=== PATIENT | male | born 1960 | race Caucasian/White ===

== ENCOUNTER 2016-12-06 12:25 | Inpatient (IN) | payer MEDICARE ==
[2016-12-06] MEDS ORDERED: ASPIRIN 81 MG CHEW PO STA (12:53)
[2016-12-06] MEDS ORDERED: SODIUM CHLORIDE 0.9% 500 ML IV STA (12:53)
--- NOTE | 2016-12-06 13:05 | ED ---
General Adult HPI - General Chief complaint: Extremity Injury, Lower Stated complaint: Knee problems Time Seen by Provider: 12/06/16 12:32 Source: patient, family, RN notes reviewed Mode of arrival: wheelchair Limitations: no limitations - History of Present Illness Initial comments: 56-year-old male presenting for transient lower extremity weakness. Patient states that he has had recurrent episodes of his "knees giving out." Patient states that this is been going on for the past few years and episodes occur every month or so. However over the past few months and seems like these episodes are happening every 2 weeks and more frequently over the past few weeks. He states he has a sensation like his "knees are going to give out" and then he feels generalized fatigue and weakness. States afterwards he has had some "cloudiness" in his thinking. He also states she's had some intermittent chest pains and shortness of breath over the past few weeks, most recently yesterday. He denies any active chest pain or shortness of breath. He denies any knee pain. Doesn't have history of hypertension, diabetes, hypercholesterolemia. He states he had a stress test a few years ago which was unremarkable. He states he was worked up at [facility] by a year ago for stroke which was unremarkable as well. He does admit to tobacco abuse. - Related Data Home Medications Medication Instructions Recorded Confirmed Aspirin 81 mg PO HS 07/11/14 12/06/16 Gabapentin [Neurontin] 300 mg PO TID 07/11/14 12/06/16 Losartan Potassium [Cozaar] 50 mg PO DAILY 07/11/14 12/06/16 Metoclopramide [Reglan] 10 mg PO BID 07/11/14 12/06/16 Metoprolol Succinate [Toprol XL] 25 mg PO HS 07/11/14 12/06/16 metFORMIN HCL [Glucophage] 850 mg PO TID 07/11/14 12/06/16 Atorvastatin [Lipitor] 40 mg PO HS 07/05/15 12/06/16 Glimepiride [Amaryl] 2 mg PO HS 01/28/16 12/06/16 LORazepam [Ativan] 1 mg PO HS 01/28/16 12/06/16 Mirtazapine 30 mg PO DAILY 01/28/16 12/06/16 buPROPion XL [Wellbutrin Xl] 300 mg PO DAILY 12/06/16 12/06/16 Allergies Allergy/AdvReac Type Severity Reaction Status Date / Time No Known Allergies Allergy Verified 12/06/16 13:02 Review of Systems ROS Statement: Those systems with pertinent positive or pertinent negative responses have been documented in the HPI. Constitutional: No fevers. No chills. No change in appetite. No unexpected weight loss. Eyes: No visual changes. No eye pain. No sensitivity to light. HENT: No sinus pressure. No ear pain. No hearing changes. No epistaxis. No sore throat. Respiratory: No cough. Positive SOB but not currently. No wheezing. Cardiovascular: Positive chest pain but not currently. No palpitations. No lower extremity edema. Abdomen: No abdominal pain. No nausea. No vomiting. No diarrhea. Genitourinary: No dysuria. No hematuria. No difficulty urinating. No flank pain. Musculoskeletal: No injury. No back pain. No myalgias. Skin: No rash. No lesions. No lacerations. Neuro: Positive generalized weakness. No gross strength deficits. No LOC. No seizures. No headache. Positive dizziness. Psych: No confusion. No memory changes. No anxiety/depression. ROS Other: All systems not noted in ROS Statement are negative. Past Medical History Past Medical History: Diabetes Mellitus, Hyperlipidemia, Hypertension Additional Past Medical History / Comment(s): back pain, neuropathy, brain aneursym History of Any Multi-Drug Resistant Organisms: None Reported Past Surgical History: Orthopedic Surgery Additional Past Surgical History / Comment(s): finger Past Psychological History: Anxiety, Depression Smoking Status: Current every day smoker Past Alcohol Use History: Daily Past Drug Use History: None Reported General Exam - General Exam Comments Initial Comments: General: Awake and Alert. No acute distress. Does not appear acutely ill. Obese. Eyes: MERLE, EOM intact. No nystagmus. No scleral icterus. HENT: Atraumatic, normocephalic. Mucous membranes moist. Trachea midline. Neck: The neck is supple, there is no tenderness or JVD. Cardiovascular: Regular rate and rhythm. No murmur, rub, or gallop is appreciated. Distal pulses intact, 2+ radial and DP bilaterally. Respiratory: Lungs are clear to auscultation bilaterally. No wheezes, rales, rhonchi. No respiratory distress. Gastrointestinal: Soft, Nontender. No rebound or guarding. Non-distended. No masses or organomegaly noted. No CVA tenderness. Musculoskeletal: No knee tenderness bilaterally with normal range of motion. No tenderness. Normal ROM. No gross deformity. No strength deficits. Neurological: A&Ox3. CN II-XII grossly intact, There are no obvious motor or sensory deficits. Coordination appears grossly intact. Speech is normal. Skin: Skin is warm and dry and no rashes or lesions are noted. Psychiatric: Cooperative, appropriate mood & affect, normal judgment. Limitations: no limitations Course Vital Signs 12/06/16 12/06/16 12/06/16 12:27 14:30 16:00 Temperature 98.0 F 98.3 F Pulse Rate 105 H 88 Respiratory 16 18 20 Rate Blood Pressure 144/66 138/72 O2 Sat by Pulse 95 94 L Oximetry EKG Findings - EKG Comments: EKG Findings:: EKG 13:01. Sinus rhythm. Rate 95. WV 138. QRS 84. QT/QTc 338 /424. Normal axis. No STEMI. Nonspecific EKG. Similar to prior EKG 2014. Medical Decision Making - Medical Decision Making 56-year-old male presenting for episodes of transient generalized weakness and possible near syncopal episodes. Patient does state that he has "cloudiness" after these events. Concern for possible atypical or partial seizures. He denies any headache or visual changes. He states today he had an event where he did lose tone and fell against the wall. He denies any significant fall or injury during the spell. He did not lose consciousness at that time. He does state that he has had some recent chest pains and shortness of breath as well. Per review he did have a stress test in July 2015 which was normal. The patient states he has had a CVA type workup in the past year which was unremarkable including MRI. Although I do not have access to these records as this was at [facility]. 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 Lab workup grossly unremarkable. Initial troponin was negative and setting of cardiac workup. Patient reevaluated, remained stable during his course in ED. Discussed concern for possible changes related to his known longoria aneurysm given his new neurological problems related to his gait and transient weakness. Discussed concern for possible seizure activity as well given his history of possible postictal state after these episodes occur. Recommend that he stay for admission for repeat MRA as well as neurological consultation. Patient and are agreeable with this plan. I called and discussed with Dr. Shay, covering for Dr. Eldridge. She is agreeable with plan of admission. Requests consultation to Dr. Mejia who has seen patient in the past. She agrees with plan for MRA. - Lab Data Result diagrams: 12/06/16 13:20 12/06/16 13:20 Lab Results 12/06/16 12/06/16 12/06/16 Range/Units 13:20 13:20 13:20 WBC 8.9 (3.8-10.6) k/uL RBC 5.38 (4.30-5.90) m/uL Hgb 16.4 (13.0-17.5) gm/dL Hct 49.5 (39.0-53.0) % MCV 92.1 (80.0-100.0) fL MCH 30.5 (25.0-35.0) pg MCHC 33.1 (31.0-37.0) g/dL RDW 13.2 (11.5-15.5) % Plt Count 236 (150-450) k/uL Neutrophils % (Manual) 53.0 % Lymphocytes % (Manual) 36.0 % Monocytes % (Manual) 7.0 % Eosinophils % (Manual) 4.0 % Neutrophils # (Manual) 4.7 (1.3-7.7) k/uL Lymphocytes # (Manual) 3.2 (1.0-4.8) k/uL Monocytes # (Manual) 0.6 (0-1.0) k/uL Eosinophils # (Manual) 0.4 (0-0.7) k/uL Nucleated RBCs 0 (0-0) /100 WBC Polychromasia Present Sodium 138 (137-145) mmol/L Potassium 4.7 (3.5-5.1) mmol/L Chloride 103 (98-107) mmol/L Carbon Dioxide 20 L (22-30) mmol/L Anion Gap 15 mmol/L BUN 13 (9-20) mg/dL Creatinine 0.70 (0.66-1.25) mg/dL Est GFR (MDRD) Af Amer >60 (>60 ml/min/1.73 sqM) Est GFR (MDRD) Non-Af >60 (>60 ml/min/1.73 sqM) Glucose 127 H (74-99) mg/dL Calcium 9.3 (8.4-10.2) mg/dL Magnesium 1.7 (1.6-2.3) mg/dL CK-MB (CK-2) 2.1 (0.0-2.4) ng/mL Troponin I <0.012 (0.000-0.034) ng/mL NT-Pro-B Natriuret Pep pg/mL Urine Color Urine Appearance (Clear) Urine pH (5.0-8.0) Ur Specific [place] (1.001-1.035) Urine Protein (Negative) Urine Glucose (UA) (Negative) Urine Ketones (Negative) Urine Blood (Negative) Urine Nitrate (Negative) Urine Bilirubin (Negative) Urine Urobilinogen (<2.0) mg/dL Ur Leukocyte Esterase (Negative) 12/06/16 12/06/16 Range/Units 13:20 14:45 WBC (3.8-10.6) k/uL RBC (4.30-5.90) m/uL Hgb (13.0-17.5) gm/dL Hct (39.0-53.0) % MCV (80.0-100.0) fL MCH (25.0-35.0) pg MCHC (31.0-37.0) g/dL RDW (11.5-15.5) % Plt Count (150-450) k/uL Neutrophils % (Manual) % Lymphocytes % (Manual) % Monocytes % (Manual) % Eosinophils % (Manual) % Neutrophils # (Manual) (1.3-7.7) k/uL Lymphocytes # (Manual) (1.0-4.8) k/uL Monocytes # (Manual) (0-1.0) k/uL Eosinophils # (Manual) (0-0.7) k/uL Nucleated RBCs (0-0) /100 WBC Polychromasia Sodium (137-145) mmol/L Potassium (3.5-5.1) mmol/L Chloride (98-107) mmol/L Carbon Dioxide (22-30) mmol/L Anion Gap mmol/L BUN (9-20) mg/dL Creatinine (0.66-1.25) mg/dL Est GFR (MDRD) Af Amer (>60 ml/min/1.73 sqM) Est GFR (MDRD) Non-Af (>60 ml/min/1.73 sqM) Glucose (74-99) mg/dL Calcium (8.4-10.2) mg/dL Magnesium (1.6-2.3) mg/dL CK-MB (CK-2) (0.0-2.4) ng/mL Troponin I (0.000-0.034) ng/mL NT-Pro-B Natriuret Pep 38 pg/mL Urine Color Light Yellow Urine Appearance Clear (Clear) Urine pH 5.5 (5.0-8.0) Ur Specific [place] 1.006 (1.001-1.035) Urine Protein Negative (Negative) Urine Glucose (UA) Negative (Negative) Urine Ketones Negative (Negative) Urine Blood Negative (Negative) Urine Nitrate Negative (Negative) Urine Bilirubin Negative (Negative) Urine Urobilinogen <2.0 (<2.0) mg/dL Ur Leukocyte Esterase Negative (Negative) - EKG Data EKG shows normal: sinus rhythm Rate: normal When compared to previous EKG there are: no significant change Interpretation: no acute changes - Radiology Data Radiology results: report reviewed, image reviewed Disposition Clinical Impression: Generalized weakness, Near syncope, Chest pain, Longoria aneurysm Disposition: ADMITTED IP TO THIS [facility] Condition: Stable Decision to Admit Reason: Admit from EC
[2016-12-06 13:45] LABS: Anion Gap 15 mmol/L; Blood Urea Nitrogen 13 mg/dL (9-20); Calcium 9.3 mg/dL (8.4-10.2); Carbon Dioxide 20 mmol/L (22-30); Chloride 103 mmol/L (98-107); Glucose 127 mg/dL (74-99); Magnesium 1.7 mg/dL (1.6-2.3); Non-African American GFR(MDRD) >60 (>60 ml/min/1.73 sqM); Potassium 4.7 mmol/L (3.5-5.1); Sodium 138 mmol/L (137-145)
--- NOTE | 2016-12-06 13:45 | XR ---
EXAMINATION TYPE: XR chest 2V DATE OF EXAM: 12/06/2016 1:37 PM COMPARISON: 07/05/2015 HISTORY: Shortness of breath TECHNIQUE: Frontal and lateral views of the chest are obtained. FINDINGS: Scattered senescent parenchymal changes noted. Hyperinflation compatible with COPD. No evidence for infiltrate. No evidence for atelectasis. Heart size is stable. Mediastinal structures are stable and grossly unremarkable. No evidence for hilar prominence. Degenerative changes dorsal spine. IMPRESSION: 1. No evidence for acute pulmonary disease.
[2016-12-06 13:47] LABS: Aty Lym Flag Slight; CHCM 33.9; HCT 49.5 % (39.0-53.0); HDW 2.67; HGB 16.4 gm/dL (13.0-17.5); MCH 30.5 pg (25.0-35.0); MCHC 33.1 g/dL (31.0-37.0); MCV 92.1 fL (80.0-100.0); Mean Platelet Volume 6.2; RBC 5.38 m/uL (4.30-5.90); RDW 13.2 % (11.5-15.5); WBC 8.9 k/uL (3.8-10.6); WBC (Perox) 9.07
[2016-12-06 13:59] LABS: Add Differential Manual Differential
[2016-12-06 14:00] LABS: Nucleated Red Blood Cells 0 /100 WBC (0-0); Total Cells Counted 100
[2016-12-06 14:01] LABS: Polychromasia Present
[2016-12-06 14:10] LABS: Creatine Kinase MB 2.1 ng/mL (0.0-2.4); Troponin I <0.012 ng/mL (0.000-0.034)
[2016-12-06 15:01] LABS: Appearance,Urine Clear (Clear); Bilirubin,Urine Negative (Negative); Glucose,Urine (UA) Negative (Negative); Ketones,Urine Negative (Negative); Leukocyte Esterase,Urine Negative (Negative); Nitrite,Urine Negative (Negative); PH, Urine 5.5 (5.0-8.0); Protein,Urine Negative (Negative); Specific Gravity,Urine 1.006 (1.001-1.035); UA Billing (MACRO vs. MICRO) CHEM; Urobilinogen,Urine <2.0 mg/dL (<2.0)
[2016-12-06] MEDS ORDERED: NALOXONE 0.4 MG/ML 1 ML VIAL IV PRN (15:26)
[2016-12-06] MEDS ORDERED: ACETAMINOPHEN TAB 325 MG TAB PO PRN (15:26)
[2016-12-06] MEDS ORDERED: ONDANSETRON 4 MG/2 ML VIAL IVP PRN (15:26)
[2016-12-06] MEDS: HEPARIN SODIUM,PORCINE 5,000 UNIT/ML 1 ML VIAL SQ SCH ×2 (16:03→23:49)
[2016-12-06] MEDS: LACTATED RINGERS 1,000 ML IV SCH (16:07)
[2016-12-06 17:34] VITALS: BMI 42.4
[2016-12-06 17:51] LABS: Glucose,Whole Blood 183 mg/dL (75-99)
--- NOTE | 2016-12-06 19:36 | CT ---
EXAMINATION TYPE: CT brain wo con DATE OF EXAM: 12/06/2016 7:31 PM COMPARISON: NONE HISTORY: Pt states of aneurysm. CT DLP: 997.6 mGycm Automated exposure control for dose reduction was used. FINDINGS: Ventricles and sulci appear normal. There is no mass effect or midline shift. There is no sign of int racranial hemorrhage. The calvarium is intact. There is mild mucosal thickening in the ethmoid sinus. IMPRESSION: Minimal ethmoid sinusitis. Otherwise negative exam.
[2016-12-06 20:55] LABS: Glucose,Whole Blood 190 mg/dL (75-99)
[2016-12-06] MEDS: ATORVASTATIN 40 MG TAB PO SCH (21:19)
[2016-12-06] MEDS: INSULIN LISPRO (humaLOG) 300 UNIT/3 ML VIAL SQ SCH (21:19)
[2016-12-06] MEDS: METOCLOPRAMIDE 10 MG TAB PO SCH (21:19)
[2016-12-06] MEDS: GABAPENTIN 300 MG CAP PO SCH (21:19)
[2016-12-06] MEDS: ASPIRIN 81 MG CHEW PO SCH (21:19)
[2016-12-06] MEDS: METOPROLOL SUCCINATE (ER) 25 MG TAB.ER.24H PO SCH (21:19)
[2016-12-07 06:00] LABS: Basophils # (A) 0.1 k/uL (0-0.2); Basophils % (A) 1 %; CHCM 33.4; Eosinophils # (A) 0.1 k/uL (0-0.7); Eosinophils % (A) 2 %; HCT 53.2 % (39.0-53.0); HDW 2.64; HGB 17.2 gm/dL (13.0-17.5); Luc # (Auto) 0.27; Luc % (Auto) 4; Lymphocytes # (A) 1.9 k/uL (1.0-4.8); Lymphocytes % (A) 30 %; MCH 30.2 pg (25.0-35.0); MCHC 32.4 g/dL (31.0-37.0); MCV 93.1 fL (80.0-100.0); Monocytes # (A) 0.5 k/uL (0-1.0); Monocytes % (A) 8 %; Neutrophils # (A) 3.4 k/uL (1.3-7.7); Neutrophils % (A) 55 %; RBC 5.71 m/uL (4.30-5.90); RDW 13.2 % (11.5-15.5); WBC 6.2 k/uL (3.8-10.6); WBC (Perox) 6.23
[2016-12-07 06:13] LABS: Anion Gap 12 mmol/L; Blood Urea Nitrogen 11 mg/dL (9-20); Calcium 9.4 mg/dL (8.4-10.2); Carbon Dioxide 26 mmol/L (22-30); Chloride 102 mmol/L (98-107); Glucose 230 mg/dL (74-99); Magnesium 1.9 mg/dL (1.6-2.3); Non-African American GFR(MDRD) >60 (>60 ml/min/1.73 sqM); Potassium 5.2 mmol/L (3.5-5.1); Sodium 140 mmol/L (137-145)
[2016-12-07 06:23] LABS: Glucose,Whole Blood 224 mg/dL (75-99)
[2016-12-07] MEDS: INSULIN LISPRO (humaLOG) 300 UNIT/3 ML VIAL SQ SCH ×4 (06:26→20:51)
[2016-12-07] MEDS: HEPARIN SODIUM,PORCINE 5,000 UNIT/ML 1 ML VIAL SQ SCH ×3 (08:34→23:13)
[2016-12-07] MEDS: GABAPENTIN 300 MG CAP PO SCH ×3 (08:34→20:03)
[2016-12-07] MEDS: METOCLOPRAMIDE 10 MG TAB PO SCH ×2 (08:34→20:03)
[2016-12-07] MEDS: LOSARTAN 50 MG TAB PO SCH (08:34)
[2016-12-07] MEDS: MIRTAZAPINE 15 MG TAB PO SCH (08:34)
[2016-12-07] MEDS: buPROPion XL 300 MG TAB.ER.24H PO SCH (08:34)
--- NOTE | 2016-12-07 11:45 | P.CNNES ---
History of Present Illness Consult date: 12/07/16 Reason for Consult: Patient with recurrent bilateral leg weakness and history of turner aneurysm History of Present Illness: This patient is a 56-year-old right-handed white male who was brought into the emergency room yesterday with symptoms of bilateral leg weakness. The patient apparently over the last 2 years has been having episodic weakness in his legs. Apparently yesterday he was at home helping his construct a fireplace when his legs gave out. He was standing at the living room and apparently both legs and knees buckled and he went down. He did not have any loss of consciousness. This has been occurring every 2-3 weeks according to the was at bedside. He does not complain of any pain in the back when these episodes are occurring. He does have history of degenerative arthritis of the lumbar spine. He denies any shooting pain into either legs when these episodes occur. He denies any loss of consciousness. He does describe some episodes of mild confusion but no loss of consciousness or seizure activity associated with these episodes. 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 He follows with the neuro specialist Dr. Mari who did a MRA last year and showed that the turner aneurysm has remained stable. He is to have repeat MRA done in 2 years. Patient denies any headaches associated with these recent episodes. He does have a history of diabetes mellitus. His most recent hemoglobin A1c was 8.4. He does have evidence of neuropathy in both lower extremities secondary to his diabetes. It is possible his weakness in the legs is secondary to diffuse diabetic neuropathy. We would recommend a physical therapy consultation for further assessment. Patient denies any history of seizures in the past. He does get lightheaded at times. He has not had his carotid Dopplers checked recently and we would recommend this to be done as well. Neurology is now been consulted for further evaluation and recommendations. Review of Systems Constitutional: Denies chills, Denies fever Eyes: denies blurred vision, denies pain Ears, nose, mouth and throat: Denies headache, Denies sore throat Cardiovascular: Denies chest pain, Denies shortness of breath Respiratory: Denies cough Gastrointestinal: Denies abdominal pain, Denies diarrhea, Denies nausea, Denies vomiting Musculoskeletal: Denies myalgias Integumentary: Denies pruritus, Denies rash Neurological: Reports balance difficulties, Reports confusion, Reports syncope, Denies numbness, Denies weakness Psychiatric: Denies anxiety, Denies depression Endocrine: Denies fatigue, Denies weight change Past Medical History Past Medical History: Diabetes Mellitus, Hyperlipidemia, Hypertension Additional Past Medical History / Comment(s): back pain, neuropathy, brain aneursym History of Any Multi-Drug Resistant Organisms: None Reported Past Surgical History: Orthopedic Surgery Additional Past Surgical History / Comment(s): finger Past Psychological History: Anxiety, Depression Smoking Status: Current every day smoker Past Alcohol Use History: Daily Past Drug Use History: None Reported Medications and Allergies Home Medications Medication Instructions Recorded Confirmed Type Aspirin 81 mg PO HS 07/11/14 12/06/16 History Gabapentin [Neurontin] 300 mg PO TID 07/11/14 12/06/16 History Losartan Potassium [Cozaar] 50 mg PO DAILY 07/11/14 12/06/16 History Metoclopramide [Reglan] 10 mg PO BID 07/11/14 12/06/16 History Metoprolol Succinate [Toprol XL] 25 mg PO HS 07/11/14 12/06/16 History metFORMIN HCL [Glucophage] 850 mg PO TID 07/11/14 12/06/16 History Atorvastatin [Lipitor] 40 mg PO HS 07/05/15 12/06/16 History Glimepiride [Amaryl] 2 mg PO HS 01/28/16 12/06/16 History LORazepam [Ativan] 1 mg PO HS 01/28/16 12/06/16 History Mirtazapine 30 mg PO DAILY 01/28/16 12/06/16 History buPROPion XL [Wellbutrin Xl] 300 mg PO DAILY 12/06/16 12/06/16 History Allergies Allergy/AdvReac Type Severity Reaction Status Date / Time No Known Allergies Allergy Verified 12/06/16 13:02 Physical Examination - Vital Signs Vital Signs: Vital Signs Temp Pulse Pulse Pulse Resp BP BP 12/07/16 08:00 97.5 F L 86 18 123/65 12/07/16 03:04 97.8 F 76 18 108/64 12/06/16 23:57 80 16 134/76 12/06/16 19:47 97.6 F 87 16 138/76 12/06/16 16:00 98.3 F 88 20 138/72 12/06/16 15:44 97.5 F L 98 18 158/80 Pulse Ox 12/07/16 08:00 93 L 12/07/16 03:04 93 L 12/06/16 23:57 95 12/06/16 19:47 96 12/06/16 16:00 94 L 12/06/16 15:44 94 L Intake and Output 12/06/16 12/07/16 12/07/16 22:59 06:59 14:59 Intake Total 540 300 240 Balance 540 300 240 Intake: Oral 540 300 240 Other: # Voids 1 1 1 # Bowel Movements 0 0 Weight 115.6 kg 112.4 kg - Constitutional General appearance: cooperative - EENT EENT: PERRL, mucous membranes moist - Respiratory Respiratory: lungs clear, normal breath sounds - Cardiovascular Cardiovascular: regular rate, normal S1, normal S2 Extremities: no peripheral edema bilaterally - Gastrointestinal Gastrointestinal: normoactive bowel sounds - Integumentary Integumentary: normal - Neurologic Cranial nerve examination: PERRL, EOMI, VFF, V1/V2/V3 grossly intact, tongue midline, intact gag reflex, intact corneal reflex, normal palatal elevation Speech examination: intact Sensorimotor examination: intact Detailed motor examination: grossly full strength in all extremities Detailed sensory examination: intact Reflex and gait examination: intact Reflexes: 1+: ankle, bicep, knee, tricep - Musculoskeletal Musculoskeletal: no pain - Psychiatric Psychiatric: mood/affect appropriate, cooperative Results - Laboratory Findings CBC and BMP: 12/07/16 05:29 12/07/16 05:29 Abnormal Lab Findings: Abnormal Labs 12/06/16 12/06/16 12/07/16 17:47 20:53 05:29 Hct 53.2 H Potassium Glucose POC Glucose (mg/dL) 183 H 190 H 12/07/16 12/07/16 05:29 06:21 Hct Potassium 5.2 H Glucose 230 H POC Glucose (mg/dL) 224 H Assessment and Plan (1) Near syncope Status: Acute Code(s): R55 - SYNCOPE AND COLLAPSE (2) Diabetic peripheral neuropathy Status: Acute Code(s): E11.42 - TYPE 2 DIABETES MELLITUS WITH DIABETIC POLYNEUROPATHY (3) Turner aneurysm Status: Acute Code(s): I67.1 - CEREBRAL ANEURYSM, NONRUPTURED (4) Generalized weakness Status: Acute Code(s): R53.1 - WEAKNESS Plan: This patient is a 56-year-old male who is been having recurrent episodes of bilateral leg weakness and near syncope type events at home. They've been occurring for the past 1 year every 2-3 weeks. He has no warning when these symptoms happen. He does not actually pass out. He states that his knees buckle and the legs give way and he collapses. We've recommended further evaluation for near syncope. He does have history of diabetic peripheral neuropathy which may also be contributing to bilateral leg weakness. Would recommend physical therapy consultation as well. Doubt that he is having seizures but we will further evaluate with a routine EEG. His overall prognosis at this time remains guarded. We will continue close neurological follow-up with the patient during this admission. He has a history of turner aneurysm which is being followed by his neuro-specialist every year. He underwent MRA last year and was requested to have a repeat MRA done only in 2 years time. His turner aneurysm in size has remained stable with no associated findings today on examination. He should follow-up with Dr. Mari who is monitoring the turner aneurysm for him. We will continue to recommend full neurological evaluation of near syncope for this patient during this admission. His overall prognosis at this time remains guarded. Time with Patient: Greater than 30
[2016-12-07 12:00] LABS: Glucose,Whole Blood 206 mg/dL (75-99)
--- NOTE | 2016-12-07 13:26 | US ---
EXAMINATION TYPE: US carotid duplex BILAT DATE OF EXAM: 12/07/2016 12:41 PM COMPARISON: NONE CLINICAL HISTORY: 56-year-old male with near syncope. Syncope with collapse TECHNIQUE: Carotid duplex ultrasound. Indirect Doppler criteria utilized. FINDINGS: TECHNOLOGIST NOTES: Difficult exam, large pt body habitus and pt coughing during exam [place] scale images show mild atelectatic change at both bifurcations. EXAM MEASUREMENTS: RIGHT: Peak Systolic Velocity (PSV) cm/sec ----- Right CCA: 54.0 ----- Right ICA: 112.5 ----- Right ECA: 65.8 ICA/CCA ratio: 2.1 RIGHT: End Diastole cm/sec ----- Right CCA: 13.9 ----- Right ICA: 42.6 ----- Right ECA: 7.6 LEFT: Peak Systolic Velocity (PSV) cm/sec ----- Left CCA: 58.4 ----- Left ICA: 93.1 ----- Left ECA: 76.8 ICA/CCA ratio: 1.6 LEFT: End Diastole cm/sec ----- Left CCA: 19.1 ----- Left ICA: 43.9 ----- Left ECA: 10.9 VERTEBRALS (direction of flow): Right Vertebral: Antegrade Left Vertebral: Antegrade IMPRESSION: No significant atherosclerotic narrowing identified. Some of the measurements on the right are slig htly elevated including the ICA/CCA ratio and ICA end-diastolic velocity. Peak systolic velocity is i n the normal range. There is no convincing hemodynamically significant ICA stenosis on either side. Criteria for Assigning % of Stenosis / Diameter reduction (Estimation based on the indirect measurements of the internal carotid artery velocities (ICA PSV). 1. Normal (no stenosis)=ICA PSV < 125 cm/s: ratio < 2.0: ICA EDV<40 cm/s. 2. Less than 50% stenosis=ICA PSV < 125 cm/s: ratio < 2.0: ICA EDV<40 cm/s. 3. 50 to 69% stenosis=ICA PSV of 125 to 230 cm/s: ration 2.0 ? 4.0: ICA EDV 40-100 cm/s. 4. Greater than 70% stenosis to near occlusion= ICA PSV > 230 cm/s: ratio > 4.0: ICA EDV > 100 cm/s. 5. Near occlusion= ICA PSV velocities may be low or undetectable: variable ratio and ICA EDV. 6. Total occlusion=unable to detect flow.
--- NOTE | 2016-12-07 15:02 | HP ---
DATE OF ADMISSION: Chief complaint is bilateral leg weakness and giving way. HISTORY OF PRESENT ILLNESS: Mr. Funk is a 56-year-old male with known history of diabetes type 2, [id number] with recent A1c of 8.3 and brain aneurysm on follow with Dr. Mari at [facility]. Came to the hospital with complaints of bilateral lower extremity weakness. Apparently, patient has been having this lower extremity weakness on and off for the past 2 years and recently the frequency has increased. He is getting this weaknesses about 2 to 3 weeks. Apparently patient was helping his constructing a fireplace and suddenly his legs gave way and patient leaned onto the floor. The patient otherwise denied any loss of consciousness. Patient does have degenerative joint disease, as well as diabetic peripheral neuropathy. Denied any pain in the legs and loss of consciousness. No recent illnesses. No sick contacts at home. Patient apparently had MRI done last year which was normal as per his neurologist and patient does have a history of brain aneurysm since 2012 and will follow with Dr. Mari on a regular basis. Currently, patient denied any complaints of leg weakness. Neurology has seen the patient and CT of the head did not find any acute process. Patient undergoing EEG and a carotid duplex for complete neurological work-up at this time. Otherwise, will also get a vitamin B12 level. REVIEW OF SYSTEMS: CONSTITUTIONAL: No fever. No chills. RESPIRATORY: No cough or sputum production. CARDIOVASCULAR: No chest pain. No short of breath. ABDOMEN: No nausea, vomiting, or abdominal pain. GENITOURINARY: Negative. ENDOCRINE: Negative. PSYCHIATRIC: Negative. SKIN: Negative. All other 14-point review of systems negative except as above. Past medical history includes history of ( ) diagnosed in 2013, diabetes mellitus, peripheral neuropathy diabetic and degenerative joint disease of multiple joints and hyperlipidemia, chronic back pain. PAST SURGICAL HISTORY; Orthopedic surgery, finger surgery. PSYCHOSOCIAL HISTORY: Anxiety and depression. SOCIAL HISTORY: Currently an everyday smoker; smokes on a daily basis. Occasional alcohol use, denied any drugs or IVDU. FAMILY HISTORY: Denied any history of hypertension, history of diabetes in the family, denied any premature heart disease in the family. Home medication include: 1. Aspirin. 2. Gabapentin. 3. Losartan. 4. Metoclopramide. 5. Metoprolol. 6. Metformin. 7. Atorvastatin. 8. Glimepiride. 9. Lorazepam. 10. Mirtazapine. 11. Wellbutrin XL. ALLERGIES: No known drug allergies. PHYSICAL EXAMINATION: A 56-year-old man lying in the bed. Awake, alert, oriented x3. Appears in no apparent distress, VITALS: Blood pressure is 158/80, pulse is 98, respiration 18. Temperature afebrile, pulse ox 94% on room air. HEENT: Atraumatic, normocephalic. Neck is supple. No JVD. CVS EXAM: S1, S2 heard. No murmurs, no gallop. LUNGS: Bilateral air entry is present. No wheezing, no crackles. Nonlabored breathing. Abdomen is soft, nontender. Bowel sounds present. DATA GOVERNANCE CONSULTANT: Awake, alert, oriented x3. No focal deficit. Cranial nerves are grossly intact. Sensory system is intact. EXTREMITIES: No edema. Pulses palpable bilaterally. No clubbing or cyanosis. PSYCHIATRIC: Cooperative. LABORATORY DATA: WBC is 6.2, hemoglobin is 17.2, platelets 248. Sodium 140, potassium 5.2, chloride 102, bicarb is 26. BUN 11, creatinine 0.73, magnesium 1.9, troponin negative. Calcium 9.4. Chest x-ray, no active cardiopulmonary process. EKG normal sinus rhythm. CT brain, minimal ethmoid sinusitis. Otherwise, negative exam. Carotid duplex, no significant atherosclerotic narrowing identified. There is no convincing hemodynamically significant ICA stenosis on either side. IMPRESSION: 1. Near syncope. Patient says that his legs give way, possible peripheral neuropathy, diabetic as well as ( ) is being considered and also rule out acute cerebrovascular accident at this time. 2. Bilateral lower extremity weakness, resolved now. 3. History of brain aneurysm, on regular followup with neurologist as an outpatient. 4. Diabetes mellitus, uncontrolled type 2, hemoglobin A1c is 8.3. 5. Degenerative joint disease of multiple joints. 6. Chronic back pain. 7. Diabetic peripheral neuropathy. 8. Hypertension. 9. Hyperlipidemia. 10. Anxiety and depression. DISCUSSION AND PLAN: Patient will be continued on aspirin, will ( ) and EEG was ordered as well. Will continue the home medications and continue to follow closely. Neurology on board. Further recommendations based on the clinical course.
[2016-12-07 16:49] LABS: Glucose,Whole Blood 176 mg/dL (75-99)
[2016-12-07] MEDS: LACTATED RINGERS 1,000 ML IV SCH (16:56)
[2016-12-07] MEDS: ATORVASTATIN 40 MG TAB PO SCH (20:03)
[2016-12-07] MEDS: ASPIRIN 81 MG CHEW PO SCH (20:03)
[2016-12-07 20:42] LABS: Glucose,Whole Blood 241 mg/dL (75-99)
[2016-12-07] MEDS: METOPROLOL SUCCINATE (ER) 25 MG TAB.ER.24H PO SCH (20:51)
[2016-12-08 05:59] LABS: Glucose,Whole Blood 208 mg/dL (75-99)
[2016-12-08 06:16] LABS: Anion Gap 11 mmol/L; Blood Urea Nitrogen 13 mg/dL (9-20); Calcium 9.6 mg/dL (8.4-10.2); Carbon Dioxide 28 mmol/L (22-30); Chloride 100 mmol/L (98-107); Glucose 210 mg/dL (74-99); Non-African American GFR(MDRD) >60 (>60 ml/min/1.73 sqM); Sodium 139 mmol/L (137-145)
[2016-12-08] MEDS: INSULIN LISPRO (humaLOG) 300 UNIT/3 ML VIAL SQ SCH ×4 (06:24→22:10)
[2016-12-08 06:26] LABS: Basophils # (A) 0.1 k/uL (0-0.2); Basophils % (A) 1 %; CH 31.3; CHCM 33.7; Eosinophils # (A) 0.1 k/uL (0-0.7); Eosinophils % (A) 2 %; HCT 50.5 % (39.0-53.0); HDW 2.63; HGB 16.7 gm/dL (13.0-17.5); Luc # (Auto) 0.23; Luc % (Auto) 3; Lymphocytes # (A) 2.1 k/uL (1.0-4.8); Lymphocytes % (A) 29 %; MCH 30.9 pg (25.0-35.0); MCV 93.5 fL (80.0-100.0); Mean Platelet Volume 6.8; Monocytes # (A) 0.7 k/uL (0-1.0); Monocytes % (A) 10 %; Neutrophils # (A) 4.2 k/uL (1.3-7.7); Neutrophils % (A) 56 %; RDW 13.3 % (11.5-15.5); WBC 7.5 k/uL (3.8-10.6); WBC (Perox) 7.32
[2016-12-08 07:04] LABS: Vitamin B12 341 pg/mL (239-931)
[2016-12-08] MEDS: MIRTAZAPINE 15 MG TAB PO SCH (08:22)
[2016-12-08] MEDS: METOCLOPRAMIDE 10 MG TAB PO SCH ×2 (08:23→20:09)
[2016-12-08] MEDS: HEPARIN SODIUM,PORCINE 5,000 UNIT/ML 1 ML VIAL SQ SCH ×3 (08:23→23:42)
[2016-12-08] MEDS: buPROPion XL 300 MG TAB.ER.24H PO SCH (08:23)
[2016-12-08] MEDS: LOSARTAN 50 MG TAB PO SCH (08:23)
[2016-12-08] MEDS: GABAPENTIN 300 MG CAP PO SCH ×3 (08:23→22:11)
[2016-12-08 11:41] LABS: Glucose,Whole Blood 185 mg/dL (75-99)
--- NOTE | 2016-12-08 11:46 | MR ---
EXAMINATION TYPE: MR angio head wo con DATE OF EXAM: 12/08/2016 10:36 AM COMPARISON: 06/10/2016 HISTORY: Longoria aneurysm [place] TECHNIQUE: Utilizing 3-D [id number] intracranial MRA of the [place] was performed. FINDINGS: There is arterial flow demonstrated in the anterior middle and posterior cerebral arteries. There is no definite patency of the right posterior communicating artery. There is a small left posterior comm unicating artery. There is a 3.5 mm saccular type aneurysm of the medial aspect of the anterior supraclinoid left inter nal card artery. This is stable from multiple previous exams. There is no evidence of neovascularity. The vertebral arteries are symmetric. There is no mass effect . IMPRESSION: 1. 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
[2016-12-08 13:25] LABS: Hemoglobin A1C 8.4 % (4.2-6.1)
--- NOTE | 2016-12-08 13:43 | P.PN ---
Subjective Principal diagnosis: Bilateral leg weakness Patient is a 56-year-old male with medical history significant for diabetes mellitus type 2, hypertension, hyperlipidemia, nicotine dependence, COPD, EtOH abuse, longoria brain aneurysm diagnosed in [address] Mari at [facility], degenerative arthritis of lumbar spine, and diabetic peripheral neuropathy. Patient presented to the emergency department with complaints of transient lower extremity weakness with recurrent episodes of his knees giving out going on for the past few years but more frequently over the last couple weeks associated with generalized weakness and mild confusion without loss of consciousness. Patient was admitted to the medical floor with neurology consult. MRI of the brain with evidence of a 3.5 mm bearing aneurysm of the left internal carotid artery unchanged in size compared to previous exam of 2013. Ultrasound of carotid duplex bilaterally without significant ICA stenosis on either side. Upon evaluation, patient denies complaints of leg weakness. Patient has been up ambulating without difficulty. Afebrile hemodynamically stable. No significant abnormalities noted on CBC or BMP. Vitamin B12 within normal limits. Objective - Vital Signs Vital signs: Vital Signs Temp 96 F L 12/08/16 08:00 Pulse 79 12/08/16 08:00 Resp 16 12/08/16 08:00 BP 125/63 12/08/16 08:00 Pulse Ox 91 L 12/08/16 08:00 Intake & Output 12/07/16 12/08/16 12/08/16 18:59 06:59 18:59 Intake Total 480 300 480 Output Total 425 Balance 480 -125 480 Weight 110.6 kg Intake: Oral 480 300 480 Output: Urine 425 Other: Voiding Method Toilet # Voids 1 1 # Bowel Movements 0 - Exam GENERAL: Pt awake and alert, well-appearing, well-nourished, and in no acute distress. HEAD: Atraumatic, normocephalic. EYES: Pupils equal and round. ENT: Moist mucous membranes. NECK:Supple without lymphadenopathy or JVD. LUNGS: Breath sounds clear to auscultation bilaterally. No wheezes, rales, or rhonchi. HEART: Heart S1, S2, no S3 or S4. No murmurs, rubs or gallops. ABDOMEN: Soft, morbidly obese, nontender, nondistended, normoactive bowel sounds. EXTREMITIES: Palpable pulses bilaterally. No edema. No calf tenderness. NEUROLOGICAL: Pt oriented x 3. No focal deficits. Strength and sensation grossly intact. PSYCH: Normal mood, normal affect. SKIN: Warm, dry, intact. - Labs CBC & Chem 7: 12/08/16 05:23 12/08/16 05:23 Labs: Abnormal Lab Results - Last 24 Hours (Table) 12/07/16 12/07/16 12/08/16 Range/Units 16:47 20:41 05:23 Glucose 210 H (74-99) mg/dL POC Glucose (mg/dL) 176 H 241 H (75-99) mg/dL 12/08/16 12/08/16 Range/Units 05:57 11:19 Glucose (74-99) mg/dL POC Glucose (mg/dL) 208 H 185 H (75-99) mg/dL Assessment and Plan Plan: Impression: 1. Near syncope. 2. Bilateral lower extremity weakness, resolved. 3. History longoria brain aneurysm diagnosed in 2012, stable in size per MRI of brain performed 12/08/2016. 4. Diabetes mellitus, type II, uncontrolled. Hemoglobin A1c 8.3. 5. Degenerative joint disease in multiple joints. 6. Chronic back pain. 7. Diabetic peripheral neuropathy. 8. Hypertension. 9. Hyperlipidemia. 10. Depression, stable. 11. History of EtOH abuse. 12. Nicotine dependence. 13. COPD. Plan: 1. Continue to monitor patient. Continue cardiac monitoring. Continue current medications. Await physical therapy evaluation. EEG results pending. Awaiting neurology recommendations. Anticipate discharge in possible next 24 hours. The above impression and plan have been discussed and directed by Dr. Eldridge. Toyin CISSE acting as scribe for Dr. Eldridge.
[2016-12-08] MEDS: LACTATED RINGERS 1,000 ML IV SCH (16:31)
[2016-12-08 16:38] LABS: Glucose,Whole Blood 162 mg/dL (75-99)
--- NOTE | 2016-12-08 19:26 | P.PN ---
Subjective This patient is a 56-year-old male admitted for bilateral leg weakness. Patient has underlying history of peripheral neuropathy secondary to diabetes. He underwent MRI of the brain today for further evaluation of known history of turner aneurysm. MRI reveals a stable finding of a 3.5 mm turner aneurysm. There is no significant change from previous study done in 2013. The Turner aneurysm is located at the left internal carotid artery location. He is following closely with the neurosurgeon Dr. Mari who is monitoring his condition closely for the aneurysm. Patient has been up and ambulating today in the room as well as in the hallway. He is had no further recurrence of leg weakness. We reviewed the results of the MRI of the brain today with the patient in detail. He underwent routine EEG which will also be reviewed. Patient should be able to be discharged home tomorrow and can follow-up in the outpatient neurology clinic in 2-3 weeks. We will review the EEG today prior to his discharge tomorrow. Overall he seems to be making good progress and more likely has a diffuse neuropathy contributing to his leg weakness. Case was discussed at length with the patient and his at bedside today. All their questions were answered. Objective - Vital Signs Vital signs: Vital Signs Temp 96 F L 12/08/16 08:00 Pulse 76 12/08/16 16:00 Resp 16 12/08/16 16:00 BP 111/75 12/08/16 16:00 Pulse Ox 91 L 12/08/16 16:00 Intake & Output 12/07/16 12/08/16 12/08/16 18:59 06:59 18:59 Intake Total 480 300 880 Output Total 425 Balance 480 -125 880 Weight 110.6 kg Intake: Intake, IV Titration 160 Amount Lactated Ringers 1,000 ml 160 @ 20 mls/hr IV .Q24H ELPIDIO Rx#:[id number] Oral 480 300 720 Output: Urine 425 Other: Voiding Method Toilet # Voids 1 1 3 # Bowel Movements 0 - Exam Physical examination: PHYSICAL EXAMINATION: Patient is resting comfortably in bed. VITAL SIGNS: Blood pressure is [111/75]. Heart rate is [76]. Respiration is [16] . Temperature is [96.0]. HEENT: Head is atraumatic, neck is supple, there were no carotid bruits. CHEST: Lungs are clear to auscultation and percussion. CARDIAC: S1, S2 normal rate and rhythm. There is no murmur. ABDOMEN: Soft and nontender. Bowel sounds are present. EXTREMITIES: There is no pedal edema. Peripheral pulses are present. Neurological examination: Patient has a nonfocal neurological examination. - Labs CBC & Chem 7: 12/08/16 05:23 12/08/16 05:23 Labs: Abnormal Lab Results - Last 24 Hours (Table) 12/07/16 12/08/16 12/08/16 Range/Units 20:41 05:23 05:23 Glucose 210 H (74-99) mg/dL POC Glucose (mg/dL) 241 H (75-99) mg/dL Hemoglobin A1c 8.4 H (4.2-6.1) % 12/08/16 12/08/16 12/08/16 Range/Units 05:57 11:19 16:32 Glucose (74-99) mg/dL POC Glucose (mg/dL) 208 H 185 H 162 H (75-99) mg/dL Hemoglobin A1c (4.2-6.1) % Assessment and Plan (1) Near syncope Status: Acute Code(s): R55 - SYNCOPE AND COLLAPSE (2) Diabetic peripheral neuropathy Status: Acute Code(s): E11.42 - TYPE 2 DIABETES MELLITUS WITH DIABETIC POLYNEUROPATHY (3) Turner aneurysm Status: Acute Code(s): I67.1 - CEREBRAL ANEURYSM, NONRUPTURED (4) Generalized weakness Status: Acute Code(s): R53.1 - WEAKNESS Plan: This patient is a 56-year-old male who is been having recurrent episodes of bilateral leg weakness and near syncope type events at home. They've been occurring for the past 1 year every 2-3 weeks. He has no warning when these symptoms happen. He does not actually pass out. He states that his knees buckle and the legs give way and he collapses. We've recommended further evaluation for near syncope. He does have history of diabetic peripheral neuropathy which may also be contributing to bilateral leg weakness. Would recommend physical therapy consultation as well. Doubt that he is having seizures but we will further evaluate with a routine EEG. His overall prognosis at this time remains guarded. We will continue close neurological follow-up with the patient during this admission. He has a history of turner aneurysm which is being followed by his neuro-specialist every year. He underwent MRA last year and was requested to have a repeat MRA done only in 2 years time. His turner aneurysm in size has remained stable with no associated findings today on examination. Patient underwent MRI today which reveals a stable 3.5 mm turner aneurysm involving the left internal carotid artery. He will follow-up with his specialist for further management. There is been no change in the size of this aneurysm. Patient has been up and ambulating today in the room with no further episodes of leg weakness. This more likely is related to his peripheral neuropathy producing his unsteadiness and weakness in the legs. He should follow-up with Dr. Mari who is monitoring the turner aneurysm for him. We will continue to recommend full neurological evaluation of near syncope for this patient during this admission. Patient underwent routine EEG today which will be reviewed. His overall prognosis at this time remains guarded.
[2016-12-08] MEDS: ASPIRIN 81 MG CHEW PO SCH (20:08)
[2016-12-08] MEDS: ATORVASTATIN 40 MG TAB PO SCH (20:08)
[2016-12-08] MEDS: METOPROLOL SUCCINATE (ER) 25 MG TAB.ER.24H PO SCH (20:09)
[2016-12-08 20:50] LABS: Glucose,Whole Blood 229 mg/dL (75-99)
[2016-12-09 02:24] LABS: Glucose,Whole Blood 195 mg/dL (75-99)
[2016-12-09 05:59] LABS: Glucose,Whole Blood 199 mg/dL (75-99)
[2016-12-09] MEDS: INSULIN LISPRO (humaLOG) 300 UNIT/3 ML VIAL SQ SCH (06:30)
[2016-12-09] MEDS: HEPARIN SODIUM,PORCINE 5,000 UNIT/ML 1 ML VIAL SQ SCH (08:58)
[2016-12-09] MEDS: buPROPion XL 300 MG TAB.ER.24H PO SCH (08:58)
[2016-12-09] MEDS: GABAPENTIN 300 MG CAP PO SCH (08:58)
[2016-12-09] MEDS: MIRTAZAPINE 15 MG TAB PO SCH (08:59)
[2016-12-09] MEDS: LOSARTAN 50 MG TAB PO SCH (08:59)
[2016-12-09] MEDS: METOCLOPRAMIDE 10 MG TAB PO SCH (08:59)
--- NOTE | 2016-12-09 10:22 | EEG ---
DATE OF SERVICE: 12/08/2016 INDICATIONS FOR EXAMINATION: This patient is a 56-year-old male being evaluated for bilateral leg weakness and multiple falls. EEG to rule out seizure disorder. AGE: 56Y EEG FINDINGS: A routine 21-channel, awake digital EEG recording was accomplished utilizing the 10 -20 international system with bipolar and referential montages. The background activity in the most alert resting state consists of a low to medium amplitude, fairly well-developed and well-sustained 6 - 7 Hz activity over the posterior head regions. This posterior rhythm attenuates to eye opening. There is a small amount of low amplitude 18 - 20 Hz beta activity seen maximally over the anterior head regions. Muscle and movement artifact was observed on a few occasions during the tracing. Hyperventilation was not performed. Photic stimulation at flash frequencies of 2 - 30 Hz produced a minimal occipital driving response. No epileptiform discharges were seen. IMPRESSION: This EEG is mildly abnormal in diffuse fashion due to slight slowing of the EEG background. The EEG failed to reveal any focal, lateralized or epileptiform abnormalities. Clinical correlation is recommended.
--- NOTE | 2016-12-09 11:03 | P.DS ---
Providers Date of admission: 12/06/16 15:26 Expected date of discharge: 12/09/16 Attending physician: Robert Eldridge Consults: Neurology service, Dr. Hope Primary care physician: Robert Eldridge [facility] Course: Patient is a 56-year-old male with medical history significant for diabetes mellitus type 2, hypertension, hyperlipidemia, nicotine dependence, COPD, EtOH abuse, longoria brain aneurysm diagnosed in [address] Mrai at [facility], degenerative arthritis of lumbar spine, and diabetic peripheral neuropathy. Patient presented to the emergency department with complaints of transient lower extremity weakness with recurrent episodes of his knees giving out going on for the past few years but more frequently over the last couple weeks associated with generalized weakness and mild confusion without loss of consciousness. Patient was admitted to the medical floor with neurology consult. 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 Ultrasound of carotid duplex bilaterally without significant ICA stenosis on either side. EEG without evidence of any focal, lateralized or epileptiform abnormalities. Patient was evaluated by physical therapy with no evidence of lower extremity weakness. From a neurological standpoint, patient was felt stable for discharge to home with follow-up in 2-3 weeks. Patient will continue to follow-up with Dr. Mari for his longoria aneurysm in the outpatient setting. Patient will follow-up with Dr. Eldridge in in 2-3 days. Discharge diagnoses: Impression: 1. Near syncope. 2. Transient bilateral lower extremity weakness suspect secondary to peripheral neuropathy. 3. History of longoria brain aneurysm diagnosed in 2012, stable in size per MRA of brain performed 12/08/2016. 4. Diabetes mellitus, type II, uncontrolled. Hemoglobin A1c 8.3. 5. Degenerative joint disease in multiple joints. 6. Chronic back pain. 7. Diabetic peripheral neuropathy. 8. Hypertension. 9. Hyperlipidemia. 10. Depression, stable. 11. History of EtOH abuse. 12. Nicotine dependence. 13. COPD. The above impression and plan have been discussed and directed by Dr. Eldridge. Toyin CISSE acting as scribe for Dr. Eldridge. Pertinent Studies: EKG; chest x-ray; brain CT; carotid Doppler study; EEG; head MRA Patient Condition at Discharge: Good Plan - Discharge Summary Discharge Medication List Aspirin 81 mg PO HS 07/11/14 [History] Gabapentin [Neurontin] 300 mg PO TID 07/11/14 [History] Losartan Potassium [Cozaar] 50 mg PO DAILY 07/11/14 [History] Metoclopramide [Reglan] 10 mg PO BID 07/11/14 [History] Metoprolol Succinate [Toprol XL] 25 mg PO HS 07/11/14 [History] metFORMIN HCL [Glucophage] 850 mg PO TID 07/11/14 [History] Atorvastatin [Lipitor] 40 mg PO HS 07/05/15 [History] Glimepiride [Amaryl] 2 mg PO HS 01/28/16 [History] LORazepam [Ativan] 1 mg PO HS 01/28/16 [History] Mirtazapine 30 mg PO DAILY 01/28/16 [History] buPROPion XL [Wellbutrin XL] 300 mg PO DAILY 12/06/16 [History] Follow up Appointment(s)/Referral(s): Sebastien Hope MD [STAFF PHYSICIAN] - 2 Weeks Robert Eldridge DO [Primary Care Provider] - 12/11/16 9:40 am Patient Instructions/Handouts: Syncope (DC) Discharge Disposition: HOME SELF-CARE
[2016-12-09 11:24] VITALS: BP 126/79; PULSE 76; RESP 15; TEMP 97.1
--- NOTE | 2016-12-09 20:10 | P.PN ---
Subjective This patient is a 56-year-old male admitted for bilateral leg weakness. Patient has underlying history of peripheral neuropathy secondary to diabetes. He underwent MRI of the brain today for further evaluation of known history of turner aneurysm. MRI reveals a stable finding of a 3.5 mm turner aneurysm. There is no significant change from previous study done in 2013. The Turner aneurysm is located at the left internal carotid artery location. He is following closely with the neurosurgeon Dr. Mari who is monitoring his condition closely for the aneurysm. Patient has been up and ambulating today in the room as well as in the hallway. He is had no further recurrence of leg weakness. We reviewed the results of the MRI of the brain today with the patient in detail. He underwent routine EEG which will also be reviewed. Patient should be able to be discharged home tomorrow and can follow-up in the outpatient neurology clinic in 2-3 weeks. We will review the EEG today prior to his discharge tomorrow. Overall he seems to be making good progress and more likely has a diffuse neuropathy contributing to his leg weakness. Case was discussed at length with the patient and his at bedside today. Patient will be discharged home later today. He should follow-up in the outpatient neurology clinic as recommended. He should follow-up with Dr. Mari as scheduled. All their questions were answered and they are comfortable on discharge planning. As noted patient should schedule follow-up in the outpatient neurology clinic in 2-3 weeks. Objective - Vital Signs Vital signs: Vital Signs Temp 97.1 F L 12/09/16 11:22 Pulse 76 12/09/16 11:22 Resp 15 12/09/16 11:22 BP 126/79 12/09/16 11:22 Pulse Ox 94 L 12/09/16 11:22 Intake & Output 12/09/16 12/09/16 12/10/16 06:59 18:59 06:59 Intake Total 240 Output Total 425 Balance -425 240 Weight 109.6 kg Intake: Oral 240 Output: Urine 425 Other: Voiding Method Toilet Toilet # Voids 1 - Exam Physical examination: PHYSICAL EXAMINATION: Patient is resting comfortably in bed. VITAL SIGNS: Blood pressure is [126/79]. Heart rate is [76]. Respiration is [15] . Temperature is [97.1]. HEENT: Head is atraumatic, neck is supple, there were no carotid bruits. CHEST: Lungs are clear to auscultation and percussion. CARDIAC: S1, S2 normal rate and rhythm. There is no murmur. ABDOMEN: Soft and nontender. Bowel sounds are present. EXTREMITIES: There is no pedal edema. Peripheral pulses are present. Neurological examination: Patient has a nonfocal neurological examination. - Labs CBC & Chem 7: 12/08/16 05:23 12/08/16 05:23 Labs: Abnormal Lab Results - Last 24 Hours (Table) 12/08/16 12/09/16 12/09/16 Range/Units 20:46 02:12 05:57 POC Glucose (mg/dL) 229 H 195 H 199 H (75-99) mg/dL Assessment and Plan (1) Near syncope Status: Acute Code(s): R55 - SYNCOPE AND COLLAPSE (2) Diabetic peripheral neuropathy Status: Acute Code(s): E11.42 - TYPE 2 DIABETES MELLITUS WITH DIABETIC POLYNEUROPATHY (3) Turner aneurysm Status: Acute Code(s): I67.1 - CEREBRAL ANEURYSM, NONRUPTURED (4) Generalized weakness Status: Acute Code(s): R53.1 - WEAKNESS Plan: This patient is a 56-year-old male who is been having recurrent episodes of bilateral leg weakness and near syncope type events at home. They've been occurring for the past 1 year every 2-3 weeks. He has no warning when these symptoms happen. He does not actually pass out. He states that his knees buckle and the legs give way and he collapses. We've recommended further evaluation for near syncope. He does have history of diabetic peripheral neuropathy which may also be contributing to bilateral leg weakness. Would recommend physical therapy consultation as well. Doubt that he is having seizures but we will further evaluate with a routine EEG. His overall prognosis at this time remains guarded. We will continue close neurological follow-up with the patient during this admission. He has a history of turner aneurysm which is being followed by his neuro-specialist every year. He underwent MRA last year and was requested to have a repeat MRA done only in 2 years time. His turner aneurysm in size has remained stable with no associated findings today on examination. Patient underwent MRI today which reveals a stable 3.5 mm turner aneurysm involving the left internal carotid artery. He will follow-up with his specialist for further management. There is been no change in the size of this aneurysm. Patient has been up and ambulating today in the room with no further episodes of leg weakness. This more likely is related to his peripheral neuropathy producing his unsteadiness and weakness in the legs. He should follow-up with Dr. Mari who is monitoring the turner aneurysm for him. We will continue to recommend full neurological evaluation of near syncope for this patient during this admission. Patient underwent routine EEG today which was reviewed and is normal for his age. There is no evidence of any epileptiform discharges. Patient may schedule follow-up in the outpatient neurology clinic in 2-3 weeks. His overall prognosis at this time remains guarded. Patient is to be discharged home later today.
== END 2016-12-09 11:45 | disposition home or self-care (01) | DRG 312 ==
LOC: EC 12:25 → 6SEL 15:26
PROVIDERS: ADMIT Family Medicine; ATTEND Family Medicine
DX: R55 Syncope and collapse (principal); I67.1 Cerebral aneurysm, nonruptured; E11.42 Type 2 diabetes mellitus with diabetic polyneuropathy; E11.65 Type 2 diabetes mellitus with hyperglycemia; I10 Essential (primary) hypertension; E78.5 Hyperlipidemia, unspecified; F17.200 Nicotine dependence, unspecified, uncomplicated; F32.9 Major depressive disorder, single episode, unspecified; F41.9 Anxiety disorder, unspecified; G89.29 Other chronic pain; J44.9 Chronic obstructive pulmonary disease, unspecified; M15.9 Polyosteoarthritis, unspecified; M46.96 Unspecified inflammatory spondylopathy, lumbar region; M54.9 Dorsalgia, unspecified; R07.9 Chest pain, unspecified; E66.01 Morbid (severe) obesity due to excess calories; Z79.899 Other long term (current) drug therapy; Z68.41 Body mass index [BMI] 40.0-44.9, adult; Z79.84 Long term (current) use of oral hypoglycemic drugs; Z79.4 Long term (current) use of insulin
CPT/HCPCS: 36415; 70450; 70544; 71020; 80048; 81003; 82553; 82607; 83036; 83735; 83880; 84484; 85025; 93005; 93880; 95819; 96372; 99284

== ENCOUNTER → 2017-10-22 | Outpatient (CLI) | payer MEDICARE ==
[2017-10-22 07:12] LABS: ALT 60 U/L (21-72); AST 26 U/L (17-59); Cholesterol 139 mg/dL (<200); HDL Cholesterol 28 mg/dL (40-60)
== END | disposition home or self-care (01) ==
LOC: LABWHC1 06:35
PROVIDERS: ATTEND Internal Medicine Interventional Cardiology
DX: E78.2 Mixed hyperlipidemia (principal)
CPT/HCPCS: 36415; 80061; 84450; 84460

== ENCOUNTER 2017-11-03 10:39 | Emergency (ER) | payer MEDICARE ==
[2017-11-03] MEDS ORDERED: SODIUM CHLORIDE 0.9% 1,000 ML IV STA (10:45)
--- NOTE | 2017-11-03 10:50 | ED ---
URI HPI - General Chief Complaint: Upper Respiratory Infection Stated Complaint: low saturation Time Seen by Provider: 11/03/17 10:39 Source: patient, RN/MD (I did review the records were faxed from [employer]. My exam the patient did report fever of 90 and 100 but no chills he also denied any nausea.), EMS, RN notes reviewed Mode of arrival: EMS - History of Present Illness Initial Comments: This is a 57-year-old male who has a history of COPD and still continues to smoke who had the onset 3 days ago of what he thought was a head cold and some congestion sore throat started developing cough and shortness of breath. He was seen [facility] and found to have low pulse ox and difficulty breathing. He has been trying to treat himself at home with his home medication. The patient has had low-grade fever no overt chills or sweats. No overt chest pain no nausea vomiting diarrhea or other symptoms. MD Complaint: cough, sore throat, other - Related Data Home Medications Medication Instructions Recorded Confirmed Aspirin 81 mg PO HS 07/11/14 11/03/17 Gabapentin [Neurontin] 300 mg PO TID 07/11/14 11/03/17 Losartan Potassium [Cozaar] 50 mg PO DAILY 07/11/14 11/03/17 Metoclopramide [Reglan] 10 mg PO BID 07/11/14 11/03/17 Metoprolol Succinate [Toprol XL] 25 mg PO HS 07/11/14 11/03/17 metFORMIN HCL [Glucophage] 850 mg PO TID 07/11/14 11/03/17 Atorvastatin [Lipitor] 40 mg PO HS 07/05/15 11/03/17 Glimepiride [Amaryl] 2 mg PO HS 01/28/16 11/03/17 LORazepam [Ativan] 1 mg PO HS 01/28/16 11/03/17 Mirtazapine 30 mg PO HS 01/28/16 11/03/17 buPROPion XL [Wellbutrin XL] 300 mg PO DAILY 12/06/16 11/03/17 traZODone HCL 50 mg PO HS 11/03/17 11/03/17 Previous Rx's Medication Instructions Recorded Oseltamivir [Tamiflu] 75 mg PO Q12HR #10 cap 11/03/17 predniSONE 20 mg PO BID #10 tab 11/03/17 Allergies Allergy/AdvReac Type Severity Reaction Status Date / Time No Known Allergies Allergy Verified 11/03/17 12:18 Review of Systems ROS Statement: Those systems with pertinent positive or pertinent negative responses have been documented in the HPI. ROS Other: All systems not noted in ROS Statement are negative. Past Medical History Past Medical History: COPD, Diabetes Mellitus, Hyperlipidemia, Hypertension Additional Past Medical History / Comment(s): back pain, neuropathy, brain aneursym History of Any Multi-Drug Resistant Organisms: None Reported Past Surgical History: Orthopedic Surgery Additional Past Surgical History / Comment(s): finger Past Psychological History: Anxiety, Depression Smoking Status: Current every day smoker Past Alcohol Use History: Occasional Past Drug Use History: None Reported General Exam - General Exam Comments Initial Comments: This a well-developed well-nourished awake alert oriented times 3 male General appearance: alert, anxious Head exam: Present: atraumatic, normocephalic, normal inspection Eye exam: Present: normal appearance, PERRL, EOMI. Absent: scleral icterus, conjunctival injection, periorbital swelling ENT exam: Present: mucous membranes dry, other (Marked hyperemia to the posterior pharynx and soft palate area. No definite exudate seen) Neck exam: Present: normal inspection, full ROM. Absent: tenderness, meningismus, lymphadenopathy Respiratory exam: Present: wheezes (Occasional wheeze), decreased breath sounds Cardiovascular Exam: Present: regular rate, normal rhythm, normal heart sounds. Absent: systolic murmur, diastolic murmur, rubs, gallop, clicks GI/Abdominal exam: Present: soft, normal bowel sounds. Absent: distended, tenderness, guarding, rebound, rigid Extremities exam: Present: normal inspection, full ROM, normal capillary refill. Absent: tenderness, pedal edema, joint swelling, calf tenderness Back exam: Present: normal inspection Neurological exam: Present: alert, oriented X3, CN II-XII intact Psychiatric exam: Present: normal affect, normal mood Skin exam: Present: warm, dry, intact, normal color. Absent: rash Course Vital Signs 11/03/17 11/03/17 11/03/17 10:41 11:04 11:14 Temperature 98.4 F Pulse Rate 103 H 100 102 H Respiratory 20 Rate Blood Pressure 135/78 O2 Sat by Pulse 94 L Oximetry - Reevaluation(s) Reevaluation #1: 11/03/17 12:57 Reevaluation patient reveals he feels much improved with improved air sounds no wheezing. Medical Decision Making - Medical Decision Making Reevaluation patient reveals that he is much improved this time he feels back to normal patient does have influenza type A he will be discharged with appropriate medication he does have inhalers updrafts at home. - Lab Data Result diagrams: 11/03/17 11:00 11/03/17 11:00 Lab Results 11/03/17 11/03/17 11/03/17 Range/Units 11:00 11:00 11:00 WBC (3.8-10.6) k/uL RBC (4.30-5.90) m/uL Hgb (13.0-17.5) gm/dL Hct (39.0-53.0) % MCV (80.0-100.0) fL MCH (25.0-35.0) pg MCHC (31.0-37.0) g/dL RDW (11.5-15.5) % Plt Count (150-450) k/uL Neutrophils % (Manual) % Lymphocytes % (Manual) % Monocytes % (Manual) % Eosinophils % (Manual) % Neutrophils # (Manual) (1.3-7.7) k/uL Lymphocytes # (Manual) (1.0-4.8) k/uL Monocytes # (Manual) (0-1.0) k/uL Eosinophils # (Manual) (0-0.7) k/uL Nucleated RBCs (0-0) /100 WBC Manual Slide Review Poikilocytosis (manual PT (9.0-12.0) sec INR (<1.2) APTT (22.0-30.0) sec D-Dimer (<0.60) mg/L FEU Sodium (137-145) mmol/L Potassium (3.5-5.1) mmol/L Chloride (98-107) mmol/L Carbon Dioxide (22-30) mmol/L Anion Gap mmol/L BUN (9-20) mg/dL Creatinine (0.66-1.25) mg/dL Est GFR (MDRD) Af Amer (>60 ml/min/1.73 sqM) Est GFR (MDRD) Non-Af (>60 ml/min/1.73 sqM) Glucose (74-99) mg/dL Calcium (8.4-10.2) mg/dL Magnesium (1.6-2.3) mg/dL Total Bilirubin (0.2-1.3) mg/dL AST (17-59) U/L ALT (21-72) U/L Alkaline Phosphatase (38-126) U/L Total Creatine Kinase 281 H (55-170) U/L CK-MB (CK-2) 3.1 H* (0.0-2.4) ng/mL CK-MB (CK-2) Rel Index 1.1 Troponin I <0.012 (0.000-0.034) ng/mL NT-Pro-B Natriuret Pep pg/mL Total Protein (6.3-8.2) g/dL Albumin (3.5-5.0) g/dL Influenza Type A RNA Detected H (Not Detectd) Influenza Type B (PCR) Not Detected (Not Detectd) Group A Strep Rapid Negative (Negative) 11/03/17 11/03/17 11/03/17 Range/Units 11:00 11:00 11:00 WBC 5.2 (3.8-10.6) k/uL RBC 5.62 (4.30-5.90) m/uL Hgb 17.2 (13.0-17.5) gm/dL Hct 53.4 H (39.0-53.0) % MCV 95.1 (80.0-100.0) fL MCH 30.6 (25.0-35.0) pg MCHC 32.2 (31.0-37.0) g/dL RDW 14.1 (11.5-15.5) % Plt Count 144 L (150-450) k/uL Neutrophils % (Manual) 50 % Lymphocytes % (Manual) 30 % Monocytes % (Manual) 18 % Eosinophils % (Manual) 2 % Neutrophils # (Manual) 2.60 (1.3-7.7) k/uL Lymphocytes # (Manual) 1.56 (1.0-4.8) k/uL Monocytes # (Manual) 0.94 (0-1.0) k/uL Eosinophils # (Manual) 0.10 (0-0.7) k/uL Nucleated RBCs 0 (0-0) /100 WBC Manual Slide Review Performed Poikilocytosis (manual Present PT 10.6 (9.0-12.0) sec INR 1.1 (<1.2) APTT 24.8 (22.0-30.0) sec D-Dimer 0.48 (<0.60) mg/L FEU Sodium 138 (137-145) mmol/L Potassium 5.1 (3.5-5.1) mmol/L Chloride 99 (98-107) mmol/L Carbon Dioxide 27 (22-30) mmol/L Anion Gap 12 mmol/L BUN 12 (9-20) mg/dL Creatinine 0.80 (0.66-1.25) mg/dL Est GFR (MDRD) Af Amer >60 (>60 ml/min/1.73 sqM) Est GFR (MDRD) Non-Af >60 (>60 ml/min/1.73 sqM) Glucose 118 H (74-99) mg/dL Calcium 9.8 (8.4-10.2) mg/dL Magnesium 1.7 (1.6-2.3) mg/dL Total Bilirubin 0.4 (0.2-1.3) mg/dL AST 50 (17-59) U/L ALT 87 H (21-72) U/L Alkaline Phosphatase 107 (38-126) U/L Total Creatine Kinase (55-170) U/L CK-MB (CK-2) (0.0-2.4) ng/mL CK-MB (CK-2) Rel Index Troponin I (0.000-0.034) ng/mL NT-Pro-B Natriuret Pep pg/mL Total Protein 7.4 (6.3-8.2) g/dL Albumin 4.4 (3.5-5.0) g/dL Influenza Type A RNA (Not Detectd) Influenza Type B (PCR) (Not Detectd) Group A Strep Rapid (Negative) 11/03/17 Range/Units 11:00 WBC (3.8-10.6) k/uL RBC (4.30-5.90) m/uL Hgb (13.0-17.5) gm/dL Hct (39.0-53.0) % MCV (80.0-100.0) fL MCH (25.0-35.0) pg MCHC (31.0-37.0) g/dL RDW (11.5-15.5) % Plt Count (150-450) k/uL Neutrophils % (Manual) % Lymphocytes % (Manual) % Monocytes % (Manual) % Eosinophils % (Manual) % Neutrophils # (Manual) (1.3-7.7) k/uL Lymphocytes # (Manual) (1.0-4.8) k/uL Monocytes # (Manual) (0-1.0) k/uL Eosinophils # (Manual) (0-0.7) k/uL Nucleated RBCs (0-0) /100 WBC Manual Slide Review Poikilocytosis (manual PT (9.0-12.0) sec INR (<1.2) APTT (22.0-30.0) sec D-Dimer (<0.60) mg/L FEU Sodium (137-145) mmol/L Potassium (3.5-5.1) mmol/L Chloride (98-107) mmol/L Carbon Dioxide (22-30) mmol/L Anion Gap mmol/L BUN (9-20) mg/dL Creatinine (0.66-1.25) mg/dL Est GFR (MDRD) Af Amer (>60 ml/min/1.73 sqM) Est GFR (MDRD) Non-Af (>60 ml/min/1.73 sqM) Glucose (74-99) mg/dL Calcium (8.4-10.2) mg/dL Magnesium (1.6-2.3) mg/dL Total Bilirubin (0.2-1.3) mg/dL AST (17-59) U/L ALT (21-72) U/L Alkaline Phosphatase (38-126) U/L Total Creatine Kinase (55-170) U/L CK-MB (CK-2) (0.0-2.4) ng/mL CK-MB (CK-2) Rel Index Troponin I (0.000-0.034) ng/mL NT-Pro-B Natriuret Pep 45 pg/mL Total Protein (6.3-8.2) g/dL Albumin (3.5-5.0) g/dL Influenza Type A RNA (Not Detectd) Influenza Type B (PCR) (Not Detectd) Group A Strep Rapid (Negative) - EKG Data -: EKG Interpreted by Me EKG shows normal: sinus rhythm (Normal sinus rhythm with a rate of 97 VA interval 1:30 QRS duration 90 QT since QTC of 3:30/429 st-t wave changes.) - Radiology Data Radiology results: report reviewed (I did review the imaging and reports no acute findings.), image reviewed Disposition Clinical Impression: Influenza, Chronic obstructive pulmonary disease with (acute) exacerbation Disposition: HOME SELF-CARE Condition: Good Instructions: Influenza (ED), COPD (Chronic Obstructive Pulmonary Disease) (ED) Prescriptions: Oseltamivir [Tamiflu] 75 mg PO Q12HR #10 cap predniSONE 20 mg PO BID #10 tab Referrals: Robert Eldridge DO [Primary Care Provider] - 1-2 days
[2017-11-03] MEDS ORDERED: IPRATROPIUM-ALBUTEROL 3 ML NEB INHALATION STA (10:57)
[2017-11-03 11:36] LABS: INR 1.1 (<1.2); Partial Thromboplastin Time 24.8 sec (22.0-30.0); Prothrombin Time 10.6 sec (9.0-12.0)
[2017-11-03 11:37] LABS: ALT 87 U/L (21-72); AST 50 U/L (17-59); Albumin 4.4 g/dL (3.5-5.0); Alkaline Phosphatase 107 U/L (38-126); Anion Gap 12 mmol/L; Blood Urea Nitrogen 12 mg/dL (9-20); Calcium 9.8 mg/dL (8.4-10.2); Carbon Dioxide 27 mmol/L (22-30); Chloride 99 mmol/L (98-107); Glucose 118 mg/dL (74-99); Magnesium 1.7 mg/dL (1.6-2.3); Potassium 5.1 mmol/L (3.5-5.1); Sodium 138 mmol/L (137-145); Total Bilirubin 0.4 mg/dL (0.2-1.3); Total Protein 7.4 g/dL (6.3-8.2)
[2017-11-03 11:38] LABS: HCT 53.4 % (39.0-53.0); HGB 17.2 gm/dL (13.0-17.5); MCH 30.6 pg (25.0-35.0); MCHC 32.2 g/dL (31.0-37.0); MCV 95.1 fL (80.0-100.0); Mean Platelet Volume 6.6; Platelet Count 144 k/uL (150-450); RBC 5.62 m/uL (4.30-5.90); RDW 14.1 % (11.5-15.5); WBC 5.2 k/uL (3.8-10.6)
[2017-11-03 11:41] LABS: D-Dimer 0.48 mg/L FEU (<0.60)
[2017-11-03 11:52] LABS: Creatine Kinase 281 U/L (55-170)
[2017-11-03 12:05] LABS: Lymphocytes # (M) 1.56 k/uL (1.0-4.8); Monocytes # (M) 0.94 k/uL (0-1.0); Neutrophils % (M) 50 %; Nucleated Red Blood Cells 0 /100 WBC (0-0); Total Cells Counted 100; Troponin I <0.012 ng/mL (0.000-0.034)
[2017-11-03 12:06] LABS: Poikilocytosis (M) Present
[2017-11-03 12:10] LABS: Creatine Kinase MB 3.1 ng/mL (0.0-2.4)
--- NOTE | 2017-11-03 12:10 | XR ---
EXAMINATION TYPE: XR chest 2V DATE OF EXAM: 11/03/2017 COMPARISON: 12/06/2016 HISTORY: Influenza for 5 days TECHNIQUE: Frontal and lateral views of the chest are obtained. FINDINGS: There is no focal air space opacity, pleural effusion, or pneumothorax seen. The cardiac silhouette size is within normal limits. The osseous structures are intact. Multilevel mild to mode rate degenerative changes of the thoracic spine are noted. Mild degenerative changes of the acromiocl avicular joints are also seen. IMPRESSION: No acute cardiopulmonary process.
[2017-11-03] MEDS ORDERED: OSELTAMIVIR 75 MG CAP PO STA (12:25)
[2017-11-04 23:01] VITALS: BP 141/68; PULSE 98; RESP 18; TEMP 98.5
== END 2017-11-03 13:12 | disposition home or self-care (01) ==
LOC: EC 10:39
DX: J11.1 Influenza due to unidentified influenza virus with other respiratory manifestations (principal); J44.1 Chronic obstructive pulmonary disease with (acute) exacerbation; E11.40 Type 2 diabetes mellitus with diabetic neuropathy, unspecified; I10 Essential (primary) hypertension; E78.5 Hyperlipidemia, unspecified; F32.9 Major depressive disorder, single episode, unspecified; F41.9 Anxiety disorder, unspecified; F17.200 Nicotine dependence, unspecified, uncomplicated; Z79.82 Long term (current) use of aspirin; Z79.84 Long term (current) use of oral hypoglycemic drugs; Z79.899 Other long term (current) drug therapy
CPT/HCPCS: 36415; 71046; 80053; 82550; 82553; 83735; 83880; 84484; 85025; 85379; 85610; 85730; 87040; 87081; 87430; 87502; 93005; 94640; 96360; 96361; 99284

== ENCOUNTER → 2018-04-29 | Outpatient (CLI) | payer MEDICARE ==
--- NOTE | 2018-04-29 23:50 | MR ---
EXAMINATION TYPE: MR shoulder LT wo con DATE OF EXAM: 04/29/2018 COMPARISON: Outside left shoulder x-ray April 15, 2018 HISTORY: Left shoulder pain per order. Pain in shoulder with difficulty raising overhead for 8 years per patient. TECHNIQUE: Multiplanar, multisequence imaging of the left shoulder is performed without contrast. FINDINGS: Rotator Cuff: There is some increased signal seen in the distal infraspinatus tendon. . No suspicious tear is evident. Supraspinatus tendon is intact. Subscapularis tendon is intact. Rotator cuff muscle bulk is preserved. Acromioclavicular Joint: There is moderate to severe spurring at acromioclavicular joint with loss of inferior fat plane as there is joint space loss and capsular hypertrophy also present. Distal acromi on morphology is unremarkable. Glenohumeral Joint: There is small to moderate glenohumeral joint effusion. No significant spurring i s noted. Labrum: Heterogeneous increased signal is felt to reflect product of degenerative tear superior labru m. Biceps Tendon: The long head of biceps is in normal location within bicipital groove. Bone marrow signal: Subchondral cystic change acromioclavicular joint is present. There is overall he terogeneity consistent with red marrow reconversion. Other: No additional significant abnormality is appreciated. IMPRESSION: 1. Moderate to advanced AC joint arthropathy with probable underlying impingement. 2. Tendinosis distal infraspinatus tendon, no rotator cuff tear is evident.
== END | disposition home or self-care (01) ==
LOC: RADMRIMAIN 06:02
PROVIDERS: ATTEND Orthopaedic Surgery
DX: M12.812 Other specific arthropathies, not elsewhere classified, left shoulder (principal); M67.814 Other specified disorders of tendon, left shoulder

== ENCOUNTER 2018-06-30 07:24 | Day surgery (SDC) | payer MEDICARE ==
[2018-06-25 14:29] VITALS: BMI 36.4
--- NOTE | 2018-06-29 14:17 | HP ---
HISTORY AND PHYSICAL SURGERY: 06/30/2018 Anthony Funk is a 57-year-old patient seen with progressive left shoulder pain. Treatment options were discussed. He elected to proceed with arthroscopy. Consent was obtained. Medical clearance provided by Dr. Robert Eldridge. PAST MEDICAL HISTORY: Hypertension, hyperlipidemia, [id number] diabetes. PAST SURGICAL HISTORY: Noncontributory. MEDICATIONS: Ativan, glimepiride, Lipitor, losartan, metformin, metoprolol, Neurontin, trazodone. ALLERGIES: None. SOCIAL HISTORY: Patient smokes 1 pack cigarettes daily. PHYSICAL EXAMINATION: Evaluation of the left shoulder: Flexion 160 degrees, abduction 50 degrees external rotation is 10 degrees with weakness. Tenderness along the anterolateral acromion rotator cuff insertion site. Impingement sign is positive at 100 degrees. Distal neurovascular exam is intact. RADIOGRAPHS: Left shoulder: Type 2 anterior acromion, acromioclavicular joint osteoarthritis, cystic changes of the tuberosity. Left shoulder MRI: Superior labral tear, rotator cuff tendinosis, acromioclavicular joint osteoarthritis. IMPRESSION: 1. Left shoulder impingement with labral tear. 2. Left shoulder acromioclavicular joint osteoarthritis. PLAN: Left shoulder arthroscopy with subacromial decompression, possible arthroscopic rotator cuff repair, probable Jose procedure and debridement. MMODL / IJN: [id number] /
[~2018-06-30 07:24] MED LIST: DEXAMETHASONE SOD PHOSPHATE 10 MG/ML 1 ML VIAL IV ONE; LACTATED RINGERS 1,000 ML IV SCH; LIDOCAINE 1% 20 ML VIAL (10MG/ML) FOR IV START INTRADERMA PRN; MIDAZOLAM 2 MG/2 ML VIAL IV PRN; ONDANSETRON 4 MG/2 ML VIAL IVP ONE; ceFAZolin IN SWFI 2 GM/20 ML SYRINGE IVP ONE; fentaNYL (PF) 50 MCG/ML 2 ML AMP IV PRN
[2018-06-30 08:24] LABS: Glucose,Whole Blood 152 mg/dL (75-99)
[2018-06-30] MEDS ORDERED: SUCCINYLCHOLINE CHLORIDE 100 MG/5 ML SYR IV ONE (09:39)
[2018-06-30] MEDS ORDERED: fentaNYL (PF) 50 MCG/ML 2 ML AMP ONE (09:39)
[2018-06-30] MEDS ORDERED: MIDAZOLAM 2 MG/2 ML VIAL ONE (09:39)
[2018-06-30] MEDS ORDERED: LIDOCAINE 1% INJ 10MG/ML (20 ML MDV) ONE (09:39)
[2018-06-30] MEDS ORDERED: GLYCOPYRROLATE 0.2 MG/ML 2 ML VIAL ONE (09:39)
[2018-06-30] MEDS ORDERED: NEOSTIGMINE 1 MG/ML 10 ML VIAL ONE (09:39)
[2018-06-30] MEDS ORDERED: PROPOFOL 10 MG/ML 20 ML VIAL IV ONE (09:39)
[2018-06-30] MEDS ORDERED: ROCURONIUM BROMIDE 10 MG/ML 10 ML VIAL IV ONE (09:39)
[2018-06-30] MEDS ORDERED: LABETALOL 5 MG/ML VIAL MDV ONE (09:39)
[2018-06-30] MEDS ORDERED: PHENYLEPHRINE-0.9% NACL SYG 1 MG/10 ML SYRINGE ONE (09:39)
[2018-06-30] MEDS ORDERED: ROPIVACAINE 5 MG/ML 30 ML VIAL MISCELLANE ONE ×2 (10:25→10:52)
--- NOTE | 2018-06-30 11:19 | P.OP ---
Date of Procedure: 06/30/18 Preoperative Diagnosis: Left shoulder impingement Postoperative Diagnosis: 1. Left shoulder rotator cuff tear 2. Left shoulder impingement 3. Left shoulder acromioclavicular joint osteoarthritis 4. Left shoulder partial long head biceps tendon tear 5. Left shoulder superior labral tear Procedure(s) Performed: 1. Left shoulder arthroscopic rotator cuff repair 2. Left shoulder arthroscopic subacromial decompression 3. Left shoulder arthroscopic Jose procedure 4. Left shoulder arthroscopic biceps tenotomy 5. Left shoulder arthroscopic debridement labral tear Implants: 14.75 Arthrex swivel lock anchor Anesthesia: CHERRIE, local Surgeon: Feliciano Kulkarni Purchasing Analyst #1: Mynor Peacock Estimated Blood Loss (ml): 10 Pathology: none sent Condition: stable Disposition: PACU Indications for Procedure: 57-year-old patient seen with progressive left shoulder pain. After having treatment options discussed, he elected to proceed with arthroscopy. Operative Findings: see description of procedure Description of Procedure: Patient underwent an interscalene block by department of anesthesia. The patient was then taken to the operative suite. The patient underwent a general anesthetic by the department of anesthesia. The patient was placed into a lateral position and secured. There was appropriate padding of the bony prominence. Left shoulder was then prepped and draped in normal sterile orthopedic fashion. We placed the extremity in 10 pounds of longitudinal traction. A posterior incision was now made for a posterior working portal site. The trocar and cannula were inserted into the glenohumeral joint. Arthroscopy was initiated. Spinal needle was now inserted anteriorly, to ascertain the anterior working portal site. An incision was now made in that area, a trocar was inserted followed by a probe. There was grade 2 chondromalacia present in the central glenoid fossa. No osteochondral tears were evident. There were grade 1 chondromalacia changes of the humeral head. No osteochondral tears were present. There was a superior superficial labral tear. There was some partial tearing and hyperemia long head biceps tendon. The posterior and inferior labrum were intact. There was some mild fraying of the anterior labrum. I performed an arthroscopic biceps tenotomy. I debrided that superficial labral tear down to stable tissue. The residual labrum was stable. Instruments were now removed from the glenohumeral joint. Utilizing the posterior working portal site, the trocar and cannula were inserted into the subacromial space. Arthroscopy initiated. I made an incision 2 fingerbreadths lateral to the acromion. I introduced my trocar followed by my ArthroCare ablator. I now began ablating thick subacromial bursal tissue, which exposed the undersurface of the anterior acromion. There was diminished subacromial space. There was a very prominent anterior acromion. A motorized bur was introduced and a subacromial decompression was performed. I also excised some osteophytes off the inferior aspect of the distal clavicle. The AC joint was visualized and noted to be fairly arthritic. The motorized bur was introduced in the anterior portal site and a Jose procedure was performed without difficulty, decompressing the AC joint nicely. I turned my attention to the rotator cuff. There was an area of superficial tearing along the anterior aspect distal supraspinous. I now debrided that down to stable tissue. I now probed the area and found a full-thickness perforation. I now debrided that down to stable tissue. I debrided the margins getting down to stable tendon tissue. I noted approximately 11.5 cm defect/tear. I introduced my motorized bur and abraded the footprint area, getting some petechial bleeding. I now passed 2 everted mattress sutures utilizing FiberWire. A hole was punched along the footprint as I held punch and Casey GUPTA tapped it into position. We chose a 4.75 Arthrex anchor. Suture limbs were now passed through the eyelet. I now introduced the eyelet into our pre-punch hole. I now held in position while Casey GUPTA tensioned the sutures and introduced the anchor into our pre-punch hole. There appeared to be good fixation of the anchor and good compression of the tendon along the footprint. All residual suture limbs were now clipped. We had good compression of the tendon along the entire footprint. I now injected 1 mL Renue intra-articular. Instruments were now removed from the portal sites. All portal sites were approximated with nylon suture. Sterile dressings were applied followed by a shoulder immobilizer. Mynor GUPTA assisted in this complex case. The patient was awakened, transferred to a bed, and taken to recovery in stable condition.
[2018-06-30 11:21] LABS: Glucose,Whole Blood 188 mg/dL (75-99)
[2018-06-30 11:25] VITALS: TEMP 97.7
[2018-06-30] MEDS: HYDROmorphone 1 MG/ML 1 ML SYRINGE IVP ONE ×2 (11:45→11:51)
[2018-06-30 12:23] VITALS: PULSE 90; RESP 18
[2018-06-30 12:45] VITALS: BP 142/80
== END 2018-06-30 13:02 | disposition home or self-care (01) ==
LOC: OR 07:24
PROVIDERS: ATTEND Orthopaedic Surgery
DX: M75.102 Unspecified rotator cuff tear or rupture of left shoulder, not specified as traumatic (principal); M75.42 Impingement syndrome of left shoulder; M19.012 Primary osteoarthritis, left shoulder; S46.112A Strain of muscle, fascia and tendon of long head of biceps, left arm, initial encounter; S43.432A Superior glenoid labrum lesion of left shoulder, initial encounter; X58.XXXA Exposure to other specified factors, initial encounter; M94.212 Chondromalacia, left shoulder; E11.9 Type 2 diabetes mellitus without complications; E78.5 Hyperlipidemia, unspecified; I10 Essential (primary) hypertension; F32.9 Major depressive disorder, single episode, unspecified; J44.9 Chronic obstructive pulmonary disease, unspecified; Z79.84 Long term (current) use of oral hypoglycemic drugs; Z79.82 Long term (current) use of aspirin; Z79.899 Other long term (current) drug therapy; F17.210 Nicotine dependence, cigarettes, uncomplicated
CPT/HCPCS: 29826; 29827; 29824; C1713; J2250; J1100; J2710; J2405; J2001; J3010; J1170; J2795; J2370; J0330; J2704; J0690

== ENCOUNTER → 2021-02-12 | Outpatient (CLI) | payer MEDICARE ==
--- NOTE | 2021-02-12 13:07 | XR ---
EXAMINATION TYPE: XR chest 2V DATE OF EXAM: 02/12/2021 COMPARISON: 11/03/2017 HISTORY: 60-year-old male COPD and cough TECHNIQUE: Frontal and lateral views FINDINGS: Heart normal size. Aorta and pulmonary vasculature within normal limits. Mild interstitial prominence and mild central peribronchial cuffing without consolidation or pleural effusion. Either summation a rtifact or a 2.8 cm nodule posterior mid lung on the lateral view. Further CT evaluation recommended. IMPRESSION: 1. Findings which may reflect bronchitis or chronic asthma. 2. Either summation artifact or a 2.8 cm posterior mid lung nodule on the lateral view. Contrast-enha nced CT of the chest can further evaluate.
== END | disposition home or self-care (01) ==
LOC: RADXRMAIN 09:57
PROVIDERS: ATTEND Family Medicine
DX: J44.9 Chronic obstructive pulmonary disease, unspecified (principal); R91.1 Solitary pulmonary nodule
CPT/HCPCS: 71046

== ENCOUNTER → 2021-02-15 | Outpatient (CLI) | payer MEDICARE | END | disposition home or self-care (01) | LOC: LABWHC1 16:30 | PROVIDERS: ATTEND Family Medicine | DX: Z20.822 Contact with and (suspected) exposure to COVID-19 (principal) | CPT/HCPCS: U0003; C9803; U0005 ==

== ENCOUNTER → 2021-03-05 | Outpatient (CLI) | payer MEDICARE ==
[2021-03-05 19:13] LABS: African American GFR (CKD) >90 (>60 ml/min/1.73 sqM); Blood Urea Nitrogen 11 mg/dL (9-20); Non-African American GFR(CKD) >90 (>60 ml/min/1.73 sqM)
--- NOTE | 2021-03-06 06:24 | CT ---
EXAMINATION TYPE: CT chest w con DATE OF EXAM: 03/05/2021 COMPARISON: Chest x-ray February 12, 2021 HISTORY: Lung nodule. Pt is smoker. C/o cough. CT DLP: 499 mGycm. Automated Exposure Control for Dose Reduction was Utilized. TECHNIQUE: CT scan of the thorax is performed following with IV Contrast, patient injected with 100 mL of Isovue 300. FINDINGS: LUNGS: The lungs are grossly clear, there is no concerning parenchymal mass or nodule identified. T here is no pleural effusion or pneumothorax seen. The tracheobronchial tree is patent. MEDIASTINUM: There are no greater than 1 cm hilar or mediastinal lymph nodes. No cardiomegaly or pe ricardial effusion is seen. Moderate to severe three-vessel coronary artery calcification is present . Mild/moderate calcified plaque of the aorta extends into branch vessels. OTHER: Small degree of flame-shaped bilateral gynecomastia. Visualized liver is heterogeneously hypod ense suggesting fatty infiltration. Gallbladder is contracted in appearance. Small splenule anterior inferior splenic hilum. Moderate multilevel spurring in the spine including prominent lateral spurs thought to be mimicking pulmonary nodule on recent x-ray. IMPRESSION: No suspicious nodules or masses. No concerning thoracic adenopathy. No acute pulmonary pr ocess.
== END | disposition home or self-care (01) ==
LOC: RADCTMAIN 18:38
PROVIDERS: ATTEND Family Medicine
DX: R91.1 Solitary pulmonary nodule (principal); F17.200 Nicotine dependence, unspecified, uncomplicated
CPT/HCPCS: 82565; 84520; 71260; 36415; Q9967

== ENCOUNTER → 2021-03-28 | Outpatient (CLI) | payer MEDICARE ==
--- NOTE | 2021-03-28 14:56 | XR ---
EXAMINATION TYPE: XR wrist complete RT DATE OF EXAM: 03/28/2021 CLINICAL HISTORY: Pain with twisting and lifting motions. No injury. TECHNIQUE: Frontal, lateral and oblique images of the right wrist are obtained. COMPARISON: None FINDINGS: There is no acute fracture/dislocation evident in the right wrist. The joint spaces in th e right wrist appear within normal limits. The overlying soft tissue appears unremarkable. IMPRESSION: There is no acute fracture or dislocation in the right wrist.
== END | disposition home or self-care (01) ==
LOC: RADXRMAIN 11:58
PROVIDERS: ATTEND Family Medicine
DX: M25.531 Pain in right wrist (principal)

== ENCOUNTER → 2021-08-21 | Outpatient (CLI) | payer MEDICARE ==
[2021-08-21 19:15] LABS: Chol/HDL Ratio 3.59 Ratio; HDL Cholesterol 35.7 mg/dL (40.00-60.00); LDL Cholesterol,Calculated 67.3 mg/dL (0.0-131.0)
[2021-08-21 19:55] LABS: African American GFR (CKD) 113.3 (60.0-200.0); Albumin 4.6 g/dL (3.8-4.9); Albumin/Globulin Ratio 1.92 (1.60-3.17); Anion Gap 16.4 mmol/L (4.00-12.00); BUN/Creat Ratio 12.5 Ratio (12.00-20.00); Calcium 9.5 mg/dL (8.7-10.3); Carbon Dioxide 22.6 mmol/L (21.6-31.8); Globulin 2.4 g/dL (1.6-3.3); Non-African American GFR(CKD) 97.8 (60.0-200.0); Potassium 4.7 mmol/L (3.5-5.5); Total Bilirubin 0.3 mg/dL (0.30-1.20)
== END | disposition home or self-care (01) ==
LOC: LABWHC1 09:32
PROVIDERS: ATTEND Nurse Practitioner Adult Health
DX: I10 Essential (primary) hypertension (principal); E78.2 Mixed hyperlipidemia
CPT/HCPCS: 36415; 80053; 80061

== ENCOUNTER → 2022-05-24 | Outpatient (CLI) | payer MEDICARE ==
[2022-05-24 17:10] LABS: ALT 40 U/L (10-49); AST 25 U/L (14-35)
[2022-05-24 17:11] LABS: Chol/HDL Ratio 4.01 Ratio; LDL Cholesterol,Calculated 80.5 mg/dL (0.0-131.0); VLDL Calculation 18.58 mg/dL (5.00-40.00)
== END | disposition home or self-care (01) ==
LOC: LABWHC1 08:27
PROVIDERS: ATTEND Internal Medicine Interventional Cardiology
DX: E78.2 Mixed hyperlipidemia (principal)
CPT/HCPCS: 36415; 80061; 84450; 84460

== ENCOUNTER → 2022-09-23 | Outpatient (CLI) | payer MEDICARE ==
[2022-09-23 14:52] LABS: Carbon Dioxide 28.3 mmol/L (20.0-27.5); Potassium 5.6 mmol/L (3.5-5.5)
== END | disposition home or self-care (01) ==
LOC: LABWHC1 07:06
PROVIDERS: ATTEND Otolaryngology
DX: I10 Essential (primary) hypertension (principal); E11.9 Type 2 diabetes mellitus without complications
CPT/HCPCS: 36415; 80051; 82947

== ENCOUNTER → 2023-01-17 | Outpatient (CLI) | payer MEDICARE ==
--- NOTE | 2023-01-17 13:52 | MR ---
EXAMINATION TYPE: MR angio head wo con DATE OF EXAM: 01/17/2023 COMPARISON: 12/08/2016 HISTORY: 62-year-old male CVA, history of cerebral aneurysm. Light headed, loss of balance. TECHNIQUE: High-resolution 3-D [id number] imaging of the [place] without IV contrast. Ro tational 3-D reconstructions generated on a dedicated independent workstation. FINDINGS: The vertebral and basilar arteries as well as the remainder of the procedure circulation appear tashi l and patent. There is a small left-sided posterior communicating artery. Both internal carotid arteries show preserved flow related enhancement as is the remainder of the ant erior circulation. There is redemonstration of a 3.5 mm saccular aneurysm projecting medially from the level of the opht halmic segment left internal carotid artery. No additional aneurysmal changes identified. IMPRESSION: Stable 3.5 mm saccular aneurysm projecting medially from the ophthalmic segment left ICA. No new aneu rysms or significant stenosis seen.
--- NOTE | 2023-01-19 21:59 | MR ---
EXAMINATION TYPE: MR brain wo/w mra neck wo/w con DATE OF EXAM: 01/19/2023 6:14 PM CLINICAL INDICATION:Male, 62 years old with history of I69.90, I67.1; CVA, history of cerebral aneur ysm. Light headed, loss of balance. COMPARISON: MRI angiogram head 01/17/2023 CT 12/06/2016 TECHNIQUE: Multi planar, multi sequence imaging was performed through the brain including: T1, T2, In version recovery, susceptibility weighted imaging and gradient echo imaging and Diffusion weighted im aging. The patient was then given intravenous contrast and multi planar, T1 fat-saturation images wer e obtained. IV Contrast: 11 cc Gadavist MRA neck: Multiplanar, multi-sequence imaging as well as [id number] and phase was performed extra cranial vasculature of the neck. 3-D reformatted images and maximum intensity projection reformatted images were submitted for evaluation, these are performed on a separate workstation. IV Contrast: None 11 cc Gadavist FINDINGS: The avila-white junctions, ventricular system, basal cisterns appear unremarkable. Diffusion-weighted imaging shows no evidence of restricted diffusion to suggest acute/subacute infarct. Intracranial art erial flow voids are maintained. Midline structures show no abnormality. Scattered foci of high T2 si gnal intensity are seen within the periventricular white matter. The susceptibility weighted images d o not reveal any evidence for micro-hemorrhage. After administration of gadolinium, no abnormal enhan cement is seen. Stable 3.5 mm saccular aneurysm projecting medially from the ophthalmic segment left ICA. The bone marrow signal is within normal limits. Paranasal sinuses and mastoid air cells: Mild scattered paranasal sinus disease. Visualized orbits: Orbital contents are intact. RIGHT CAROTID SYSTEM: The common carotid artery is patent. The carotid bifurcations that she no evide nce for hemodynamically significant stenosis. The internal carotid arteries patent. LEFT CAROTID SYSTEM: The common carotid artery is patent. The carotid bifurcations that she no evide nce for hemodynamically significant stenosis. The internal carotid arteries patent. The origins of the great vessels and vertebral arteries appear unremarkable. The vertebral arteries a re codominant IMPRESSION: MRA NECK: Stable 3.5 mm saccular aneurysm projecting medially from the ophthalmic segment left ICA. No evidence of significant stenosis at the carotid bifurcations. The carotid and vertebral arteries a re patent. MRI Brain: 1. No evidence of intracranial mass, acute/subacute infarct, or abnormal enhancement. 2. Nonspecific white matter changes, likely related to small vessel ischemic disease
== END | disposition home or self-care (01) ==
LOC: RADMRIMAIN 11:21
PROVIDERS: ATTEND Psychiatry & Neurology Neurology
DX: I67.1 Cerebral aneurysm, nonruptured (principal); I72.5 Aneurysm of other precerebral arteries; R90.82 White matter disease, unspecified
CPT/HCPCS: 70544

== ENCOUNTER 2023-12-23 11:28 | Emergency (ER) | payer MEDICARE ==
[2023-12-23 11:36] VITALS: BP 153/76; RESP 16; TEMP 97.8
[2023-12-23 12:06] VITALS: PULSE 53
--- NOTE | 2023-12-23 12:44 | ED ---
General Adult HPI - General Source: patient, RN notes reviewed Mode of arrival: ambulatory Limitations: no limitations <Mario Lezama - Last Filed: 12/23/23 12:42> <Alli Owen - Last Filed: 12/23/23 16:53> - General Chief complaint: Weakness Stated complaint: back pain,weakness Time Seen by Provider: 12/23/23 11:35 - History of Present Illness Initial comments: 63-year-old male presents emergency department with chief complaint of generalized weakness. He states that he has bouts where his legs just give out on him he states he has his overall feeling of weakness. He states that he just feels like he has his overall generalized weakness and he occasionally states his legs give out on him. Denies any complaints of headache or dizziness currently complains of some low back pain he also complains of urinary frequency without dysuria. (Mario Lezama) 63-year-old male with progressive weakness and fatigue. Patient has been diagnosed with obstructive sleep apnea and does not wear his CPAP. He states that the symptoms have been progressive over time. He also complains of weakness in his legs. Denies chest pain or abdominal pain. Denies fever. His primary care is aware of many of the symptoms. (Alli Owen) - Related Data Home Medications Medication Instructions Recorded Confirmed Aspirin 81 mg PO DAILY 07/11/14 12/23/23 Gabapentin [Neurontin] 300 mg PO BID 07/11/14 12/23/23 Losartan Potassium [Cozaar] 50 mg PO DAILY 07/11/14 12/23/23 Metoprolol Succinate [Toprol XL] 25 mg PO BID 07/11/14 12/23/23 metFORMIN HCL [Glucophage] 850 mg PO TID 07/11/14 12/23/23 Atorvastatin [Lipitor] 40 mg PO HS 07/05/15 12/23/23 buPROPion XL [Wellbutrin XL] 300 mg PO DAILY 12/06/16 12/23/23 ARIPiprazole [Abilify] 5 mg PO DAILY 12/23/23 12/23/23 Cholecalciferol [Vitamin D3 (25 25 mcg PO DAILY 12/23/23 12/23/23 Mcg = 1000 Iu)] Dulaglutide [Trulicity] 0.75 mg SQ TU 12/23/23 12/23/23 Glimepiride [Amaryl] 4 mg PO BID 12/23/23 12/23/23 Insulin Glargine,Hum.rec.anlog 70 units SQ DAILY 12/23/23 12/23/23 [Lantus Solostar Pen] Melatonin 10 mg PO HS 12/23/23 12/23/23 Mirtazapine [Remeron] 15 mg PO HS 12/23/23 12/23/23 Mv-Min/Folic/K1/Lycopen/Lutein 1 tab PO DAILY 12/23/23 12/23/23 [Centrum Silver Men Tablet] Omeprazole [PriLOSEC] 20 mg PO HS 12/23/23 12/23/23 sitaGLIPtin [Januvia] 100 mg PO DAILY 12/23/23 12/23/23 Allergies Allergy/AdvReac Type Severity Reaction Status Date / Time No Known Allergies Allergy Verified 12/23/23 15:59 Review of Systems ROS Other: All systems not noted in ROS Statement are negative. <Mario Lezama - Last Filed: 12/23/23 12:42> ROS Other: All systems not noted in ROS Statement are negative. <Alli Owen - Last Filed: 12/23/23 16:53> ROS Statement: Those systems with pertinent positive or pertinent negative responses have been documented in the HPI. Past Medical History Past Medical History: Diabetes Mellitus Additional Past Medical History / Comment(s): back pain, neuropathy, brain aneursym History of Any Multi-Drug Resistant Organisms: None Reported Past Surgical History: Orthopedic Surgery Additional Past Surgical History / Comment(s): finger Past Psychological History: Anxiety, Depression Past Alcohol Use History: Occasional Past Drug Use History: None Reported <Mario Lezama - Last Filed: 12/23/23 12:42> General Exam Limitations: no limitations <Mario Lezama - Last Filed: 12/23/23 12:42> General appearance: alert, in no apparent distress Head exam: Present: atraumatic, normocephalic Eye exam: Present: normal appearance, PERRL ENT exam: Present: normal exam Neck exam: Present: normal inspection. Absent: tenderness, meningismus Respiratory exam: Present: normal lung sounds bilaterally. Absent: respiratory distress, wheezes Cardiovascular Exam: Present: regular rate, normal rhythm GI/Abdominal exam: Present: soft. Absent: distended, tenderness Extremities exam: Present: normal inspection, normal capillary refill. Absent: pedal edema Neurological exam: Present: alert, oriented X3, CN II-XII intact. Absent: motor sensory deficit Psychiatric exam: Present: normal affect, normal mood Skin exam: Present: warm, dry <Alli Owen - Last Filed: 12/23/23 16:53> - General Exam Comments Initial Comments: Visual Physical Exam Vital signs reviewed General: Well-appearing, nontoxic, no acute distress. Head: Normocephalic, atraumatic Eyes: PERRLA, EOMI ENT: Airway patent Chest: Nonlabored breathing Skin: No visual rash, normal skin tone Neuro: Alert and oriented 3 Musculoskeletal: No gross abnormalities (Mario Lezama) Course Vital Signs 12/23/23 11:32 Temperature 97.8 F Pulse Rate 53 L Respiratory 16 Rate Blood Pressure 153/76 O2 Sat by Pulse 95 Oximetry Medical Decision Making <Mario Lezama - Last Filed: 12/23/23 12:42> - Lab Data Result diagrams: 12/23/23 12:50 12/23/23 12:50 <ValenteAlli lopez - Last Filed: 12/23/23 16:53> - Medical Decision Making I completed the quick note portion of this chart signed Mario Lezama PA-C (Mario Lezama) Was pt. sent in by a medical professional or institution ([facility]van, CAR SALES REPRESENTATIVE, urgent care, hospital, or half-way...) When possible be specific @ -No Did you speak to anyone other than the patient for history (EMS, parent, family, police, friend...)? What history was obtained from this source @ -No Did you review nursing and triage notes (agree or disagree)? Why? @ -I reviewed and agree with nursing and triage notes Were old charts reviewed (outside hosp., previous admission, EMS record, old EKG, old radiological studies, urgent care reports/EKG's, half-way records)? Report findings @ -No old charts were reviewed Differential Diagnosis (chest pain, altered mental status, abdominal pain women, abdominal pain men, vaginal bleeding, weakness, fever, dyspnea, syncope, headache, dizziness, GI bleed, back pain, seizure, CVA, palpatations, mental health, musculoskeletal)? @ -[Differential Weakness: Hypoglycemia, shock, sepsis, hyponatremia, anemia, infection, MN, ETOH, adverse medicine reaction, overdose, stroke, this is not meant to be an all-inclusive list. EKG interpreted by me (3pts min.). @ -Sinus rhythm rate of 87, AK interval 148, QRS duration 89, QTc [address] segment elevation. X-rays interpreted by me (1pt min.). @ -Chest x-ray negative for acute cardiopulmonary findings CT interpreted by me (1pt min.). @ -[CT brain negative for intracranial hemorrhage or mass effect U/S interpreted by me (1pt. min.). @ -[None done What testing was considered but not performed or refused? (CT, X-rays, U/S, labs)? Why? @ -None What meds were considered but not given or refused? Why? @ -None Did you discuss the management of the patient with other professionals (professionals i.e. , PA, CAR SALES REPRESENTATIVE, lab, RT, psych nurse, social media specialist, filter tender, teacher, police officer booking, senior procurement manager)? Give summary @ -No Was smoking cessation discussed for >3mins.? @ -No Was critical care preformed (if so, how long)? @ -No Were there social determinants of health that impacted care today? How? (Homelessness, low income, unemployed, alcoholism, drug addiction, transportation, low edu. Level, literacy, decrease access to med. care, custodial, rehab)? @ -No Was there de-escalation of care discussed even if they declined (Discuss DNR or withdrawal of care, Hospice)? DNR status @ -No What co-morbidities impacted this encounter? (DM, HTN, Smoking, COPD, CAD, Cancer, CVA, ARF, Chemo, Hep., AIDS, mental health diagnosis, sleep apnea, morbid obesity)? @Hypertension, obstructive sleep apnea. Was patient admitted / discharged? Hospital course, mention meds given and route, prescriptions, significant lab abnormalities, going to OR and other per tinent info. @ -[63-year-old male with weakness and fatigue progressive over months. Patient has stable vitals. Workup is unremarkable including CBC, CMP, urinalysis. He does have mildly elevated blood glucose at 200. Patient has normal CT, negative chest x-ray. He does have sleep apnea and does not wear his CPAP. He he is instructed on healthy diet, increase fluids, and to wear his CPAP machine. He will follow-up with his primary care regarding these ongoing symptoms. Undiagnosed new problem with uncertain prognosis? @ -No Drug Therapy requiring intensive monitoring for toxicity (Heparin, Nitro, Insulin, Cardizem)? @ -No Were any procedures done? @ -No Diagnosis/symptom? @ -Fatigue, hyperglycemia Acute, or Chronic, or Acute on Chronic? @ -[Chronic Uncomplicated (without systemic symptoms) or Complicated (systemic symptoms)? @ -Default Side effects of treatment? @ -No Exacerbation, Progression, or Severe Exacerbation? @ -No Poses a threat to life or bodily function? How? (Chest pain, USA, MN, pneumonia, PE, COPD, DKA, ARF, appy, cholecystitis, CVA, Diverticulitis, Homicidal, Suicidal, threat to staff... and all critical care pts) @ -Low risk at this time (Alli Owen) - Lab Data Lab Results 12/23/23 12/23/23 12/23/23 Range/Units 12:46 12:50 12:50 WBC 7.6 (3.8-10.6) k/uL RBC 5.04 (4.30-5.90) m/uL Hgb 15.4 (13.0-17.5) gm/dL Hct 46.5 (39.0-53.0) % MCV 92.1 (80.0-100.0) fL MCH 30.5 (25.0-35.0) pg MCHC 33.2 (31.0-37.0) g/dL RDW 12.9 (11.5-15.5) % Plt Count 207 (150-450) k/uL MPV 7.0 Neutrophils % 59 % Lymphocytes % 29 % Monocytes % 7 % Eosinophils % 2 % Basophils % 0 % Neutrophils # 4.4 (1.3-7.7) k/uL Lymphocytes # 2.2 (1.0-4.8) k/uL Monocytes # 0.5 (0-1.0) k/uL Eosinophils # 0.2 (0-0.7) k/uL Basophils # 0.0 (0-0.2) k/uL Sodium 135 L (137-145) mmol/L Potassium 4.9 (3.5-5.1) mmol/L Chloride 102 (98-107) mmol/L Carbon Dioxide 26 (22-30) mmol/L Anion Gap 7 mmol/L BUN 16 (9-20) mg/dL Creatinine 0.70 (0.66-1.25) mg/dL Est GFR (CKD-EPI)AfAm >90 (>60 ml/min/1.73 sqM) Est GFR (CKD-EPI)NonAf >90 (>60 ml/min/1.73 sqM) Glucose 221 H (74-99) mg/dL Calcium 9.5 (8.4-10.2) mg/dL Total Bilirubin 0.4 (0.2-1.3) mg/dL AST 77 H (17-59) U/L ALT 85 H (4-49) U/L Alkaline Phosphatase 81 (38-126) U/L Ammonia (<30) umol/L Troponin I (0.000-0.034) ng/mL Total Protein 6.9 (6.3-8.2) g/dL Albumin 4.4 (3.5-5.0) g/dL Urine Color Colorless Urine Appearance Clear (Clear) Urine pH 5.5 (5.0-8.0) Ur Specific [place] 1.006 (1.001-1.035) Urine Protein Negative (Negative) Urine Glucose (UA) 1+ H (Negative) Urine Ketones Negative (Negative) Urine Blood Negative (Negative) Urine Nitrite Negative (Negative) Urine Bilirubin Negative (Negative) Urine Urobilinogen <2.0 (<2.0) mg/dL Ur Leukocyte Esterase Negative (Negative) Urine Opiates Screen Not Detected (NotDetected) Ur Oxycodone Screen Not Detected (NotDetected) Urine Methadone Screen Not Detected (NotDetected) Ur Barbiturates Screen Not Detected (NotDetected) U Tricyclic Antidepress Not Detected (NotDetected) Ur Phencyclidine Scrn Not Detected (NotDetected) Ur Amphetamines Screen Not Detected (NotDetected) U Methamphetamines Scrn Not Detected (NotDetected) U Benzodiazepines Scrn Not Detected (NotDetected) Urine Cocaine Screen Not Detected (NotDetected) U Marijuana (THC) Screen Not Detected (NotDetected) 12/23/23 12/23/23 Range/Units 12:50 12:50 WBC (3.8-10.6) k/uL RBC (4.30-5.90) m/uL Hgb (13.0-17.5) gm/dL Hct (39.0-53.0) % MCV (80.0-100.0) fL MCH (25.0-35.0) pg MCHC (31.0-37.0) g/dL RDW (11.5-15.5) % Plt Count (150-450) k/uL MPV Neutrophils % % Lymphocytes % % Monocytes % % Eosinophils % % Basophils % % Neutrophils # (1.3-7.7) k/uL Lymphocytes # (1.0-4.8) k/uL Monocytes # (0-1.0) k/uL Eosinophils # (0-0.7) k/uL Basophils # (0-0.2) k/uL Sodium (137-145) mmol/L Potassium (3.5-5.1) mmol/L Chloride (98-107) mmol/L Carbon Dioxide (22-30) mmol/L Anion Gap mmol/L BUN (9-20) mg/dL Creatinine (0.66-1.25) mg/dL Est GFR (CKD-EPI)AfAm (>60 ml/min/1.73 sqM) Est GFR (CKD-EPI)NonAf (>60 ml/min/1.73 sqM) Glucose (74-99) mg/dL Calcium (8.4-10.2) mg/dL Total Bilirubin (0.2-1.3) mg/dL AST (17-59) U/L ALT (4-49) U/L Alkaline Phosphatase (38-126) U/L Ammonia 13 (<30) umol/L Troponin I <0.012 (0.000-0.034) ng/mL Total Protein (6.3-8.2) g/dL Albumin (3.5-5.0) g/dL Urine Color Urine Appearance (Clear) Urine pH (5.0-8.0) Ur Specific [place] (1.001-1.035) Urine Protein (Negative) Urine Glucose (UA) (Negative) Urine Ketones (Negative) Urine Blood (Negative) Urine Nitrite (Negative) Urine Bilirubin (Negative) Urine Urobilinogen (<2.0) mg/dL Ur Leukocyte Esterase (Negative) Urine Opiates Screen (NotDetected) Ur Oxycodone Screen (NotDetected) Urine Methadone Screen (NotDetected) Ur Barbiturates Screen (NotDetected) U Tricyclic Antidepress (NotDetected) Ur Phencyclidine Scrn (NotDetected) Ur Amphetamines Screen (NotDetected) U Methamphetamines Scrn (NotDetected) U Benzodiazepines Scrn (NotDetected) Urine Cocaine Screen (NotDetected) U Marijuana (THC) Screen (NotDetected) Disposition <Mario Lezama - Last Filed: 12/23/23 12:42> Is patient prescribed a controlled substance at d/c from ED?: No Time of Disposition: 15:53 <Alli Owen - Last Filed: 12/23/23 16:53> Clinical Impression: Generalized weakness, Hyperglycemia Disposition: HOME SELF-CARE Condition: Fair Instructions (If sedation given, give patient instructions): Weakness (ED), Diabetic Hyperglycemia (ED) Referrals: Robert Eldridge DO [Primary Care Provider] - 1-2 days
[2023-12-23 12:57] LABS: Basophils % (A) 0 %; Eosinophils # (A) 0.2 k/uL (0-0.7); Eosinophils % (A) 2 %; HCT 46.5 % (39.0-53.0); HGB 15.4 gm/dL (13.0-17.5); Lymphocytes # (A) 2.2 k/uL (1.0-4.8); Lymphocytes % (A) 29 %; MCH 30.5 pg (25.0-35.0); MCHC 33.2 g/dL (31.0-37.0); MCV 92.1 fL (80.0-100.0); Monocytes # (A) 0.5 k/uL (0-1.0); Monocytes % (A) 7 %; Neutrophils # (A) 4.4 k/uL (1.3-7.7); Neutrophils % (A) 59 %; Platelet Count 207 k/uL (150-450); RBC 5.04 m/uL (4.30-5.90); RDW 12.9 % (11.5-15.5); WBC 7.6 k/uL (3.8-10.6)
[2023-12-23 13:08] LABS: ALT 85 U/L (4-49); AST 77 U/L (17-59); African American GFR (CKD) >90 (>60 ml/min/1.73 sqM); Albumin 4.4 g/dL (3.5-5.0); Alkaline Phosphatase 81 U/L (38-126); Anion Gap 7 mmol/L; Blood Urea Nitrogen 16 mg/dL (9-20); Calcium 9.5 mg/dL (8.4-10.2); Carbon Dioxide 26 mmol/L (22-30); Chloride 102 mmol/L (98-107); Glucose 221 mg/dL (74-99); Non-African American GFR(CKD) >90 (>60 ml/min/1.73 sqM); Potassium 4.9 mmol/L (3.5-5.1); Sodium 135 mmol/L (137-145); Total Bilirubin 0.4 mg/dL (0.2-1.3); Total Protein 6.9 g/dL (6.3-8.2)
[2023-12-23 13:26] LABS: Appearance,Urine Clear (Clear); Bilirubin,Urine Negative (Negative); Blood,Urine Negative (Negative); Color,Urine Colorless; Glucose,Urine (UA) 1+ (Negative); Ketones,Urine Negative (Negative); Leukocyte Esterase,Urine Negative (Negative); Nitrite,Urine Negative (Negative); PH, Urine 5.5 (5.0-8.0); Protein,Urine Negative (Negative); Specific Gravity,Urine 1.006 (1.001-1.035); Urobilinogen,Urine <2.0 mg/dL (<2.0)
[2023-12-23 13:35] LABS: Amphetamine Screen,Urine Not Detected (NotDetected); Barbiturate Screen,Urine Not Detected (NotDetected); Benzodiazepines Screen,Urine Not Detected (NotDetected); Cocaine Screen,Urine Not Detected (NotDetected); Methadone Screen, Urine Not Detected (NotDetected); Opiate Screen,Urine Not Detected (NotDetected); Oxycodone Screen, Urine Not Detected (NotDetected); Phencyclidine Screen,Urine Not Detected (NotDetected); Tricyclic Antidepressant,Urine Not Detected (NotDetected); Urn Cannabinoid Scrn Not Detected (NotDetected)
--- NOTE | 2023-12-23 15:08 | CT ---
EXAMINATION TYPE: CT brain wo con DATE OF EXAM: 12/23/2023 COMPARISON: None available. HISTORY: Weakness. CT DLP: 1156.4 mGycm Automated exposure control for dose reduction was used. FINDINGS: There is no acute intracranial hemorrhage, mass, mass effect, midline shift, extra-axial fluid collec tion or hydrocephalus. [place]-white distinction is intact without evidence of an acute major vessel infarct. The visualized paranasal sinuses and mastoid air cells are clear. IMPRESSION: NO ACUTE INTRACRANIAL PROCESS.
--- NOTE | 2023-12-23 15:29 | XR ---
EXAMINATION TYPE: XR chest 2V DATE OF EXAM: 12/23/2023 COMPARISON: 02/12/2021 HISTORY: 63-year-old male with weakness TECHNIQUE: AP and lateral views FINDINGS: Heart normal size. Aorta and pulmonary vasculature within normal limits. Hazy bilateral lung densitie s likely related to portable technique and body habitus. Left base underpenetrated and not well asses sed. No pleural effusion. IMPRESSION: No definite acute process.
== END 2023-12-23 17:40 | disposition home or self-care (01) ==
LOC: EC 11:28
DX: E11.65 Type 2 diabetes mellitus with hyperglycemia (principal); R53.1 Weakness; F41.9 Anxiety disorder, unspecified; F32.A Depression, unspecified; Z79.4 Long term (current) use of insulin; Z79.84 Long term (current) use of oral hypoglycemic drugs; Z79.899 Other long term (current) drug therapy; Z79.82 Long term (current) use of aspirin
CPT/HCPCS: 36415; 70450; 71046; 80053; 80306; 81003; 82140; 84484; 85025; 93005; 99285

== ENCOUNTER 2024-03-12 06:10 | Inpatient (IN) | payer MEDICARE ==
[2024-03-12 07:20] LABS: ALT 72 U/L (4-49); AST 46 U/L (17-59); African American GFR (CKD) >90 (>60 ml/min/1.73 sqM); Albumin 3.9 g/dL (3.5-5.0); Alkaline Phosphatase 82 U/L (38-126); Anion Gap 8 mmol/L; Blood Urea Nitrogen 15 mg/dL (9-20); Calcium 9.1 mg/dL (8.4-10.2); Carbon Dioxide 28 mmol/L (22-30); Chloride 97 mmol/L (98-107); Glucose 244 mg/dL (74-99); Non-African American GFR(CKD) >90 (>60 ml/min/1.73 sqM); Potassium 5.1 mmol/L (3.5-5.1); Sodium 133 mmol/L (137-145); Total Bilirubin 0.6 mg/dL (0.2-1.3); Total Protein 6.8 g/dL (6.3-8.2)
--- NOTE | 2024-03-12 07:23 | ED ---
General Adult HPI - General Chief complaint: Shortness of Breath Stated complaint: SOB Time Seen by Provider: 03/12/24 06:42 Source: patient, RN notes reviewed, old records reviewed Mode of arrival: ambulatory Limitations: no limitations - History of Present Illness Initial comments: This is a 63-year-old male who presents to the emergency department complaining of shortness of breath that started last night. Patient states he used to be a smoker quit about a year ago. Patient denies any chest pain or palpitations. Patient states he feels hot but has not had a fever. Patient states he has had a cough since last night as well. Patient denies any abdominal pain patient has nausea vomiting diarrhea. Patient has any back pain. Patient denies similar history but he does feel as though he is wheezing today - Related Data Home Medications Medication Instructions Recorded Confirmed Aspirin 81 mg PO DAILY 07/11/14 12/23/23 Gabapentin [Neurontin] 300 mg PO BID 07/11/14 12/23/23 Losartan Potassium [Cozaar] 50 mg PO DAILY 07/11/14 12/23/23 Metoprolol Succinate [Toprol XL] 25 mg PO BID 07/11/14 12/23/23 metFORMIN HCL [Glucophage] 850 mg PO TID 07/11/14 12/23/23 Atorvastatin [Lipitor] 40 mg PO HS 07/05/15 12/23/23 buPROPion XL [Wellbutrin XL] 300 mg PO DAILY 12/06/16 12/23/23 ARIPiprazole [Abilify] 5 mg PO DAILY 12/23/23 12/23/23 Cholecalciferol [Vitamin D3 (25 25 mcg PO DAILY 12/23/23 12/23/23 Mcg = 1000 Iu)] Dulaglutide [Trulicity] 0.75 mg SQ TU 12/23/23 12/23/23 Glimepiride [Amaryl] 4 mg PO BID 12/23/23 12/23/23 Insulin Glargine,Hum.rec.anlog 70 units SQ DAILY 12/23/23 12/23/23 [Lantus Solostar Pen] Melatonin 10 mg PO HS 12/23/23 12/23/23 Mirtazapine [Remeron] 15 mg PO HS 12/23/23 12/23/23 Mv-Min/Folic/K1/Lycopen/Lutein 1 tab PO DAILY 12/23/23 12/23/23 [Centrum Silver Men Tablet] Omeprazole [PriLOSEC] 20 mg PO HS 12/23/23 12/23/23 sitaGLIPtin [Januvia] 100 mg PO DAILY 12/23/23 12/23/23 Allergies Allergy/AdvReac Type Severity Reaction Status Date / Time No Known Allergies Allergy Verified 03/12/24 06:25 Review of Systems ROS Statement: Those systems with pertinent positive or pertinent negative responses have been documented in the HPI. ROS Other: All systems not noted in ROS Statement are negative. Past Medical History Past Medical History: Diabetes Mellitus Additional Past Medical History / Comment(s): back pain, neuropathy, brain aneursym History of Any Multi-Drug Resistant Organisms: None Reported Past Surgical History: Orthopedic Surgery Additional Past Surgical History / Comment(s): finger Past Psychological History: Anxiety, Depression Smoking Status: Former smoker Past Alcohol Use History: Occasional Past Drug Use History: None Reported General Exam - General Exam Comments Initial Comments: GENERAL: Patient is well-developed and well-nourished. Patient is nontoxic and well- hydrated and is in mild distress. ENT: Neck is soft and supple. No significant lymphadenopathy is noted. Oropharynx is clear. Moist mucous membranes. Neck has full range of motion without eliciting any pain. EYES: The sclera were anicteric and conjunctiva were pink and moist. Extraocular movements were intact and pupils were equal round and reactive to light. Eyelids were unremarkable. PULMONARY: Unlabored respirations. Good breath sounds bilaterally. There is wheezing throughout the patient's lung morgan CARDIOVASCULAR: There is a regular rate and rhythm without any murmurs gallops or rubs. ABDOMEN: Soft and nontender with normal bowel sounds. No palpable organomegaly was noted. There is no palpable pulsatile mass. SKIN: Skin is clear with no lesions or rashes and otherwise unremarkable. NEUROLOGIC: Patient is alert and oriented x3. Cranial nerves II through XII are grossly intact. Motor and sensory are also intact. Normal speech, volume and content. Symmetrical smile. MUSCULOSKELETAL: Normal extremities with adequate strength and full range of motion. No lower extremity swelling or edema. No calf tenderness. LYMPHATICS: No significant lymphadenopathy is noted PSYCHIATRIC: Normal psychiatric evaluation. Limitations: no limitations Course Vital Signs 03/12/24 03/12/24 03/12/24 06:25 06:34 07:42 Temperature 98.1 F Pulse Rate 97 74 93 Respiratory 17 23 32 H Rate Blood Pressure 155/78 142/74 145/74 O2 Sat by Pulse 88 L 94 L 95 Oximetry 03/12/24 03/12/24 03/12/24 08:36 09:44 09:56 Temperature Pulse Rate 97 96 100 Respiratory 18 Rate Blood Pressure 163/75 O2 Sat by Pulse 95 Oximetry 03/12/24 10:00 Temperature Pulse Rate 106 H Respiratory 22 Rate Blood Pressure 158/87 O2 Sat by Pulse 91 L Oximetry Medical Decision Making - Medical Decision Making EKG is interpreted by myself. EKG shows sinus rhythm at 95 bpm parables 150 QRS is 90 QT interval 322 QTc is 375. Patient's EKG shows no ST segment ovation or depression. Was pt. sent in by a medical professional or institution (, PA, [employer], urgent care, hospital, or prison...) When possible be specific @ -No Did you speak to anyone other than the patient for history (EMS, parent, family, police, friend...)? What history was obtained from this source @ -No Did you review nursing and triage notes (agree or disagree)? Why? @ -I reviewed the nursing and triage notes Were old charts reviewed (outside hosp., previous admission, EMS record, old EKG, old radiological studies, urgent care reports/EKG's, prison records)? Report findings @ -I compared patient's chest x-ray today to a previous chest x-ray there does seem to be some patchy infiltrates in comparison. I also compared patient's CBC and comprehensive panel to today's and there is no acute changes noted. Differential diagnosis (chest pain, altered mental status, abdominal pain women, abdominal pain men, vaginal bleeding, weakness, fever, dyspnea, syncope, headache, dizziness, GI bleed, back pain, seizure, CVA, palpatations, mental health, musculoskeletal)? @ -Differential Dyspnea: Coronary syndrome, arrhythmia, tamponade, asthma, COPD, pulmonary embolism, pneumonia, pneumothorax, pulmonary effusion, anaphylaxis, diabetic ketoacidosis, flailed chest, pulmonary contusion, diaphragmatic rupture, anemia, neuromuscular, this is not meant to be an all-inclusive list. EKG interpreted by me (3pts min.). @ -As above X-rays interpreted by me (1pt min.). @ -Chest x-ray shows some possible patchy infiltrate bilaterally CT interpreted by me (1pt min.). @ -None done U/S interpreted by me (1pt. min.). @ -None done What testing was considered but not performed or refused? (CT, X-rays, U/S, labs)? Why? @ -None What meds were considered but not given or refused? Why? @ -None Did you discuss the management of the patient with other professionals (professionals i.e. , PA, [employer], lab, RT, psych nurse, high school social studies teacher, audit clerks supervisor, teacher, sheriffs officer, manager supply chain planning)? Give summary @ -I spoke with [facility]ist they agreed admit the patient Was smoking cessation discussed for >3mins.? @ -No Was critical care preformed (if so, how long)? @ -35 minutes Were there social determinants of health that impacted care today? How? (Homelessness, low income, unemployed, alcoholism, drug addiction, transportation, low edu. Level, literacy, decrease access to med. care, skilled nursing, rehab)? @ -No Was there de-escalation of care discussed even if they declined (Discuss DNR or withdrawal of care, Hospice)? DNR status @ -No What co-morbidities impacted this encounter? (DM, HTN, Smoking, COPD, CAD, Cancer, CVA, ARF, Chemo, Hep., AIDS, mental health diagnosis, sleep apnea, morbid obesity)? @ -None Was patient admitted / discharged? Hospital course, mention meds given and route, prescriptions, significant lab abnormalities, going to OR and other pertinent info. @ -Patient received 2 breathing treatments and steroids as well as antibiotics. After that I went in and reevaluated the patient he continued to oxygenate at 89 to 90% and was at this time he continued to wheeze so I decided to admit the patient I spoke with [facility]ist admitted the patient I wrote admitting orders I continued antibiotics steroids and albuterol treatments Undiagnosed new problem with uncertain prognosis? @ -No Drug Therapy requiring intensive monitoring for toxicity (Heparin, Nitro, Insulin, Cardizem)? @ -No Were any procedures done? @ -No Diagnosis/symptom? @ -COPD exacerbation Acute, or Chronic, or Acute on Chronic? @ -Acute Uncomplicated (without systemic symptoms) or Complicated (systemic symptoms)? @ -Complicated Side effects of treatment? @ -No Exacerbation, Progression, or Severe Exacerbation? @ -No Poses a threat to life or bodily function? How? (Chest pain, [place], [place], pneumonia, PE, COPD, DKA, ARF, appy, cholecystitis, CVA, Diverticulitis, Homicidal, Suicidal, threat to staff... and all critical care pts) @ -Yes this could lead to hypoxia and endorgan dysfunction Diagnosis/symptom? @ -Pneumonia Acute, or Chronic, or Acute on Chronic? @ -Acute Uncomplicated (without systemic symptoms) or Complicated (systemic symptoms)? @ -Complicated Side effects of treatment? @ -None Exacerbation, Progression, or Severe Exacerbation] @ -No Poses a threat to life or bodily function? @ -Yes this could lead to sepsis and endorgan dysfunction - Lab Data Result diagrams: 03/12/24 06:39 03/12/24 06:39 Lab Results 03/12/24 03/12/24 03/12/24 Range/Units 06:39 06:39 06:39 WBC 7.5 (3.8-10.6) k/uL RBC 4.87 (4.30-5.90) m/uL Hgb 14.6 (13.0-17.5) gm/dL Hct 45.1 (39.0-53.0) % MCV 92.6 (80.0-100.0) fL MCH 30.0 (25.0-35.0) pg MCHC 32.4 (31.0-37.0) g/dL RDW 13.0 (11.5-15.5) % Plt Count 162 (150-450) k/uL MPV 6.7 Neutrophils % (Manual) 64 % Band Neuts % (Manual) 1 % Lymphocytes % (Manual) 17 % Monocytes % (Manual) 15 % Eosinophils % (Manual) 3 % Neutrophils # (Manual) 4.80 (1.3-7.7) k/uL Lymphocytes # (Manual) 1.28 (1.0-4.8) k/uL Monocytes # (Manual) 1.13 H (0-1.0) k/uL Eosinophils # (Manual) 0.23 (0-0.7) k/uL Nucleated RBCs 0 (0-0) /100 WBC Manual Slide Review Performed RBC Morphology Normal PT 10.2 (10.0-12.5) sec INR 0.9 (<1.2) APTT 24.8 (22.0-30.0) sec Sodium 133 L (137-145) mmol/L Potassium 5.1 (3.5-5.1) mmol/L Chloride 97 L (98-107) mmol/L Carbon Dioxide 28 (22-30) mmol/L Anion Gap 8 mmol/L BUN 15 (9-20) mg/dL Creatinine 0.71 (0.66-1.25) mg/dL Est GFR (CKD-EPI)AfAm >90 (>60 ml/min/1.73 sqM) Est GFR (CKD-EPI)NonAf >90 (>60 ml/min/1.73 sqM) Glucose 244 H (74-99) mg/dL Plasma Lactic Acid Chip (0.7-2.0) mmol/L Calcium 9.1 (8.4-10.2) mg/dL Total Bilirubin 0.6 (0.2-1.3) mg/dL AST 46 (17-59) U/L ALT 72 H (4-49) U/L Alkaline Phosphatase 82 (38-126) U/L Troponin I (0.000-0.034) ng/mL NT-Pro-B Natriuret Pep 120 pg/mL Total Protein 6.8 (6.3-8.2) g/dL Albumin 3.9 (3.5-5.0) g/dL Influenza Type A (PCR) (Not Detectd) Influenza Type B (PCR) (Not Detectd) RSV (PCR) (Not Detectd) SARS-CoV-2 (PCR) (Not Detectd) 03/12/24 03/12/24 03/12/24 Range/Units 06:39 06:39 06:41 WBC (3.8-10.6) k/uL RBC (4.30-5.90) m/uL Hgb (13.0-17.5) gm/dL Hct (39.0-53.0) % MCV (80.0-100.0) fL MCH (25.0-35.0) pg MCHC (31.0-37.0) g/dL RDW (11.5-15.5) % Plt Count (150-450) k/uL MPV Neutrophils % (Manual) % Band Neuts % (Manual) % Lymphocytes % (Manual) % Monocytes % (Manual) % Eosinophils % (Manual) % Neutrophils # (Manual) (1.3-7.7) k/uL Lymphocytes # (Manual) (1.0-4.8) k/uL Monocytes # (Manual) (0-1.0) k/uL Eosinophils # (Manual) (0-0.7) k/uL Nucleated RBCs (0-0) /100 WBC Manual Slide Review RBC Morphology PT (10.0-12.5) sec INR (<1.2) APTT (22.0-30.0) sec Sodium (137-145) mmol/L Potassium (3.5-5.1) mmol/L Chloride (98-107) mmol/L Carbon Dioxide (22-30) mmol/L Anion Gap mmol/L BUN (9-20) mg/dL Creatinine (0.66-1.25) mg/dL Est GFR (CKD-EPI)AfAm (>60 ml/min/1.73 sqM) Est GFR (CKD-EPI)NonAf (>60 ml/min/1.73 sqM) Glucose (74-99) mg/dL Plasma Lactic Acid Chip 1.8 (0.7-2.0) mmol/L Calcium (8.4-10.2) mg/dL Total Bilirubin (0.2-1.3) mg/dL AST (17-59) U/L ALT (4-49) U/L Alkaline Phosphatase (38-126) U/L Troponin I <0.012 (0.000-0.034) ng/mL NT-Pro-B Natriuret Pep pg/mL Total Protein (6.3-8.2) g/dL Albumin (3.5-5.0) g/dL Influenza Type A (PCR) Not Detected (Not Detectd) Influenza Type B (PCR) Not Detected (Not Detectd) RSV (PCR) Not Detected (Not Detectd) SARS-CoV-2 (PCR) Not Detected (Not Detectd) Critical Care Time Critical Care Time: Yes Total Critical Care Time: 35 Disposition Clinical Impression: Pneumonia, COPD exacerbation Disposition: ADMITTED IP TO THIS [facility] Referrals: Robert Eldridge DO [Primary Care Provider] - 1-2 days Time of Disposition: 10:25
[2024-03-12 07:24] LABS: INR 0.9 (<1.2); Partial Thromboplastin Time 24.8 sec (22.0-30.0); Prothrombin Time 10.2 sec (10.0-12.5)
[2024-03-12 07:29] LABS: NT-Pro-B-Type Natriuretic Pept 120 pg/mL
[2024-03-12] MEDS: methylPREDNISolone SOD SUCCI 125 MG/2 ML VIAL IV STA (07:35)
--- NOTE | 2024-03-12 07:37 | XR ---
EXAMINATION TYPE: XR chest 2V DATE OF EXAM: 03/12/2024 COMPARISON: 12/23/2023 and 11/03/2017. HISTORY: 63-year-old male shortness of breath, difficulty breathing TECHNIQUE: PA and lateral views FINDINGS: Heart normal size. Mild hyperinflation. Patchy interstitial densities mid and lower lungs. Unchanged rounded density posterior mid chest on the lateral view, similar back to 2018 suggesting prominent en dplate spondylosis. IMPRESSION: COPD with patchy interstitial changes in the mid and lower lungs. Consider bronchitis or atypical pne umonias.
[2024-03-12 08:13] LABS: HCT 45.1 % (39.0-53.0); HGB 14.6 gm/dL (13.0-17.5); MCHC 32.4 g/dL (31.0-37.0); MCV 92.6 fL (80.0-100.0); Mean Platelet Volume 6.7; Platelet Count 162 k/uL (150-450); RBC 4.87 m/uL (4.30-5.90); WBC 7.5 k/uL (3.8-10.6)
[2024-03-12 08:18] LABS: Band Neutrophils % 1 %; Eosinophils # (M) 0.23 k/uL (0-0.7); Lymphocytes # (M) 1.28 k/uL (1.0-4.8); Monocytes # (M) 1.13 k/uL (0-1.0); Neutrophils % (M) 64 %; Nucleated Red Blood Cells 0 /100 WBC (0-0); Total Cells Counted 100
[2024-03-12 08:19] LABS: RBC Morphology Normal
[2024-03-12] MEDS: IPRATROPIUM-ALBUTEROL 3 ML NEB INHALATION STA (09:44)
[2024-03-12] MEDS ORDERED: NALOXONE 0.4 MG/ML 1 ML VIAL IVP PRN (10:25)
[2024-03-12] MEDS: methylPREDNISolone SOD SUCCI 125 MG/2 ML VIAL IV SCH (11:21)
[2024-03-12] MEDS: IPRATROPIUM-ALBUTEROL 3 ML NEB INHALATION SCH (11:37)
[2024-03-12 12:32] LABS: Glucose,Whole Blood 373 mg/dL (70-110)
[2024-03-12] MEDS: AZITHROMYCIN 500 MG TAB PO SCH (14:53)
[2024-03-12] MEDS: ARIPiprazole 5 MG TAB PO SCH (15:56)
[2024-03-12] MEDS: buPROPion XL 300 MG TAB.ER.24H PO SCH (15:56)
[2024-03-12] MEDS: LOSARTAN 50 MG TAB PO SCH (15:57)
[2024-03-12] MEDS: INSULIN ASPART (NovoLOG) 100 UNIT/ML VIAL SQ ONE (16:05)
[2024-03-12 16:06] LABS: Glucose,Whole Blood 471 mg/dL (70-110)
[2024-03-12] MEDS: INSULIN DETEMIR (LEVEMIR) 100 UNIT/ML SYR SQ SCH (16:06)
[2024-03-12] MEDS: FORMOTEROL FUMARATE 20 MCG/2 ML NEBU INHALATION SCH (16:27)
[2024-03-12] MEDS: BUDESONIDE 1 MG/2 ML NEBU INHALATION SCH (16:27)
[2024-03-12 17:25] LABS: Glucose,Whole Blood 443 mg/dL (70-110)
[2024-03-12] MEDS: NON FORMULARY DRUG (Sitagliptin 100 MG Tab) PO SCH (17:56)
[2024-03-12] MEDS: INSULIN ASPART (NovoLOG) 100 UNIT/ML VIAL SQ SCH (18:00)
[2024-03-12] MEDS: GABAPENTIN 300 MG CAP PO SCH (20:31)
[2024-03-12] MEDS: GLIMEPIRIDE 4 MG TAB PO SCH (20:31)
[2024-03-12] MEDS: MELOXICAM 7.5 MG TAB PO SCH (20:31)
[2024-03-12] MEDS: ATORVASTATIN 40 MG TAB PO SCH (20:31)
[2024-03-12] MEDS: MELATONIN 5 MG TABLET PO SCH (20:31)
[2024-03-12] MEDS: METOPROLOL SUCCINATE (ER) 25 MG TAB.ER.24H PO SCH (20:32)
[2024-03-12] MEDS: MIRTAZAPINE 15 MG TAB PO SCH (20:32)
[2024-03-12] MEDS: NON FORMULARY DRUG (Omeprazole 20 MG Capsule.Dr) PO SCH (20:33)
[2024-03-12 21:12] LABS: Glucose,Whole Blood 486 mg/dL (70-110)
--- NOTE | 2024-03-13 01:17 | HP ---
HISTORY AND PHYSICAL CHIEF COMPLAINT: Shortness of breath and cough. HISTORY OF PRESENT ILLNESS: This is a 63-year-old gentleman with a past medical history of multiple medical problems including COPD, was complaining of cough for the last 4 days and then subsequently currently the patient is also complaining of shortness of breath. The patient came to [facility] with a chest x-ray, did not show any acute pneumonia, but the patient also had history of, otherwise the pulse ox is dipping up to 80s and blood sugar is also elevated. There is no history of any fever, rigors, or chills at this time. PAST MEDICAL HISTORY: Reviewed include COPD, diabetes mellitus. Rest of the history and chart is also reviewed. The patient stopped smoking about 1 year ago. HOME MEDICATIONS: Reviewed include Neurontin, rest of medications reviewed. ALLERGIES: None. FAMILY HISTORY: No history of heart disease or strokes in the family. SOCIAL HISTORY: Previous history of smoking, alcohol apparently daily recently. REVIEW OF SYSTEMS: A 14-point review is negative except as mentioned earlier. PHYSICAL EXAMINATION: VITAL SIGNS: Pulse 106, blood pressure 140/60, , respirations 18. HEENT: Conjunctivae normal. NECK: No jugular venous distention. CARDIOVASCULAR: S1, S2. RESPIRATIONS: Bilateral scattered rhonchi and crackles. Chest is symmetric. ABDOMEN: Soft, obese. LEGS: No edema, no swelling. NERVOUS SYSTEM: No focal deficit. SKIN: No ulcer, rash, bleeding. JOINTS: No active deforming arthropathy. LABORATORY DATA: Reviewed. ASSESSMENT: 1. Chronic obstructive pulmonary disease acute exacerbation with acute purulent tracheobronchitis with acute hypoxic respiratory failure. 2. Hyponatremia. 3. Diabetes mellitus type 2. 4. Hypertension. 5. History of back pain. 6. History of brain aneurysm. 7. Anxiety, depression. RECOMMENDATIONS AND DISCUSSION: This 63-year-old gentleman presented with multiple complex medical issues, we will monitor the patient closely. Recommended to continue the current medications, continue symptomatic treatment. Otherwise, I would institute intensive bronchodilator treatment with DuoNeb, Pulmicort as well as IV Solu-Medrol. Monitor blood sugars closely. Blood sugar has been elevated. I would recommend to initiate Lantus insulin. Accu- Cheks a.c. and h.s. DVT prophylaxis and I would also recommend D-dimer if it is positive. I would also recommend CT angio of the chest. COVID and influenza RSV testing was negative. Also consulted Dr. Spann. The patient was seen previously. Home medications will be reviewed and continued. Overall prognosis is extremely guarded because of multiple complex medical issues as mentioned earlier. The patient will need a full inpatient admission for more than 2 nights because of above-mentioned multiple complex medical issues which cannot be treated within 23 hours. NICK / ALAN: [id number] / PARAS
[2024-03-13 06:21] LABS: Glucose,Whole Blood 366 mg/dL (70-110)
[2024-03-13] MEDS: ASPIRIN 81 MG PO SCH (08:32)
[2024-03-13] MEDS: CHOLECALCIFEROL 25 MCG (1000 IU) TABLET PO SCH (08:33)
[2024-03-13] MEDS ORDERED: NON FORMULARY DRUG (Mv-Min/Folic/K1/Lycopen/Lutein [Centrum Silver Men Tablet] 1 EACH Tabl PO SCH (09:00)
[2024-03-13 11:00] LABS: Basophils # (A) 0.02 X 10*3/uL (0.00-0.10); Basophils % (A) 0.2 %; Eosinophils # (A) 0 X 10*3/uL (0.04-0.35); Eosinophils % (A) 0 %; HCT 44.7 % (39.6-50.0); HGB 14.4 g/dL (13.0-17.0); Lymphocytes # (A) 0.68 X 10*3/uL (0.90-5.00); Lymphocytes % (A) 6.6 %; MCH 29.7 pg (27.0-32.0); MCHC 32.2 g/dL (32.0-37.0); MCV 92.2 FL (80.0-97.0); Mean Platelet Volume 9.6 FL (9.5-12.2); Monocytes % (A) 7.8 %; NRBC Per 100 WBC 0 X 10*3/uL (0.00-0.01); Neutrophils # (A) 8.68 X 10*3/uL (1.80-7.70); Neutrophils % (A) 84.9 %; Platelet Count 192 X 10*3/uL (140-440); RBC 4.85 X 10*6/uL (4.40-5.60); RDW 12.6 % (11.5-14.5); WBC 10.23 X 10*3/uL (4.50-10.00)
[2024-03-13 11:26] LABS: BUN/Creat Ratio 20.45 Ratio (12.00-20.00); Blood Urea Nitrogen 22.5 mg/dL (9.0-27.0); Chloride 94 mmol/L (96-109); Glucose 382 mg/dL (70-110); Potassium 5.3 mmol/L (3.5-5.5); Sodium 134 mmol/L (135-145)
[2024-03-13 11:27] LABS: Calcium 9.1 mg/dL (8.7-10.3); Carbon Dioxide 27.9 mmol/L (21.6-31.8)
[2024-03-13 12:40] LABS: Glucose,Whole Blood 509 mg/dL (70-110)
[2024-03-13] MEDS ORDERED: DEXTROSE 50% SYRINGE 50 ML IVP PRN ×2 (14:10)
--- NOTE | 2024-03-13 15:17 | P.CNPUL ---
History of Present Illness Consult date: 03/13/24 Requesting physician: Gale Benoit Reason for consult: pneumonia Chief complaint: Cough, shortness of breath. History of present illness: This is a 64-year-old white male, known history of COPD, patient smoked a pipe for over 30 years. Quit smoking about 1.5 years ago. Patient presented to the ER with few days history of shortness of breath and cough. Describes the cough as productive, slightly colored phlegm, but no hemoptysis, no fever, no chills. His chest x-ray is highly suggestive of left lower lobe infiltrate, patient was admitted and this consult was initiated. WBC count is 10.3 hemoglobin 14.4. His basic metabolic profile is normal except for slightly elevated potassium of 5.3 renal profile is normal blood sugar is elevated at 382. Procalcitonin level is pending. Patient had negative screening for influenza A, influenza B, RSV, and SARS/COVID-19. Review of Systems REVIEW OF SYSTEMS: CONSTITUTIONAL: Generalized weakness EYES: Negative. ENT: Negative. CARDIAC: Negative. PULMONARY: As noted in HPI GI: Negative. GENITOURINARY: Negative. MUSCULOSKELETAL: Negative. SKIN: Negative. NEUROPSYCH: Negative. ENDOCRINE: Negative. HEMATOLOGIC: Negative. Past Medical History Past Medical History: COPD, Diabetes Mellitus, Hypertension Additional Past Medical History / Comment(s): back pain, neuropathy, brain aneursym History of Any Multi-Drug Resistant Organisms: None Reported Past Surgical History: Orthopedic Surgery Additional Past Surgical History / Comment(s): finger Past Psychological History: Anxiety, Depression Smoking Status: Former smoker Past Alcohol Use History: Occasional Past Drug Use History: None Reported Medications and Allergies Home Medications Medication Instructions Recorded Confirmed Type Aspirin 81 mg PO DAILY 07/11/14 03/12/24 History Gabapentin [Neurontin] 300 mg PO BID 07/11/14 03/12/24 History Losartan Potassium [Cozaar] 50 mg PO DAILY 07/11/14 03/12/24 History Metoprolol Succinate [Toprol XL] 25 mg PO BID 07/11/14 03/12/24 History metFORMIN HCL [Glucophage] 850 mg PO TID 07/11/14 03/12/24 History Atorvastatin [Lipitor] 40 mg PO HS 07/05/15 03/12/24 History buPROPion XL [Wellbutrin XL] 300 mg PO DAILY 12/06/16 03/12/24 History ARIPiprazole [Abilify] 5 mg PO DAILY 12/23/23 03/12/24 History Cholecalciferol [Vitamin D3 (25 25 mcg PO DAILY 12/23/23 03/12/24 History Mcg = 1000 Iu)] Dulaglutide [Trulicity] 0.75 mg SQ MO 12/23/23 03/12/24 History Glimepiride [Amaryl] 4 mg PO BID 12/23/23 03/12/24 History Insulin Glargine,Hum.rec.anlog 75 units SQ DAILY 12/23/23 03/12/24 History [Lantus Solostar Pen] Melatonin 10 mg PO HS 12/23/23 03/12/24 History Mirtazapine [Remeron] 15 mg PO HS 12/23/23 03/12/24 History Mv-Min/Folic/K1/Lycopen/Lutein 1 tab PO DAILY 12/23/23 03/12/24 History [Centrum Silver Men Tablet] Omeprazole [PriLOSEC] 20 mg PO HS 12/23/23 03/12/24 History sitaGLIPtin [Januvia] 100 mg PO DAILY 12/23/23 03/12/24 History Celecoxib [CeleBREX] 200 mg PO BID 03/12/24 03/12/24 History Allergies Allergy/AdvReac Type Severity Reaction Status Date / Time No Known Allergies Allergy Verified 03/12/24 10:32 Physical Exam Vitals: Vital Signs Temp Pulse Pulse Resp BP Pulse Ox 03/13/24 11:53 94 03/13/24 11:44 98 03/13/24 07:45 92 03/13/24 07:34 94 03/13/24 07:33 94 03/13/24 07:26 90 L 03/13/24 07:23 90 03/13/24 07:00 97.7 F 98 17 131/75 97 03/13/24 03:38 98.3 F 94 19 137/69 94 L 03/13/24 02:06 111 H 16 03/12/24 20:55 97.4 F L 111 H 16 147/70 91 L 03/12/24 20:31 111 H 16 03/12/24 19:50 101 H 03/12/24 19:44 100 03/12/24 19:43 100 03/12/24 19:32 99 03/12/24 15:16 98 Intake and Output 03/13/24 03/13/24 03/13/24 06:59 14:59 22:59 Intake Total 480 Balance 480 Intake: Oral 480 Other: # Voids 2 General: The patient is awake and alert, in no distress, and does not appear acutely ill. On 3 L nasal cannula Skin: Skin is warm and dry and no rashes or lesions are noted. Eye: Pupils are equal, round and reactive to light, extra-ocular movements are intact; there is normal conjunctiva bilaterally. Ears, nose, mouth and throat: There are moist mucous membranes and no oral lesions. Neck: The neck is supple, there is no tenderness or JVD. Cardiovascular: There is a regular rate and rhythm. No murmur, rub or gallop is appreciated. Respiratory: Crackles noted at the left base with minimal wheezing on forced expiratory maneuver. Gastrointestinal: Soft, non-distended, non-tender abdomen without masses or organomegaly noted. There is no rebound or guarding present. Bowel sounds are unremarkable. Back: There is no tenderness to palpation in the midline. There is no obvious deformity. Musculoskeletal: Normal ROM, no tenderness, There is no pedal edema. There is no calf tenderness or swelling. No cords were appreciated. Neurological: CN II-XII intact, Cranial nerves III through XII are intact. There are no obvious motor or sensory deficits. Coordination appears grossly intact. Speech is normal. Psychiatric: Cooperative, appropriate mood & affect, normal judgment. Results - Laboratory Findings CBC and BMP: 03/13/24 05:17 03/13/24 05:17 PT/INR, D-dimer PT 10.2 sec (10.0-12.5) 03/12/24 06:39 INR 0.9 (<1.2) 03/12/24 06:39 D-Dimer 0.35 mg/L FEU (<0.60) 03/12/24 15:34 Abnormal lab findings: Abnormal Labs 03/12/24 03/12/24 03/12/24 06:39 06:39 12:30 WBC Immature Gran # Neutrophils # Lymphocytes # Monocytes # (Manual) 1.13 H Eosinophils # Sodium 133 L Chloride 97 L Anion Gap BUN/Creatinine Ratio Glucose 244 H POC Glucose (mg/dL) 373 H ALT 72 H 03/12/24 03/12/24 03/12/24 16:04 17:22 21:10 WBC Immature Gran # Neutrophils # Lymphocytes # Monocytes # (Manual) Eosinophils # Sodium Chloride Anion Gap BUN/Creatinine Ratio Glucose POC Glucose (mg/dL) 471 H 443 H 486 H ALT 03/13/24 03/13/24 03/13/24 05:17 05:17 06:20 WBC 10.23 H Immature Gran # 0.05 H Neutrophils # 8.68 H Lymphocytes # 0.68 L Monocytes # (Manual) Eosinophils # 0 L Sodium 134 L Chloride 94 L Anion Gap 12.10 H BUN/Creatinine Ratio 20.45 H Glucose 382 H POC Glucose (mg/dL) 366 H ALT 03/13/24 12:39 WBC Immature Gran # Neutrophils # Lymphocytes # Monocytes # (Manual) Eosinophils # Sodium Chloride Anion Gap BUN/Creatinine Ratio Glucose POC Glucose (mg/dL) 509 H ALT - Diagnostic Findings Chest x-ray: image reviewed (Chest x-ray is suggestive of pneumonia/left lower lobe/lingula) Assessment and Plan Assessment: Impression: Acute hypoxic respiratory failure Acute community-acquired pneumonia Acute exacerbation of COPD Type 2 diabetes, poorly controlled Benign essential hypertension Ex-smoker, patient smoked the pipe History of brain aneurysm Generalized anxiety disorder Recommendation: Reviewed and discussed the findings of the chest x-ray with the patient and agree with the present treatment plan Continue antibiotics/Rocephin and Zithromax Continue updrafts No need for CT angiogram of the chest Continue bronchodilators GI and DVT prophylaxis Discontinue methylprednisolone and placed on prednisone 40 mg daily Close monitoring of blood sugars as they seem to be poorly controlled Will continue to follow Time with Patient: Greater than 30
[2024-03-13] MEDS: NON FORMULARY DRUG (Sitagliptin 100 MG Tab) PO SCH (15:30)
[2024-03-13 16:54] LABS: Glucose,Whole Blood >600 mg/dL (70-110)
[2024-03-13] MEDS: INSULIN REGULAR 100 UNIT in SODIUM CHLORIDE 0.9% 100 ML IV SCH (17:40)
[2024-03-13 18:02] LABS: Glucose,Whole Blood 456 mg/dL (70-110)
[2024-03-13 19:01] LABS: Glucose,Whole Blood 457 mg/dL (70-110)
[2024-03-13 20:07] LABS: Glucose,Whole Blood 499 mg/dL (70-110)
[2024-03-13] MEDS: NON FORMULARY DRUG (Omeprazole 20 MG Capsule.Dr) PO SCH (20:40)
[2024-03-13 21:18] LABS: Glucose,Whole Blood 373 mg/dL (70-110)
[2024-03-13 22:06] LABS: Glucose,Whole Blood 353 mg/dL (70-110)
[2024-03-13 23:03] LABS: Glucose,Whole Blood 238 mg/dL (70-110)
[2024-03-14] LABS: Glucose,Whole Blood 163 mg/dL (70-110)
[2024-03-14 00:59] LABS: Glucose,Whole Blood 150 mg/dL (70-110)
[2024-03-14 01:58] LABS: Glucose,Whole Blood 109 mg/dL (70-110)
[2024-03-14 02:59] LABS: Glucose,Whole Blood 123 mg/dL (70-110)
[2024-03-14 05:00] LABS: Glucose,Whole Blood 160 mg/dL (70-110)
[2024-03-14 06:42] LABS: Glucose,Whole Blood 171 mg/dL (70-110)
--- NOTE | 2024-03-14 08:18 | PN ---
PROGRESS NOTE DATE OF SERVICE: 03/13/2024 I am covering for Dr. Eldridge. SUBJECTIVE: This is a 63-year-old gentleman admitted with COPD acute exacerbation with acute purulent tracheobronchitis, had blood sugars more than 500. The patient is on IV steroids. The patient will be started on insulin drip and transferred to telemetry for further monitoring and Dr. Spann's evaluation is in progress. Blood sugar has been consistently high. PAST MEDICAL HISTORY: Reviewed. REVIEW OF SYSTEMS: 14-point review is negative except as mentioned earlier. CURRENT MEDICATIONS: Reviewed include Solu-Medrol, bronchodilators. Rest of medications and doses are noted. PHYSICAL EXAMINATION: VITAL SIGNS: Pulse is 94, blood pressure 131/74, respirations 17. HEENT: Conjunctivae normal. CARDIOVASCULAR: S1, S2. RESPIRATIONS: Bilateral scattered rhonchi and crackles. Expiratory wheezing. ABDOMEN: Soft. NERVOUS SYSTEM: Nonfocal. LABORATORY DATA: Reviewed. Rest of the labs are noted. ASSESSMENT: 1. Chronic obstructive pulmonary disease acute exacerbation with acute purulent tracheobronchitis with acute hypoxic respiratory failure. 2. Diabetes mellitus, type 2, uncontrolled with severe hyperglycemia. 3. Hyponatremia. 4. Hypertension. 5. History of back pain. 6. History of brain aneurysm. 7. Anxiety, depression. RECOMMENDATIONS AND DISCUSSION: Recommend to continue current management and continue symptomatic treatment. The patient still has significant bronchospasm. I would recommend to continue the empiric antibiotics and IV steroids. The patient will require IV insulin drip as mentioned earlier. We will continue to monitor. D-dimer is negative. Closely follow with Dr. Spann. Continue the rest of medications including intensive bronchodilator treatment. Discussed with the family [facility] and Dr. Eldridge will follow. Prognosis guarded. MMODL / IJN: [id number] /
[2024-03-14] MEDS: predniSONE 20 MG TAB PO SCH (09:48)
[2024-03-14 11:58] LABS: Glucose,Whole Blood 261 mg/dL (70-110)
[2024-03-14] MEDS: NON FORMULARY DRUG (Dulaglutide [Trulicity] 0.75 MG/0.5 ML Each) SQ SCH (12:16)
--- NOTE | 2024-03-14 12:48 | P.PN ---
Subjective Progress Note Date: 03/14/24 This is a 63-year-old gentleman with past medical history significant for COPD, prior nicotine dependence, alcohol abuse, diabetes mellitus type 2, diabetic neuropathy, hypertension, hyperlipidemia, longoria aneurysm [place] [facility] [place], morbid obesity and multiple other medical issues admitted with acute hypoxic respiratory failure secondary to acute COPD exacerbation, acute community-acquired pneumonia-left lower lobe infiltrate on chest x-ray. Procalcitonin pending. Blood sugars poorly controlled, hemoglobin A1c 10.8. Denies chest pain, palpitations or increase in shortness of breath. Maintaining O2 sats in the low 90s on 2 L nasal cannula. Afebrile. Objective - Vital Signs Vital signs: Vital Signs Temp 98.5 F 03/14/24 12:00 Pulse 96 03/14/24 12:06 Resp 18 03/14/24 12:00 BP 123/60 03/14/24 12:00 Pulse Ox 92 L 03/14/24 12:00 FiO2 Intake & Output 03/13/24 03/14/24 03/14/24 18:59 06:59 18:59 Intake Total 924 410.741 440 Balance 924 410.741 440 Weight 118.4 kg Intake: Intake, IV Titration 110.741 Amount Insulin Regular 100 unit 110.741 In Sodium Chloride 0.9% 100 ml @ Titrate IV .Q0M [facility] Rx#:[id number] Oral 924 440 Tube Feeding 300 Other: Voiding Method Toilet # Voids 3 3 # Bowel Movements 0 - Exam GENERAL: Pt awake and alert, NAD HEENT: Alert and oriented x 3, atraumatic, normocephalic. Pupils equal and round.Supple, no JVD LUNGS: Equal air entry, left basilar crackles, fine expiratory wheeze. HEART: Heart S1, S2, no S3 or S4. No murmurs, rubs or gallops. ABDOMEN: Soft, morbidly obese, nontender, nondistended, + bowel sounds. EXTREMITIES: Palpable pulses bilaterally. No edema. No calf tenderness. NEUROLOGICAL: Cranial nerves II through XII grossly intact ,no focal deficits. Strength and sensation grossly intact. SKIN: Warm, dry, intact. - Labs CBC & Chem 7: 03/13/24 05:17 03/13/24 17:39 Labs: Abnormal Lab Results - Last 24 Hours (Table) 03/13/24 03/13/24 03/13/24 Range/Units 05:17 12:39 16:42 Glucose (74-99) mg/dL POC Glucose (mg/dL) 509 H >600 H (70-110) mg/dL Hemoglobin A1c 10.8 H (<=6.0) % 03/13/24 03/13/24 03/13/24 Range/Units 17:39 18:00 18:59 Glucose 519 H* (74-99) mg/dL POC Glucose (mg/dL) 456 H 457 H (70-110) mg/dL Hemoglobin A1c (<=6.0) % 03/13/24 03/13/24 03/13/24 Range/Units 20:02 21:09 22:04 Glucose (74-99) mg/dL POC Glucose (mg/dL) 499 H 373 H 353 H (70-110) mg/dL Hemoglobin A1c (<=6.0) % 03/13/24 03/13/24 03/14/24 Range/Units 22:57 23:58 00:56 Glucose (74-99) mg/dL POC Glucose (mg/dL) 238 H 163 H 150 H (70-110) mg/dL Hemoglobin A1c (<=6.0) % 03/14/24 03/14/24 03/14/24 Range/Units 02:58 04:54 06:36 Glucose (74-99) mg/dL POC Glucose (mg/dL) 123 H 160 H 171 H (70-110) mg/dL Hemoglobin A1c (<=6.0) % 03/14/24 Range/Units 11:56 Glucose (74-99) mg/dL POC Glucose (mg/dL) 261 H (70-110) mg/dL Hemoglobin A1c (<=6.0) % Microbiology - Last 24 Hours (Table) 03/12/24 12:59 Blood Culture - Preliminary Blood Assessment and Plan Assessment: Acute community-acquired pneumonia Acute COPD exacerbation Acute hypoxic respiratory failure secondary to all the above Diabetes mellitus, type II, uncontrolled. Hemoglobin A1c 10.8 Diabetic peripheral neuropathy. Hypertension Hyperlipidemia History longoria aneurysm Anxiety, depression Degenerative joint disease Chronic back pain. History of EtOH abuse. Former nicotine dependence. Plan: Continue on current medication regimen ,monitoring and symptomatic treatment. Aggressive pulmonary toileting with nebulized bronchodilators, oral steroids, antibiotics. Diabetes poorly controlled, Levemir insulin added to med regimen yesterday, blood sugars improving. NovoLog Premeal insulin added to current med regimen with continued close monitoring of Accu-Cheks. The impression and plan of care has been dictated as directed. : I performed a history and examination of this patient, discussed the same with the dictator. I agree with the dictator's note ,documented as a scribe. Any additional findings or plans will be noted.
--- NOTE | 2024-03-14 12:50 | P.PN ---
Subjective Progress Note Date: 03/14/24 Principal diagnosis: COPD exacerbation. This is a 64-year-old white male, known history of COPD, patient smoked a pipe for over 30 years. Quit smoking about 1.5 years ago. Patient presented to the ER with few days history of shortness of breath and cough. Describes the cough as productive, slightly colored phlegm, but no hemoptysis, no fever, no chills. His chest x-ray is highly suggestive of left lower lobe infiltrate, patient was admitted and this consult was initiated. WBC count is 10.3 hemoglobin 14.4. His basic metabolic profile is normal except for slightly elevated potassium of 5.3 renal profile is normal blood sugar is elevated at 382. Procalcitonin level is pending. Patient had negative screening for influenza A, influenza B, RSV, and SARS/COVID-19. Progress note dated March 14, 2024. 63-year-old male with a history of COPD, is admitted through the emergency department, with shortness of breath, and cough. The cough is productive of slight yellow phlegm, but denies any fever or chills, or hemoptysis. Chest x- ray was evaluated, thought to show left lower lobe pneumonia. No new labs today. Labs from March 12 and March 13 are reviewed. Cultures are currently pending are negative. Chest x-ray shows some patchy infiltrates, in the lower lobes, more on the left. Procalcitonin level is currently pending. N-terminal proBNP was 120. The patient continues on Rocephin. Objective - Vital Signs Vital signs: Vital Signs Temp 98.5 F 03/14/24 12:00 Pulse 96 03/14/24 12:06 Resp 18 03/14/24 12:00 BP 123/60 03/14/24 12:00 Pulse Ox 92 L 03/14/24 12:00 FiO2 Intake & Output 03/13/24 03/14/24 03/14/24 18:59 06:59 18:59 Intake Total 924 410.741 440 Balance 924 410.741 440 Weight 118.4 kg Intake: Intake, IV Titration 110.741 Amount Insulin Regular 100 unit 110.741 In Sodium Chloride 0.9% 100 ml @ Titrate IV .Q0M [facility] Rx#:[id number] Oral 924 440 Tube Feeding 300 Other: Voiding Method Toilet # Voids 3 3 # Bowel Movements 0 - Exam No acute distress, oriented 3. Patient continues on 2 L of oxygen. No respir atory distress or difficulty. HEENT examination is grossly unremarkable. Mucous membranes are moist. No oral lesions. Neck supple. Full range of motion. No adenopathy thyromegaly or neck vein di stention. Cardiovascular examination reveals regular rhythm rate. S1-S2 normal. No S3 or S4. No discernible murmur noted. Heart rate 96 bpm. Lungs reveal mostly clear breath sounds. Minimal scattered rhonchi. No wheezes. No crackles. Breath sounds otherwise equal. Saturations are in the l ow to mid 90s. Abdomen soft bowel sounds are heard. No masses or tenderness. Extremities are intact. No cyanosis clubbing or edema. Skin is without rash or lesion. Neurologic examination is brief but nonfocal. - Labs CBC & Chem 7: 03/13/24 05:17 03/13/24 17:39 Labs: Abnormal Lab Results - Last 24 Hours (Table) 03/13/24 03/13/24 03/13/24 Range/Units 05:17 16:42 17:39 Glucose 519 H* (74-99) mg/dL POC Glucose (mg/dL) >600 H (70-110) mg/dL Hemoglobin A1c 10.8 H (<=6.0) % 03/13/24 03/13/24 03/13/24 Range/Units 18:00 18:59 20:02 Glucose (74-99) mg/dL POC Glucose (mg/dL) 456 H 457 H 499 H (70-110) mg/dL Hemoglobin A1c (<=6.0) % 03/13/24 03/13/24 03/13/24 Range/Units 21:09 22:04 22:57 Glucose (74-99) mg/dL POC Glucose (mg/dL) 373 H 353 H 238 H (70-110) mg/dL Hemoglobin A1c (<=6.0) % 03/13/24 03/14/24 03/14/24 Range/Units 23:58 00:56 02:58 Glucose (74-99) mg/dL POC Glucose (mg/dL) 163 H 150 H 123 H (70-110) mg/dL Hemoglobin A1c (<=6.0) % 03/14/24 03/14/24 03/14/24 Range/Units 04:54 06:36 11:56 Glucose (74-99) mg/dL POC Glucose (mg/dL) 160 H 171 H 261 H (70-110) mg/dL Hemoglobin A1c (<=6.0) % Microbiology - Last 24 Hours (Table) 03/12/24 12:59 Blood Culture - Preliminary Blood Assessment and Plan Assessment: Acute exacerbation of COPD, possibly complicated by community-acquired pneumonia. History of COPD. History of type 2 diabetes mellitus. Benign essential hypertension. Previous history of tobacco use. History of brain aneurysm. History of generalized anxiety disorder. Plan: Plan dated March 14, 2024. The patient appears to be resting comfortably. We await a procalcitonin level. The patient is on appropriate medications. He continues on antibiotics. He also continues on GI and DVT prophylaxis. The patient was placed on prednisone 40 mg a day. We will continue to follow make recommendations along the way. Labs, x-rays, and all medications are reviewed. Prognosis is guarded. Time with Patient: Less than 30
[2024-03-14 16:37] LABS: Glucose,Whole Blood 469 mg/dL (70-110)
[2024-03-14] MEDS: INSULIN ASPART (NovoLOG) 100 UNIT/ML VIAL SQ SCH (17:31)
[2024-03-14 20:21] LABS: Glucose,Whole Blood 375 mg/dL (70-110)
[2024-03-14] MEDS: PANTOPRAZOLE 40 MG TABLET PO SCH (20:30)
[2024-03-15 06:20] LABS: Glucose,Whole Blood 175 mg/dL (70-110)
[2024-03-15 12:07] LABS: Glucose,Whole Blood 294 mg/dL (70-110)
--- NOTE | 2024-03-15 13:10 | P.PN ---
Subjective Progress Note Date: 03/15/24 Principal diagnosis: COPD exacerbation. This is a 64-year-old white male, known history of COPD, patient smoked a pipe for over 30 years. Quit smoking about 1.5 years ago. Patient presented to the ER with few days history of shortness of breath and cough. Describes the cough as productive, slightly colored phlegm, but no hemoptysis, no fever, no chills. His chest x-ray is highly suggestive of left lower lobe infiltrate, patient was admitted and this consult was initiated. WBC count is 10.3 hemoglobin 14.4. His basic metabolic profile is normal except for slightly elevated potassium of 5.3 renal profile is normal blood sugar is elevated at 382. Procalcitonin level is pending. Patient had negative screening for influenza A, influenza B, RSV, and SARS/COVID-19. Progress note dated March 14, 2024. 63-year-old male with a history of COPD, is admitted through the emergency department, with shortness of breath, and cough. The cough is productive of slight yellow phlegm, but denies any fever or chills, or hemoptysis. Chest x- ray was evaluated, thought to show left lower lobe pneumonia. No new labs today. Labs from March 12 and March 13 are reviewed. Cultures are currently pending are negative. Chest x-ray shows some patchy infiltrates, in the lower lobes, more on the left. Procalcitonin level is currently pending. N-terminal proBNP was 120. The patient continues on Rocephin. Progress note dated March 15, 2024. 63-year-old male with history of COPD, was admitted through the emergency department, with complaints of shortness of breath, chest congestion, and cough. He was coughing up a slight amount of yellow phlegm. There was no fever or chills. He is currently seen today in room 368. He is getting saline at 20 cc an hour. He is also getting oxygen supplementally by nasal cannula at 3 L. He is laying flat in bed, without any difficulty in his breathing. No new labs today other than a glucose of 294. His procalcitonin level was normal at 0.07. Objective - Vital Signs Vital signs: Vital Signs Temp 98.2 F 03/15/24 11:45 Pulse 92 03/15/24 12:08 Resp 18 03/15/24 11:45 BP 120/71 03/15/24 11:45 Pulse Ox 88 L 03/15/24 12:04 FiO2 Intake & Output 03/14/24 03/15/24 03/15/24 18:59 06:59 18:59 Intake Total 916 118 Output Total 500 Balance 916 -500 118 Intake: Oral 916 118 Output: Urine 500 Other: Voiding Method Toilet Toilet Toilet # Voids 1 - Exam No acute distress, oriented 3. Patient continues on 3 L of oxygen. No respiratory distress or difficulty. HEENT examination is grossly unremarkable. Mucous membranes are moist. No oral lesions. Neck supple. Full range of motion. No adenopathy thyromegaly or neck vein distention. Cardiovascular examination reveals regular rhythm rate. S1-S2 normal. No S3 or S4. No discernible murmur noted. Heart rate 92 bpm. Lungs reveal mostly clear breath sounds. Minimal scattered rhonchi. No wheezes. No crackles. Breath sounds otherwise equal. Saturations are 91% Abdomen soft bowel sounds are heard. No masses or tenderness. Extremities are intact. No cyanosis clubbing or edema. Skin is without rash or lesion. Neurologic examination is brief but nonfocal. - Labs CBC & Chem 7: 03/13/24 05:17 03/13/24 17:39 Labs: Abnormal Lab Results - Last 24 Hours (Table) 03/14/24 03/14/24 03/15/24 Range/Units 16:35 20:20 05:56 POC Glucose (mg/dL) 469 H 375 H 175 H (70-110) mg/dL 03/15/24 Range/Units 12:04 POC Glucose (mg/dL) 294 H (70-110) mg/dL Microbiology - Last 24 Hours (Table) 03/12/24 12:59 Blood Culture - Preliminary Blood Assessment and Plan Assessment: Acute exacerbation of COPD, possibly complicated by community-acquired pneumonia. History of COPD. History of type 2 diabetes mellitus. Benign essential hypertension. Previous history of tobacco use. History of brain aneurysm. History of generalized anxiety disorder. Plan: Plan dated March 14, 2024. The patient appears to be resting comfortably. We await a procalcitonin level. The patient is on appropriate medications. He continues on antibiotics. He also continues on GI and DVT prophylaxis. The patient was placed on prednisone 40 mg a day. We will continue to follow make recommendations along the way. Labs, x-rays, and all medications are reviewed. Prognosis is guarded. Plan dated March 15, 2024. The patient continues on supplemental oxygen at 3 L. The patient's procalcito roz level was normal. The patient is getting saline at 20 cc an hour. In addition, the patient is on Pulmicort 1 mg, mixed with formoterol, 20 mcg. That is nebulized twice a day. In addition, the patient is getting albuterol sulfate, and ipratropium bromide, 4 times daily and as needed. Because his procalcitonin level is normal, his Rocephin will be discontinued. He continues on prednisone at 40 mg a day. Additional recommendations and suggestions are forthcoming. Prognosis is guarded. Labs, x-rays, and medications are reviewed. Time with Patient: Less than 30
--- NOTE | 2024-03-15 13:37 | P.PN ---
Subjective Progress Note Date: 03/15/24 This is a 63-year-old gentleman with past medical history significant for COPD, prior nicotine dependence, alcohol abuse, diabetes mellitus type 2, diabetic neuropathy, hypertension, hyperlipidemia, longoria aneurysm follows with Dr. Mari at [facility] [place], morbid obesity and multiple other medical issues admitted with acute hypoxic respiratory failure secondary to acute COPD exacerbation, acute community-acquired pneumonia-left lower lobe infiltrate on chest x-ray. Procalcitonin pending. Blood sugars poorly controlled, hemoglobin A1c 10.8. Denies chest pain, palpitations or increase in shortness of breath. Maintaining O2 sats in the low 90s on 2 L nasal cannula. Afebrile. 03/15/2024 sitting up in chair, nonproductive cough, maintaining O2 sats of mid 90s on the 2 L nasal cannula. Procalcitonin normal , 0.07 .yesterday steroids transition to oral, expiratory wheezing auscultated. Denies chest pain, palpitations or shortness of breath. Denies fever or chills. Objective - Vital Signs Vital signs: Vital Signs Temp 98.2 F 03/15/24 11:45 Pulse 92 03/15/24 12:08 Resp 18 03/15/24 11:45 BP 120/71 03/15/24 11:45 Pulse Ox 88 L 03/15/24 12:04 FiO2 Intake & Output 03/14/24 03/15/24 03/15/24 18:59 06:59 18:59 Intake Total 916 118 Output Total 500 Balance 916 -500 118 Intake: Oral 916 118 Output: Urine 500 Other: Voiding Method Toilet Toilet Toilet # Voids 1 - Exam GENERAL: Pt awake and alert, NAD HEENT: Alert and oriented x 3, atraumatic, normocephalic. Pupils equal and round.Supple, no JVD LUNGS: Equal air entry, bilateral expiratory wheezing. HEART: Heart S1, S2, no S3 or S4. No murmurs, rubs or gallops. ABDOMEN: Soft, morbidly obese, nontender, nondistended, + bowel sounds. EXTREMITIES: Palpable pulses bilaterally. No edema. No calf tenderness. NEUROLOGICAL: Cranial nerves II through XII grossly intact ,no focal deficits. Strength and sensation grossly intact. SKIN: Warm, dry, intact. - Labs CBC & Chem 7: 03/13/24 05:17 03/13/24 17:39 Labs: Abnormal Lab Results - Last 24 Hours (Table) 03/14/24 03/14/24 03/15/24 Range/Units 16:35 20:20 05:56 POC Glucose (mg/dL) 469 H 375 H 175 H (70-110) mg/dL 03/15/24 Range/Units 12:04 POC Glucose (mg/dL) 294 H (70-110) mg/dL Microbiology - Last 24 Hours (Table) 03/12/24 12:59 Blood Culture - Preliminary Blood Assessment and Plan Assessment: Acute community-acquired pneumonia, possible, pulmonary following Acute COPD exacerbation Acute hypoxic respiratory failure secondary to all the above Diabetes mellitus, type II, uncontrolled. Hemoglobin A1c 10.8 Diabetic peripheral neuropathy. Hypertension Hyperlipidemia History longoria aneurysm Anxiety, depression Degenerative joint disease Chronic back pain. History of EtOH abuse. Former nicotine dependence. Plan: Continue on current medication regimen ,monitoring and symptomatic treatment. Maintain aggressive pulmonary toileting with nebulized bronchodilators, Pulmicort, formoterol, oral steroids, antibiotics. Follow closely with pulmonary. The impression and plan of care has been dictated as directed. : I performed a history and examination of this patient, discussed the same with the dictator. I agree with the dictator's note ,documented as a scribe. Any additional findings or plans will be noted.
[2024-03-15] MEDS: guaiFENesin 600 MG TABLET.ER PO SCH (14:00)
[2024-03-15 14:54] VITALS: BMI 43.4
[2024-03-15 16:59] LABS: Glucose,Whole Blood 419 mg/dL (70-110)
[2024-03-15] MEDS: INSULIN ASPART (NovoLOG) 100 UNIT/ML VIAL SQ SCH (17:20)
[2024-03-15 20:45] LABS: Glucose,Whole Blood 456 mg/dL (70-110)
[2024-03-16 06:07] LABS: Glucose,Whole Blood 170 mg/dL (70-110)
--- NOTE | 2024-03-16 10:06 | P.DS ---
Providers Date of admission: 03/12/24 15:27 Expected date of discharge: 03/16/24 Attending physician: Robert Eldridge Consults: 03/12/24 14:44 Consult Physician Routine Consulting Provider: Mairn Mondragon Consult Reason/Comments: shortness of breath decreased spo2 Do you want consulting provider notified?: Yes Primary care physician: Robert Eldridge [place] [facility] Course: Final Diagnoses: Acute community-acquired pneumonia, ruled out, procalcitonin normal, 0.07, ceftriaxone discontinued. Acute COPD exacerbation Acute hypoxic respiratory failure secondary to all the above, maintaining O2 sats of 87% on room air after ambulation, requiring 3 L nasal cannula O2 at discharge to maintain O2 sats in the low 90s. Diabetes mellitus, type II, uncontrolled. Hemoglobin A1c 10.8, further diabetic recommendations and education outpatient in clinic with PCP.(Being discharged on a prednisone taper). Diabetic peripheral neuropathy. Hypertension Hyperlipidemia History longoria aneurysm Anxiety, depression Degenerative joint disease Chronic back pain. History of EtOH abuse. Former nicotine dependence. Hospital course:This is a 63-year-old gentleman with past medical history significant for COPD, prior nicotine dependence, alcohol abuse, diabetes mellitus type 2, diabetic neuropathy, hypertension, hyperlipidemia, longoria aneurysm [place]. [place] [facility] [place], morbid obesity and multiple other medical issues admitted with acute hypoxic respiratory failure secondary to acute COPD exacerbation, acute community-acquired pneumonia-left lower lobe infiltrate on chest x-ray. Procalcitonin pending. Blood sugars poorly controlled, hemoglobin A1c 10.8. Denies chest pain, palpitations or increase in shortness of breath. Maintaining O2 sats in the low 90s on 2 L nasal cannula. Afebrile. 03/15/2024 sitting up in chair, nonproductive cough, maintaining O2 sats of mid 90s on the 2 L nasal cannula. Procalcitonin normal , 0.07 .yesterday steroids transition to oral, expiratory wheezing auscultated. Denies chest pain, palpitations or shortness of breath. Denies fever or chills. 03/16/2024 procalcitonin normal, ceftriaxone discontinued as per pulmonary. Mucinex added to med regimen yesterday. Feels much better today, cough improved, sitting up in chair, significant other at bedside. Afebrile. Patient will require 3 L nasal cannula O2 at discharge to maintain O2 sats in the low 90s, O2 sat on room air after ambulation 87%. Patient will be discharged home today in stable condition with guarded prognosis pending final DC recommendations and clearance as per pulmonary. The impression and plan of care has been dictated as directed. : I performed a history and examination of this patient, discussed the same with the dictator. I agree with the dictator's note ,documented as a scribe. Any additional findings or plans will be noted. Patient Condition at Discharge: Stable Plan - Discharge Summary Discharge Rx Participant: No New Discharge Prescriptions: New guaiFENesin [Mucinex] 1,200 mg PO Q12HR #0 tab predniSONE 10 mg PO DIRECTED #30 tab Continue Metoprolol Succinate [Toprol XL] 25 mg PO BID Gabapentin [Neurontin] 300 mg PO BID metFORMIN HCL [Glucophage] 850 mg PO TID Aspirin 81 mg PO DAILY Losartan Potassium [Cozaar] 50 mg PO DAILY Atorvastatin [Lipitor] 40 mg PO HS buPROPion XL [Wellbutrin XL] 300 mg PO DAILY Mv-Min/Folic/K1/Lycopen/Lutein [Centrum Silver Men Tablet] 1 tab PO DAILY Omeprazole [PriLOSEC] 20 mg PO HS Mirtazapine [Remeron] 15 mg PO HS Glimepiride [Amaryl] 4 mg PO BID Insulin Glargine,Hum.rec.anlog [Lantus Solostar Pen] 75 units SQ DAILY Cholecalciferol [Vitamin D3 (25 Mcg = 1000 Iu)] 25 mcg PO DAILY sitaGLIPtin [Januvia] 100 mg PO DAILY Melatonin 10 mg PO HS ARIPiprazole [Abilify] 5 mg PO DAILY Dulaglutide [Trulicity] 0.75 mg SQ MO Celecoxib [CeleBREX] 200 mg PO BID Discharge Medication List Aspirin 81 mg PO DAILY 07/11/14 [History] Gabapentin [Neurontin] 300 mg PO BID 07/11/14 [History] Losartan Potassium [Cozaar] 50 mg PO DAILY 07/11/14 [History] Metoprolol Succinate [Toprol XL] 25 mg PO BID 07/11/14 [History] metFORMIN HCL [Glucophage] 850 mg PO TID 07/11/14 [History] Atorvastatin [Lipitor] 40 mg PO HS 07/05/15 [History] buPROPion XL [Wellbutrin XL] 300 mg PO DAILY 12/06/16 [History] ARIPiprazole [Abilify] 5 mg PO DAILY 12/23/23 [History] Cholecalciferol [Vitamin D3 (25 Mcg = 1000 Iu)] 25 mcg PO DAILY 12/23/23 [History] Dulaglutide [Trulicity] 0.75 mg SQ MO 12/23/23 [History] Glimepiride [Amaryl] 4 mg PO BID 12/23/23 [History] Insulin Glargine,Hum.rec.anlog [Lantus Solostar Pen] 75 units SQ DAILY 12/23/23 [History] Melatonin 10 mg PO HS 12/23/23 [History] Mirtazapine [Remeron] 15 mg PO HS 12/23/23 [History] Mv-Min/Folic/K1/Lycopen/Lutein [Centrum Silver Men Tablet] 1 tab PO DAILY 12/23/23 [History] Omeprazole [PriLOSEC] 20 mg PO HS 12/23/23 [History] sitaGLIPtin [Januvia] 100 mg PO DAILY 12/23/23 [History] Celecoxib [CeleBREX] 200 mg PO BID 03/12/24 [History] guaiFENesin [Mucinex] 1,200 mg PO Q12HR #0 tab 03/16/24 [Rx] predniSONE 10 mg PO DIRECTED #30 tab 03/16/24 [Rx] Follow up Appointment(s)/Referral(s): Robert Eldridge DO [Primary Care Provider] - 3 Days Activity/Diet/Wound Care/Special Instructions: O2 sat on room air after ambulation pending. Consistent carb diet Further diabetic teaching outpatient in clinic at follow-up with PCP
[2024-03-16 10:53] VITALS: BP 130/73; TEMP 97.8
[2024-03-16 11:35] LABS: Glucose,Whole Blood 231 mg/dL (70-110)
--- NOTE | 2024-03-16 11:56 | P.PN ---
Subjective Progress Note Date: 03/16/24 Principal diagnosis: COPD exacerbation. This is a 64-year-old white male, known history of COPD, patient smoked a pipe for over 30 years. Quit smoking about 1.5 years ago. Patient presented to the ER with few days history of shortness of breath and cough. Describes the cough as productive, slightly colored phlegm, but no hemoptysis, no fever, no chills. His chest x-ray is highly suggestive of left lower lobe infiltrate, patient was admitted and this consult was initiated. WBC count is 10.3 hemoglobin 14.4. His basic metabolic profile is normal except for slightly elevated potassium of 5.3 renal profile is normal blood sugar is elevated at 382. Procalcitonin level is pending. Patient had negative screening for influenza A, influenza B, RSV, and SARS/COVID-19. Progress note dated March 14, 2024. 63-year-old male with a history of COPD, is admitted through the emergency department, with shortness of breath, and cough. The cough is productive of slight yellow phlegm, but denies any fever or chills, or hemoptysis. Chest x- ray was evaluated, thought to show left lower lobe pneumonia. No new labs today. Labs from March 12 and March 13 are reviewed. Cultures are currently pending are negative. Chest x-ray shows some patchy infiltrates, in the lower lobes, more on the left. Procalcitonin level is currently pending. N-terminal proBNP was 120. The patient continues on Rocephin. Progress note dated March 15, 2024. 63-year-old male with history of COPD, was admitted through the emergency department, with complaints of shortness of breath, chest congestion, and cough. He was coughing up a slight amount of yellow phlegm. There was no fever or chills. He is currently seen today in room 368. He is getting saline at 20 cc an hour. He is also getting oxygen supplementally by nasal cannula at 3 L. He is laying flat in bed, without any difficulty in his breathing. No new labs today other than a glucose of 294. His procalcitonin level was normal at 0.07. Progress note dated March 16, 2024. The patient is seen today in room 368. The patient is on oxygen at 2 L by nasal cannula. No IV fluids. The patient's most recent blood work includes a glucose of 231. Clinically, the patient feels much improved. He would like to be discharged home if possible. I told him it was up to the primary hospital doctor. From the pulmonary standpoint, he is doing much better. He states that his breathing is much improved. Objective - Vital Signs Vital signs: Vital Signs Temp 97.8 F 03/16/24 09:55 Pulse 83 03/16/24 09:55 Resp 16 03/16/24 09:55 BP 130/73 03/16/24 09:55 Pulse Ox 92 L 03/16/24 09:55 FiO2 Intake & Output 03/15/24 03/16/24 03/16/24 18:59 06:59 18:59 Intake Total 956 480 118 Balance 956 480 118 Weight 118.4 kg 119.1 kg Intake: Oral 956 480 118 Other: Voiding Method Toilet Toilet Toilet # Voids 3 1 - Exam No acute distress, oriented 3. Patient continues on 2 L of oxygen. No respiratory distress or difficulty. HEENT examination is grossly unremarkable. Mucous membranes are moist. No oral lesions. Neck supple. Full range of motion. No adenopathy thyromegaly or neck vein distention. Cardiovascular examination reveals regular rhythm rate. S1-S2 normal. No S3 or S4. No discernible murmur noted. Heart rate 83 bpm. Lungs reveal mostly clear breath sounds. Minimal scattered rhonchi. No wheezes. No crackles. Breath sounds otherwise equal. Saturations are 92 % Abdomen soft bowel sounds are heard. No masses or tenderness. Extremities are intact. No cyanosis clubbing or edema. Skin is without rash or lesion. Neurologic examination is brief but nonfocal. - Labs CBC & Chem 7: 03/13/24 05:17 03/13/24 17:39 Labs: Abnormal Lab Results - Last 24 Hours (Table) 03/15/24 03/15/24 03/15/24 Range/Units 12:04 16:56 20:20 POC Glucose (mg/dL) 294 H 419 H 456 H (70-110) mg/dL 03/16/24 03/16/24 Range/Units 06:05 11:34 POC Glucose (mg/dL) 170 H 231 H (70-110) mg/dL Microbiology - Last 24 Hours (Table) 03/12/24 12:59 Blood Culture - Preliminary Blood Assessment and Plan Assessment: Acute exacerbation of COPD, without pneumonia. History of COPD. History of type 2 diabetes mellitus. Benign essential hypertension. Previous history of tobacco use. History of brain aneurysm. History of generalized anxiety disorder. Plan: Plan dated March 14, 2024. The patient appears to be resting comfortably. We await a procalcitonin level. The patient is on appropriate medications. He continues on antibiotics. He a lso continues on GI and DVT prophylaxis. The patient was placed on prednisone 40 mg a day. We will continue to follow make recommendations along the way. Labs, x-rays, and all medications are reviewed. Prognosis is guarded. Plan dated March 15, 2024. The patient continues on supplemental oxygen at 3 L. The patient's procalcitonin level was normal. The patient is getting saline at 20 cc an hour. In addition, the patient is on Pulmicort 1 mg, mixed with formoterol, 20 mcg. That is nebulized twice a day. In addition, the patient is getting albuterol sulfate, and ipratropium bromide, 4 times daily and as needed. Because his procalcitonin level is normal, his Rocephin will be discontinued. He continues on prednisone at 40 mg a day. Additional recommendations and suggestions are forthcoming. Prognosis is guarded. Labs, x-rays, and medications are reviewed. Plan dated March 16, 2024. The patient is seen today in room 368. The patient appears to be doing much better. He is down to 2 L. He feels like his breathing is much improved. The patient wishes to be discharged. I told him it was up to his primary doctor. The patient could be sent home on prednisone, 40 mg a day, reducing the dose by 10 mg every fifth day. Additional recommendations and suggestions are forthcomnigel vidal. His antibiotics were discontinued because his procalcitonin level was normal. We will continue to follow, should the patient not be discharged. Prognosis is guarded. Time with Patient: Less than 30
[2024-03-16 12:44] VITALS: PULSE 90; RESP 18
--- NOTE | 2024-03-23 06:14 | CDI ---
Documentation Clarification Form Date: 03/23/24 From: Phyllis Xiao Admit Date: 03/12/2024 03:27:00 PM Patient Name: Anthony Funk Visit Number: [id number] Discharge Date: 03/16/2024 01:47:00 PM ATTENTION: The Clinical Documentation Specialists (CDI) and [facility] Coding Staff appreciate your assistance in clarifying documentation. Please respond to the clarification below the line at the bottom and electronically sign. The CDI & [facility] Coding staff will review the response and follow-up if needed. Please note: Queries are made part of the Legal Health Record. If you have any questions, please contact the author of this message via ITS. Dr. Robert Eldridge, Conflicting documentation has been found in the medical record. As attending physician, please provide clarification. DS states Acutecommunity-acquired pneumonia,ruled out, procalcitonin normal, 0.07, ceftriaxone discontinued. PN 03/13 Chronic obstructive pulmonary diseaseacute exacerbation with acute purulent tracheobronchitiswithacute hypoxic respiratory failure. History/Risk Factors: COPD, T2DM w hyperglycemia & polyneuropathy, HTN, hx of smoking Clinical Indicators: SOB with a cough wheezing. CXR: COPDwith patchy interstitial changes in the mid and lower lungs. Consider bronchitisor atypical pneumonias. WBC (03/13): 10.23 Neurophils (03/13): 8.68 Procalcitonin (03/14): 0.07 Treatment: IV Solu-Medrol, Azithromycin po, IV Rocephin Please clarify which diagnosis is most appropriate for the reason for admission: [ ] Atypical pneumonia [ ] Acute exacerbation of COPD with acute tracheobronchitis [ ] Acute exacerbation of COPD [ ] Acute hypoxic respiratory failure [ ] Other (please specify) [ ] Unable to determine MTDD
== END 2024-03-16 13:47 | disposition home or self-care (01) | DRG 190 ==
LOC: EC 06:10 → 6NMEDSUR 10:27 → OBSVTOIN 15:27 → 3SCARD 03-13 16:58
PROVIDERS: ADMIT Family Medicine; ATTEND Family Medicine
DX: J44.1 Chronic obstructive pulmonary disease with (acute) exacerbation (principal); J96.01 Acute respiratory failure with hypoxia; E87.1 Hypo-osmolality and hyponatremia; Z68.41 Body mass index [BMI] 40.0-44.9, adult; E11.42 Type 2 diabetes mellitus with diabetic polyneuropathy; E11.65 Type 2 diabetes mellitus with hyperglycemia; I10 Essential (primary) hypertension; F10.10 Alcohol abuse, uncomplicated; F32.A Depression, unspecified; Z79.4 Long term (current) use of insulin; Z28.310 Unvaccinated for COVID-19; E78.5 Hyperlipidemia, unspecified; F41.1 Generalized anxiety disorder; G89.29 Other chronic pain; M54.9 Dorsalgia, unspecified; M19.90 Unspecified osteoarthritis, unspecified site; Z79.82 Long term (current) use of aspirin; Z79.1 Long term (current) use of non-steroidal anti-inflammatories (NSAID); Z79.84 Long term (current) use of oral hypoglycemic drugs; Z79.85 Long-term (current) use of injectable non-insulin antidiabetic drugs; Z79.899 Other long term (current) drug therapy; Z87.891 Personal history of nicotine dependence; E66.01 Morbid (severe) obesity due to excess calories; Z71.3 Dietary counseling and surveillance
CPT/HCPCS: 36415; 71046; 80048; 80053; 82947; 83036; 83605; 83880; 84145; 84484; 85025; 85379; 85610; 85730; 87040; 87636; 93005; 94640; 94760; 96374; 96376; 99291

== ENCOUNTER 2024-08-23 04:06 | Inpatient (IN) | payer MEDICARE ==
[2024-08-23 05:11] LABS: Basophils % (A) 0 %; Eosinophils # (A) 0.1 k/uL (0-0.7); Eosinophils % (A) 1 %; HCT 46.1 % (39.0-53.0); HGB 15.3 gm/dL (13.0-17.5); Lymphocytes # (A) 1.1 k/uL (1.0-4.8); Lymphocytes % (A) 11 %; MCH 30.1 pg (25.0-35.0); MCHC 33.2 g/dL (31.0-37.0); MCV 90.9 fL (80.0-100.0); Monocytes # (A) 0.6 k/uL (0-1.0); Monocytes % (A) 6 %; Neutrophils # (A) 8.1 k/uL (1.3-7.7); Neutrophils % (A) 80 %; Platelet Count 209 k/uL (150-450); RBC 5.07 m/uL (4.30-5.90); RDW 13.2 % (11.5-15.5); WBC 10.1 k/uL (3.8-10.6)
--- NOTE | 2024-08-23 05:19 | XR ---
EXAMINATION TYPE: XR chest 2V DATE OF EXAM: 08/23/2024 COMPARISON: Chest x-ray March 12, 2024 HISTORY: Difficulty in breathing TECHNIQUE: Frontal and lateral views of the chest are obtained. FINDINGS: There is no focal air space opacity, pleural effusion, or pneumothorax seen. The cardiac silhouette size is stable and within normal limits. The osseous structures are intact. IMPRESSION: No acute cardiopulmonary process. [facility], , 08/23/2024 5:17 AM
--- NOTE | 2024-08-23 05:25 | ED ---
SOB HPI - General Chief Complaint: Shortness of Breath Stated Complaint: SOB Time Seen by Provider: 08/23/24 04:28 Source: patient Mode of arrival: wheelchair Limitations: no limitations - History of Present Illness Initial Comments: This patient is a 63-year-old man who presents to evaluation for shortness of breath. He does have history of COPD and states that this does feel like it is starting to flareup. Patient states he noticed that he was becoming more short of breath about 2 hours ago while he was lying on the couch. The patient's noticed this and felt he should be seen in emergency. Patient had not noted fever or chills. No change in his cough. No chest pain. No leg pain or swelling. No change in urination or bowel movements MD Complaint: shortness of breath Onset/Timin -: hour(s) Severity scale (1-10): 0 Consistency: constant Improves With: nothing Worsens With: nothing Known History Of: COPD Treatments Prior to Arrival: none - Related Data Home Oxygen Therapy: No Home Medications Medication Instructions Recorded Confirmed Aspirin 81 mg PO DAILY 07/11/14 03/12/24 Gabapentin [Neurontin] 300 mg PO BID 07/11/14 03/12/24 Losartan Potassium [Cozaar] 50 mg PO DAILY 07/11/14 03/12/24 Metoprolol Succinate [Toprol XL] 25 mg PO BID 07/11/14 03/12/24 metFORMIN HCL [Glucophage] 850 mg PO TID 07/11/14 03/12/24 Atorvastatin [Lipitor] 40 mg PO HS 07/05/15 03/12/24 buPROPion XL [Wellbutrin XL] 300 mg PO DAILY 12/06/16 03/12/24 ARIPiprazole [Abilify] 5 mg PO DAILY 12/23/23 03/12/24 Cholecalciferol [Vitamin D3 (25 25 mcg PO DAILY 12/23/23 03/12/24 Mcg = 1000 Iu)] Dulaglutide [Trulicity] 0.75 mg SQ MO 12/23/23 03/12/24 Glimepiride [Amaryl] 4 mg PO BID 12/23/23 03/12/24 Insulin Glargine,Hum.rec.anlog 75 units SQ DAILY 12/23/23 03/12/24 [Lantus Solostar Pen] Melatonin 10 mg PO HS 12/23/23 03/12/24 Mirtazapine [Remeron] 15 mg PO HS 12/23/23 03/12/24 Mv-Min/Folic/K1/Lycopen/Lutein 1 tab PO DAILY 12/23/23 03/12/24 [Centrum Silver Men Tablet] Omeprazole [PriLOSEC] 20 mg PO HS 12/23/23 03/12/24 sitaGLIPtin [Januvia] 100 mg PO DAILY 12/23/23 03/12/24 Celecoxib [CeleBREX] 200 mg PO BID 03/12/24 03/12/24 Previous Rx's Medication Instructions Recorded guaiFENesin [Mucinex] 1,200 mg PO Q12HR #0 tab 03/16/24 predniSONE 10 mg PO DIRECTED #30 tab 03/16/24 Allergies Allergy/AdvReac Type Severity Reaction Status Date / Time No Known Allergies Allergy Verified 03/12/24 10:32 Review of Systems ROS Statement: Those systems with pertinent positive or pertinent negative responses have been documented in the HPI. ROS Other: All systems not noted in ROS Statement are negative. Constitutional: Denies: fever, chills, weakness Respiratory: Reports: cough (Chronic cough, unchanged), dyspnea, wheezes. Denies: hemoptysis Cardiovascular: Denies: chest pain, palpitations, orthopnea, edema, syncope Gastrointestinal: Denies: abdominal pain, nausea, vomiting, diarrhea, constipation Genitourinary: Denies: dysuria, hematuria Musculoskeletal: Denies: back pain Skin: Denies: rash Neurological: Denies: headache, weakness Past Medical History Past Medical History: COPD, Diabetes Mellitus, Hypertension Additional Past Medical History / Comment(s): back pain, neuropathy, brain aneursym History of Any Multi-Drug Resistant Organisms: None Reported Past Surgical History: Orthopedic Surgery Additional Past Surgical History / Comment(s): finger Past Psychological History: Anxiety, Depression Smoking Status: Former smoker Past Alcohol Use History: Occasional Past Drug Use History: None Reported General Exam Limitations: no limitations General appearance: alert, in no apparent distress Head exam: Present: atraumatic, normocephalic Eye exam: Present: normal appearance. Absent: scleral icterus, conjunctival injection ENT exam: Present: normal oropharynx Neck exam: Present: normal inspection Respiratory exam: Present: respiratory distress (Tachypnea), wheezes, decreased breath sounds. Absent: rales, rhonchi, stridor, accessory muscle use, prolonged expiratory Cardiovascular Exam: Present: tachycardia (Approximately 120 bpm), systolic murmur. Absent: diastolic murmur, rubs, gallop GI/Abdominal exam: Present: soft. Absent: distended, tenderness, guarding, rebound, rigid, mass, pulsatile mass, hernia Extremities exam: Present: normal inspection, normal capillary refill. Absent: pedal edema, calf tenderness Back exam: Present: normal inspection. Absent: CVA tenderness (R), CVA tenderness (L) Neurological exam: Present: alert Skin exam: Present: warm, dry, intact, normal color. Absent: rash Course Vital Signs 08/23/24 08/23/24 08/23/24 04:08 04:14 04:26 Temperature 100.8 F H Pulse Rate 132 H 124 H Respiratory 30 H 30 H Rate Blood Pressure 152/91 161/75 O2 Sat by Pulse 86 L 93 L 93 L Oximetry 08/23/24 05:27 Temperature 101.3 F H Pulse Rate Respiratory Rate Blood Pressure O2 Sat by Pulse Oximetry Medical Decision Making - Lab Data Result diagrams: 08/23/24 04:52 08/23/24 04:52 Lab Results 08/23/24 08/23/24 08/23/24 Range/Units 04:52 04:52 04:52 WBC 10.1 (3.8-10.6) k/uL RBC 5.07 (4.30-5.90) m/uL Hgb 15.3 (13.0-17.5) gm/dL Hct 46.1 (39.0-53.0) % MCV 90.9 (80.0-100.0) fL MCH 30.1 (25.0-35.0) pg MCHC 33.2 (31.0-37.0) g/dL RDW 13.2 (11.5-15.5) % Plt Count 209 (150-450) k/uL MPV 7.0 Neutrophils % 80 % Lymphocytes % 11 % Monocytes % 6 % Eosinophils % 1 % Basophils % 0 % Neutrophils # 8.1 H (1.3-7.7) k/uL Lymphocytes # 1.1 (1.0-4.8) k/uL Monocytes # 0.6 (0-1.0) k/uL Eosinophils # 0.1 (0-0.7) k/uL Basophils # 0.0 (0-0.2) k/uL PT 10.3 (10.0-12.5) sec INR 0.9 (<1.2) APTT 21.6 L (22.0-30.0) sec Sodium 137 (137-145) mmol/L Potassium 5.7 H (3.5-5.1) mmol/L Chloride 95 L (98-107) mmol/L Carbon Dioxide 27 (22-30) mmol/L Anion Gap 15 mmol/L BUN 17 (9-20) mg/dL Creatinine 0.80 (0.66-1.25) mg/dL Est GFR (CKD-EPI)AfAm >90 (>60 ml/min/1.73 sqM) Est GFR (CKD-EPI)NonAf >90 (>60 ml/min/1.73 sqM) Glucose 360 H (74-99) mg/dL Plasma Lactic Acid Chip (0.7-2.0) mmol/L Calcium 9.4 (8.4-10.2) mg/dL Total Bilirubin 0.6 (0.2-1.3) mg/dL AST 43 (17-59) U/L ALT 49 (4-49) U/L Alkaline Phosphatase 85 (38-126) U/L Troponin I (0.000-0.034) ng/mL NT-Pro-B Natriuret Pep 114 pg/mL Total Protein 7.3 (6.3-8.2) g/dL Albumin 4.7 (3.5-5.0) g/dL Influenza Type A (PCR) (Not Detectd) Influenza Type B (PCR) (Not Detectd) RSV (PCR) (Not Detectd) SARS-CoV-2 (PCR) (Not Detectd) 08/23/24 08/23/24 08/23/24 Range/Units 04:52 04:52 04:52 WBC (3.8-10.6) k/uL RBC (4.30-5.90) m/uL Hgb (13.0-17.5) gm/dL Hct (39.0-53.0) % MCV (80.0-100.0) fL MCH (25.0-35.0) pg MCHC (31.0-37.0) g/dL RDW (11.5-15.5) % Plt Count (150-450) k/uL MPV Neutrophils % % Lymphocytes % % Monocytes % % Eosinophils % % Basophils % % Neutrophils # (1.3-7.7) k/uL Lymphocytes # (1.0-4.8) k/uL Monocytes # (0-1.0) k/uL Eosinophils # (0-0.7) k/uL Basophils # (0-0.2) k/uL PT (10.0-12.5) sec INR (<1.2) APTT (22.0-30.0) sec Sodium (137-145) mmol/L Potassium (3.5-5.1) mmol/L Chloride (98-107) mmol/L Carbon Dioxide (22-30) mmol/L Anion Gap mmol/L BUN (9-20) mg/dL Creatinine (0.66-1.25) mg/dL Est GFR (CKD-EPI)AfAm (>60 ml/min/1.73 sqM) Est GFR (CKD-EPI)NonAf (>60 ml/min/1.73 sqM) Glucose (74-99) mg/dL Plasma Lactic Acid Chip 4.2 H* (0.7-2.0) mmol/L Calcium (8.4-10.2) mg/dL Total Bilirubin (0.2-1.3) mg/dL AST (17-59) U/L ALT (4-49) U/L Alkaline Phosphatase (38-126) U/L Troponin I <0.012 (0.000-0.034) ng/mL NT-Pro-B Natriuret Pep pg/mL Total Protein (6.3-8.2) g/dL Albumin (3.5-5.0) g/dL Influenza Type A (PCR) Not Detected (Not Detectd) Influenza Type B (PCR) Not Detected (Not Detectd) RSV (PCR) Not Detected (Not Detectd) SARS-CoV-2 (PCR) Not Detected (Not Detectd) - EKG Data -: EKG Interpreted by Pr EKG shows normal: sinus rhythm, axis (Normal), intervals (Normal), QRS complexes (Normal) Rate: tachycardia (Rate 122 bpm) Interpretation: nonspecific ST-T wave changes Disposition Clinical Impression: Hyperglycemia due to type 2 diabetes mellitus, COPD exacerbation Disposition: HOME SELF-CARE Condition: Good Is patient prescribed a controlled substance at d/c from ED?: No Referrals: Robert Eldridge DO [Primary Care Provider] - 1-2 days
[2024-08-23 05:26] LABS: ALT 49 U/L (4-49); AST 43 U/L (17-59); African American GFR (CKD) >90 (>60 ml/min/1.73 sqM); Albumin 4.7 g/dL (3.5-5.0); Alkaline Phosphatase 85 U/L (38-126); Anion Gap 15 mmol/L; Blood Urea Nitrogen 17 mg/dL (9-20); Calcium 9.4 mg/dL (8.4-10.2); Carbon Dioxide 27 mmol/L (22-30); Chloride 95 mmol/L (98-107); Glucose 360 mg/dL (74-99); Non-African American GFR(CKD) >90 (>60 ml/min/1.73 sqM); Potassium 5.7 mmol/L (3.5-5.1); Sodium 137 mmol/L (137-145); Total Bilirubin 0.6 mg/dL (0.2-1.3); Total Protein 7.3 g/dL (6.3-8.2)
[2024-08-23 05:29] LABS: INR 0.9 (<1.2); Prothrombin Time 10.3 sec (10.0-12.5)
[2024-08-23 05:35] LABS: NT-Pro-B-Type Natriuretic Pept 114 pg/mL
[2024-08-23 06:07] LABS: Partial Thromboplastin Time 21.6 sec (22.0-30.0)
[2024-08-23] MEDS: AZITHROMYCIN 500 MG in SODIUM CHLORIDE 0.9% 250 ML IVPB STA (06:18)
[2024-08-23] MEDS: SODIUM CHLORIDE 0.9% 1,400 ML IV ONE (06:18)
[2024-08-23] MEDS: SODIUM CHLORIDE 0.9% 1,000 ML IV STA (06:18)
[2024-08-23] MEDS: predniSONE 20 MG TAB PO STA (06:39)
[2024-08-23] MEDS: ALBUTEROL NEBULIZED 2.5 MG/3 ML INHALATION STA (06:40)
[2024-08-23] MEDS: IPRATROPIUM-ALBUTEROL 3 ML NEB INHALATION STA (06:40)
[2024-08-23] MEDS ORDERED: ACETAMINOPHEN TAB 325 MG TAB PO PRN (07:09)
[2024-08-23] MEDS ORDERED: NALOXONE 0.4 MG/ML 1 ML VIAL IVP PRN (07:09)
[2024-08-23] MEDS ORDERED: IPRATROPIUM-ALBUTEROL 3 ML NEB INHALATION PRN (07:09)
[2024-08-23] MEDS: INSULIN REGULAR 100 UNIT/ML VIAL (IV) SQ STA (08:04)
[2024-08-23] MEDS: SODIUM CHLORIDE 0.9% 1,000 ML IV ONE (08:05)
[2024-08-23 08:14] LABS: Glucose,Whole Blood 294 mg/dL (70-110)
[2024-08-23] MEDS: ALBUTEROL HFA INHALER INHALATION STA (08:26)
[2024-08-23] MEDS: IPRATROPIUM-ALBUTEROL 3 ML NEB INHALATION SCH (08:27)
[2024-08-23] MEDS: methylPREDNISolone SOD SUCCI 125 MG/2 ML VIAL IV SCH (11:29)
[2024-08-23] MEDS: ASPIRIN 81 MG PO SCH (16:53)
[2024-08-23] MEDS: buPROPion XL 300 MG TAB.ER.24H PO SCH (16:53)
[2024-08-23] MEDS: ARIPiprazole 5 MG TAB PO SCH (16:53)
[2024-08-23] MEDS: GABAPENTIN 300 MG CAP PO SCH (16:53)
[2024-08-23 20:12] LABS: Glucose,Whole Blood 459 mg/dL (70-110)
--- NOTE | 2024-08-23 20:28 | P.HPIM ---
History of Present Illness H&P Date: 08/23/24 Chief Complaint: Shortness of breath Patient is a pleasant 63-year-old white male who presented to the hospital with 2 hours of shortness of breath difficulty getting his breath and wheezing. He has suffered a longtime history of COPD. He has quit smoking cigarettes approximately 18 months ago. He has got a 40-year pack history. He admits to productive cough. He denies any fever nausea vomiting diarrhea constipation. Review of Systems GENERAL: Patient denies fever. Denies chills. EYES: Denies blurred vision. Denies vision changes. Denies eye pain. EARS, NOSE, MOUTH, & THROAT: Denies headache. Denies sore throat. Denies ear pain. RESPIRATORY: Patient admits to shortness of breath wheezing and productive cough has history of COPD longtime history of tobacco misuse. CARDIOVASCULAR: Denies chest pain admits to heart disease and hypertension.. GASTROINTESTINAL: Denies abdominal pain. Denies diarrhea. Denies constipation. Denies nausea. Denies vomiting. Denies heartburn. Denies blood in the stool. GENITOURINARY: Denies urinary frequency. Denies burning. Denies dysuria. Denies cloudy urine. Denies blood in the urine. MUSCULOSKELETAL: Denies myalgias. Denies joint swelling. Denies decreased range of motion beyond patients baseline. INTEGUMENTARY: Denies pruitis. Denies rash. PSYCHIATRIC: Denies suicidal or homicial ideations. ENDOCRINE: Denies weight change. Denies polydipsia. Denies polyuria. HEMATOLOGIC: Denies bleeding disorders. Past Medical History Past Medical History: COPD, Diabetes Mellitus, Hypertension Additional Past Medical History / Comment(s): back pain, neuropathy, brain aneursym History of Any Multi-Drug Resistant Organisms: None Reported Past Surgical History: Orthopedic Surgery Additional Past Surgical History / Comment(s): finger Past Anesthesia/Blood Transfusion Reactions: No Reported Reaction Past Psychological History: Anxiety, Depression Smoking Status: Former smoker Past Alcohol Use History: Occasional Past Drug Use History: None Reported Medications and Allergies Home Medications Medication Instructions Recorded Confirmed Type Aspirin 81 mg PO DAILY 07/11/14 08/23/24 History Gabapentin [Neurontin] 300 mg PO TID 07/11/14 08/23/24 History Losartan Potassium [Cozaar] 50 mg PO DAILY 07/11/14 08/23/24 History Metoprolol Succinate [Toprol XL] 25 mg PO BID 07/11/14 08/23/24 History metFORMIN HCL [Glucophage] 850 mg PO TID 07/11/14 08/23/24 History Atorvastatin [Lipitor] 40 mg PO HS 07/05/15 08/23/24 History buPROPion XL [Wellbutrin XL] 300 mg PO DAILY 12/06/16 08/23/24 History ARIPiprazole [Abilify] 5 mg PO DAILY 12/23/23 08/23/24 History Insulin Glargine,Hum.rec.anlog 55 units SQ DAILY 12/23/23 08/23/24 History [Lantus Solostar Pen] Melatonin 10 mg PO HS 12/23/23 08/23/24 History Omeprazole [PriLOSEC] 20 mg PO HS 12/23/23 08/23/24 History Celecoxib [CeleBREX] 200 mg PO BID 03/12/24 08/23/24 History Cholecalciferol [Vitamin D3 (125 250 mcg PO DAILY 08/23/24 08/23/24 History Mcg = 5000 Iu)] Glimepiride [Amaryl] 4 mg PO AC-BRKFST 08/23/24 08/23/24 History Insulin Lispro [humaLOG Kwikpen] 10 unit SQ AC-TID 08/23/24 08/23/24 History Mirtazapine [Remeron] 30 mg PO HS 08/23/24 08/23/24 History Pioglitazone [Actos] 15 mg PO DAILY 08/23/24 08/23/24 History Semaglutide [Ozempic] 1 mg SQ WE 08/23/24 08/23/24 History Allergies Allergy/AdvReac Type Severity Reaction Status Date / Time No Known Allergies Allergy Verified 08/23/24 09:12 Physical Exam Vitals: Vital Signs Temp Pulse Pulse Resp BP BP Pulse Ox 08/23/24 18:33 97.8 F 94 18 161/76 95 08/23/24 17:00 152/98 08/23/24 16:55 98.0 F 100 20 95 08/23/24 15:53 88 08/23/24 15:43 84 08/23/24 15:40 90 18 150/76 96 08/23/24 11:54 95 08/23/24 11:42 92 08/23/24 11:31 97.9 F 88 16 142/57 96 08/23/24 08:36 98 08/23/24 08:27 95 08/23/24 07:54 98.8 F 98 24 119/62 95 08/23/24 05:27 101.3 F H 08/23/24 04:26 124 H 30 H 161/75 93 L 08/23/24 04:14 93 L 08/23/24 04:08 100.8 F H 132 H 30 H 152/91 86 L Intake and Output 08/23/24 08/23/24 08/23/24 06:59 14:59 22:59 Other: Weight 120.202 kg 120.202 kg GENERAL: This is a 63-year-old in no apparent distress at the time of examination. Pleasant and cooperative. HEENT: Head is atraumatic, normocephalic. Pupils are equal, round, and reactive to light. Sclerae anicteric.. RESPIRATORY: Decreased breath sounds and wheezing expiratory bilateral. CARDIOVASCULAR: Regular rate and rhythm. GASTROINTESTINAL: No distention noted. Abdomen soft and round. Normal active bowel sounds auscultated x 4 quadrants. No pain or tenderness noted upon palpation. INTEGUMENTARY: No cyanosis. No jaundice. No rashes noted. No cellulitis noted. EXTREMITIES: 2+ peripheral pulses. No evidence of peripheral edema. No calf tenderness noted. NEUROLOGIC: Cranial nerves II-XII intact. PSYCHIATRIC: Awake, alert, and oriented X 3. Appropriate affect. Intact judgement and insight. Results CBC & Chem 7: 08/23/24 04:52 08/23/24 04:52 Labs: Abnormal Lab Results - Last 24 Hours (Table) 08/23/24 08/23/24 08/23/24 Range/Units 04:52 04:52 04:52 Neutrophils # 8.1 H (1.3-7.7) k/uL APTT 21.6 L (22.0-30.0) sec Potassium 5.7 H (3.5-5.1) mmol/L Chloride 95 L (98-107) mmol/L Glucose 360 H (74-99) mg/dL POC Glucose (mg/dL) (70-110) mg/dL Plasma Lactic Acid Chip (0.7-2.0) mmol/L 1008/23/24 08/23/24 Range/Units 04:52 08:03 20:10 Neutrophils # (1.3-7.7) k/uL APTT (22.0-30.0) sec Potassium (3.5-5.1) mmol/L Chloride (98-107) mmol/L Glucose (74-99) mg/dL POC Glucose (mg/dL) 294 H 459 H (70-110) mg/dL Plasma Lactic Acid Chip 4.2 H* (0.7-2.0) mmol/L Thrombosis Risk Factor Assmnt - Choose All That Apply Each Factor Represents 1 point: Obesity (BMI >25) Each Risk Factor Represents 2 Points: Age 61-74 years Thrombosis Risk Factor Assessment Total Risk Factor Score: 3 Thrombosis Risk Factor Assessment Level: Moderate Risk Assessment and Plan (1) COPD exacerbation Current Visit: Yes Status: Acute Code(s): J44.1 - CHRONIC OBSTRUCTIVE PULMON YADIRA DISEASE W (ACUTE) EXACERBATION SNOMED Code(s): 863191933 (2) Hyperglycemia due to type 2 diabetes mellitus Current Visit: Yes Status: Acute Code(s): E11.65 - TYPE 2 DIABETES MELLITUS WITH HYPERGLYCEMIA SNOMED Code(s): 899011783164478 (3) Diabetic peripheral neuropathy Current Visit: No Status: Acute Code(s): E11.42 - TYPE 2 DIABETES MELLITUS WITH DIABETIC POLYNEUROPATHY SNOMED Code(s): 961638862 Plan: Plan admit patient with hydration IV steroids and x-ray, oxygen treatment. Pulmonary consultation in progress.
[2024-08-23] MEDS ORDERED: DEXTROSE 50% SYRINGE 50 ML IVP PRN ×2 (21:32)
[2024-08-23] MEDS: MELATONIN 5 MG TABLET PO SCH (21:43)
[2024-08-23] MEDS: INSULIN ASPART (NovoLOG) 100 UNIT/ML VIAL SQ SCH (21:43)
[2024-08-23] MEDS: PANTOPRAZOLE 40 MG TABLET PO SCH (21:43)
[2024-08-23] MEDS: ATORVASTATIN 40 MG TAB PO SCH (21:43)
[2024-08-23] MEDS: MIRTAZAPINE 15 MG TAB PO SCH (22:25)
[2024-08-23] MEDS: metFORMIN 850 MG TAB PO SCH (22:25)
[2024-08-23] MEDS: INSULIN DETEMIR (LEVEMIR) 100 UNIT/ML SYR SQ SCH (22:25)
[2024-08-24] MEDS: AZITHROMYCIN 500 MG TAB PO SCH (06:05)
[2024-08-24 06:44] LABS: Glucose,Whole Blood 311 mg/dL (70-110)
[2024-08-24] MEDS: INSULIN ASPART (NovoLOG) 100 UNIT/ML VIAL SQ SCH (07:22)
[2024-08-24] MEDS ORDERED: INSULIN ASPART (NovoLOG) 100 UNIT/ML VIAL SQ SCH (07:30)
[2024-08-24] MEDS: METOPROLOL SUCCINATE (ER) 25 MG TAB.ER.24H PO SCH (09:35)
[2024-08-24] MEDS: LOSARTAN 50 MG TAB PO SCH (09:35)
--- NOTE | 2024-08-24 10:08 | CDI ---
Documentation Clarification Form Date: 08/24/2024 From: Briseida Virk RN CCDS Phone: [phone] Admit Date: 08/23/2024 07:09:00 AM Patient Name: Anthony Funk Visit Number: [id number] Discharge Date: ATTENTION: The Clinical Documentation Specialists (CDI) and [facility] Coding Staff appreciate your assistance in clarifying documentation. Please respond to the clarification below the line at the bottom and electronically sign. The CDI & [facility] Coding staff will review the response and follow-up if needed. Please note: Queries are made part of the Legal Health Record. If you have any questions, please contact the author of this message via ITS. Doctor/Provider: Robert Eldridge DO: Patient has a documented BMI of 44.1 on 08/23. Additional clarification is requested. History/Risk Factors: 63-year-old male with a history of COPD, HTN and DM2 who presents with SOB, COPD exacerbation and hyperglycemia Clinical Indicators: 08/23 Weight: 120.202kg Height 5ft 5in Calculated BMI is 44.1 08/23 Fall Risk Assessment: "Mobility: Requires assist/supervise for mobility, transfer, or ambulate, Total Fall Risk score: 8, Moderate fall risk" Treatments: Consistent Carbohydrate Diet Please clarify if patients BMI indicates an additional diagnosis: [ ] Morbid (Extreme) (severe) obesity [ ] No additional diagnosis/not clinically significant [ ] Other, please specify ____ [ ] Unable to determine Reference: NIH Classification for BMI Overweight BMI 2529.9 Obesity (Class 1) BMI 3034.9 Obesity (Class 2) BMI 3539.9 Morbid obesity (Class 3/Extreme/severe) BMI =40 Answered in IM PN 08/24 morbid obesity MTDD
[2024-08-24 11:40] LABS: Glucose,Whole Blood 461 mg/dL (70-110)
--- NOTE | 2024-08-24 14:06 | XR ---
EXAMINATION TYPE: XR chest 1V DATE OF EXAM: 08/24/2024 HISTORY: Shortness of breath. COMPARISON: 08/23/2024 TECHNIQUE: Single view of the chest is submitted. FINDINGS: Demonstrated are scattered senescent parenchymal change. Increased basilar opacity could reflect atelectasis however aspiration pneumonia particularly at the right medial lung base. The heart is stable. Hilar and mediastinal structures are within normal limits. Degenerative changes are seen of the dorsal spine. IMPRESSION: 1. Increased basilar opacity could reflect atelectasis however aspiration pneumonia particularly at the right medial lung base. [facility], , 08/24/2024 2:04 PM
--- NOTE | 2024-08-24 14:52 | P.PN ---
Subjective Progress Note Date: 08/24/24 Principal diagnosis: H&P Date: 08/23/24 Chief Complaint: Shortness of breath Patient is a pleasant 63-year-old white male who presented to the hospital with 2 hours of shortness of breath difficulty getting his breath and wheezing. He has suffered a longtime history of COPD. He has quit smoking cigarettes approximately 18 months ago. He has got a 40-year pack history. He admits to productive cough. He denies any fever nausea vomiting diarrhea constipation. 08/24/2024 H&P Date: 08/23/24 Chief Complaint: Shortness of breath Patient is a pleasant 63-year-old white male who presented to the hospital with 2 hours of shortness of breath difficulty getting his breath and wheezing. He has suffered a longtime history of COPD. He has quit smoking cigarettes approx imately 18 months ago. He has got a 40-year pack history. He admits to productive cough. He denies any fever nausea vomiting diarrhea constipation. 08/24/2024 reports breathing much better, maintained on nebulized bronchodilators, IV antibiotics, IV steroids. Blood sugars uncontrolled, elevated. Hemoglobin A1c 11.3. Maintaining O2 sats of 95% on 2 L nasal cannula. Denies chest pain, palpitations or shortness of breath. Objective - Vital Signs Vital signs: Vital Signs Temp 98.1 F 08/24/24 14:12 Pulse 99 08/24/24 14:12 Resp 22 08/24/24 14:12 BP 119/66 08/24/24 14:12 Pulse Ox 95 08/24/24 14:12 FiO2 Intake & Output 08/23/24 08/24/24 08/24/24 18:59 06:59 18:59 Weight 120.202 kg Other: Voiding Method Toilet Toilet # Voids 2 - Exam GENERAL: Vital signs reviewed. Alert and oriented x 3, no acute distress, sitting up in bed. HEENT: Head is atraumatic, normocephalic. Pupils are equal, round, and reactive to light. Sclerae anicteric.MMM. RESPIRATORY: Unlabored, equal air entry, minimal expiratory wheezing bilateral, baseline CARDIOVASCULAR: Regular rate and rhythm. GASTROINTESTINAL: No distention noted. Abdomen soft and round.+BS, No pain or tenderness noted upon palpation. INTEGUMENTARY: No cyanosis. No jaundice. No rashes noted. No cellulitis noted. EXTREMITIES: 2+ peripheral pulses. No evidence of peripheral edema. No calf tenderness noted. NEUROLOGIC: Cranial nerves II-XII intact. - Labs CBC & Chem 7: 08/23/24 04:52 08/23/24 04:52 Labs: Abnormal Lab Results - Last 24 Hours (Table) 08/23/24 08/23/24 08/24/24 Range/Units 04:52 20:10 06:42 POC Glucose (mg/dL) 459 H 311 H (70-110) mg/dL Hemoglobin A1c 11.3 H (<=6.0) % 08/24/24 Range/Units 11:39 POC Glucose (mg/dL) 461 H (70-110) mg/dL Hemoglobin A1c (<=6.0) % Microbiology - Last 24 Hours (Table) 08/23/24 04:52 Blood Culture - Preliminary Blood Assessment and Plan Assessment: Assessment and Plan (1) COPD exacerbation Current Visit: Yes Status: Acute Code(s): J44.1 - CHRONIC OBSTRUCTIVE PULMONARY DISEASE W (ACUTE) EXACERBATION SNOMED Code(s): 190348295 (2) Hyperglycemia due to type 2 diabetes mellitus, hemoglobin A1c 11.3, further diabetic education outpatient in clinic with PCP Current Visit: Yes Status: Acute Code(s): E11.65 - TYPE 2 DIABETES MELLITUS WITH HYPERGLYCEMIA SNOMED Code(s): 559053786466845 (3) Diabetic peripheral neuropathy Current Visit: No Status: Acute Code(s): E11.42 - TYPE 2 DIABETES MELLITUS WITH DIABETIC POLYNEUROPATHY SNOMED Code(s): 825617178 (4) Morbid Obesity, BMI 44 Plan: Continue current medication regimen ,monitoring and symptomatic treatment. Levemir insulin increased, Premeal insulin added, close monitoring of Accu- Cheks. Discharge planning in progress for tomorrow. The impression and plan of care has been dictated as directed. : I performed a history and examination of this patient, discussed the same with the dictator. I agree with the dictator's note ,documented as a scribe. Any additional findings or plans will be noted.
[2024-08-24] MEDS: INSULIN DETEMIR (LEVEMIR) 100 UNIT/ML SYR SQ SCH (16:24)
[2024-08-24] MEDS: methylPREDNISolone SOD SUCCI 40 MG/ML 1 ML VIAL IV SCH (16:24)
[2024-08-24 16:39] LABS: Glucose,Whole Blood 431 mg/dL (70-110)
[2024-08-24 21:14] LABS: Glucose,Whole Blood 407 mg/dL (70-110)
[2024-08-25 06:46] LABS: Glucose,Whole Blood 293 mg/dL (70-110)
[2024-08-25 08:40] VITALS: BP 149/80; RESP 16; TEMP 97.6
[2024-08-25 08:57] LABS: BUN/Creat Ratio 21.22 Ratio (12.00-20.00); Blood Urea Nitrogen 19.1 mg/dL (9.0-27.0); Calcium 9.5 mg/dL (8.7-10.3); Carbon Dioxide 24.7 mmol/L (21.6-31.8); Chloride 96 mmol/L (96-109); Glucose 305 mg/dL (70-110); Potassium 5.4 mmol/L (3.5-5.5); Sodium 134 mmol/L (135-145)
[2024-08-25] MEDS: predniSONE 20 MG TAB PO SCH (09:24)
[2024-08-25 11:45] LABS: Glucose,Whole Blood 286 mg/dL (70-110)
[2024-08-25 12:00] VITALS: BMI 44.1
[2024-08-25 12:24] VITALS: PULSE 92
--- NOTE | 2024-08-26 13:54 | P.DS ---
Providers Date of admission: 08/23/24 07:09 Expected date of discharge: 08/25/24 Attending physician: Robert Eldridge Primary care physician: Robert Eldridge [facility] Course: Final Diagnosis: (1) COPD exacerbation Current Visit: Yes Status: Acute Code(s): J44.1 - CHRONIC OBSTRUCTIVE PULMONARY DISEASE W (ACUTE) EXACERBATION SNOMED Code(s): 848911683 (2) acute hypoxic respiratory failure secondary to the above (3) Hyperglycemia due to type 2 diabetes mellitus, hemoglobin A1c 11.3, further diabetic education outpatient in clinic with PCP Current Visit: Yes Status: Acute Code(s): E11.65 - TYPE 2 DIABETES MELLITUS WITH HYPERGLYCEMIA SNOMED Code(s): 167101315548381 (4) Diabetic peripheral neuropathy Current Visit: No Status: Acute Code(s): E11.42 - TYPE 2 DIABETES MELLITUS WITH DIABETIC POLYNEUROPATHY SNOMED Code(s): 700917271 (5) Morbid Obesity, BMI 44 Hospital course: Patient is a pleasant 63-year-old white male who presented to the hospital with 2 hours of shortness of breath difficulty getting his breath and wheezing. He has suffered a longtime history of COPD. He has quit smoking cigarettes approximately 18 months ago. He has got a 40-year pack history. He admits to productive cough. He denies any fever nausea vomiting diarrhea constipation. 08/24/2024 H&P Date: 08/23/24 Chief Complaint: Shortness of breath Patient is a pleasant 63-year-old white male who presented to the hospital with 2 hours of shortness of breath difficulty getting his breath and wheezing. He has suffered a longtime history of COPD. He has quit smoking cigarettes approximately 18 months ago. He has got a 40-year pack history. He admits to productive cough. He denies any fever nausea vomiting diarrhea constipation. 08/24/2024 reports breathing much better, maintained on nebulized bronchodilators, IV antibiotics, IV steroids. Blood sugars uncontrolled, elevated. Hemoglobin A1c 11.3. Maintaining O2 sats of 95% on 2 L nasal cannula. Denies chest pain, palpitations or shortness of breath. Unable to wean off oxygen completely. O2 sat on room air after ambulation 86%. Maintaining O2 sat in the mid 90s on 2 L nasal cannula. Case management arranging O2 for discharge. Significant clinical improvement. Patient will be discharged home today in stable condition with guarded prognosis. The impression and plan of care has been dictated as directed. : I performed a history and examination of this patient, discussed the same with the dictator. I agree with the dictator's note ,documented as a scribe. Any additional findings or plans will be noted. Patient Condition at Discharge: Stable Plan - Discharge Summary New Discharge Prescriptions: New predniSONE 10 mg PO DIRECTED #30 tab Continue Metoprolol Succinate [Toprol XL] 25 mg PO BID Gabapentin [Neurontin] 300 mg PO TID metFORMIN HCL [Glucophage] 850 mg PO TID Aspirin 81 mg PO DAILY Losartan Potassium [Cozaar] 50 mg PO DAILY Atorvastatin [Lipitor] 40 mg PO HS buPROPion XL [Wellbutrin XL] 300 mg PO DAILY Omeprazole [PriLOSEC] 20 mg PO HS Glimepiride [Amaryl] 4 mg PO AC-BRKFST Pioglitazone [Actos] 15 mg PO DAILY Insulin Lispro [humaLOG Kwikpen] 10 unit SQ AC-TID Semaglutide [Ozempic] 1 mg SQ WE Insulin Glargine,Hum.rec.anlog [Lantus Solostar Pen] 55 units SQ DAILY Melatonin 10 mg PO HS ARIPiprazole [Abilify] 5 mg PO DAILY Celecoxib [CeleBREX] 200 mg PO BID Cholecalciferol [Vitamin D3 (125 Mcg = 5000 Iu)] 250 mcg PO DAILY Mirtazapine [Remeron] 30 mg PO HS Discharge Medication List Aspirin 81 mg PO DAILY 07/11/14 [History] Gabapentin [Neurontin] 300 mg PO TID 07/11/14 [History] Losartan Potassium [Cozaar] 50 mg PO DAILY 07/11/14 [History] Metoprolol Succinate [Toprol XL] 25 mg PO BID 07/11/14 [History] metFORMIN HCL [Glucophage] 850 mg PO TID 07/11/14 [History] Atorvastatin [Lipitor] 40 mg PO HS 07/05/15 [History] buPROPion XL [Wellbutrin XL] 300 mg PO DAILY 12/06/16 [History] ARIPiprazole [Abilify] 5 mg PO DAILY 12/23/23 [History] Insulin Glargine,Hum.rec.anlog [Lantus Solostar Pen] 55 units SQ DAILY 12/23/23 [History] Melatonin 10 mg PO HS 12/23/23 [History] Omeprazole [PriLOSEC] 20 mg PO HS 12/23/23 [History] Celecoxib [CeleBREX] 200 mg PO BID 03/12/24 [History] Cholecalciferol [Vitamin D3 (125 Mcg = 5000 Iu)] 250 mcg PO DAILY 08/23/24 [History] Glimepiride [Amaryl] 4 mg PO AC-BRKFST 08/23/24 [History] Insulin Lispro [humaLOG Kwikpen] 10 unit SQ AC-TID 08/23/24 [History] Mirtazapine [Remeron] 30 mg PO HS 08/23/24 [History] Pioglitazone [Actos] 15 mg PO DAILY 08/23/24 [History] Semaglutide [Ozempic] 1 mg SQ WE 08/23/24 [History] predniSONE 10 mg PO DIRECTED #30 tab 08/25/24 [Rx] Follow up Appointment(s)/Referral(s): Robert Eldridge DO [Primary Care Provider] - 09/02/24 1:20 pm [facility] [NON-STAFF] - As Needed (oxygen) Discharge Disposition: HOME SELF-CARE
== END 2024-08-25 14:24 | disposition home or self-care (01) | DRG 190 ==
LOC: EC 04:06 → 4SSUR 07:09
PROVIDERS: ADMIT Family Medicine; ATTEND Family Medicine
DX: J44.1 Chronic obstructive pulmonary disease with (acute) exacerbation (principal); J96.01 Acute respiratory failure with hypoxia; Z68.41 Body mass index [BMI] 40.0-44.9, adult; E11.42 Type 2 diabetes mellitus with diabetic polyneuropathy; E11.65 Type 2 diabetes mellitus with hyperglycemia; F32.A Depression, unspecified; F41.9 Anxiety disorder, unspecified; I10 Essential (primary) hypertension; E66.01 Morbid (severe) obesity due to excess calories; Z79.52 Long term (current) use of systemic steroids; Z87.891 Personal history of nicotine dependence; Z79.899 Other long term (current) drug therapy; Z79.84 Long term (current) use of oral hypoglycemic drugs; Z79.82 Long term (current) use of aspirin; Z79.4 Long term (current) use of insulin; Z79.1 Long term (current) use of non-steroidal anti-inflammatories (NSAID)
CPT/HCPCS: 36415; 71045; 71046; 80048; 80053; 83036; 83605; 83880; 84484; 85025; 85610; 85730; 87040; 87636; 93005; 94640; 96361; 96365; 96366; 96375; 96376; 99285

== ENCOUNTER 2024-09-12 05:50 | Observation (INO) | payer MEDICARE ==
--- NOTE | 2024-09-12 06:22 | ED ---
SOB HPI <Tata Sanchez - Last Filed: 09/21/24 00:00> - General Source: patient Mode of arrival: wheelchair Limitations: no limitations - History of Present Illness MD Complaint: shortness of breath Onset/Timin -: hour(s) Severity scale (1-10): 0 Consistency: constant Improves With: oxygen Worsens With: exertion Known History Of: COPD Associated Symptoms: denies other symptoms Treatments Prior to Arrival: oxygen - Related Data Home Oxygen Therapy: Yes Home Oxygen Amount: 2 Liters <Lincoln Myers - Last Filed: 10/02/24 05:37> - General Chief Complaint: Shortness of Breath Stated Complaint: SOB Time Seen by Provider: 09/12/24 06:13 - History of Present Illness Initial Comments: This patient is a 64-year-old man with history of COPD. He had been in the hospital last week for an exacerbation and had been released. The patient states he had been doing okay and then this morning around 3 he woke feeling short of breath. The patient states that he had gotten up to use the bathroom. He was short of breath and he did fall. Patient does have frequent falls as he states he has shaky legs. The patient checked his oxygenation numbers and they were low for him in the mid 80s. He tried his home medicines and then EMS was called. The patient has not noted fever. He denies chest pain. He denies leg pain or swelling. No change in urination or bowel movements. (Lincoln Myers) - Related Data Home Medications Medication Instructions Recorded Confirmed Aspirin 81 mg PO DAILY 07/11/14 09/12/24 Gabapentin [Neurontin] 300 mg PO TID 07/11/14 09/12/24 Losartan Potassium [Cozaar] 50 mg PO DAILY 07/11/14 09/12/24 Metoprolol Succinate [Toprol XL] 25 mg PO BID 07/11/14 09/12/24 metFORMIN HCL [Glucophage] 850 mg PO TID 07/11/14 09/12/24 Atorvastatin [Lipitor] 40 mg PO HS 07/05/15 09/12/24 buPROPion XL [Wellbutrin XL] 300 mg PO DAILY 12/06/16 09/12/24 ARIPiprazole [Abilify] 5 mg PO DAILY 12/23/23 09/12/24 Insulin Glargine,Hum.rec.anlog 55 units SQ DAILY 12/23/23 09/12/24 [Lantus Solostar Pen] Melatonin 10 mg PO HS 12/23/23 09/12/24 Omeprazole [PriLOSEC] 20 mg PO HS 12/23/23 09/12/24 Celecoxib [CeleBREX] 200 mg PO BID 03/12/24 09/12/24 Cholecalciferol [Vitamin D3 (125 250 mcg PO DAILY 08/23/24 09/12/24 Mcg = 5000 Iu)] Glimepiride [Amaryl] 4 mg PO AC-BRKFST 08/23/24 09/12/24 Insulin Lispro [humaLOG Kwikpen] 10 unit SQ AC-TID 08/23/24 09/12/24 Mirtazapine [Remeron] 30 mg PO HS 08/23/24 09/12/24 Pioglitazone [Actos] 15 mg PO DAILY 08/23/24 09/12/24 Semaglutide [Ozempic] 1 mg SQ MO 08/23/24 09/12/24 Previous Rx's Medication Instructions Recorded Fluticasone Propion/Salmeterol 1 inhalation PO Q12H #1 each 09/13/24 [Wixela 250-50 Inhub] predniSONE 10 mg PO DIRECTED #18 tab 09/13/24 Allergies Allergy/AdvReac Type Severity Reaction Status Date / Time No Known Allergies Allergy Verified 09/12/24 09:35 Review of Systems ROS Other: All systems not noted in ROS Statement are negative. <Tata Sanchez - Last Filed: 09/21/24 00:00> ROS Other: All systems not noted in ROS Statement are negative. Constitutional: Denies: fever, chills, weakness Respiratory: Reports: cough, dyspnea, wheezes. Denies: hemoptysis Cardiovascular: Reports: dyspnea on exertion. Denies: chest pain, palpitations, orthopnea, edema, syncope Gastrointestinal: Denies: abdominal pain, nausea, vomiting, diarrhea Genitourinary: Denies: dysuria, hematuria Musculoskeletal: Denies: back pain Skin: Denies: rash Neurological: Denies: headache, weakness, numbness <Lincoln Myers - Last Filed: 10/02/24 05:37> ROS Statement: Those systems with pertinent positive or pertinent negative responses have been documented in the HPI. Past Medical History Past Medical History: COPD, Diabetes Mellitus, Hypertension Additional Past Medical History / Comment(s): back pain, neuropathy, brain aneursym History of Any Multi-Drug Resistant Organisms: None Reported Past Surgical History: Orthopedic Surgery Additional Past Surgical History / Comment(s): finger Past Anesthesia/Blood Transfusion Reactions: No Reported Reaction Past Psychological History: Anxiety, Depression Smoking Status: Former smoker Past Alcohol Use History: Occasional Past Drug Use History: None Reported <KathyLincoln shook - Last Filed: 10/02/24 05:37> General Exam Limitations: no limitations General appearance: alert, in distress Head exam: Present: atraumatic, normocephalic Eye exam: Present: normal appearance. Absent: scleral icterus, conjunctival injection ENT exam: Present: mucous membranes dry Neck exam: Present: normal inspection Respiratory exam: Present: respiratory distress, wheezes, decreased breath sounds. Absent: rales, rhonchi, chest wall tenderness, accessory muscle use, prolonged expiratory Cardiovascular Exam: Present: normal rhythm, tachycardia. Absent: systolic murmur, diastolic murmur, rubs, gallop GI/Abdominal exam: Present: soft. Absent: distended, tenderness, guarding, rebound, rigid, mass Extremities exam: Present: normal inspection, normal capillary refill. Absent: pedal edema, calf tenderness Back exam: Present: normal inspection. Absent: CVA tenderness (R), CVA tenderness (L) Neurological exam: Present: alert Skin exam: Present: warm, dry, intact, normal color. Absent: rash <KathyLincoln shook - Last Filed: 10/02/24 05:37> Course Vital Signs 09/12/24 09/12/24 09/12/24 05:56 06:10 06:14 Temperature 100.4 F H Pulse Rate 128 H 118 H Respiratory 28 H 20 20 Rate Blood Pressure 142/81 144/70 O2 Sat by Pulse 91 L 94 L Oximetry 09/12/24 09/12/24 09/12/24 06:40 06:57 07:02 Temperature Pulse Rate 111 H 112 H 112 H Respiratory 20 Rate Blood Pressure 143/74 O2 Sat by Pulse 96 Oximetry 09/12/24 09/12/24 09/12/24 08:02 11:15 15:16 Temperature 99.0 F 98.0 F Pulse Rate 113 H 97 94 Respiratory 18 20 20 Rate Blood Pressure 107/52 133/72 139/67 O2 Sat by Pulse 94 L 92 L 93 L Oximetry 09/12/24 09/12/24 09/12/24 15:29 15:31 15:37 Temperature Pulse Rate 91 90 Respiratory Rate Blood Pressure O2 Sat by Pulse 91 L Oximetry 09/12/24 09/12/24 09/12/24 18:08 19:08 19:52 Temperature 97.6 F Pulse Rate 95 89 89 Respiratory 16 18 Rate Blood Pressure 110/62 141/66 O2 Sat by Pulse 94 L 95 Oximetry 09/12/24 09/12/24 09/13/24 20:04 20:36 04:42 Temperature Pulse Rate 85 91 84 Respiratory 16 20 Rate Blood Pressure 131/75 139/77 O2 Sat by Pulse 96 97 Oximetry 09/13/24 09/13/24 09/13/24 07:18 07:38 07:49 Temperature Pulse Rate 88 86 Respiratory 18 Rate Blood Pressure O2 Sat by Pulse Oximetry 09/13/24 09/13/24 09/13/24 09:18 09:49 11:16 Temperature 97.5 F L Pulse Rate 92 79 Respiratory 15 Rate Blood Pressure O2 Sat by Pulse 97 Oximetry 09/13/24 09/13/24 11:21 12:42 Temperature 97.8 F Pulse Rate 81 94 Respiratory 16 Rate Blood Pressure O2 Sat by Pulse 98 Oximetry Medical Decision Making - Lab Data Result diagrams: 09/13/24 05:04 09/13/24 05:04 <Tata Sanchez - Last Filed: 09/21/24 00:00> - Lab Data Result diagrams: 09/13/24 05:04 09/13/24 05:04 <Lincoln Myers - Last Filed: 10/02/24 05:37> - Medical Decision Making Was patient admitted / discharged? Hospital course, mention meds given and route, prescriptions, significant lab abnormalities, going to OR and other pertinent info. @ -Patient signed out to me pending laboratory studies and imaging. Patient does have elevated lactate. Results of the workup are discussed with the patient. Recommended admission due to his increased work of breathing for which the patient was agreeable. Spoke with Dr. Eldridge for the admission. He is given empiric antibiotics for his fever Undiagnosed new problem with uncertain prognosis? @ -No Drug Therapy requiring intensive monitoring for toxicity (Heparin, Nitro, Insulin, Cardizem)? @ -No Were any procedures done? @ -No Diagnosis/symptom? @ -Acute respiratory insufficiency, acute COPD exacerbation, pyrexia, tracheobronchitis Acute, or Chronic, or Acute on Chronic? @ -Acute Uncomplicated (without systemic symptoms) or Complicated (systemic symptoms)? @ -Complicated Side effects of treatment? @ -No Exacerbation, Progression, or Severe Exacerbation? @Yes Poses a threat to life or bodily function? How? (Chest pain, [place], [place], pneumonia, PE, COPD, DKA, ARF, appy, cholecystitis, CVA, Diverticulitis, Homicidal, Suicidal, threat to staff... and all critical care pts) @ -Yes as patient has significant work of breathing (Tata Sanchez) The patient had chest x-ray that I interpreted as negative for acute infiltrate, pneumothorax, congestive heart failure Was pt. sent in by a medical professional or institution (, PA, HOSPICE COMMUNITY LIAISON, urgent care, hospital, or fdc...) When possible be specific @ -[No] Did you speak to anyone other than the patient for history (EMS, parent, family, police, friend...)? What history was obtained from this source @ -[No] Did you review nursing and triage notes (agree or disagree)? Why? @ -[I reviewed and agree with nursing and triage notes] Were old charts reviewed (outside hosp., previous admission, EMS record, old EKG, old radiological studies, urgent care reports/EKG's, fdc records)? Report findings @ -[No old charts were reviewed] Differential Diagnosis (chest pain, altered mental status, abdominal pain women, abdominal pain men, vaginal bleeding, weakness, fever, dyspnea, syncope, hea dache, dizziness, GI bleed, back pain, seizure, CVA, palpatations, mental health, musculoskeletal)? @ -[Differential Dyspnea: Coronary syndrome, arrhythmia, tamponade, asthma, COPD, pulmonary embolism, pneumonia, pneumothorax, pulmonary effusion, anaphylaxis, diabetic ketoacidosis, flailed chest, pulmonary contusion, diaphragmatic rupture, anemia, neuromuscular, this is not meant to be an all-inclusive list. EKG interpreted by me (3pts min.). @ -[As above] X-rays interpreted by me (1pt min.). @ -[Interpreted as above CT interpreted by me (1pt min.). @ -[None done] U/S interpreted by me (1pt. min.). @ -[None done] What testing was considered but not performed or refused? (CT, X-rays, U/S, labs)? Why? @ -[None] What meds were considered but not given or refused? Why? @ -[None] Did you discuss the management of the patient with other professionals (professionals i.e. , PA, HOSPICE COMMUNITY LIAISON, lab, RT, psych nurse, psychosocial rehabilitation counselor, security shift manager, teacher, correctional officer captain, special education case manager)? Give summary @ -[No] Was smoking cessation discussed for >3mins.? @ -[No] Was critical care preformed (if so, how long)? @ -[No] Were there social determinants of health that impacted care today? How? (Homelessness, low income, unemployed, alcoholism, drug addiction, transportation, low edu. Level, literacy, decrease access to med. care, prison, rehab)? @ -[No] Was there de-escalation of care discussed even if they declined (Discuss DNR or withdrawal of care, Hospice)? DNR status @ -[No] What co-morbidities impacted this encounter? (DM, HTN, Smoking, COPD, CAD, Cancer, CVA, ARF, Chemo, Hep., AIDS, mental health diagnosis, sleep apnea, morbid obesity)? @ -[COPD Was patient admitted / discharged? Hospital course, mention meds given and route, prescriptions, significant lab abnormalities, going to OR and other pertinent info. @ -[The patient is a 64-year-old man who is here with dyspnea. The patient had initial workup started and was pending medical treatment at the time of shift change. (Lincoln Myers) - Lab Data Lab Results 09/12/24 09/12/24 09/12/24 Range/Units 06:17 06:17 06:17 WBC 13.0 H (3.8-10.6) k/uL RBC 4.67 (4.30-5.90) m/uL Hgb 13.9 (13.0-17.5) gm/dL Hct 42.5 (39.0-53.0) % MCV 91.2 (80.0-100.0) fL MCH 29.7 (25.0-35.0) pg MCHC 32.6 (31.0-37.0) g/dL RDW 12.9 (11.5-15.5) % Plt Count 165 (150-450) k/uL MPV 6.8 Neutrophils % 83 % Lymphocytes % 7 % Monocytes % 7 % Eosinophils % 1 % Basophils % 0 % Neutrophils # 10.8 H (1.3-7.7) k/uL Lymphocytes # 0.9 L (1.0-4.8) k/uL Monocytes # 0.9 (0-1.0) k/uL Eosinophils # 0.1 (0-0.7) k/uL Basophils # 0.0 (0-0.2) k/uL PT 10.5 (10.0-12.5) sec INR 0.9 (<1.2) APTT 22.9 (22.0-30.0) sec Sodium 130 L (137-145) mmol/L Potassium 5.5 H (3.5-5.1) mmol/L Chloride 95 L (98-107) mmol/L Carbon Dioxide 26 (22-30) mmol/L Anion Gap 9 mmol/L BUN 14 (9-20) mg/dL Creatinine 0.82 (0.66-1.25) mg/dL Est GFR (CKD-EPI)AfAm >90 (>60 ml/min/1.73 sqM) Est GFR (CKD-EPI)NonAf >90 (>60 ml/min/1.73 sqM) Glucose 381 H (74-99) mg/dL Lactic Ac Sepsis Rflx Plasma Lactic Acid Chip (0.7-2.0) mmol/L Calcium 8.8 (8.4-10.2) mg/dL Total Bilirubin 0.5 (0.2-1.3) mg/dL AST 40 (17-59) U/L ALT 61 H (4-49) U/L Alkaline Phosphatase 59 (38-126) U/L Troponin I (0.000-0.034) ng/mL NT-Pro-B Natriuret Pep 40 pg/mL Total Protein 6.5 (6.3-8.2) g/dL Albumin 4.2 (3.5-5.0) g/dL Procalcitonin (0.02-0.50) ng/mL Urine Color Urine Appearance (Clear) Urine pH (5.0-8.0) Ur Specific Cl[place]ier (1.001-1.035) Urine Protein (Negative) Urine Glucose (UA) (Negative) Urine Ketones (Negative) Urine Blood (Negative) Urine Nitrite (Negative) Urine Bilirubin (Negative) Urine Urobilinogen (<2.0) mg/dL Ur Leukocyte Esterase (Negative) Influenza Type A (PCR) (Not Detectd) Influenza Type B (PCR) (Not Detectd) RSV (PCR) (Not Detectd) SARS-CoV-2 (PCR) (Not Detectd) 09/12/24 09/12/24 09/12/24 Range/Units 06:17 06:17 06:17 WBC (3.8-10.6) k/uL RBC (4.30-5.90) m/uL Hgb (13.0-17.5) gm/dL Hct (39.0-53.0) % MCV (80.0-100.0) fL MCH (25.0-35.0) pg MCHC (31.0-37.0) g/dL RDW (11.5-15.5) % Plt Count (150-450) k/uL MPV Neutrophils % % Lymphocytes % % Monocytes % % Eosinophils % % Basophils % % Neutrophils # (1.3-7.7) k/uL Lymphocytes # (1.0-4.8) k/uL Monocytes # (0-1.0) k/uL Eosinophils # (0-0.7) k/uL Basophils # (0-0.2) k/uL PT (10.0-12.5) sec INR (<1.2) APTT (22.0-30.0) sec Sodium (137-145) mmol/L Potassium (3.5-5.1) mmol/L Chloride (98-107) mmol/L Carbon Dioxide (22-30) mmol/L Anion Gap mmol/L BUN (9-20) mg/dL Creatinine (0.66-1.25) mg/dL Est GFR (CKD-EPI)AfAm (>60 ml/min/1.73 sqM) Est GFR (CKD-EPI)NonAf (>60 ml/min/1.73 sqM) Glucose (74-99) mg/dL Lactic Ac Sepsis Rflx Plasma Lactic Acid Chip 4.0 H* (0.7-2.0) mmol/L Calcium (8.4-10.2) mg/dL Total Bilirubin (0.2-1.3) mg/dL AST (17-59) U/L ALT (4-49) U/L Alkaline Phosphatase (38-126) U/L Troponin I <0.012 (0.000-0.034) ng/mL NT-Pro-B Natriuret Pep pg/mL Total Protein (6.3-8.2) g/dL Albumin (3.5-5.0) g/dL Procalcitonin 0.28 (0.02-0.50) ng/mL Urine Color Urine Appearance (Clear) Urine pH (5.0-8.0) Ur Specific [place] (1.001-1.035) Urine Protein (Negative) Urine Glucose (UA) (Negative) Urine Ketones (Negative) Urine Blood (Negative) Urine Nitrite (Negative) Urine Bilirubin (Negative) Urine Urobilinogen (<2.0) mg/dL Ur Leukocyte Esterase (Negative) Influenza Type A (PCR) (Not Detectd) Influenza Type B (PCR) (Not Detectd) RSV (PCR) (Not Detectd) SARS-CoV-2 (PCR) (Not Detectd) 09/12/24 09/12/24 09/12/24 Range/Units 06:35 08:02 08:51 WBC (3.8-10.6) k/uL RBC (4.30-5.90) m/uL Hgb (13.0-17.5) gm/dL Hct (39.0-53.0) % MCV (80.0-100.0) fL MCH (25.0-35.0) pg MCHC (31.0-37.0) g/dL RDW (11.5-15.5) % Plt Count (150-450) k/uL MPV Neutrophils % % Lymphocytes % % Monocytes % % Eosinophils % % Basophils % % Neutrophils # (1.3-7.7) k/uL Lymphocytes # (1.0-4.8) k/uL Monocytes # (0-1.0) k/uL Eosinophils # (0-0.7) k/uL Basophils # (0-0.2) k/uL PT (10.0-12.5) sec INR (<1.2) APTT (22.0-30.0) sec Sodium (137-145) mmol/L Potassium (3.5-5.1) mmol/L Chloride (98-107) mmol/L Carbon Dioxide (22-30) mmol/L Anion Gap mmol/L BUN (9-20) mg/dL Creatinine (0.66-1.25) mg/dL Est GFR (CKD-EPI)AfAm (>60 ml/min/1.73 sqM) Est GFR (CKD-EPI)NonAf (>60 ml/min/1.73 sqM) Glucose (74-99) mg/dL Lactic Ac Sepsis Rflx Y Plasma Lactic Acid Chip 2.4 H* (0.7-2.0) mmol/L Calcium (8.4-10.2) mg/dL Total Bilirubin (0.2-1.3) mg/dL AST (17-59) U/L ALT (4-49) U/L Alkaline Phosphatase (38-126) U/L Troponin I (0.000-0.034) ng/mL NT-Pro-B Natriuret Pep pg/mL Total Protein (6.3-8.2) g/dL Albumin (3.5-5.0) g/dL Procalcitonin (0.02-0.50) ng/mL Urine Color Urine Appearance (Clear) Urine pH (5.0-8.0) Ur Specific [place] (1.001-1.035) Urine Protein (Negative) Urine Glucose (UA) (Negative) Urine Ketones (Negative) Urine Blood (Negative) Urine Nitrite (Negative) Urine Bilirubin (Negative) Urine Urobilinogen (<2.0) mg/dL Ur Leukocyte Esterase (Negative) Influenza Type A (PCR) Not Detected (Not Detectd) Influenza Type B (PCR) Not Detected (Not Detectd) RSV (PCR) Not Detected (Not Detectd) SARS-CoV-2 (PCR) Not Detected (Not Detectd) 09/12/24 09/12/24 09/12/24 Range/Units 09:11 10:10 10:22 WBC (3.8-10.6) k/uL RBC (4.30-5.90) m/uL Hgb (13.0-17.5) gm/dL Hct (39.0-53.0) % MCV (80.0-100.0) fL MCH (25.0-35.0) pg MCHC (31.0-37.0) g/dL RDW (11.5-15.5) % Plt Count (150-450) k/uL MPV Neutrophils % % Lymphocytes % % Monocytes % % Eosinophils % % Basophils % % Neutrophils # (1.3-7.7) k/uL Lymphocytes # (1.0-4.8) k/uL Monocytes # (0-1.0) k/uL Eosinophils # (0-0.7) k/uL Basophils # (0-0.2) k/uL PT (10.0-12.5) sec INR (<1.2) APTT (22.0-30.0) sec Sodium (137-145) mmol/L Potassium (3.5-5.1) mmol/L Chloride (98-107) mmol/L Carbon Dioxide (22-30) mmol/L Anion Gap mmol/L BUN (9-20) mg/dL Creatinine (0.66-1.25) mg/dL Est GFR (CKD-EPI)AfAm (>60 ml/min/1.73 sqM) Est GFR (CKD-EPI)NonAf (>60 ml/min/1.73 sqM) Glucose (74-99) mg/dL Lactic Ac Sepsis Rflx Y Plasma Lactic Acid Chip (0.7-2.0) mmol/L Calcium (8.4-10.2) mg/dL Total Bilirubin (0.2-1.3) mg/dL AST (17-59) U/L ALT (4-49) U/L Alkaline Phosphatase (38-126) U/L Troponin I <0.012 (0.000-0.034) ng/mL NT-Pro-B Natriuret Pep pg/mL Total Protein (6.3-8.2) g/dL Albumin (3.5-5.0) g/dL Procalcitonin (0.02-0.50) ng/mL Urine Color Colorless Urine Appearance Clear (Clear) Urine pH 5.0 (5.0-8.0) Ur Specific [place] 1.015 (1.001-1.035) Urine Protein Negative (Negative) Urine Glucose (UA) 4+ H (Negative) Urine Ketones Negative (Negative) Urine Blood Negative (Negative) Urine Nitrite Negative (Negative) Urine Bilirubin Negative (Negative) Urine Urobilinogen <2.0 (<2.0) mg/dL Ur Leukocyte Esterase Negative (Negative) Influenza Type A (PCR) (Not Detectd) Influenza Type B (PCR) (Not Detectd) RSV (PCR) (Not Detectd) SARS-CoV-2 (PCR) (Not Detectd) Disposition Is patient prescribed a controlled substance at d/c from ED?: No Time of Disposition: 10:20 Decision to Admit Reason: Admit from EC Decision Date: 09/12/24 Decision Time: 10:29 <Tata Sanchez - Last Filed: 09/21/24 00:00> <Lincoln Myers - Last Filed: 10/02/24 05:37> Clinical Impression: COPD exacerbation, Acute hypoxic respiratory failure, Lactic acidosis, Fever Disposition: ADMITTED IP TO THIS HOSP Condition: Stable
[2024-09-12 06:23] LABS: Basophils % (A) 0 %; Eosinophils # (A) 0.1 k/uL (0-0.7); Eosinophils % (A) 1 %; HCT 42.5 % (39.0-53.0); HGB 13.9 gm/dL (13.0-17.5); Lymphocytes # (A) 0.9 k/uL (1.0-4.8); Lymphocytes % (A) 7 %; MCH 29.7 pg (25.0-35.0); MCHC 32.6 g/dL (31.0-37.0); MCV 91.2 fL (80.0-100.0); Mean Platelet Volume 6.8; Monocytes # (A) 0.9 k/uL (0-1.0); Monocytes % (A) 7 %; Neutrophils # (A) 10.8 k/uL (1.3-7.7); Neutrophils % (A) 83 %; Platelet Count 165 k/uL (150-450); RBC 4.67 m/uL (4.30-5.90); RDW 12.9 % (11.5-15.5)
[2024-09-12 06:33] LABS: ALT 61 U/L (4-49); AST 40 U/L (17-59); African American GFR (CKD) >90 (>60 ml/min/1.73 sqM); Albumin 4.2 g/dL (3.5-5.0); Alkaline Phosphatase 59 U/L (38-126); Anion Gap 9 mmol/L; Blood Urea Nitrogen 14 mg/dL (9-20); Calcium 8.8 mg/dL (8.4-10.2); Carbon Dioxide 26 mmol/L (22-30); Chloride 95 mmol/L (98-107); Glucose 381 mg/dL (74-99); Non-African American GFR(CKD) >90 (>60 ml/min/1.73 sqM); Potassium 5.5 mmol/L (3.5-5.1); Sodium 130 mmol/L (137-145); Total Bilirubin 0.5 mg/dL (0.2-1.3); Total Protein 6.5 g/dL (6.3-8.2)
[2024-09-12] MEDS: SODIUM CHLORIDE 0.9% 500 ML 500 ML IV SCH (06:37)
[2024-09-12] MEDS: SODIUM CHLORIDE 0.9% 1,000 ML IV SCH (06:37)
[2024-09-12 06:40] LABS: NT-Pro-B-Type Natriuretic Pept 40 pg/mL
[2024-09-12] MEDS: ACETAMINOPHEN TAB 325 MG TAB PO STA (06:40)
[2024-09-12 06:41] LABS: INR 0.9 (<1.2); Partial Thromboplastin Time 22.9 sec (22.0-30.0); Prothrombin Time 10.5 sec (10.0-12.5)
[2024-09-12] MEDS: IPRATROPIUM-ALBUTEROL 3 ML NEB INHALATION STA (06:42)
[2024-09-12] MEDS: ALBUTEROL NEBULIZED 2.5 MG/3 ML INHALATION STA (06:42)
[2024-09-12] MEDS: predniSONE 20 MG TAB PO STA (06:43)
[2024-09-12] MEDS: AZITHROMYCIN 500 MG TAB PO STA (06:44)
--- NOTE | 2024-09-12 07:41 | XR ---
EXAMINATION TYPE: XR chest 1V portable DATE OF EXAM: 09/12/2024 6:22 AM COMPARISON: 08/24/2024 CLINICAL INDICATION: Male, 64 years old with history of Fever, TECHNIQUE: XR chest 1V portable view(s) obtained. FINDINGS: The heart size is normal. The pulmonary vasculature is normal. The lungs are clear. Previous left lower lobe infiltrate at has resolved IMPRESSION: 1. No acute pulmonary process. [facility], , 09/12/2024 7:39 AM
[2024-09-12] MEDS ORDERED: NALOXONE 0.4 MG/ML 1 ML VIAL IV PRN (10:32)
[2024-09-12] MEDS ORDERED: ACETAMINOPHEN TAB 325 MG TAB PO PRN (10:32)
[2024-09-12 10:52] LABS: Appearance,Urine Clear (Clear); Bilirubin,Urine Negative (Negative); Blood,Urine Negative (Negative); Color,Urine Colorless; Glucose,Urine (UA) 4+ (Negative); Ketones,Urine Negative (Negative); Leukocyte Esterase,Urine Negative (Negative); Nitrite,Urine Negative (Negative); Protein,Urine Negative (Negative); Specific Gravity,Urine 1.015 (1.001-1.035); Urobilinogen,Urine <2.0 mg/dL (<2.0)
[2024-09-12] MEDS: IPRATROPIUM-ALBUTEROL 3 ML NEB INHALATION SCH ×2 (15:27→15:55)
--- NOTE | 2024-09-12 15:48 | P.CNPUL ---
History of Present Illness Consult date: 09/12/24 Requesting physician: Robert Eldridge Reason for consult: COPD, hypoxemia Chief complaint: Chills, hypoxemia History of present illness: This is a 64-year-old male patient with a history of obesity, diabetes mellitus type 2, hypertension, brain aneurysm, anxiety, oxygen dependent chronic obstructive pulmonary disease and former pipe smoker quit approximately 2 years ago. Here to the emergency room this morning with a 1 day history of shaking and chills and noted to have oxygen saturation at 87% at home and placed his oxygen on and it came up to 90s. Chest x-ray shows no acute pulmonary process. He did have a Tmax of 100.4. White count 13.0. Hemoglobin 13.9. Platelets 165. Sodium 130. Potassium 5.5. Bicarb 26. BUN 14. Creatinine 0.82. Glucose 381. Troponin negative. proBNP 40. Urinalysis clean. Viral screen negative. He is seen today in consultation in the emergency department. He is currently resting comfortably on a stretcher. Awake and alert in no acute distress. Maintaining good O2 saturations in the 90s on 2 L/min per nasal cannula. Hemodynamically stable. Review of Systems REVIEW OF SYSTEMS: CONSTITUTIONAL: Positive for fever and chills. Denies any recent significant weight loss or weight gain. EYES: Denies change in vision. EARS, NOSE, MOUTH, THROAT: Denies headaches, denies sore throat. CARDIOVASCULAR: Denies chest pain, palpitations or syncopal episodes. RESPIRATORY: Denies shortness of breath, cough, congestion or hemoptysis. GASTROINTESTINAL: Denies change in appetite, denies abdominal pain GENITOURINARY: Denies hematuria, denies infections. MUSKULOSKELETAL: Denies pain, denies swelling. INTEGUMENTARY: Denies rash, denies eczema. NEUROLOGICAL: Denies recent memory loss, no recent seizure activity. PSYCHIATRIC: Denies anxiety, denies depression. HEMATOLOGIC/LYMPHATIC: Denies anemia, denies enlarged lymph nodes. Past Medical History Past Medical History: COPD, Diabetes Mellitus, Hypertension Additional Past Medical History / Comment(s): back pain, neuropathy, brain aneursym History of Any Multi-Drug Resistant Organisms: None Reported Past Surgical History: Orthopedic Surgery Additional Past Surgical History / Comment(s): finger Past Anesthesia/Blood Transfusion Reactions: No Reported Reaction Past Psychological History: Anxiety, Depression Smoking Status: Former smoker Past Alcohol Use History: Occasional Past Drug Use History: None Reported Medications and Allergies Home Medications Medication Instructions Recorded Confirmed Type Aspirin 81 mg PO DAILY 07/11/14 09/12/24 History Gabapentin [Neurontin] 300 mg PO TID 07/11/14 09/12/24 History Losartan Potassium [Cozaar] 50 mg PO DAILY 07/11/14 09/12/24 History Metoprolol Succinate [Toprol XL] 25 mg PO BID 07/11/14 09/12/24 History metFORMIN HCL [Glucophage] 850 mg PO TID 07/11/14 09/12/24 History Atorvastatin [Lipitor] 40 mg PO HS 07/05/15 09/12/24 History buPROPion XL [Wellbutrin XL] 300 mg PO DAILY 12/06/16 09/12/24 History ARIPiprazole [Abilify] 5 mg PO DAILY 12/23/23 09/12/24 History Insulin Glargine,Hum.rec.anlog 55 units SQ DAILY 12/23/23 09/12/24 History [Lantus Solostar Pen] Melatonin 10 mg PO HS 12/23/23 09/12/24 History Omeprazole [PriLOSEC] 20 mg PO HS 12/23/23 09/12/24 History Celecoxib [CeleBREX] 200 mg PO BID 03/12/24 09/12/24 History Cholecalciferol [Vitamin D3 (125 250 mcg PO DAILY 08/23/24 09/12/24 History Mcg = 5000 Iu)] Glimepiride [Amaryl] 4 mg PO AC-BRKFST 08/23/24 09/12/24 History Insulin Lispro [humaLOG Kwikpen] 10 unit SQ AC-TID 08/23/24 09/12/24 History Mirtazapine [Remeron] 30 mg PO HS 08/23/24 09/12/24 History Pioglitazone [Actos] 15 mg PO DAILY 08/23/24 09/12/24 History Semaglutide [Ozempic] 1 mg SQ MO 08/23/24 09/12/24 History Allergies Allergy/AdvReac Type Severity Reaction Status Date / Time No Known Allergies Allergy Verified 09/12/24 09:35 Physical Exam Vitals: Vital Signs Temp Pulse Resp BP Pulse Ox 09/12/24 15:31 91 L 09/12/24 15:29 91 09/12/24 15:16 98.0 F 94 20 139/67 93 L 09/12/24 11:15 97 20 133/72 92 L 09/12/24 08:02 99.0 F 113 H 18 107/52 94 L 09/12/24 07:02 112 H 20 143/74 96 09/12/24 06:57 112 H 09/12/24 06:40 111 H 09/12/24 06:14 20 09/12/24 06:10 118 H 20 144/70 94 L 09/12/24 05:56 100.4 F H 128 H 28 H 142/81 91 L Intake and Output 09/12/24 09/12/24 09/12/24 06:59 14:59 22:59 Other: Weight 120.202 kg GENERAL EXAM: Alert, 64-year-old male, obese, on 2 L nasal cannula, comfortable in no apparent distress. HEAD: Normocephalic. EYES: Normal reaction of pupils, equal size. NOSE: Clear with pink turbinates. THROAT: No erythema or exudates. NECK: No masses, no JVD. CHEST: No chest wall deformity. LUNGS: Equal air entry with no crackles, wheeze, rhonchi or dullness. CVS: S1 and S2 normal with no audible murmur, regular rhythm. ABDOMEN: No hepatosplenomegaly, normal bowel sounds, no guarding or rigidity. SPINE: No scoliosis or deformity SKIN: No rashes CENTRAL NERVOUS SYSTEM: No focal deficits, tone is normal in all 4 extremities. EXTREMITIES: There is no peripheral edema. No clubbing, no cyanosis. Peripheral pulses are intact. Results - Laboratory Findings CBC and BMP: 09/12/24 06:17 09/12/24 06:17 PT/INR, D-dimer PT 10.5 sec (10.0-12.5) 09/12/24 06:17 INR 0.9 (<1.2) 09/12/24 06:17 Abnormal lab findings: Abnormal Labs 09/12/24 09/12/24 09/12/24 06:17 06:17 06:17 WBC 13.0 H Neutrophils # 10.8 H Lymphocytes # 0.9 L Sodium 130 L Potassium 5.5 H Chloride 95 L Glucose 381 H Plasma Lactic Acid Chip 4.0 H* ALT 61 H Urine Glucose (UA) 09/12/24 09/12/24 09/12/24 08:51 10:22 12:19 WBC Neutrophils # Lymphocytes # Sodium Potassium Chloride Glucose Plasma Lactic Acid Chip 2.4 H* 2.5 H* ALT Urine Glucose (UA) 4+ H - Diagnostic Findings Chest x-ray: image reviewed Assessment and Plan Assessment: Febrile illness of unclear etiology. Chest x-ray clear. Viral screen negative. Urinalysis negative Mild leukocytosis Hyponatremia Hyperkalemia Chronic obstructive pulmonary disease, oxygen dependent, FEV1 value 60% of predicted Former smoker Diabetes mellitus type 2, poorly controlled Obesity with a BMI of 45.5 kg/m Hyperlipidemia Hypertension History of anxiety Plan: The patient was seen and evaluated Chest x-ray, labs and medications reviewed Check a Procalcitonin Received antibiotics today Scheduled bronchodilators Discontinue Solu-Medrol Complete a prednisone taper Probable discharge in the a.m. We will continue to follow and make further recommendations based on his clinical status I have personally seen and examined the patient, performed the documentation and the assessment and plan as written. Number of minutes spent on the visit: 20 Dictation was produced using [employer] dictation software. Please excuse any grammatical, word or spelling errors.
[2024-09-13 04:43] VITALS: BP 139/77
[2024-09-13] MEDS ORDERED: methylPREDNISolone SOD SUCCI 40 MG/ML 1 ML VIAL IV SCH (06:00)
[2024-09-13] MEDS: predniSONE 10 MG TAB PO SCH (08:14)
[2024-09-13 08:42] LABS: Glucose,Whole Blood 336 mg/dL (70-110)
[2024-09-13 08:48] LABS: Basophils # (A) 0.02 X 10*3/uL (0.00-0.10); Basophils % (A) 0.2 %; Eosinophils # (A) 0.04 X 10*3/uL (0.04-0.35); Eosinophils % (A) 0.4 %; HCT 39.6 % (39.6-50.0); HGB 13.1 g/dL (13.0-17.0); Lymphocytes # (A) 2.16 X 10*3/uL (0.90-5.00); Lymphocytes % (A) 23.3 %; MCHC 33.1 g/dL (32.0-37.0); MCV 90.8 FL (80.0-97.0); Mean Platelet Volume 9.5 FL (9.5-12.2); Monocytes # (A) 0.86 X 10*3/uL (0.20-1.00); Monocytes % (A) 9.3 %; NRBC Per 100 WBC 0 X 10*3/uL (0.00-0.01); Neutrophils # (A) 6.19 X 10*3/uL (1.80-7.70); Neutrophils % (A) 66.6 %; Platelet Count 165 X 10*3/uL (140-440); RBC 4.36 X 10*6/uL (4.40-5.60); RDW 12.5 % (11.5-14.5); WBC 9.29 X 10*3/uL (4.50-10.00)
[2024-09-13] MEDS ORDERED: DEXTROSE 50% SYRINGE 50 ML IVP PRN ×2 (08:53)
[2024-09-13] MEDS: INSULIN ASPART (NovoLOG) 100 UNIT/ML VIAL SQ SCH ×2 (09:02→12:32)
[2024-09-13 09:30] LABS: BUN/Creat Ratio 14.25 Ratio (12.00-20.00); Blood Urea Nitrogen 11.4 mg/dL (9.0-27.0); Calcium 8.9 mg/dL (8.7-10.3); Carbon Dioxide 24.5 mmol/L (21.6-31.8); Chloride 100 mmol/L (96-109); Glucose 249 mg/dL (70-110); Potassium 4.4 mmol/L (3.5-5.5); Sodium 136 mmol/L (135-145)
--- NOTE | 2024-09-13 11:51 | P.PN ---
Subjective Progress Note Date: 09/13/24 This is a 64-year-old male patient with a history of obesity, diabetes mellitus type 2, hypertension, brain aneurysm, anxiety, oxygen dependent chronic obstructive pulmonary disease and former pipe smoker quit approximately 2 years ago. Here to the emergency room this morning with a 1 day history of shaking and chills and noted to have oxygen saturation at 87% at home and placed his oxygen on and it came up to 90s. Chest x-ray shows no acute pulmonary process. He did have a Tmax of 100.4. White count 13.0. Hemoglobin 13.9. Platelets 165. Sodium 130. Potassium 5.5. Bicarb 26. BUN 14. Creatinine 0.82. Glucose 381. Troponin negative. proBNP 40. Urinalysis clean. Viral screen negative. He is seen today in consultation in the emergency department. He is currently resting comfortably on a stretcher. Awake and alert in no acute distress. Maintaining good O2 saturations in the 90s on 2 L/min per nasal cannula. Hemodynamically stable. The patient is seen today September 13, 2024 in follow-up in the emergency department. He is currently sitting up in a chair. Awake and alert in no acute distress. Maintaining O2 saturation in the 90s on 2 L/min per nasal cannula. He is doing much better. He is anxious to go home. His procalcitonin was negative at 0.28. He is continued on bronchodilators. White count 9.2. Hemoglobin 13.1. Platelets 165. Sodium 136. Potassium 4.4. Bicarb 25. BUN 11. Creatinine 0.8. Glucose 249. Objective - Vital Signs Vital signs: Vital Signs Temp 97.5 F L 09/13/24 09:18 Pulse 81 09/13/24 11:21 Resp 15 09/13/24 09:49 BP 139/77 09/13/24 04:42 Pulse Ox 97 09/13/24 09:49 FiO2 - Exam GENERAL EXAM: Alert, 64-year-old male, obese, sitting up in a chair, on 2 L nasal cannula, comfortable in no apparent distress. HEAD: Normocephalic. EYES: Normal reaction of pupils, equal size. NOSE: Clear with pink turbinates. THROAT: No erythema or exudates. NECK: No masses, no JVD. CHEST: No chest wall deformity. LUNGS: Equal air entry with no crackles, wheeze, rhonchi or dullness. CVS: S1 and S2 normal with no audible murmur, regular rhythm. ABDOMEN: No hepatosplenomegaly, normal bowel sounds, no guarding or rigidity. SPINE: No scoliosis or deformity SKIN: No rashes CENTRAL NERVOUS SYSTEM: No focal deficits, tone is normal in all 4 extremities. EXTREMITIES: There is no peripheral edema. No clubbing, no cyanosis. Peripheral pulses are intact. - Labs CBC & Chem 7: 09/13/24 05:04 09/13/24 05:04 Labs: Abnormal Lab Results - Last 24 Hours (Table) 09/12/24 09/12/24 09/12/24 Range/Units 12:19 16:12 19:21 RBC (4.40-5.60) X 10*6/uL Glucose (70-110) mg/dL POC Glucose (mg/dL) (70-110) mg/dL Plasma Lactic Acid Chip 2.5 H* 3.2 H* 3.1 H* (0.7-2.0) mmol/L 09/13/24 09/13/24 09/13/24 Range/Units 05:04 05:04 08:42 RBC 4.36 L (4.40-5.60) X 10*6/uL Glucose 249 H (70-110) mg/dL POC Glucose (mg/dL) 336 H (70-110) mg/dL Plasma Lactic Acid Chip (0.7-2.0) mmol/L Assessment and Plan Assessment: Febrile illness of unclear etiology. Chest x-ray clear. Viral screen negative. Urinalysis negative. Procalcitonin negative. Mild leukocytosis Hyponatremia Hyperkalemia Chronic obstructive pulmonary disease, oxygen dependent, FEV1 value 60% of predicted Former smoker Diabetes mellitus type 2, poorly controlled Obesity with a BMI of 45.5 kg/m Hyperlipidemia Hypertension History of anxiety Plan: The patient was seen and evaluated Labs and medications reviewed Procalcitonin negative Cleared for discharge Recommend Wixela or something affordable The patient could not afford Trelegy Complete a prednisone taper Follow-up in our office in 1 week I have personally seen and examined the patient, performed the documentation and the assessment and plan as written. Number of minutes spent on the visit: 10 Dictation was produced using [employer] software. Please excuse any grammatical, word or spelling errors.
--- NOTE | 2024-09-13 12:10 | P.HPIM ---
History of Present Illness H&P Date: 09/13/24 Chief Complaint: Dyspnea History and Physical and Discharge Summary: This a pleasant 64-year-old gentleman presented to the ER with complaints of dyspnea, wheezing, productive cough with a known history of COPD, quit smoking pipes nearly 2 years ago, chronic hypoxic respiratory failure. Reports chills, rigors, desatted to 87% at home on room air, returned into the 90s with application of his home oxygen. denies fever chills, nausea, vomiting,diarrhea or constipation. Denies abdominal pain. Lactic acid 4 on admission, resolved with IV fluid hydration currently 1.9. Tmax 100.4, WBC on admission 13 ,currently afebrile with normal WBC, procalcitonin normal, 0.28.UA negative, viral studies negative. Electrolytes have corrected, currently unremarkable. Renal function stable. hyperglycemic, Lantus recently ordered.Chest x-ray repo rting no acute pulmonary process. EKG reported sinus tachycardia, heart rate 120. Maintained on ceftriaxone, Zithromax, nebulized bronchodilators, steroids with significant clinical improvement. Maintaining O2 sats in the 90s on 2 L nasal cannula.. Review of Systems GENERAL: Patient denies fever. Denies chills. EYES: Denies blurred vision. Denies vision changes. Denies eye pain. EARS, NOSE, MOUTH, & THROAT: Denies headache. Denies sore throat. Denies ear pain. RESPIRATORY: Patient admits to shortness of breath wheezing and productive cough has history of COPD longtime history of tobacco misuse. CARDIOVASCULAR: Denies chest pain admits to heart disease and hypertension.. GASTROINTESTINAL: Denies abdominal pain. Denies diarrhea. Denies constipation. Denies nausea. Denies vomiting. Denies heartburn. Denies blood in the stool. GENITOURINARY: Denies urinary frequency. Denies burning. Denies dysuria. Denies cloudy urine. Denies blood in the urine. MUSCULOSKELETAL: Denies myalgias. Denies joint swelling. Denies decreased range of motion beyond patients baseline. INTEGUMENTARY: Denies pruitis. Denies rash. PSYCHIATRIC: Denies suicidal or homicial ideations. ENDOCRINE: Denies weight change. Denies polydipsia. Denies polyuria. HEMATOLOGIC: Denies bleeding disorders. Past Medical History Past Medical History: COPD, Diabetes Mellitus, Hypertension Additional Past Medical History / Comment(s): back pain, neuropathy, brain aneursym History of Any Multi-Drug Resistant Organisms: None Reported Past Surgical History: Orthopedic Surgery Additional Past Surgical History / Comment(s): finger Past Anesthesia/Blood Transfusion Reactions: No Reported Reaction Past Psychological History: Anxiety, Depression Smoking Status: Former smoker Past Alcohol Use History: Occasional Past Drug Use History: None Reported Medications and Allergies Home Medications Medication Instructions Recorded Confirmed Type Aspirin 81 mg PO DAILY 07/11/14 09/12/24 History Gabapentin [Neurontin] 300 mg PO TID 07/11/14 09/12/24 History Losartan Potassium [Cozaar] 50 mg PO DAILY 07/11/14 09/12/24 History Metoprolol Succinate [Toprol XL] 25 mg PO BID 07/11/14 09/12/24 History metFORMIN HCL [Glucophage] 850 mg PO TID 07/11/14 09/12/24 History Atorvastatin [Lipitor] 40 mg PO HS 07/05/15 09/12/24 History buPROPion XL [Wellbutrin XL] 300 mg PO DAILY 12/06/16 09/12/24 History ARIPiprazole [Abilify] 5 mg PO DAILY 12/23/23 09/12/24 History Insulin Glargine,Hum.rec.anlog 55 units SQ DAILY 12/23/23 09/12/24 History [Lantus Solostar Pen] Melatonin 10 mg PO HS 12/23/23 09/12/24 History Omeprazole [PriLOSEC] 20 mg PO HS 12/23/23 09/12/24 History Celecoxib [CeleBREX] 200 mg PO BID 03/12/24 09/12/24 History Cholecalciferol [Vitamin D3 (125 250 mcg PO DAILY 08/23/24 09/12/24 History Mcg = 5000 Iu)] Glimepiride [Amaryl] 4 mg PO AC-BRKFST 08/23/24 09/12/24 History Insulin Lispro [humaLOG Kwikpen] 10 unit SQ AC-TID 08/23/24 09/12/24 History Mirtazapine [Remeron] 30 mg PO HS 08/23/24 09/12/24 History Pioglitazone [Actos] 15 mg PO DAILY 08/23/24 09/12/24 History Semaglutide [Ozempic] 1 mg SQ MO 08/23/24 09/12/24 History Allergies Allergy/AdvReac Type Severity Reaction Status Date / Time No Known Allergies Allergy Verified 09/12/24 09:35 Physical Exam Vitals: Vital Signs Temp Pulse Resp BP Pulse Ox 09/13/24 11:21 81 09/13/24 11:16 79 09/13/24 09:49 92 15 97 09/13/24 09:18 97.5 F L 09/13/24 07:49 86 09/13/24 07:38 88 09/13/24 07:18 18 09/13/24 04:42 84 20 139/77 97 09/12/24 20:36 91 16 131/75 96 09/12/24 20:04 85 09/12/24 19:52 89 09/12/24 19:08 97.6 F 89 18 141/66 95 09/12/24 18:08 95 16 110/62 94 L 09/12/24 15:37 90 09/12/24 15:31 91 L 09/12/24 15:29 91 09/12/24 15:16 98.0 F 94 20 139/67 93 L GENERAL: This is a 64-year-old in no apparent distress at the time of examination. Pleasant and cooperative. HEENT: Head is atraumatic, normocephalic. Pupils are equal, round, and reactive to light. Sclerae anicteric.. RESPIRATORY: Equal air entry, clear to auscultation, bilateral bases diminished. CARDIOVASCULAR: Regular rate and rhythm. GASTROINTESTINAL: No distention noted. Abdomen soft and round. Normal active bowel sounds auscultated x 4 quadrants. No pain or tenderness noted upon palpation. INTEGUMENTARY: No cyanosis. No jaundice. No rashes noted. No cellulitis noted. EXTREMITIES: 2+ peripheral pulses. No evidence of peripheral edema. No calf tenderness noted. NEUROLOGIC: Cranial nerves II-XII intact. PSYCHIATRIC: Awake, alert, and oriented X 3. Appropriate affect. Intact judgement and insight. Results CBC & Chem 7: 09/13/24 05:04 09/13/24 05:04 Labs: Abnormal Lab Results - Last 24 Hours (Table) 09/12/24 09/12/24 09/12/24 Range/Units 12:19 16:12 19:21 RBC (4.40-5.60) X 10*6/uL Glucose (70-110) mg/dL POC Glucose (mg/dL) (70-110) mg/dL Plasma Lactic Acid Chip 2.5 H* 3.2 H* 3.1 H* (0.7-2.0) mmol/L 09/13/24 09/13/24 09/13/24 Range/Units 05:04 05:04 08:42 RBC 4.36 L (4.40-5.60) X 10*6/uL Glucose 249 H (70-110) mg/dL POC Glucose (mg/dL) 336 H (70-110) mg/dL Plasma Lactic Acid Chip (0.7-2.0) mmol/L Assessment and Plan Assessment: Febrile, accompanied by lactic acidosis, leukocytosis on admission, etiology unclear. Chest x-ray reported nonacute. Viral studies, UA and procalcitonin negative Acute hypoxic respiratory failure secondary to the above Chronic obstructive pulmonary disease, O2 dependent, stable Leukocytosis, mild, resolved Lactic acidosis resolved with IV fluid hydration Hyponatremia resolved Hyperkalemia, resolved Diabetes mellitus type 2, hyperglycemia Diabetic peripheral neuropathy Prior nicotine dependence Morbid obesity, BMI 46 Anxiety Plan: Continue on current medication regimen ,monitoring and symptomatic treatment. Maintain nebulized bronchodilators, antibiotics, steroids. Significant clinical improvement. Patient has been cleared by pulmonary for discharge. Patient will be discharged home today in a stable condition with guarded prognosis. The impression and plan of care has been dictated as directed. : I performed a history and examination of this patient, discussed the same with the dictator. I agree with the dictator's note ,documented as a scribe. Any additional findings or plans will be noted.
[2024-09-13 12:26] LABS: Glucose,Whole Blood 306 mg/dL (70-110)
[2024-09-13] MEDS: GABAPENTIN 300 MG CAP PO SCH (12:31)
[2024-09-13] MEDS: ASPIRIN 81 MG PO SCH (12:31)
[2024-09-13] MEDS: METOPROLOL SUCCINATE (ER) 25 MG TAB.ER.24H PO SCH (12:33)
[2024-09-13] MEDS: LOSARTAN 50 MG TAB PO SCH (12:33)
[2024-09-13] MEDS: ARIPiprazole 5 MG TAB PO SCH (12:40)
[2024-09-13] MEDS: buPROPion XL 300 MG TAB.ER.24H PO SCH (12:40)
[2024-09-13] MEDS: INSULIN DETEMIR (LEVEMIR) 100 UNIT/ML SYR SQ SCH (12:40)
[2024-09-13] MEDS: CHOLECALCIFEROL 125 MCG (5000 IU) TABLET PO SCH (12:40)
[2024-09-13] MEDS: MELOXICAM 7.5 MG TAB PO SCH (12:40)
[2024-09-13 12:44] VITALS: PULSE 94; RESP 16; TEMP 97.8
[2024-09-13] MEDS ORDERED: VANCOMYCIN 1,000 MG in SODIUM CHLORIDE 0.9% 250 ML IVPB STA (13:09)
[2024-09-13] MEDS ORDERED: VANCOMYCIN IV PER PHARMACY 1 EACH MISC MISCELLANE PRN (13:09)
[2024-09-13] MEDS ORDERED: VANCOMYCIN 1,750 MG in SODIUM CHLORIDE 0.9% 500 ML 500 ML IVPB SCH (13:30)
[2024-09-13] MEDS ORDERED: MIRTAZAPINE 15 MG TAB PO SCH (21:00)
[2024-09-13] MEDS ORDERED: ATORVASTATIN 40 MG TAB PO SCH (21:00)
[2024-09-13] MEDS ORDERED: PANTOPRAZOLE 40 MG TABLET PO SCH (21:00)
[2024-09-13] MEDS ORDERED: MELATONIN 5 MG TABLET PO SCH (21:00)
== END 2024-09-13 12:45 | disposition home or self-care (01) ==
LOC: EC 05:50 → INTOOBSV 10:41 → 4SSUR 10:41
PROVIDERS: ADMIT Family Medicine; ATTEND Family Medicine
DX: J44.1 Chronic obstructive pulmonary disease with (acute) exacerbation (principal); J96.01 Acute respiratory failure with hypoxia; E87.20 Acidosis, unspecified; R29.6 Repeated falls; E11.42 Type 2 diabetes mellitus with diabetic polyneuropathy; E11.65 Type 2 diabetes mellitus with hyperglycemia; R00.0 Tachycardia, unspecified; E87.1 Hypo-osmolality and hyponatremia; E87.5 Hyperkalemia; E78.5 Hyperlipidemia, unspecified; I10 Essential (primary) hypertension; F32.A Depression, unspecified; F41.9 Anxiety disorder, unspecified; E66.01 Morbid (severe) obesity due to excess calories; Z68.42 Body mass index [BMI] 45.0-49.9, adult; Z79.4 Long term (current) use of insulin; Z79.82 Long term (current) use of aspirin; Z79.84 Long term (current) use of oral hypoglycemic drugs; Z79.1 Long term (current) use of non-steroidal anti-inflammatories (NSAID); Z79.85 Long-term (current) use of injectable non-insulin antidiabetic drugs; Z79.51 Long term (current) use of inhaled steroids; Z79.899 Other long term (current) drug therapy; Z87.891 Personal history of nicotine dependence; Z86.79 Personal history of other diseases of the circulatory system; Z99.81 Dependence on supplemental oxygen
CPT/HCPCS: 96361; 96365; 99285; 36415; 94640 ×2; 94760; 93005; 83880; 80053; 80048; 83605; 84484; 85025 ×2; 85610; 85730; 81003; 87040 ×2; 87077; 87186; 84145; 87636; 71045; G0378 ×2; J0696; J7512 ×2

== ENCOUNTER → 2024-10-11 | Outpatient (CLI) | payer MEDICARE ==
[2024-10-11 10:50] LABS: ALT 58 U/L (10-49); AST 32 U/L (14-35); Chol/HDL Ratio 4.64 Ratio; LDL Cholesterol,Calculated 74.2 mg/dL (0.0-131.0)
== END | disposition home or self-care (01) ==
LOC: LABWHC1 07:32
PROVIDERS: ATTEND Internal Medicine Interventional Cardiology
DX: E78.2 Mixed hyperlipidemia (principal)
CPT/HCPCS: 36415; 80061; 84450; 84460

== ENCOUNTER 2024-10-31 10:32 | Emergency (ER) | payer MEDICARE ==
--- NOTE | 2024-10-31 11:04 | ED ---
Weakness HPI - General Source: patient, RN notes reviewed Mode of arrival: wheelchair Limitations: no limitations <Sera Peck - Last Filed: 10/31/24 11:08> <Tata Sanchez - Last Filed: 10/31/24 13:35> - General Chief complaint: Weakness Stated complaint: Weakness Time Seen by Provider: 10/31/24 11:02 - History of Present Illness Initial comments: Quick [id number] male presenting for weakness in bilateral lower extremities 1 hour ago. States he was out to breakfast when he suddenly began to feel weakness both of his legs to the point where he felt as though he would fall if he tried to stand. States symptoms are starting to resolve. States this has happened multiple times before and has been told it is due to his diabetic neuropathy. Also states sometimes this happens when his COPD flares up. Denies chest pain, shortness of breath, cough, fever, abdominal pain, upper extremity numbness/weakness, vision changes, headache, altered mental status, slurred speech. (Sera Peck) 64-year-old male past medical history of COPD, diabetes who presents emergency department with lower extremity weakness. States he was out eating breakfast when he had sudden onset of lower extremity weakness. He felt like he was going to fall over. He had to have several bystanders assist him to sit down. Reports that the symptoms have happened to him several times in the past. He has seen his primary care doctor and a neurologist, Dr. Mejia. He has had EMGs, MRIs. He reports that he was told that his symptoms are due to neuropathy. His symptoms were short-lived and patient already feels better. He is able to ambulate without difficulty. He has no associated symptoms of chest pain, shortness of breath, abdominal pain. No neck or back pain. No speech changes or visual changes. No other alleviating, precipitating or modifying factors (Tata Sanchez) - Related Data Home Medications Medication Instructions Recorded Confirmed Aspirin 81 mg PO DAILY 07/11/14 09/12/24 Gabapentin [Neurontin] 300 mg PO TID 07/11/14 09/12/24 Losartan Potassium [Cozaar] 50 mg PO DAILY 07/11/14 09/12/24 Metoprolol Succinate [Toprol XL] 25 mg PO BID 07/11/14 09/12/24 metFORMIN HCL [Glucophage] 850 mg PO TID 07/11/14 09/12/24 Atorvastatin [Lipitor] 40 mg PO HS 07/05/15 09/12/24 buPROPion XL [Wellbutrin XL] 300 mg PO DAILY 12/06/16 09/12/24 ARIPiprazole [Abilify] 5 mg PO DAILY 12/23/23 09/12/24 Insulin Glargine,Hum.rec.anlog 55 units SQ DAILY 12/23/23 09/12/24 [Lantus Solostar Pen] Melatonin 10 mg PO HS 12/23/23 09/12/24 Omeprazole [PriLOSEC] 20 mg PO HS 12/23/23 09/12/24 Celecoxib [CeleBREX] 200 mg PO BID 03/12/24 09/12/24 Cholecalciferol [Vitamin D3 (125 250 mcg PO DAILY 08/23/24 09/12/24 Mcg = 5000 Iu)] Glimepiride [Amaryl] 4 mg PO AC-BRKFST 08/23/24 09/12/24 Insulin Lispro [humaLOG Kwikpen] 10 unit SQ AC-TID 08/23/24 09/12/24 Mirtazapine [Remeron] 30 mg PO HS 08/23/24 09/12/24 Pioglitazone [Actos] 15 mg PO DAILY 08/23/24 09/12/24 Semaglutide [Ozempic] 1 mg SQ MO 08/23/24 09/12/24 Previous Rx's Medication Instructions Recorded Fluticasone Propion/Salmeterol 1 inhalation PO Q12H #1 each 09/13/24 [Wixela 250-50 Inhub] predniSONE 10 mg PO DIRECTED #18 tab 09/13/24 Allergies Allergy/AdvReac Type Severity Reaction Status Date / Time No Known Allergies Allergy Verified 10/31/24 10:37 Review of Systems ROS Other: All systems not noted in ROS Statement are negative. <Sera Peck - Last Filed: 10/31/24 11:08> ROS Other: All systems not noted in ROS Statement are negative. <Tata Sanchez - Last Filed: 10/31/24 13:35> ROS Statement: Those systems with pertinent positive or pertinent negative responses have been documented in the HPI. Past Medical History Past Medical History: COPD, Diabetes Mellitus, Hypertension Additional Past Medical History / Comment(s): back pain, neuropathy, brain aneu rsym History of Any Multi-Drug Resistant Organisms: None Reported Past Surgical History: Orthopedic Surgery Additional Past Surgical History / Comment(s): finger Past Anesthesia/Blood Transfusion Reactions: No Reported Reaction Past Psychological History: Anxiety, Depression Smoking Status: Former smoker Past Alcohol Use History: Occasional Past Drug Use History: None Reported <Sera Peck - Last Filed: 10/31/24 11:08> General Exam Limitations: no limitations <Sera Peck - Last Filed: 10/31/24 11:08> General appearance: alert, in no apparent distress Head exam: Present: atraumatic, normocephalic, normal inspection Eye exam: Present: normal appearance, PERRL, EOMI. Absent: scleral icterus, conjunctival injection, periorbital swelling ENT exam: Present: normal exam, mucous membranes moist Neck exam: Present: normal inspection. Absent: tenderness, meningismus, lymphadenopathy Respiratory exam: Present: normal lung sounds bilaterally. Absent: respiratory distress, wheezes, rales, rhonchi, stridor Cardiovascular Exam: Present: regular rate, normal rhythm, normal heart sounds. Absent: systolic murmur, diastolic murmur, rubs, gallop, clicks GI/Abdominal exam: Present: soft, normal bowel sounds. Absent: distended, tenderness, guarding, rebound, rigid Extremities exam: Present: normal inspection, full ROM, normal capillary refill. Absent: tenderness, pedal edema, joint swelling, calf tenderness Back exam: Present: normal inspection Neurological exam: Present: alert, oriented X3, CN II-XII intact Psychiatric exam: Present: normal affect, normal mood Skin exam: Present: warm, dry, intact, normal color. Absent: rash <LauraTata Zafar - Last Filed: 10/31/24 13:35> - General Exam Comments Initial Comments: Visual Physical Exam Vital signs reviewed General: Well-appearing, nontoxic, no acute distress. Head: Normocephalic, atraumatic Eyes: PERRLA, EOMI ENT: Airway patent Chest: Nonlabored breathing Skin: No visual rash, normal skin tone Neuro: Alert and oriented 3 Musculoskeletal: No gross abnormalities (Sera Peck) Course Vital Signs 10/31/24 10:35 Temperature 98.1 F Pulse Rate 89 Respiratory 16 Rate Blood Pressure 180/71 O2 Sat by Pulse 96 Oximetry Medical Decision Making <CiscoMartineSera - Last Filed: 10/31/24 11:08> - Lab Data Result diagrams: 10/31/24 11:48 10/31/24 11:48 <Tata Sanchez - Last Filed: 10/31/24 13:35> - Medical Decision Making I completed the quick note portion of this chart signed Sera Peck PA-C (Sera Peck) Was pt. sent in by a medical professional or institution (, PA, PARTNER MARKETING INTERN, urgent care, hospital, or long-term...) When possible be specific @ -No Did you speak to anyone other than the patient for history (EMS, parent, family, police, friend...)? What history was obtained from this source @ -Spoke with the for history Did you review nursing and triage notes (agree or disagree)? Why? @ -I reviewed and agree with nursing and triage notes Were old charts reviewed (outside hosp., previous admission, EMS record, old EKG, old radiological studies, urgent care reports/EKG's, long-term records)? Report findings @ -I reviewed previous charts including an ED visit in December where patient was seen for similar complaint Differential Diagnosis (chest pain, altered mental status, abdominal pain women, abdominal pain men, vaginal bleeding, weakness, fever, dyspnea, syncope, headache, dizziness, GI bleed, back pain, seizure, CVA, palpatations, mental health, musculoskeletal)? @ -Differential Weakness: Hypoglycemia, shock, sepsis, hyponatremia, anemia, infection, AK, ETOH, adverse medicine reaction, overdose, stroke, this is not meant to be an all-inclusive list. EKG interpreted by me (3pts min.). @ -Demonstrates sinus rhythm with a rate of 88. LA interval 151. QRS 87. QTc of 397. No acute ST segment elevations or depressions X-rays interpreted by me (1pt min.). @ -Yes and demonstrates no acute process CT interpreted by me (1pt min.). @ -None done U/S interpreted by me (1pt. min.). @ -None done What testing was considered but not performed or refused? (CT, X-rays, U/S, labs)? Why? @ -None What meds were considered but not given or refused? Why? @ -IV fluids were ordered however patient states he feels improved and wants to go home Did you discuss the management of the patient with other professionals (professionals i.e. , PA, PARTNER MARKETING INTERN, lab, RT, psych nurse, psychiatric social worker supervisor, storage consultant, teacher, fire prevention officer, clinical case manager)? Give summary @ -No Was smoking cessation discussed for >3mins.? @ -No Was critical care preformed (if so, how long)? @ -No Were there social determinants of health that impacted care today? How? (Homelessness, low income, unemployed, alcoholism, drug addiction, transportation, low edu. Level, literacy, decrease access to med. care, half-way, rehab)? @ -No Was there de-escalation of care discussed even if they declined (Discuss DNR or withdrawal of care, Hospice)? DNR status @ -No What co-morbidities impacted this encounter? (DM, HTN, Smoking, COPD, CAD, Cancer, CVA, ARF, Chemo, Hep., AIDS, mental health diagnosis, sleep apnea, mor bid obesity)? @ -Obesity, diabetes Was patient admitted / discharged? Hospital course, mention meds given and route, prescriptions, significant lab abnormalities, going to OR and other pertinent info. @ -Upon arrival patient seen and evaluated in hallway 20. Thorough history and physical exam was performed. IV access is established. Laboratory studies are conducted. Chest x-ray was performed. When I evaluate the patient he states that his symptoms are resolved at this time. He has had extensive testing for the symptoms in the past. Patient feels comfortable going home at this time. I recommend that he follow-up with his neurologist for further evaluation of his symptoms and return for any new or worsening symptoms Undiagnosed new problem with uncertain prognosis? @ -No Drug Therapy requiring intensive monitoring for toxicity (Heparin, Nitro, Insulin, Cardizem)? @ -No Were any procedures done? @ -No Diagnosis/symptom? @ -Acute on chronic bilateral lower extremity weakness Acute, or Chronic, or Acute on Chronic? @ -Acute on chronic Uncomplicated (without systemic symptoms) or Complicated (systemic symptoms)? @ -Complicated Side effects of treatment? @ -No Exacerbation, Progression, or Severe Exacerbation? @ -No Poses a threat to life or bodily function? How? (Chest pain, USA, AK, pneumonia, PE, COPD, DKA, ARF, appy, cholecystitis, CVA, Diverticulitis, Homicidal, Suicidal, threat to staff... and all critical care pts) @ -No (LauraTata Zafar) - Lab Data Lab Results 10/31/24 10/31/24 10/31/24 Range/Units 11:48 11:48 11:48 WBC 6.7 (3.8-10.6) k/uL RBC 4.56 (4.30-5.90) m/uL Hgb 13.7 (13.0-17.5) gm/dL Hct 41.3 (39.0-53.0) % MCV 90.5 (80.0-100.0) fL MCH 29.9 (25.0-35.0) pg MCHC 33.1 (31.0-37.0) g/dL RDW 13.3 (11.5-15.5) % Plt Count 203 (150-450) k/uL MPV 6.4 Neutrophils % 54 % Lymphocytes % 32 % Monocytes % 8 % Eosinophils % 2 % Basophils % 1 % Neutrophils # 3.7 (1.3-7.7) k/uL Lymphocytes # 2.1 (1.0-4.8) k/uL Monocytes # 0.5 (0-1.0) k/uL Eosinophils # 0.1 (0-0.7) k/uL Basophils # 0.1 (0-0.2) k/uL PT 10.6 (10.0-12.5) sec INR 1.0 (<1.2) APTT 22.9 (22.0-30.0) sec Sodium 135 L (137-145) mmol/L Potassium 5.2 H (3.5-5.1) mmol/L Chloride 96 L (98-107) mmol/L Carbon Dioxide 29 (22-30) mmol/L Anion Gap 10 mmol/L BUN 13 (9-20) mg/dL Creatinine 0.89 (0.66-1.25) mg/dL Est GFR (CKD-EPI)AfAm >90 (>60 ml/min/1.73 sqM) Est GFR (CKD-EPI)NonAf >90 (>60 ml/min/1.73 sqM) Glucose 255 H (74-99) mg/dL Plasma Lactic Acid Chip (0.7-2.0) mmol/L Calcium 9.1 (8.4-10.2) mg/dL Magnesium 1.6 (1.6-2.3) mg/dL Total Bilirubin 0.4 (0.2-1.3) mg/dL AST 50 (17-59) U/L ALT 49 (4-49) U/L Alkaline Phosphatase 66 (38-126) U/L Troponin I (0.000-0.034) ng/mL Total Protein 6.6 (6.3-8.2) g/dL Albumin 4.2 (3.5-5.0) g/dL 10/31/24 10/31/24 Range/Units 11:48 11:48 WBC (3.8-10.6) k/uL RBC (4.30-5.90) m/uL Hgb (13.0-17.5) gm/dL Hct (39.0-53.0) % MCV (80.0-100.0) fL MCH (25.0-35.0) pg MCHC (31.0-37.0) g/dL RDW (11.5-15.5) % Plt Count (150-450) k/uL MPV Neutrophils % % Lymphocytes % % Monocytes % % Eosinophils % % Basophils % % Neutrophils # (1.3-7.7) k/uL Lymphocytes # (1.0-4.8) k/uL Monocytes # (0-1.0) k/uL Eosinophils # (0-0.7) k/uL Basophils # (0-0.2) k/uL PT (10.0-12.5) sec INR (<1.2) APTT (22.0-30.0) sec Sodium (137-145) mmol/L Potassium (3.5-5.1) mmol/L Chloride (98-107) mmol/L Carbon Dioxide (22-30) mmol/L Anion Gap mmol/L BUN (9-20) mg/dL Creatinine (0.66-1.25) mg/dL Est GFR (CKD-EPI)AfAm (>60 ml/min/1.73 sqM) Est GFR (CKD-EPI)NonAf (>60 ml/min/1.73 sqM) Glucose (74-99) mg/dL Plasma Lactic Acid Chip 3.0 H* (0.7-2.0) mmol/L Calcium (8.4-10.2) mg/dL Magnesium (1.6-2.3) mg/dL Total Bilirubin (0.2-1.3) mg/dL AST (17-59) U/L ALT (4-49) U/L Alkaline Phosphatase (38-126) U/L Troponin I <0.012 (0.000-0.034) ng/mL Total Protein (6.3-8.2) g/dL Albumin (3.5-5.0) g/dL Disposition <Sera Peck - Last Filed: 10/31/24 11:08> Is patient prescribed a controlled substance at d/c from ED?: No Time of Disposition: 13:16 <Tata Sanchez - Last Filed: 10/31/24 13:35> Clinical Impression: Lower extremity weakness Disposition: HOME SELF-CARE Condition: Stable Instructions (If sedation given, give patient instructions): Weakness (ED) Additional Instructions: Please follow-up with your primary care doctor for further evaluation of your symptoms. Return for any new or worsening symptoms Referrals: Robert Eldridge DO [Primary Care Provider] - 1-2 days
[2024-10-31 12:03] LABS: Basophils # (A) 0.1 k/uL (0-0.2); Basophils % (A) 1 %; Eosinophils # (A) 0.1 k/uL (0-0.7); Eosinophils % (A) 2 %; HCT 41.3 % (39.0-53.0); HGB 13.7 gm/dL (13.0-17.5); Lymphocytes # (A) 2.1 k/uL (1.0-4.8); Lymphocytes % (A) 32 %; MCH 29.9 pg (25.0-35.0); MCHC 33.1 g/dL (31.0-37.0); MCV 90.5 fL (80.0-100.0); Mean Platelet Volume 6.4; Monocytes # (A) 0.5 k/uL (0-1.0); Monocytes % (A) 8 %; Neutrophils # (A) 3.7 k/uL (1.3-7.7); Neutrophils % (A) 54 %; Platelet Count 203 k/uL (150-450); RBC 4.56 m/uL (4.30-5.90); RDW 13.3 % (11.5-15.5); WBC 6.7 k/uL (3.8-10.6)
[2024-10-31 12:16] LABS: Partial Thromboplastin Time 22.9 sec (22.0-30.0); Prothrombin Time 10.6 sec (10.0-12.5)
[2024-10-31 12:17] LABS: ALT 49 U/L (4-49); AST 50 U/L (17-59); African American GFR (CKD) >90 (>60 ml/min/1.73 sqM); Albumin 4.2 g/dL (3.5-5.0); Alkaline Phosphatase 66 U/L (38-126); Anion Gap 10 mmol/L; Blood Urea Nitrogen 13 mg/dL (9-20); Calcium 9.1 mg/dL (8.4-10.2); Carbon Dioxide 29 mmol/L (22-30); Chloride 96 mmol/L (98-107); Glucose 255 mg/dL (74-99); Magnesium 1.6 mg/dL (1.6-2.3); Non-African American GFR(CKD) >90 (>60 ml/min/1.73 sqM); Potassium 5.2 mmol/L (3.5-5.1); Sodium 135 mmol/L (137-145); Total Bilirubin 0.4 mg/dL (0.2-1.3); Total Protein 6.6 g/dL (6.3-8.2)
--- NOTE | 2024-10-31 12:41 | XR ---
EXAMINATION TYPE: XR chest 2V DATE OF EXAM: 10/31/2024 12:29 PM COMPARISON: 09/12/2024 CLINICAL INDICATION: Male, 64 years old with history of Weakness, TECHNIQUE: XR chest 2V view(s) obtained. FINDINGS: The heart size is normal. The pulmonary vasculature is normal. The lungs are clear. IMPRESSION: 1. No acute pulmonary process. [facility], , 10/31/2024 12:39 PM
[2024-10-31] MEDS: SODIUM CHLORIDE 0.9% 1,000 ML IV ONE (13:19)
[2024-10-31 13:51] VITALS: BP 178/92; PULSE 90; RESP 20; TEMP 97.7
== END 2024-10-31 13:40 | disposition home or self-care (01) ==
LOC: EC 10:32
DX: R53.1 Weakness (principal); E66.9 Obesity, unspecified; Z87.891 Personal history of nicotine dependence; Z68.41 Body mass index [BMI] 40.0-44.9, adult
CPT/HCPCS: 36415; 71046; 80053; 83605; 83735; 84484; 85025; 85610; 85730; 93005; 99285

== ENCOUNTER → 2025-01-05 | Outpatient (CLI) | payer MEDICARE ==
[2025-01-05 15:05] LABS: ALT 62 U/L (10-49); AST 45 U/L (14-35); Albumin 4.2 g/dL (3.8-4.9); Albumin/Globulin Ratio 1.91 Ratio (1.60-3.17); Alkaline Phosphatase 82 U/L (41-126); BUN/Creat Ratio 20.62 Ratio (12.00-20.00); Blood Urea Nitrogen 16.5 mg/dL (9.0-27.0); Calcium 9.5 mg/dL (8.7-10.3); Carbon Dioxide 29.6 mmol/L (21.6-31.8); Chloride 96 mmol/L (96-109); Chol/HDL Ratio 3.73 Ratio; Globulin 2.2 g/dL (1.6-3.3); Glucose 214 mg/dL (70-110); LDL Cholesterol,Calculated 54.2 mg/dL (0.0-131.0); Potassium 5.4 mmol/L (3.5-5.5); Sodium 136 mmol/L (135-145); Total Bilirubin 0.2 mg/dL (0.3-1.2); Total Protein 6.4 g/dL (6.2-8.2)
== END | disposition home or self-care (01) ==
LOC: LABWHC1 07:48
PROVIDERS: ATTEND Internal Medicine
DX: E11.65 Type 2 diabetes mellitus with hyperglycemia (principal)
CPT/HCPCS: 36415; 80053; 80061; 82043; 82570; 83036

== ENCOUNTER 2025-01-27 10:29 | Observation (INO) | payer MEDICARE ==
--- NOTE | 2025-01-27 11:37 | XR ---
EXAMINATION TYPE: XR chest 2V DATE OF EXAM: 01/27/2025 CLINICAL INDICATION: Male, 64 years old with history of difficulty breathing, TECHNIQUE: Frontal and lateral views of the chest are obtained. COMPARISON: Chest x-ray October 31, 2024 and older studies. FINDINGS: There is no focal air space opacity, pleural effusion, or pneumothorax seen. Mild cardiome altagracia is redemonstrated. Prominent spurring and bridging osteophytes in the mid to lower thoracic spin e are redemonstrated. IMPRESSION: Mild cardiomegaly without acute pulmonary process. [facility], , 01/27/2025 11:35 AM
[2025-01-27 12:03] LABS: Partial Thromboplastin Time 22.7 sec (22.0-30.0); Prothrombin Time 10.7 sec (10.0-12.5)
--- NOTE | 2025-01-27 12:05 | ED ---
SOB HPI - General Source: patient, RN notes reviewed Mode of arrival: ambulatory Limitations: no limitations <Bruna Bright - Last Filed: 01/27/25 12:04> - General Source: patient, RN notes reviewed, old records reviewed, Caregiver Mode of arrival: ambulatory Limitations: no limitations - History of Present Illness MD Complaint: shortness of breath, cough, pain with inspiration, "asthma attack" -: days(s) Severity: severe Severity scale (1-10): 10 Consistency: constant Improves With: oxygen Worsens With: exertion Known History Of: COPD, asthma Context: recent URI, anxiety, recent illness Associated Symptoms: cough, sputum production Treatments Prior to Arrival: none <Felton Magana - Last Filed: 01/31/25 13:55> - General Chief Complaint: Shortness of Breath Stated Complaint: difficulty breathing Time Seen by Provider: 01/27/25 12:04 - History of Present Illness Initial Comments: Quick note: 64-year-old male presented to the ER for evaluation of shortness of breath. Patient states since Thursday he has been having progressively worsening shortness of breath. Patient sent here by urgent care for low oxygen levels. He does wear oxygen at night only 2 L. Patient reports he was told at urgent care he has swelling to lower extremities. No history of heart failure. No chest pain or fevers. (Bruna Bright) This is a 64 male to ER for worsening shortness of breath since Thursday low oxygen levels at the urgent care low oxygen levels at home, this is increased since exertional dyspnea which has been severe no chest pain (Felton Magana) - Related Data Home Medications Medication Instructions Recorded Confirmed Aspirin 81 mg PO DAILY 07/11/14 01/27/25 Gabapentin [Neurontin] 300 mg PO TID 07/11/14 01/27/25 Losartan Potassium [Cozaar] 50 mg PO DAILY 07/11/14 01/27/25 Metoprolol Succinate [Toprol XL] 25 mg PO BID 07/11/14 01/27/25 metFORMIN HCL [Glucophage] 850 mg PO TID 07/11/14 01/27/25 Atorvastatin [Lipitor] 40 mg PO HS 07/05/15 01/27/25 buPROPion XL [Wellbutrin XL] 300 mg PO DAILY 12/06/16 01/27/25 ARIPiprazole [Abilify] 5 mg PO DAILY 12/23/23 01/27/25 Melatonin 10 mg PO HS 12/23/23 01/27/25 Omeprazole [PriLOSEC] 20 mg PO HS 12/23/23 01/27/25 Celecoxib [CeleBREX] 200 mg PO BID PRN 03/12/24 01/27/25 Cholecalciferol [Vitamin D3 (125 125 mcg PO DAILY 08/23/24 01/27/25 Mcg = 5000 Iu)] Insulin Lispro [humaLOG Kwikpen] 22 unit SQ TID-W/MEALS 08/23/24 01/27/25 Pioglitazone [Actos] 15 mg PO DAILY 08/23/24 01/27/25 Albuterol Inhaler [Ventolin Hfa 2 puff INHALATION RT-QID PRN 01/27/25 01/27/25 Inhaler] Ezetimibe [Zetia] 10 mg PO DAILY 01/27/25 01/27/25 Fluticasone Propion/Salmeterol 1 puff INHALATION RT-DAILY 01/27/25 01/27/25 [Wixela 250-50 Inhub] Insulin Degludec [Tresiba 70 units SQ DAILY 01/27/25 01/27/25 Flextouch U-200 Pen] Ipratropium-Albuterol Nebulize 3 ml INHALATION RT-BID 01/27/25 01/27/25 [Duoneb 0.5 mg-3 mg/3 ml Soln] Ipratropium-Albuterol Nebulize 3 ml INHALATION RT-BID PRN 01/27/25 01/27/25 [Duoneb 0.5 mg-3 mg/3 ml Soln] Mirtazapine [Remeron] 45 mg PO HS 01/27/25 01/27/25 Semaglutide [Ozempic] 2 mg SQ DIRECTED 01/27/25 01/27/25 Previous Rx's Medication Instructions Recorded predniSONE [Deltasone] 40 mg PO DAILY 5 Days #10 tab 01/28/25 Allergies Allergy/AdvReac Type Severity Reaction Status Date / Time No Known Allergies Allergy Verified 01/27/25 16:02 Review of Systems ROS Other: All systems not noted in ROS Statement are negative. <Bruna Bright - Last Filed: 01/27/25 12:04> ROS Other: All systems not noted in ROS Statement are negative. <Felton Magana - Last Filed: 01/31/25 13:55> ROS Statement: Those systems with pertinent positive or pertinent negative responses have been documented in the HPI. Past Medical History Past Medical History: COPD, Diabetes Mellitus, Hypertension Additional Past Medical History / Comment(s): back pain, neuropathy, brain aneursym History of Any Multi-Drug Resistant Organisms: None Reported Past Surgical History: Orthopedic Surgery Additional Past Surgical History / Comment(s): finger Past Anesthesia/Blood Transfusion Reactions: No Reported Reaction Past Psychological History: Anxiety, Depression Smoking Status: Former smoker Past Alcohol Use History: Occasional Past Drug Use History: None Reported <Bruna Bright - Last Filed: 01/27/25 12:04> General Exam Limitations: no limitations <Bruna Bright - Last Filed: 01/27/25 12:04> General appearance: anxious Head exam: Present: atraumatic, normocephalic, normal inspection Eye exam: Present: normal appearance, PERRL, EOMI. Absent: scleral icterus, conjunctival injection, periorbital swelling ENT exam: Present: normal exam, mucous membranes moist Neck exam: Present: normal inspection. Absent: tenderness, meningismus, lymphadenopathy Respiratory exam: Present: respiratory distress, wheezes, accessory muscle use, decreased breath sounds, prolonged expiratory. Absent: rales, rhonchi, stridor Cardiovascular Exam: Present: normal rhythm, tachycardia, normal heart sounds. Absent: systolic murmur, diastolic murmur, rubs, gallop, clicks GI/Abdominal exam: Present: soft, normal bowel sounds. Absent: distended, tenderness, guarding, rebound, rigid Extremities exam: Present: normal inspection, full ROM, normal capillary refill. Absent: tenderness, pedal edema, joint swelling, calf tenderness Back exam: Present: normal inspection Neurological exam: Present: alert, oriented X3, CN II-XII intact Psychiatric exam: Present: normal affect, normal mood Skin exam: Present: warm, dry, intact, normal color. Absent: rash <Felton Magana - Last Filed: 01/31/25 13:55> - General Exam Comments Initial Comments: Visual Physical Exam Vital signs reviewed General: Well-appearing, nontoxic, no acute distress. Head: Normocephalic, atraumatic Eyes: PERRLA, EOMI ENT: Airway patent Chest: Nonlabored breathing Skin: No visual rash, normal skin tone Neuro: Alert and oriented 3 Musculoskeletal: No gross abnormalities (Bruna Bright) Course <Felton Magana - Last Filed: 01/31/25 13:55> Vital Signs 01/27/25 01/27/25 01/27/25 10:47 10:50 11:50 Temperature 98 F Pulse Rate 109 H 85 85 Respiratory 30 H 20 20 Rate Blood Pressure 153/63 140/78 158/68 O2 Sat by Pulse 91 L 98 98 Oximetry 01/27/25 01/27/25 01/27/25 15:00 15:30 15:55 Temperature Pulse Rate 85 85 Respiratory 24 26 H 22 Rate Blood Pressure 185/68 O2 Sat by Pulse 92 L Oximetry 01/27/25 01/27/25 01/27/25 16:08 16:45 17:06 Temperature Pulse Rate 92 90 75 Respiratory 18 20 20 Rate Blood Pressure 195/88 148/85 O2 Sat by Pulse 92 L 93 L Oximetry - Reevaluation(s) Reevaluation #1: 01/27/25 15:37 Records reviewed (Felton Magana) Reevaluation #2: 01/27/25 15:37 Patient showing no real improvement here in the ER Oxygen did improve with supplemental O2 (Felton Magana) Reevaluation #3: 01/27/25 15:37 Patient informed of results questions answered (Felton Magana) Reevaluation #4: Was pt. sent in by a medical professional or institution (, PA, TECHNOLOGY ADOPTION MANAGER, urgent care, hospital, or [facility]...) When possible be specific @ -no Did you speak to anyone other than the patient for history (EMS, parent, family, police, friend...)? What history was obtained from this source @ -no Did you review nursing and triage notes (agree or disagree)? Why? @ -agree Are old charts reviewed (outside hosp., previous admission, EMS record, old EKG, old radiological studies, urgent care reports/EKG's, [facility] records)? Report findings @ -yes Differential Diagnosis (chest pain, altered mental status, abdominal pain women, abdominal pain men, vaginal bleeding, weakness, fever, dyspnea, syncope, headache, dizziness, GI bleed, back pain, seizure, CVA, palpatations, mental health, musculoskeletal)? @ -prior EKG interpreted by me (3pts min.). @ -yes X-rays interpreted by me (1pt min.). @ -yes negative for acute disease CT interpreted by me (1pt min.). @ -no U/S interpreted by me (1pt. min.). @ -no What testing was considered but not performed or refused? (CT, X-rays, U/S, labs)? Why? @ -none What meds were considered but not given or refused? Why? @ -none Did you discuss the management of the patient with other professionals (professionals i.e. , PA, TECHNOLOGY ADOPTION MANAGER, lab, RT, psych nurse, social media manager, faculty support coordinator, teacher, house officer, window caser)? Give summary @ -no Was smoking cessation discussed for >3mins.? @ -no Was critical care preformed (if so, how long)? @ -yes31 Were there social determinants of health that impacted care today? How? (Homelessness, low income, unemployed, alcoholism, drug addiction, transportation, low edu. Level, literacy, decrease access to med. care, shelter, rehab)? @ -none Was there de-escalation of care discussed even if they declined (Discuss DNR or withdrawal of care, Hospice)? DNR status @ -no What co-morbidities impacted this encounter? (DM, HTN, Smoking, COPD, CAD, Cancer, CVA, ARF, Chemo, Hep., AIDS, mental health diagnosis, sleep apnea, morbid obesity)? @ -none Was patient admitted / discharged? Hospital course, mention meds given and route, prescriptions, significant lab abnormalities, going to OR and other pertinent info. @ - 64 male to the ER for evaluation of severe COPD COPD exacerbation with hypoxia, patient has a home O2 oxygen where improved with supplemental O2 and breathing treatments here in the ER will place in observation for Admitted COPD with hypoxia Undiagnosed new problem with uncertain prognosis? @ -no Drug Therapy requiring intensive monitoring for toxicity (Heparin, Nitro, Insulin, Cardizem)? @ -no Were any procedures done? @ -no Diagnosis/symptom? @ - Acute, or Chronic, or Acute on Chronic? @ -Acute Uncomplicated (without systemic symptoms) or Complicated (systemic symptoms)? @ -Complicated Side effects of treatment? @ -no Exacerbation, Progression, or Severe Exacerbation? @ -exacerbation Poses a threat to life or bodily function? How? (Chest pain, [place], [place], pneumonia, PE, COPD, DKA, ARF, appy, cholecystitis, CVA, Diverticulitis, Homicidal, Suicidal, threat to staff... and all critical care pts) @ -yes respiratory failure (Felton Magana) Reevaluation #5: Differential Dyspnea: Coronary syndrome, arrhythmia, tamponade, asthma, COPD, pulmonary embolism, pneumonia, pneumothorax, pulmonary effusion, anaphylaxis, diabetic ketoacidosis, flailed chest, pulmonary contusion, diaphragmatic rupture, anemia, neuromuscular, this is not meant to be an all-inclusive list. (Felton Magana) - Consultations Consultation #1: Spoke with Dr. Eldridge agrees to observe this patient (Felton Magana) Medical Decision Making <Bruna Bright - Last Filed: 01/27/25 12:04> - Lab Data Result diagrams: 01/28/25 04:53 01/28/25 04:53 - EKG Data -: EKG Interpreted by Me (EKG is sinus 93 IA 129 QRS 89 QTc 401) - Radiology Data Radiology results: report reviewed (Chest x-ray is negative for acute disease), image reviewed <Felton Magana - Last Filed: 01/31/25 13:55> - Medical Decision Making I performed the quick note portion of this chart. Electronically signed by Bruna Bright PA-C (Bruna Bright) 64 male to the ER for evaluation of severe COPD COPD exacerbation with hypoxia, patient has a home O2 oxygen where improved with supplemental O2 and breathing treatments here in the ER will place in observation for (Felton Magana) - Lab Data Lab Results 01/27/25 01/27/25 01/27/25 Range/Units 11:14 11:14 11:14 WBC 4.9 (3.8-10.6) k/uL RBC 4.57 (4.30-5.90) m/uL Hgb 13.4 (13.0-17.5) gm/dL Hct 42.6 (39.0-53.0) % MCV 93.4 (80.0-100.0) fL MCH 29.3 (25.0-35.0) pg MCHC 31.4 (31.0-37.0) g/dL RDW 13.2 (11.5-15.5) % Plt Count 154 (150-450) k/uL MPV 7.2 Neutrophils % 60 % Lymphocytes % 24 % Monocytes % 10 % Eosinophils % 2 % Basophils % 0 % Neutrophils # 2.9 (1.3-7.7) k/uL Lymphocytes # 1.2 (1.0-4.8) k/uL Monocytes # 0.5 (0-1.0) k/uL Eosinophils # 0.1 (0-0.7) k/uL Basophils # 0.0 (0-0.2) k/uL Hypochromasia Slight PT 10.7 (10.0-12.5) sec INR 1.0 (<1.2) APTT 22.7 (22.0-30.0) sec Sodium 132 L (137-145) mmol/L Potassium 4.9 (3.5-5.1) mmol/L Chloride 90 L (98-107) mmol/L Carbon Dioxide 32 H (22-30) mmol/L Anion Gap 10 mmol/L BUN 14 (9-20) mg/dL Creatinine 0.77 (0.66-1.25) mg/dL Est GFR (CKD-EPI)AfAm >90 (>60 ml/min/1.73 sqM) Est GFR (CKD-EPI)NonAf >90 (>60 ml/min/1.73 sqM) Glucose 308 H (74-99) mg/dL Calcium 9.1 (8.4-10.2) mg/dL Total Bilirubin 0.4 (0.2-1.3) mg/dL AST 74 H (17-59) U/L ALT 76 H (4-49) U/L Alkaline Phosphatase 91 (38-126) U/L Troponin I (0.000-0.034) ng/mL NT-Pro-B Natriuret Pep 110 pg/mL Total Protein 6.3 (6.3-8.2) g/dL Albumin 3.8 (3.5-5.0) g/dL Influenza Type A (PCR) (Not Detectd) Influenza Type B (PCR) (Not Detectd) RSV (PCR) (Not Detectd) SARS-CoV-2 (PCR) (Not Detectd) 01/27/25 01/27/25 Range/Units 11:14 14:43 WBC (3.8-10.6) k/uL RBC (4.30-5.90) m/uL Hgb (13.0-17.5) gm/dL Hct (39.0-53.0) % MCV (80.0-100.0) fL MCH (25.0-35.0) pg MCHC (31.0-37.0) g/dL RDW (11.5-15.5) % Plt Count (150-450) k/uL MPV Neutrophils % % Lymphocytes % % Monocytes % % Eosinophils % % Basophils % % Neutrophils # (1.3-7.7) k/uL Lymphocytes # (1.0-4.8) k/uL Monocytes # (0-1.0) k/uL Eosinophils # (0-0.7) k/uL Basophils # (0-0.2) k/uL Hypochromasia PT (10.0-12.5) sec INR (<1.2) APTT (22.0-30.0) sec Sodium (137-145) mmol/L Potassium (3.5-5.1) mmol/L Chloride (98-107) mmol/L Carbon Dioxide (22-30) mmol/L Anion Gap mmol/L BUN (9-20) mg/dL Creatinine (0.66-1.25) mg/dL Est GFR (CKD-EPI)AfAm (>60 ml/min/1.73 sqM) Est GFR (CKD-EPI)NonAf (>60 ml/min/1.73 sqM) Glucose (74-99) mg/dL Calcium (8.4-10.2) mg/dL Total Bilirubin (0.2-1.3) mg/dL AST (17-59) U/L ALT (4-49) U/L Alkaline Phosphatase (38-126) U/L Troponin I <0.012 (0.000-0.034) ng/mL NT-Pro-B Natriuret Pep pg/mL Total Protein (6.3-8.2) g/dL Albumin (3.5-5.0) g/dL Influenza Type A (PCR) Not Detected (Not Detectd) Influenza Type B (PCR) Not Detected (Not Detectd) RSV (PCR) Not Detected (Not Detectd) SARS-CoV-2 (PCR) Not Detected (Not Detectd) Disposition <Bruna Bright - Last Filed: 01/27/25 12:04> Is patient prescribed a controlled substance at d/c from ED?: No Time of Disposition: 15:00 <Felton Magana - Last Filed: 01/31/25 13:55> Clinical Impression: COPD exacerbation, Acute hypoxic respiratory failure, Asthma with acute exac erbation Disposition: ADMITTED IP TO THIS HOSP Condition: Fair
[2025-01-27 12:06] LABS: ALT 76 U/L (4-49); AST 74 U/L (17-59); African American GFR (CKD) >90 (>60 ml/min/1.73 sqM); Albumin 3.8 g/dL (3.5-5.0); Alkaline Phosphatase 91 U/L (38-126); Anion Gap 10 mmol/L; Basophils % (A) 0 %; Blood Urea Nitrogen 14 mg/dL (9-20); Calcium 9.1 mg/dL (8.4-10.2); Carbon Dioxide 32 mmol/L (22-30); Chloride 90 mmol/L (98-107); Eosinophils # (A) 0.1 k/uL (0-0.7); Eosinophils % (A) 2 %; Glucose 308 mg/dL (74-99); HCT 42.6 % (39.0-53.0); HGB 13.4 gm/dL (13.0-17.5); Hypochromasia Slight; Lymphocytes # (A) 1.2 k/uL (1.0-4.8); Lymphocytes % (A) 24 %; MCH 29.3 pg (25.0-35.0); MCHC 31.4 g/dL (31.0-37.0); MCV 93.4 fL (80.0-100.0); Mean Platelet Volume 7.2; Monocytes # (A) 0.5 k/uL (0-1.0); Monocytes % (A) 10 %; Neutrophils # (A) 2.9 k/uL (1.3-7.7); Neutrophils % (A) 60 %; Non-African American GFR(CKD) >90 (>60 ml/min/1.73 sqM); Platelet Count 154 k/uL (150-450); Potassium 4.9 mmol/L (3.5-5.1); RBC 4.57 m/uL (4.30-5.90); RDW 13.2 % (11.5-15.5); Sodium 132 mmol/L (137-145); Total Bilirubin 0.4 mg/dL (0.2-1.3); Total Protein 6.3 g/dL (6.3-8.2); WBC 4.9 k/uL (3.8-10.6)
[2025-01-27 12:14] LABS: NT-Pro-B-Type Natriuretic Pept 110 pg/mL
[2025-01-27] MEDS: SODIUM CHLORIDE 0.9% 1,000 ML IV ONE (14:48)
[2025-01-27] MEDS: methylPREDNISolone SOD SUCCI 125 MG/2 ML VIAL IV STA (14:48)
[2025-01-27] MEDS ORDERED: IBUPROFEN 400 MG TAB PO PRN (15:34)
[2025-01-27] MEDS ORDERED: NALOXONE 0.4 MG/ML 1 ML VIAL IV PRN (15:34)
[2025-01-27] MEDS ORDERED: MORPHINE SULFATE 4 MG/ML SYRINGE IV PRN (15:34)
[2025-01-27] MEDS ORDERED: ACETAMINOPHEN TAB 325 MG TAB PO PRN (15:34)
[2025-01-27] MEDS ORDERED: ONDANSETRON 4 MG/2 ML VIAL IVP PRN (15:34)
[2025-01-27 15:38] LABS: Influenza A Not Detected (Not Detectd); Influenza B Not Detected (Not Detectd); RSV Not Detected (Not Detectd)
[2025-01-27] MEDS: SODIUM CHLORIDE 0.9% 1,000 ML IV SCH (15:47)
[2025-01-27] MEDS: IPRATROPIUM-ALBUTEROL 3 ML NEB INHALATION STA ×2 (15:54→16:20)
[2025-01-27] MEDS ORDERED: DEXTROSE 50% SYRINGE 50 ML IVP PRN ×2 (17:44)
[2025-01-27] MEDS: methylPREDNISolone SOD SUCCI 125 MG/2 ML VIAL IV SCH (18:24)
[2025-01-27 19:00] LABS: Glucose,Whole Blood 377 mg/dL (70-110)
[2025-01-27] MEDS: IPRATROPIUM-ALBUTEROL 3 ML NEB INHALATION SCH (19:28)
[2025-01-27] MEDS: BUDESONIDE 0.25 MG/2 ML NEBU INHALATION SCH (19:28)
[2025-01-27] MEDS ORDERED: IPRATROPIUM-ALBUTEROL 3 ML NEB INHALATION SCH (20:00)
[2025-01-27] MEDS ORDERED: ALBUTEROL NEBULIZED 2.5 MG/3 ML INHALATION SCH (20:00)
[2025-01-27] MEDS: MELATONIN 5 MG TABLET PO SCH (21:00)
[2025-01-27] MEDS: ATORVASTATIN 40 MG TAB PO SCH (21:00)
[2025-01-27] MEDS: METOPROLOL SUCCINATE (ER) 25 MG TAB.ER.24H PO SCH (21:00)
[2025-01-27] MEDS: INSULIN LISPRO (HumaLOG) 100 UNIT/ML 10 mL VL SQ SCH (21:00)
[2025-01-27] MEDS: MIRTAZAPINE 45 MG TABLET PO SCH (21:01)
[2025-01-27] MEDS: GABAPENTIN 300 MG CAP PO SCH (21:01)
[2025-01-27] MEDS: PANTOPRAZOLE 40 MG TABLET PO SCH (21:01)
[2025-01-28 05:57] LABS: Glucose,Whole Blood 290 mg/dL (70-110)
[2025-01-28] MEDS: INSULIN GLARGINE (LANTUS) 100 UNIT/ML SYR SQ SCH (06:18)
[2025-01-28 07:20] VITALS: BP 152/79; RESP 18; TEMP 97.4
[2025-01-28] MEDS ORDERED: NON FORMULARY DRUG (Insulin Lispro [Humalog Kwikpen] 100 UNIT/ML Insuln.Pen) SQ SCH (07:30)
[2025-01-28] MEDS: ARIPiprazole 5 MG TAB PO SCH (08:13)
[2025-01-28] MEDS: INSULIN LISPRO (HumaLOG) 100 UNIT/ML 10 mL VL SQ SCH ×2 (08:13→12:47)
[2025-01-28] MEDS: LOSARTAN 50 MG TAB PO SCH (08:14)
[2025-01-28] MEDS: ASPIRIN 81 MG PO SCH (08:14)
[2025-01-28] MEDS: CHOLECALCIFEROL 125 MCG (5000 IU) TABLET PO SCH (08:14)
[2025-01-28] MEDS: EZETIMIBE 10 MG TAB PO SCH (08:14)
[2025-01-28] MEDS: buPROPion XL 300 MG TAB.ER.24H PO SCH (08:14)
[2025-01-28] MEDS: PIOGLITAZONE 15 MG TAB PO SCH (08:14)
[2025-01-28] MEDS: predniSONE 20 MG TAB PO SCH (08:14)
[2025-01-28 09:21] LABS: Basophils # (A) 0.02 X 10*3/uL (0.00-0.10); Basophils % (A) 0.3 %; Eosinophils # (A) 0 X 10*3/uL (0.04-0.35); Eosinophils % (A) 0 %; HCT 44.5 % (39.6-50.0); Lymphocytes # (A) 0.93 X 10*3/uL (0.90-5.00); MCH 28.7 pg (27.0-32.0); MCHC 31.5 g/dL (32.0-37.0); MCV 91.2 FL (80.0-97.0); Mean Platelet Volume 9.3 FL (9.5-12.2); Monocytes # (A) 0.23 X 10*3/uL (0.20-1.00); Monocytes % (A) 3.2 %; NRBC Per 100 WBC 0 X 10*3/uL (0.00-0.01); Neutrophils # (A) 5.95 X 10*3/uL (1.80-7.70); Neutrophils % (A) 82.9 %; Platelet Count 181 X 10*3/uL (140-440); RBC 4.88 X 10*6/uL (4.40-5.60); RDW 12.5 % (11.5-14.5); WBC 7.17 X 10*3/uL (4.50-10.00)
[2025-01-28 09:31] LABS: ALT 84 U/L (10-49); AST 56 U/L (14-35); Albumin 4.3 g/dL (3.8-4.9); Albumin/Globulin Ratio 1.48 Ratio (1.60-3.17); Alkaline Phosphatase 98 U/L (41-126); BUN/Creat Ratio 21.38 Ratio (12.00-20.00); Blood Urea Nitrogen 17.1 mg/dL (9.0-27.0); Calcium 9.6 mg/dL (8.7-10.3); Carbon Dioxide 28.8 mmol/L (21.6-31.8); Chloride 94 mmol/L (96-109); Globulin 2.9 g/dL (1.6-3.3); Glucose 321 mg/dL (70-110); Magnesium 1.9 mg/dL (1.5-2.4); Phosphorus 3.6 mg/dL (2.4-5.1); Potassium 5.3 mmol/L (3.5-5.5); Sodium 134 mmol/L (135-145); Total Bilirubin 0.3 mg/dL (0.3-1.2); Total Protein 7.2 g/dL (6.2-8.2)
[2025-01-28 11:36] VITALS: PULSE 90
--- NOTE | 2025-01-28 11:39 | P.CNPUL ---
History of Present Illness Consult date: 01/28/25 Requesting physician: Robert Eldridge Reason for consult: dyspnea, cough, COPD Chief complaint: Shortness of breath, cough, congestion History of present illness: This is a very pleasant 64-year-old male patient with a known history of chronic obstructive pulmonary disease and home oxygen at 2 L/min per nasal cannula, FEV1 value 60% of predicted, former smoker. Quit approximately 2 years ago. He also has a history of diabetes mellitus, obesity, hypertension, hyperlipidemia, anxiety. He had presented here to the emergency room yesterday with a 1 day history of acute shortness of breath cough and congestion. Feeling as though he was having an asthma attack. Chest x-ray showed mild cardiomegaly but no acute pulmonary process. White count 7.1. Hemoglobin 14.0. Platelets 181. Sodium 134. Potassium 5.3. Bicarb 29. BUN 17. Creatinine 0.8. Glucose 321. Troponin negative x 2. Hemoglobin A1c 10.9. Seen today in consultation on the regular medical floor. He is currently sitting up at the bedside. Awake and alert in no acute distress. Feeling quite a bit better today compared to yesterday. He denies any worsening shortness of breath, cough or congestion. Maintaining good O2 saturations in the 90s on 2 L/min per nasal cannula. He has been afebrile. Hemodynamically stable. Review of Systems REVIEW OF SYSTEMS: CONSTITUTIONAL: Denies any recent significant weight loss or weight gain. EYES: Denies change in vision. EARS, NOSE, MOUTH, THROAT: Denies headaches, denies sore throat. CARDIOVASCULAR: Denies chest pain, palpitations or syncopal episodes. RESPIRATORY: Positive for shortness of breath, cough, congestion no hemoptysis. GASTROINTESTINAL: Denies change in appetite, denies abdominal pain GENITOURINARY: Denies hematuria, denies infections. MUSKULOSKELETAL: Denies pain, denies swelling. INTEGUMENTARY: Denies rash, denies eczema. NEUROLOGICAL: Denies recent memory loss, no recent seizure activity. PSYCHIATRIC: Denies anxiety, denies depression. HEMATOLOGIC/LYMPHATIC: Denies anemia, denies enlarged lymph nodes. Past Medical History Past Medical History: COPD, Diabetes Mellitus, Hypertension Additional Past Medical History / Comment(s): back pain, neuropathy, brain aneursym History of Any Multi-Drug Resistant Organisms: None Reported Past Surgical History: Orthopedic Surgery Additional Past Surgical History / Comment(s): bilateral thumbs, left shoulder Past Anesthesia/Blood Transfusion Reactions: No Reported Reaction Past Psychological History: Anxiety, Depression Smoking Status: Former smoker Past Alcohol Use History: Occasional Past Drug Use History: None Reported Medications and Allergies Home Medications Medication Instructions Recorded Confirmed Type Aspirin 81 mg PO DAILY 07/11/14 01/27/25 History Gabapentin [Neurontin] 300 mg PO TID 07/11/14 01/27/25 History Losartan Potassium [Cozaar] 50 mg PO DAILY 07/11/14 01/27/25 History Metoprolol Succinate [Toprol XL] 25 mg PO BID 07/11/14 01/27/25 History metFORMIN HCL [Glucophage] 850 mg PO TID 07/11/14 01/27/25 History Atorvastatin [Lipitor] 40 mg PO HS 07/05/15 01/27/25 History buPROPion XL [Wellbutrin XL] 300 mg PO DAILY 12/06/16 01/27/25 History ARIPiprazole [Abilify] 5 mg PO DAILY 12/23/23 01/27/25 History Melatonin 10 mg PO HS 12/23/23 01/27/25 History Omeprazole [PriLOSEC] 20 mg PO HS 12/23/23 01/27/25 History Celecoxib [CeleBREX] 200 mg PO BID PRN 03/12/24 01/27/25 History Cholecalciferol [Vitamin D3 (125 125 mcg PO DAILY 08/23/24 01/27/25 History Mcg = 5000 Iu)] Insulin Lispro [humaLOG Kwikpen] 22 unit SQ TID-W/MEALS 08/23/24 01/27/25 History Pioglitazone [Actos] 15 mg PO DAILY 08/23/24 01/27/25 History Albuterol Inhaler [Ventolin Hfa 2 puff INHALATION RT-QID PRN 01/27/25 01/27/25 History Inhaler] Ezetimibe [Zetia] 10 mg PO DAILY 01/27/25 01/27/25 History Fluticasone Propion/Salmeterol 1 puff INHALATION RT-DAILY 01/27/25 01/27/25 History [Wixela 250-50 Inhub] Insulin Degludec [Tresiba 70 units SQ DAILY 01/27/25 01/27/25 History Flextouch U-200 Pen] Ipratropium-Albuterol Nebulize 3 ml INHALATION RT-BID 01/27/25 01/27/25 History [Duoneb 0.5 mg-3 mg/3 ml Soln] Ipratropium-Albuterol Nebulize 3 ml INHALATION RT-BID PRN 01/27/25 01/27/25 History [Duoneb 0.5 mg-3 mg/3 ml Soln] Mirtazapine [Remeron] 45 mg PO HS 01/27/25 01/27/25 History Semaglutide [Ozempic] 2 mg SQ DIRECTED 01/27/25 01/27/25 History Allergies Allergy/AdvReac Type Severity Reaction Status Date / Time No Known Allergies Allergy Verified 01/27/25 16:02 Physical Exam Vitals: Vital Signs Temp Pulse Pulse Resp BP BP BP 01/28/25 08:09 94 01/28/25 08:00 90 01/28/25 06:50 97.4 F L 80 18 152/79 01/28/25 02:00 95 01/28/25 01:49 97.6 F 95 17 131/69 01/27/25 21:00 101 H 01/27/25 19:46 97.6 F 101 H 18 168/77 01/27/25 19:38 104 H 01/27/25 19:32 100 01/27/25 17:31 98.0 F 100 19 176/81 01/27/25 17:06 75 20 148/85 01/27/25 16:45 90 20 195/88 01/27/25 16:08 92 18 01/27/25 15:55 85 22 01/27/25 15:30 26 H 01/27/25 15:00 85 24 185/68 01/27/25 11:50 85 20 158/68 Pulse Ox 01/28/25 08:09 01/28/25 08:00 92 L 01/28/25 06:50 95 01/28/25 02:00 01/28/25 01:49 93 L 01/27/25 21:00 01/27/25 19:46 95 01/27/25 19:38 01/27/25 19:32 01/27/25 17:31 94 L 01/27/25 17:06 93 L 01/27/25 16:45 92 L 01/27/25 16:08 01/27/25 15:55 01/27/25 15:30 01/27/25 15:00 92 L 01/27/25 11:50 98 Intake and Output 01/27/25 01/28/25 01/28/25 22:59 06:59 14:59 Intake Total 590 Balance 590 Intake: Oral 590 Other: Voiding Method Toilet Toilet # Voids 2 2 Weight 126.099 kg GENERAL EXAM: Alert, pleasant, obese 64-year-old male, on 2 L nasal cannula, comfortable in no apparent distress. HEAD: Normocephalic. EYES: Normal reaction of pupils, equal size. NOSE: Clear with pink turbinates. THROAT: No erythema or exudates. NECK: No masses, no JVD. CHEST: No chest wall deformity. LUNGS: Equal air entry with no crackles, wheeze, rhonchi or dullness. CVS: S1 and S2 normal with no audible murmur, regular rhythm. ABDOMEN: No hepatosplenomegaly, normal bowel sounds, no guarding or rigidity. SPINE: No scoliosis or deformity SKIN: No rashes CENTRAL NERVOUS SYSTEM: No focal deficits, tone is normal in all 4 extremities. EXTREMITIES: There is no peripheral edema. No clubbing, no cyanosis. Peripheral pulses are intact. Results - Laboratory Findings CBC and BMP: 01/28/25 04:53 01/28/25 04:53 PT/INR, D-dimer PT 10.7 sec (10.0-12.5) 01/27/25 11:14 INR 1.0 (<1.2) 01/27/25 11:14 Abnormal lab findings: Abnormal Labs 01/27/25 01/27/25 01/28/25 11:14 18:57 04:53 MCHC MPV Eosinophils # Sodium 132 L Chloride 90 L Carbon Dioxide 32 H BUN/Creatinine Ratio Glucose 308 H POC Glucose (mg/dL) 377 H Hemoglobin A1c 10.9 H AST 74 H ALT 76 H Albumin/Globulin Ratio 01/28/25 01/28/25 01/28/25 04:53 04:53 05:55 MCHC 31.5 L MPV 9.3 L Eosinophils # 0 L Sodium 134 L Chloride 94 L Carbon Dioxide BUN/Creatinine Ratio 21.38 H Glucose 321 H POC Glucose (mg/dL) 290 H Hemoglobin A1c AST 56 H ALT 84 H Albumin/Globulin Ratio 1.48 L - Diagnostic Findings Chest x-ray: image reviewed Assessment and Plan Assessment: Acute on chronic hypoxemic respiratory failure secondary to an acute exacerbation of chronic obstructive pulmonary disease. Chest x-ray clear History of oxygen dependent chronic obstructive pulmonary disease with an FEV1 value 60% of predicted Former heavy smoker Diabetes mellitus, type II, poorly controlled, hemoglobin A1c 10.9 Hypertension Hyperlipidemia Gastroesophageal reflux disease Diabetic neuropathy Obesity with a BMI of 46.3 kg/m Plan: The patient was seen and evaluated Chest x-ray, labs and medications reviewed Improved today compared to yesterday Continued on DuoNeb inhalations, steroids Cleared for discharge from the pulmonary standpoint Continue his home pulmonary medications Complete a prednisone taper Follow-up closely with his PCP regarding blood glucose levels Follow-up in our office with Dr. Mondragon as scheduled I have personally seen and examined the patient, performed the documentation and the assessment and plan as written. Number of minutes spent on the visit: 20 Dictation was produced using [employer] dictation software. Please excuse any grammatical, word or spelling errors. Time with Patient: Greater than 30
[2025-01-28 12:04] LABS: Glucose,Whole Blood 487 mg/dL (70-110)
[2025-01-28] MEDS ORDERED: INSULIN LISPRO (HumaLOG) 100 UNIT/ML 10 mL VL SQ SCH (17:30)
== END 2025-01-28 13:36 | disposition home or self-care (01) ==
LOC: EC 10:29 → 6NMEDSUR 15:35
PROVIDERS: ADMIT Family Medicine; ATTEND Family Medicine
DX: J44.1 Chronic obstructive pulmonary disease with (acute) exacerbation (principal); J96.21 Acute and chronic respiratory failure with hypoxia; E11.40 Type 2 diabetes mellitus with diabetic neuropathy, unspecified; E11.65 Type 2 diabetes mellitus with hyperglycemia; E66.9 Obesity, unspecified; E78.5 Hyperlipidemia, unspecified; I10 Essential (primary) hypertension; K21.9 Gastro-esophageal reflux disease without esophagitis; F32.A Depression, unspecified; F41.9 Anxiety disorder, unspecified; Z68.42 Body mass index [BMI] 45.0-49.9, adult; Z79.4 Long term (current) use of insulin; Z79.82 Long term (current) use of aspirin; Z79.84 Long term (current) use of oral hypoglycemic drugs; Z79.899 Other long term (current) drug therapy; Z87.891 Personal history of nicotine dependence; Z99.81 Dependence on supplemental oxygen
CPT/HCPCS: 96376 ×2; 96361; 96374; 99291; 36415; 94640 ×3; 94760; 93005; 83880; 80053 ×2; 83735; 84100; 84484; 85025 ×2; 85610; 85730; 83036; 87636; 71046; G0378 ×2; J7512; J2919 ×2

== ENCOUNTER 2025-02-13 05:47 | Observation (INO) | payer MEDICARE ==
[2025-02-13] MEDS: ALBUTEROL NEBULIZED 2.5 MG/3 ML INHALATION STA (06:11)
[2025-02-13] MEDS: IPRATROPIUM-ALBUTEROL 3 ML NEB INHALATION STA (06:11)
--- NOTE | 2025-02-13 06:12 | ED ---
SOB HPI - General Chief Complaint: Shortness of Breath Stated Complaint: SOB,AMS Time Seen by Provider: 02/13/25 05:59 Source: patient, family, RN notes reviewed, old records reviewed Mode of arrival: wheelchair Limitations: no limitations - History of Present Illness Initial Comments: 64-year-old male presents emergency department with chief complaint of shortness of breath. Patient presented via EMS. Patient was recently hospitalized for COPD exacerbation patient was a former smoker quit over 2 years ago. Patient started having increasing shortness of breath yesterday he is normally on 2 L of oxygen at home but states he increased himself to 4 to 6 L. Denies any leg pain or leg swelling. No history of CHF. Denies being on diuretics. No fever. - Related Data Home Medications Medication Instructions Recorded Confirmed Aspirin 81 mg PO DAILY 07/11/14 01/27/25 Gabapentin [Neurontin] 300 mg PO TID 07/11/14 01/27/25 Losartan Potassium [Cozaar] 50 mg PO DAILY 07/11/14 01/27/25 Metoprolol Succinate [Toprol XL] 25 mg PO BID 07/11/14 01/27/25 metFORMIN HCL [Glucophage] 850 mg PO TID 07/11/14 01/27/25 Atorvastatin [Lipitor] 40 mg PO HS 07/05/15 01/27/25 buPROPion XL [Wellbutrin XL] 300 mg PO DAILY 12/06/16 01/27/25 ARIPiprazole [Abilify] 5 mg PO DAILY 12/23/23 01/27/25 Melatonin 10 mg PO HS 12/23/23 01/27/25 Omeprazole [PriLOSEC] 20 mg PO HS 12/23/23 01/27/25 Celecoxib [CeleBREX] 200 mg PO BID PRN 03/12/24 01/27/25 Cholecalciferol [Vitamin D3 (125 125 mcg PO DAILY 08/23/24 01/27/25 Mcg = 5000 Iu)] Insulin Lispro [humaLOG Kwikpen] 22 unit SQ TID-W/MEALS 08/23/24 01/27/25 Pioglitazone [Actos] 15 mg PO DAILY 08/23/24 01/27/25 Albuterol Inhaler [Ventolin Hfa 2 puff INHALATION RT-QID PRN 01/27/25 01/27/25 Inhaler] Ezetimibe [Zetia] 10 mg PO DAILY 01/27/25 01/27/25 Fluticasone Propion/Salmeterol 1 puff INHALATION RT-DAILY 01/27/25 01/27/25 [Wixela 250-50 Inhub] Insulin Degludec [Tresiba 70 units SQ DAILY 01/27/25 01/27/25 Flextouch U-200 Pen] Ipratropium-Albuterol Nebulize 3 ml INHALATION RT-BID 01/27/25 01/27/25 [Duoneb 0.5 mg-3 mg/3 ml Soln] Ipratropium-Albuterol Nebulize 3 ml INHALATION RT-BID PRN 01/27/25 01/27/25 [Duoneb 0.5 mg-3 mg/3 ml Soln] Mirtazapine [Remeron] 45 mg PO HS 01/27/25 01/27/25 Semaglutide [Ozempic] 2 mg SQ DIRECTED 01/27/25 01/27/25 Previous Rx's Medication Instructions Recorded predniSONE [Deltasone] 40 mg PO DAILY 5 Days #10 tab 01/28/25 Allergies Allergy/AdvReac Type Severity Reaction Status Date / Time No Known Allergies Allergy Verified 02/13/25 05:52 Review of Systems ROS Statement: Those systems with pertinent positive or pertinent negative responses have been documented in the HPI. ROS Other: All systems not noted in ROS Statement are negative. Past Medical History Past Medical History: COPD, Diabetes Mellitus, Hypertension Additional Past Medical History / Comment(s): back pain, neuropathy, brain aneursym History of Any Multi-Drug Resistant Organisms: None Reported Past Surgical History: Orthopedic Surgery Additional Past Surgical History / Comment(s): bilateral thumbs, left shoulder Past Anesthesia/Blood Transfusion Reactions: No Reported Reaction Past Psychological History: Anxiety, Depression Smoking Status: Former smoker Past Alcohol Use History: Occasional Past Drug Use History: None Reported General Exam Limitations: no limitations General appearance: alert, in no apparent distress Head exam: Present: atraumatic, normocephalic, normal inspection Eye exam: Present: normal appearance, PERRL, EOMI. Absent: scleral icterus, conjunctival injection, periorbital swelling ENT exam: Present: normal exam, normal oropharynx, mucous membranes moist Neck exam: Present: normal inspection. Absent: tenderness, meningismus, lymphadenopathy Respiratory exam: Present: respiratory distress, wheezes, rhonchi. Absent: normal lung sounds bilaterally, rales, stridor Cardiovascular Exam: Present: regular rate, normal rhythm, normal heart sounds. Absent: systolic murmur, diastolic murmur, rubs, gallop, clicks GI/Abdominal exam: Present: soft, normal bowel sounds. Absent: distended, tenderness, guarding, rebound, rigid Neurological exam: Present: alert, oriented X3 Course Vital Signs 02/13/25 02/13/25 02/13/25 05:52 06:06 06:11 Temperature 97.8 F Pulse Rate 99 93 Respiratory 17 24 Rate Blood Pressure 132/65 O2 Sat by Pulse 71 L Oximetry 02/13/25 06:18 Temperature Pulse Rate 93 Respiratory Rate Blood Pressure O2 Sat by Pulse Oximetry Medical Decision Making - Medical Decision Making Was pt. sent in by a medical professional or institution (, PA, [employer], urgent care, hospital, or [facility]...) When possible be specific @ -No Did you speak to anyone other than the patient for history (EMS, parent, family, police, friend...)? What history was obtained from this source @ -No Did you review nursing and triage notes (agree or disagree)? Why? @ -I reviewed and agree with nursing and triage notes Were old charts reviewed (outside hosp., previous admission, EMS record, old EKG, old radiological studies, urgent care reports/EKG's, [facility] records)? Report findings @ -No old charts were reviewed Differential Diagnosis (chest pain, altered mental status, abdominal pain women, abdominal pain men, vaginal bleeding, weakness, fever, dyspnea, syncope, headache, dizziness, GI bleed, back pain, seizure, CVA, palpatations, mental health, musculoskeletal)? @ -Differential Dyspnea: Coronary syndrome, arrhythmia, tamponade, asthma, COPD, pulmonary embolism, pneumonia, pneumothorax, pulmonary effusion, anaphylaxis, diabetic ketoacidosis, flailed chest, pulmonary contusion, diaphragmatic rupture, anemia, neuromuscular, this is not meant to be an all-inclusive list. EKG interpreted by me (3pts min.). @ -As above X-rays interpreted by me (1pt min.). @ -Chest x-ray shows patchy infiltrates CT interpreted by me (1pt min.). @ -None done U/S interpreted by me (1pt. min.). @ -None done What testing was considered but not performed or refused? (CT, X-rays, U/S, labs)? Why? @ -None What meds were considered but not given or refused? Why? @ -None Did you discuss the management of the patient with other professionals (anai perea i.e. , PA, [employer], lab, RT, psych nurse, social professionals, harbour master, teacher, branch officer, briefcase sewer)? Give summary @ -[Dr. Eldridge for admission Was smoking cessation discussed for >3mins.? @ -No Was critical care preformed (if so, how long)? @ -35 mins Were there social determinants of health that impacted care today? How? (Homelessness, low income, unemployed, alcoholism, drug addiction, transportation, low edu. Level, literacy, decrease access to med. care, care home, rehab)? @ -No Was there de-escalation of care discussed even if they declined (Discuss DNR or withdrawal of care, Hospice)? DNR status @ -No What co-morbidities impacted this encounter? (DM, HTN, Smoking, COPD, CAD, C ancer, CVA, ARF, Chemo, Hep., AIDS, mental health diagnosis, sleep apnea, morbid obesity)? @ -COPD, diabetes Was patient admitted / discharged? Hospital course, mention meds given and route, prescriptions, significant lab abnormalities, going to OR and other pertinent info. @ -Admitted patient presented in acute hypoxic respiratory failure, COPD exacerbation. Patient was given breathing treatments, Solu-Medrol. Patient's x-ray shows patchy infiltrates. Cepheid swab was added. Patient was given antibiotics, blood cultures were drawn. Patient will continue steroids, breathing treatments with pulmonary evaluation. Undiagnosed new problem with uncertain prognosis? @ -No Drug Therapy requiring intensive monitoring for toxicity (Heparin, Nitro, Insulin, Cardizem)? @ -No Were any procedures done? @ -No Diagnosis/symptom? @ -COPD exacerbation, pneumonia, acute hypoxic respiratory failure Acute, or Chronic, or Acute on Chronic? @ -Acute Uncomplicated (without systemic symptoms) or Complicated (systemic symptoms)? @ -Complicated Side effects of treatment? @ -No Exacerbation, Progression, or Severe Exacerbation? @ -COPD exacerbation Poses a threat to life or bodily function? How? (Chest pain, [place], [place], pneumonia, PE, COPD, DKA, ARF, appy, cholecystitis, CVA, Diverticulitis, Homicidal, S uicidal, threat to staff... and all critical care pts) @ -Yes threat to pulmonary function - Lab Data Result diagrams: 02/13/25 06:36 02/13/25 06:36 Lab Results 02/13/25 02/13/25 02/13/25 Range/Units 06:36 06:36 06:36 WBC 9.02 (4.50-10.00) 10*3/uL RBC 4.34 L (4.40-5.60) 10*6/uL Hgb 12.7 L (13.0-17.0) g/dL Hct 40.0 (39.6-50.0) % MCV 92.2 (80.0-97.0) fL MCH 29.3 (27.0-32.0) pg MCHC 31.8 L (32.0-37.0) g/dL Plt Count 168 (140-440) 10*3/uL MPV 8.6 L (9.5-12.2) fL Immature Gran % (Auto) 0.6 % Neutrophils % 77.4 % Lymphocytes % 11.5 % Monocytes % 9.5 % Eosinophils % 0.8 % Basophils % 0.2 % Immature Gran # 0.05 H (0.00-0.04) 10*3/uL Neutrophils # 6.98 (1.80-7.70) 10*3/uL Lymphocytes # 1.04 (0.90-5.00) 10*3/uL Monocytes # 0.86 (0.20-1.00) 10*3/uL Eosinophils # 0.07 (0.04-0.35) 10*3/uL Basophils # 0.02 (0.00-0.10) 10*3/uL PT 10.4 (10.0-12.5) sec INR 0.9 (<1.2) APTT 23.0 (22.0-30.0) sec Sodium 133 L (137-145) mmol/L Potassium 5.5 H (3.5-5.1) mmol/L Chloride 92 L (98-107) mmol/L Carbon Dioxide 39 H (22-30) mmol/L Anion Gap 2 mmol/L BUN 15 (9-20) mg/dL Creatinine 0.54 L (0.66-1.25) mg/dL Est GFR (CKD-EPI)AfAm >90 (>60 ml/min/1.73 sqM) Est GFR (CKD-EPI)NonAf >90 (>60 ml/min/1.73 sqM) Glucose 242 H (74-99) mg/dL Plasma Lactic Acid Chip (0.7-2.0) mmol/L Calcium 9.3 (8.4-10.2) mg/dL Magnesium 1.5 L (1.6-2.3) mg/dL Total Bilirubin 0.8 (0.2-1.3) mg/dL AST 50 (17-59) U/L ALT 62 H (4-49) U/L Alkaline Phosphatase 72 (38-126) U/L Troponin I (0.000-0.034) ng/mL NT-Pro-B Natriuret Pep 226 pg/mL Total Protein 6.5 (6.3-8.2) g/dL Albumin 3.7 (3.5-5.0) g/dL 02/13/25 02/13/25 Range/Units 06:36 06:36 WBC (4.50-10.00) 10*3/uL RBC (4.40-5.60) 10*6/uL Hgb (13.0-17.0) g/dL Hct (39.6-50.0) % MCV (80.0-97.0) fL MCH (27.0-32.0) pg MCHC (32.0-37.0) g/dL Plt Count (140-440) 10*3/uL MPV (9.5-12.2) fL Immature Gran % (Auto) % Neutrophils % % Lymphocytes % % Monocytes % % Eosinophils % % Basophils % % Immature Gran # (0.00-0.04) 10*3/uL Neutrophils # (1.80-7.70) 10*3/uL Lymphocytes # (0.90-5.00) 10*3/uL Monocytes # (0.20-1.00) 10*3/uL Eosinophils # (0.04-0.35) 10*3/uL Basophils # (0.00-0.10) 10*3/uL PT (10.0-12.5) sec INR (<1.2) APTT (22.0-30.0) sec Sodium (137-145) mmol/L Potassium (3.5-5.1) mmol/L Chloride (98-107) mmol/L Carbon Dioxide (22-30) mmol/L Anion Gap mmol/L BUN (9-20) mg/dL Creatinine (0.66-1.25) mg/dL Est GFR (CKD-EPI)AfAm (>60 ml/min/1.73 sqM) Est GFR (CKD-EPI)NonAf (>60 ml/min/1.73 sqM) Glucose (74-99) mg/dL Plasma Lactic Acid Chip 1.0 (0.7-2.0) mmol/L Calcium (8.4-10.2) mg/dL Magnesium (1.6-2.3) mg/dL Total Bilirubin (0.2-1.3) mg/dL AST (17-59) U/L ALT (4-49) U/L Alkaline Phosphatase (38-126) U/L Troponin I 0.029 (0.000-0.034) ng/mL NT-Pro-B Natriuret Pep pg/mL Total Protein (6.3-8.2) g/dL Albumin (3.5-5.0) g/dL - EKG Data -: EKG Interpreted by [facility] EKG Comments: EKG performed at 6: 05 sinus rhythm with a rate of 91 [place] 133 QRS 91 QT/QTc 327/[address] elevation Critical Care Time Critical Care Time: Yes Total Critical Care Time: 35 Disposition Clinical Impression: COPD exacerbation, Acute hypoxic respiratory failure, Pneumonia Disposition: ADMITTED IP TO THIS HOSP Condition: Serious Is patient prescribed a controlled substance at d/c from ED?: No Referrals: Robert Edlridge DO [Primary Care Provider] - 1-2 days Time of Disposition: 07:24
[2025-02-13 06:45] LABS: Basophils # (A) 0.02 10*3/uL (0.00-0.10); Basophils % (A) 0.2 %; Eosinophils # (A) 0.07 10*3/uL (0.04-0.35); Eosinophils % (A) 0.8 %; HGB 12.7 g/dL (13.0-17.0); Lymphocytes # (A) 1.04 10*3/uL (0.90-5.00); Lymphocytes % (A) 11.5 %; MCH 29.3 pg (27.0-32.0); MCHC 31.8 g/dL (32.0-37.0); MCV 92.2 fL (80.0-97.0); Mean Platelet Volume 8.6 fL (9.5-12.2); Monocytes # (A) 0.86 10*3/uL (0.20-1.00); Monocytes % (A) 9.5 %; Neutrophils # (A) 6.98 10*3/uL (1.80-7.70); Neutrophils % (A) 77.4 %; Platelet Count 168 10*3/uL (140-440); RBC 4.34 10*6/uL (4.40-5.60); RDW 12.8 % (11.5-14.5); WBC 9.02 10*3/uL (4.50-10.00)
[2025-02-13] MEDS: methylPREDNISolone SOD SUCCI 125 MG/2 ML VIAL IV STA (06:46)
[2025-02-13 06:56] LABS: INR 0.9 (<1.2); Prothrombin Time 10.4 sec (10.0-12.5)
--- NOTE | 2025-02-13 07:00 | XR ---
EXAMINATION TYPE: XR chest 2V DATE OF EXAM: 02/13/2025 CLINICAL INDICATION: Male, 64 years old with history of difficulty breathing, TECHNIQUE: Frontal and lateral views of the chest are obtained. COMPARISON: Chest x-ray January 27, 2025 FINDINGS: Overlying EKG leads are now present. Mild cardiomegaly redemonstrated. New central increas ed opacities bilaterally. No pleural effusion or pneumothorax seen bilaterally. The osseous structur es are intact. IMPRESSION: Mild cardiomegaly with new central opacities suggesting edema. Correlate for suspected CH F exacerbation. [facility], , 02/13/2025 6:58 AM
[2025-02-13 07:05] LABS: ALT 62 U/L (4-49); African American GFR (CKD) >90 (>60 ml/min/1.73 sqM); Albumin 3.7 g/dL (3.5-5.0); Anion Gap 2 mmol/L; Blood Urea Nitrogen 15 mg/dL (9-20); Calcium 9.3 mg/dL (8.4-10.2); Carbon Dioxide 39 mmol/L (22-30); Chloride 92 mmol/L (98-107); Glucose 242 mg/dL (74-99); Non-African American GFR(CKD) >90 (>60 ml/min/1.73 sqM); Sodium 133 mmol/L (137-145); Total Bilirubin 0.8 mg/dL (0.2-1.3); Total Protein 6.5 g/dL (6.3-8.2)
[2025-02-13 07:12] LABS: AST 50 U/L (17-59); Alkaline Phosphatase 72 U/L (38-126); Magnesium 1.5 mg/dL (1.6-2.3); Potassium 5.5 mmol/L (3.5-5.1)
[2025-02-13 07:13] LABS: NT-Pro-B-Type Natriuretic Pept 226 pg/mL
[2025-02-13] MEDS ORDERED: ACETAMINOPHEN TAB 325 MG TAB PO PRN (07:19)
[2025-02-13] MEDS ORDERED: NALOXONE 0.4 MG/ML 1 ML VIAL IVP PRN (07:19)
[2025-02-13] MEDS ORDERED: MELOXICAM 7.5 MG TAB PO PRN (07:21)
[2025-02-13 08:10] LABS: Influenza A Not Detected (Not Detectd); Influenza B Not Detected (Not Detectd); RSV Not Detected (Not Detectd)
[2025-02-13] MEDS: INSULIN LISPRO (HumaLOG) 100 UNIT/ML 10 mL VL SQ SCH ×2 (08:11→21:52)
[2025-02-13] MEDS: IPRATROPIUM-ALBUTEROL 3 ML NEB INHALATION PRN (08:44)
[2025-02-13] MEDS: SYMBICORT 80-4.5 MCG INHALER INHALATION SCH (08:45)
[2025-02-13] MEDS ORDERED: METHYL SALICYLATE-MENTHOL OINT (3 OZ TUBE) TOPICAL SCH (09:00)
[2025-02-13] MEDS: METOPROLOL SUCCINATE (ER) 25 MG TAB.ER.24H PO SCH (09:16)
[2025-02-13] MEDS: EZETIMIBE 10 MG TAB PO SCH (09:16)
[2025-02-13] MEDS: buPROPion XL 300 MG TAB.ER.24H PO SCH (09:16)
[2025-02-13] MEDS: ARIPiprazole 5 MG TAB PO SCH (09:16)
[2025-02-13] MEDS: ASPIRIN 81 MG PO SCH (09:16)
[2025-02-13] MEDS: INSULIN GLARGINE (LANTUS) 100 UNIT/ML SYR SQ SCH (09:17)
[2025-02-13] MEDS: PIOGLITAZONE 15 MG TAB PO SCH (09:18)
[2025-02-13] MEDS: metFORMIN 850 MG TAB PO SCH (09:18)
[2025-02-13] MEDS: AZITHROMYCIN 500 MG TAB PO SCH (10:42)
[2025-02-13] MEDS: IPRATROPIUM-ALBUTEROL 3 ML NEB INHALATION SCH (11:45)
--- NOTE | 2025-02-13 11:48 | P.HPIM ---
History of Present Illness H&P Date: 02/13/25 Chief Complaint: Progressive shortness of breath This is a pleasant 64-year-old white male with past medical history significant for chronic hypoxic respiratory failure on 2 L nasal cannula, longtime history of COPD, prior nicotine dependence -40-year pack history, quit 2 years ago, diabetes mellitus, morbid obesity and multiple other medical issues presented to the ER via EMS with progressive shortness of breath that began yesterday, accompanied by occasional chronic nonproductive cough. Patient states he increased his home O2 up to 6 L nasal cannula with no relief. Denies fever/chills. denies nausea vomiting or diarrhea. Denies constipation. Denies chest pain, palpitations .chest x-ray reported mild cardiomegaly with new central opacities suggesting edema, correlate for suggested CHF exacerbation. proBNP 226. Afebrile, normal WBC. hemoglobin 12.7, platelets 168, INR 0.9, sodium 133, potassium 5.5, bicarb 39, anion gap 2, BUN 15, creatinine 0.54. Hyperglycemic, blood sugars ranging from mid 250s into the high 400s. Magnesium 1.5. Troponin negative x 1. EKG reported sinus rhythm. Viral screen negative. Review of Systems ROS Statement: Those systems with pertinent positive or pertinent negative responses have been documented in the HPI. ROS Other: All systems not noted in ROS Statement are negative. GENERAL: Patient denies fever. Denies chills. EYES: Denies blurred vision. Denies vision changes. Denies eye pain. EARS, NOSE, MOUTH, & THROAT: Denies headache. Denies sore throat. Denies ear pain. RESPIRATORY: Patient admits to shortness of breath wheezing and nonproductive cough has history of COPD longtime history of tobacco misuse. CARDIOVASCULAR: Denies chest pain admits to heart disease and hypertension.. GASTROINTESTINAL: Denies abdominal pain. Denies diarrhea. Denies constipation. Denies nausea. Denies vomiting. Denies heartburn. Denies blood in the stool. GENITOURINARY: Denies urinary frequency. Denies burning. Denies dysuria. Denies cloudy urine. Denies blood in the urine. MUSCULOSKELETAL: Denies myalgias. Denies joint swelling. Denies decreased range of motion beyond patients baseline. INTEGUMENTARY: Denies pruitis. Denies rash. PSYCHIATRIC: Denies suicidal or homicial ideations. ENDOCRINE: Denies weight change. Denies polydipsia. Denies polyuria. HEMATOLOGIC: Denies bleeding disorders. Past Medical History Past Medical History: COPD, Diabetes Mellitus, Hypertension Additional Past Medical History / Comment(s): back pain, neuropathy, brain an eursym History of Any Multi-Drug Resistant Organisms: None Reported Past Surgical History: Heart Catheterization, Orthopedic Surgery Additional Past Surgical History / Comment(s): bilateral thumbs, left shoulder Past Anesthesia/Blood Transfusion Reactions: No Reported Reaction Past Psychological History: Anxiety, Depression Smoking Status: Former smoker Past Alcohol Use History: Occasional Past Drug Use History: None Reported Medications and Allergies Home Medications Medication Instructions Recorded Confirmed Type Aspirin 81 mg PO DAILY 07/11/14 02/13/25 History Gabapentin [Neurontin] 300 mg PO TID 07/11/14 02/13/25 History Losartan Potassium [Cozaar] 50 mg PO DAILY 07/11/14 02/13/25 History Metoprolol Succinate [Toprol XL] 25 mg PO BID 07/11/14 02/13/25 History metFORMIN HCL [Glucophage] 850 mg PO TID 07/11/14 02/13/25 History Atorvastatin [Lipitor] 40 mg PO HS 07/05/15 02/13/25 History buPROPion XL [Wellbutrin XL] 300 mg PO DAILY 12/06/16 02/13/25 History ARIPiprazole [Abilify] 5 mg PO DAILY 12/23/23 02/13/25 History Melatonin 10 mg PO HS 12/23/23 02/13/25 History Omeprazole [PriLOSEC] 20 mg PO HS 12/23/23 02/13/25 History Celecoxib [CeleBREX] 200 mg PO BID PRN 03/12/24 02/13/25 History Cholecalciferol [Vitamin D3 (125 125 mcg PO DAILY 08/23/24 02/13/25 History Mcg = 5000 Iu)] Insulin Lispro [humaLOG Kwikpen] 22 unit SQ TID-W/MEALS 08/23/24 02/13/25 History Pioglitazone [Actos] 15 mg PO DAILY 08/23/24 02/13/25 History Albuterol Inhaler [Ventolin Hfa 2 puff INHALATION RT-QID PRN 01/27/25 02/13/25 History Inhaler] Ezetimibe [Zetia] 10 mg PO DAILY 01/27/25 02/13/25 History Fluticasone Propion/Salmeterol 1 puff INHALATION RT-DAILY 01/27/25 02/13/25 History [Wixela 250-50 Inhub] Insulin Degludec [Tresiba 70 units SQ DAILY 01/27/25 02/13/25 History Flextouch U-200 Pen] Ipratropium-Albuterol Nebulize 3 ml INHALATION RT-BID 01/27/25 02/13/25 History [Duoneb 0.5 mg-3 mg/3 ml Soln] Ipratropium-Albuterol Nebulize 3 ml INHALATION RT-BID PRN 01/27/25 02/13/25 Hi story [Duoneb 0.5 mg-3 mg/3 ml Soln] Mirtazapine [Remeron] 45 mg PO HS 01/27/25 02/13/25 History Semaglutide [Ozempic] 2 mg SQ DIRECTED 01/27/25 02/13/25 History HYDROcodone/APAP 5-325MG [[place] 1 tab PO Q6HR PRN 02/13/25 02/13/25 History 5-325] Allergies Allergy/AdvReac Type Severity Reaction Status Date / Time No Known Allergies Allergy Verified 02/13/25 09:11 Physical Exam Vitals: Vital Signs Temp Pulse Pulse Resp BP BP Pulse Ox 02/13/25 09:42 97.8 F 89 20 171/78 93 L 02/13/25 09:24 98.4 F 102 H 18 160/93 94 L 02/13/25 08:59 92 02/13/25 08:45 97 02/13/25 07:24 98.2 F 92 20 144/67 96 02/13/25 06:18 93 02/13/25 06:11 93 02/13/25 06:06 24 02/13/25 05:52 97.8 F 99 17 132/65 71 L Intake and Output 02/12/25 02/13/25 02/13/25 22:59 06:59 14:59 Other: # Voids 1 Weight 126.099 kg 126.099 kg GENERAL: This is a pleasant, cooperative 64-year-old in no apparent distress at the time of examination. HEENT: Head is atraumatic, normocephalic. Pupils are equal, round, and reactive to light. Sclerae anicteric.. RESPIRATORY: Equal air entry, scattered rhonchi with bilateral bases diminished. CARDIOVASCULAR: Regular rate and rhythm. GASTROINTESTINAL: No distention noted. Abdomen soft and round. Normal active bowel sounds auscultated x 4 quadrants. No pain or tenderness noted upon palpation. INTEGUMENTARY: No cyanosis. No jaundice. No rashes noted. No cellulitis noted. EXTREMITIES: 2+ peripheral pulses. Positive peripheral edema. No clubbing, no cyanosis, no calf tenderness noted. Positive DPs. NEUROLOGIC: Cranial nerves II-XII intact. PSYCHIATRIC: Awake, alert, and oriented X 3. Appropriate affect. Intact judgemen t and insight. Results CBC & Chem 7: 02/13/25 06:36 02/13/25 06:36 Labs: Abnormal Lab Results - Last 24 Hours (Table) 02/13/25 02/13/25 Range/Units 06:36 06:36 RBC 4.34 L (4.40-5.60) 10*6/uL Hgb 12.7 L (13.0-17.0) g/dL MCHC 31.8 L (32.0-37.0) g/dL MPV 8.6 L (9.5-12.2) fL Immature Gran # 0.05 H (0.00-0.04) 10*3/uL Sodium 133 L (137-145) mmol/L Potassium 5.5 H (3.5-5.1) mmol/L Chloride 92 L (98-107) mmol/L Carbon Dioxide 39 H (22-30) mmol/L Creatinine 0.54 L (0.66-1.25) mg/dL Glucose 242 H (74-99) mg/dL Magnesium 1.5 L (1.6-2.3) mg/dL ALT 62 H (4-49) U/L Thrombosis Risk Factor Assmnt - Choose All That Apply Any of the Below Risk Factors Present?: Yes Each Factor Represents 1 point: Abnormal pulmonary function (COPD), Obesity (BMI >25) Other Risk Factors: Yes Each Risk Factor Represents 2 Points: Age 61-74 years Other congenital or acquired thrombophilia - If yes, enter type in comment: No Thrombosis Risk Factor Assessment Total Risk Factor Score: 4 Thrombosis Risk Factor Assessment Level: Moderate Risk Assessment and Plan Assessment: Acute COPD exacerbation, possible community-acquired pneumonia, procalcitonin pending Acute on chronic hypoxic respiratory failure secondary to the above. Wears 2 L nasal cannula at home Gastroesophageal reflux disease Diabetes mellitus II, poorly controlled, recent hemoglobin A1c 10.9 on 01/28/2025, further diabetic education in clinic with PCP Diabetic peripheral neuropathy Former nicotine dependence of 40-[id number]-tbgs, quit 2 years ago Hypertension Hyperlipidemia Morbid obesity, BMI 46 Hypomagnesemia Daily alcohol use lately, reported. Plan: Continue on current medication regime ,monitoring and symptomatic treatment. Magnesium supplement ordered. Pulmonary following .azithromycin, ceftriaxone, Symbicort, nebulized bronchodilators and IV steroids. Close monitoring of Accu-Cheks. procalcitonin pending. Blood cultures in progress. [facility] protocol. The impression and plan of care has been dictated as directed. : I performed a history and examination of this patient, discussed the same with the dictator. I agree with the dictator's note ,documented as a scribe. Any additional findings or plans will be noted.
[2025-02-13 12:04] LABS: Glucose,Whole Blood 251 mg/dL (70-110)
[2025-02-13] MEDS ORDERED: LORazepam 1 MG/0.5 ML VIAL IV PRN ×3 (12:25)
[2025-02-13] MEDS: methylPREDNISolone SOD SUCCI 125 MG/2 ML VIAL IV SCH (12:57)
[2025-02-13] MEDS: MAGNESIUM SULFATE-D5W PMX 1 GM in DEXTROSE/WATER 1 100ML.BAG IVPB SCH (12:58)
--- NOTE | 2025-02-13 13:18 | P.CNPUL ---
History of Present Illness Consult date: 02/13/25 Requesting physician: Robert Eldridge Reason for consult: dyspnea, COPD, abnormal CXR/CT Chief complaint: Shortness of breath History of present illness: This is a pleasant 64-year-old male patient with a known history of chronic obstructive pulmonary disease and home oxygen at 2 L/min per nasal cannula, FEV1 value 60% of predicted, former smoker. Quit approximately 2 1/2 years ago. He also has a history of diabetes mellitus, obesity, hypertension, hyperlipidemia, anxiety. He presented here to the emergency room early this morning with complaints of increasing shortness of breath. No fever or chills. No productive cough. No hemoptysis. Chest x-ray shows mild cardiomegaly with new central opacities suggesting edema. EKG reveals sinus rhythm. White count 9.0. Hemoglobin 12.7. Platelets 168. Sodium 133. Potassium 5.5. Bicarb 39. BUN 15. Creatinine 0.54. Glucose 242. BNP 226. Troponin negative x 1. Viral screen negative. He is seen today in consultation in the emergency department. He is currently sitting up on a stretcher. Awake and alert in no acute distress. He is dyspneic with minimal exertion. Dyspneic with conversation. Maintaining O2 saturations in the 90s on 3 L/min per nasal cannula. Review of Systems REVIEW OF SYSTEMS: CONSTITUTIONAL: Denies any recent significant weight loss or weight gain. EYES: Denies change in vision. EARS, NOSE, MOUTH, THROAT: Denies headaches, denies sore throat. CARDIOVASCULAR: Denies chest pain, palpitations or syncopal episodes. RESPIRATORY: Positive for shortness of breath, cough, congestion no hemoptysis. GASTROINTESTINAL: Denies change in appetite, denies abdominal pain GENITOURINARY: Denies hematuria, denies infections. MUSKULOSKELETAL: Denies pain, denies swelling. INTEGUMENTARY: Denies rash, denies eczema. NEUROLOGICAL: Denies recent memory loss, no recent seizure activity. PSYCHIATRIC: Denies anxiety, denies depression. HEMATOLOGIC/LYMPHATIC: Denies anemia, denies enlarged lymph nodes. Past Medical History Past Medical History: COPD, Diabetes Mellitus, Hypertension Additional Past Medical History / Comment(s): back pain, neuropathy, brain aneursym History of Any Multi-Drug Resistant Organisms: None Reported Past Surgical History: Heart Catheterization, Orthopedic Surgery Additional Past Surgical History / Comment(s): bilateral thumbs, left shoulder Past Anesthesia/Blood Transfusion Reactions: No Reported Reaction Past Psychological History: Anxiety, Depression Smoking Status: Former smoker Past Alcohol Use History: Occasional Past Drug Use History: None Reported Medications and Allergies Home Medications Medication Instructions Recorded Confirmed Type Aspirin 81 mg PO DAILY 07/11/14 02/13/25 History Gabapentin [Neurontin] 300 mg PO TID 07/11/14 02/13/25 History Losartan Potassium [Cozaar] 50 mg PO DAILY 07/11/14 02/13/25 History Metoprolol Succinate [Toprol XL] 25 mg PO BID 07/11/14 02/13/25 History metFORMIN HCL [Glucophage] 850 mg PO TID 07/11/14 02/13/25 History Atorvastatin [Lipitor] 40 mg PO HS 07/05/15 02/13/25 History buPROPion XL [Wellbutrin XL] 300 mg PO DAILY 12/06/16 02/13/25 History ARIPiprazole [Abilify] 5 mg PO DAILY 12/23/23 02/13/25 History Melatonin 10 mg PO HS 12/23/23 02/13/25 History Omeprazole [PriLOSEC] 20 mg PO HS 12/23/23 02/13/25 History Celecoxib [CeleBREX] 200 mg PO BID PRN 03/12/24 02/13/25 History Cholecalciferol [Vitamin D3 (125 125 mcg PO DAILY 08/23/24 02/13/25 History Mcg = 5000 Iu)] Insulin Lispro [humaLOG Kwikpen] 22 unit SQ TID-W/MEALS 08/23/24 02/13/25 History Pioglitazone [Actos] 15 mg PO DAILY 08/23/24 02/13/25 History Albuterol Inhaler [Ventolin Hfa 2 puff INHALATION RT-QID PRN 01/27/25 02/13/25 History Inhaler] Ezetimibe [Zetia] 10 mg PO DAILY 01/27/25 02/13/25 History Fluticasone Propion/Salmeterol 1 puff INHALATION RT-DAILY 01/27/25 02/13/25 History [Wixela 250-50 Inhub] Insulin Degludec [Tresiba 70 units SQ DAILY 01/27/25 02/13/25 History Flextouch U-200 Pen] Ipratropium-Albuterol Nebulize 3 ml INHALATION RT-BID 01/27/25 02/13/25 History [Duoneb 0.5 mg-3 mg/3 ml Soln] Ipratropium-Albuterol Nebulize 3 ml INHALATION RT-BID PRN 01/27/25 02/13/25 History [Duoneb 0.5 mg-3 mg/3 ml Soln] Mirtazapine [Remeron] 45 mg PO HS 01/27/25 02/13/25 History Semaglutide [Ozempic] 2 mg SQ DIRECTED 01/27/25 02/13/25 History HYDROcodone/APAP 5-325MG [Hayti 1 tab PO Q6HR PRN 02/13/25 02/13/25 History 5-325] Allergies Allergy/AdvReac Type Severity Reaction Status Date / Time No Known Allergies Allergy Verified 02/13/25 09:11 Physical Exam Vitals: Vital Signs Temp Pulse Pulse Resp BP BP Pulse Ox 02/13/25 12:10 90 02/13/25 12:02 97.4 F L 93 20 159/76 98 02/13/25 12:00 94 L 02/13/25 11:58 87 02/13/25 09:42 97.8 F 89 20 171/78 93 L 02/13/25 09:24 98.4 F 102 H 18 160/93 94 L 02/13/25 08:59 92 02/13/25 08:45 97 02/13/25 07:24 98.2 F 92 20 144/67 96 02/13/25 06:18 93 02/13/25 06:11 93 02/13/25 06:06 24 02/13/25 05:52 97.8 F 99 17 132/65 71 L Intake and Output 02/12/25 02/13/25 02/13/25 22:59 06:59 14:59 Other: # Voids 1 Weight 126.099 kg 126.099 kg GENERAL EXAM: Alert, pleasant 64-year-old male, sitting up on a stretcher, on 3 L nasal cannula,, comfortable in no apparent distress. HEAD: Normocephalic. EYES: Normal reaction of pupils, equal size. NOSE: Clear with pink turbinates. THROAT: No erythema or exudates. NECK: No masses, no JVD. CHEST: No chest wall deformity. LUNGS: Equal air entry with few scattered rhonchi, diminished. CVS: S1 and S2 normal with no audible murmur, regular rhythm. ABDOMEN: No hepatosplenomegaly, normal bowel sounds, no guarding or rigidity. SPINE: No scoliosis or deformity SKIN: No rashes CENTRAL NERVOUS SYSTEM: No focal deficits, tone is normal in all 4 extremities. EXTREMITIES: There is 1+ peripheral edema. No clubbing, no cyanosis. Peripheral pulses are intact. Results - Laboratory Findings CBC and BMP: 02/13/25 06:36 02/13/25 06:36 PT/INR, D-dimer PT 10.4 sec (10.0-12.5) 02/13/25 06:36 INR 0.9 (<1.2) 02/13/25 06:36 Abnormal lab findings: Abnormal Labs 02/13/25 02/13/25 02/13/25 06:36 06:36 12:01 RBC 4.34 L Hgb 12.7 L MCHC 31.8 L MPV 8.6 L Immature Gran # 0.05 H Sodium 133 L Potassium 5.5 H Chloride 92 L Carbon Dioxide 39 H Creatinine 0.54 L Glucose 242 H POC Glucose (mg/dL) 251 H Magnesium 1.5 L ALT 62 H - Diagnostic Findings Chest x-ray: image reviewed Assessment and Plan Assessment: Acute on chronic hypoxic respiratory failure secondary to an acute exacerbation of chronic obstructive pulmonary disease. Possible early pneumonia. Viral screen negative History of oxygen dependent chronic obstructive pulmonary disease with an FEV1 value 60% of predicted Former heavy smoker Diabetes mellitus, type II Hypertension Hyperlipidemia Gastroesophageal reflux disease Diabetic neuropathy Obesity with a BMI of 46.3 kg/m Plan: The patient was seen and evaluated Chest x-ray, labs and medications reviewed Initiated on ceftriaxone and azithromycin Check a procalcitonin Initiated on DuoNeb inhalations Initiated on Symbicort Initiated on Solu-Medrol Resume home medications Titrate the FiO2 as tolerated Plan of care discussed with the patient He verbalized understanding and is in agreement We will continue to follow and make further recommendations based on his clinical status I have personally seen and examined the patient, performed the documentation and the assessment and plan as written. Number of minutes spent on the visit: 20 Dictation was produced using [employer] software. Please excuse any grammatical, word or spelling errors. Time with Patient: Greater than 30
[2025-02-13] MEDS: FOLIC ACID 1 MG TAB PO SCH (13:58)
[2025-02-13] MEDS: MULTIVITAMINS, THERA 1 EACH TAB PO SCH (13:58)
[2025-02-13 17:07] LABS: Glucose,Whole Blood 357 mg/dL (70-110)
[2025-02-13] MEDS: SYMBICORT 160-4.5 MCG INHALER INHALATION SCH (20:03)
[2025-02-13 20:23] LABS: Glucose,Whole Blood 390 mg/dL (70-110)
[2025-02-13] MEDS: MELATONIN 5 MG TABLET PO SCH (20:27)
[2025-02-13] MEDS: ATORVASTATIN 40 MG TAB PO SCH (20:28)
[2025-02-13] MEDS: PANTOPRAZOLE 40 MG TABLET PO SCH (20:28)
[2025-02-13] MEDS: MIRTAZAPINE 45 MG TABLET PO SCH (20:28)
[2025-02-13] MEDS ORDERED: DEXTROSE 50% SYRINGE 50 ML IVP PRN ×2 (20:49)
[2025-02-14 01:59] VITALS: RESP 18
[2025-02-14 07:19] LABS: Glucose,Whole Blood 315 mg/dL (70-110)
[2025-02-14 08:36] LABS: BUN/Creat Ratio 19.33 Ratio (12.00-20.00); Blood Urea Nitrogen 17.4 mg/dL (9.0-27.0); Glucose 323 mg/dL (70-110)
[2025-02-14 08:37] LABS: Calcium 9.3 mg/dL (8.7-10.3); Carbon Dioxide 29.7 mmol/L (21.6-31.8); Chloride 94 mmol/L (96-109); Magnesium 2.2 mg/dL (1.5-2.4); Potassium 5.4 mmol/L (3.5-5.5); Sodium 135 mmol/L (135-145)
[2025-02-14] MEDS ORDERED: cefTRIAXone 2 GM in DEXTROSE 5% IN WATER 50 ML IVPB SCH (09:00)
--- NOTE | 2025-02-14 10:30 | P.PN ---
Subjective Progress Note Date: 02/14/25 This is a pleasant 64-year-old male patient with a known history of chronic obstructive pulmonary disease and home oxygen at 2 L/min per nasal cannula, FEV1 value 60% of predicted, former smoker. Quit approximately 2 1/2 years ago. He also has a history of diabetes mellitus, obesity, hypertension, hyperlipidemia, anxiety. He presented here to the emergency room early this morning with complaints of increasing shortness of breath. No fever or chills. No productive cough. No hemoptysis. Chest x-ray shows mild cardiomegaly with new central opacities suggesting edema. EKG reveals sinus rhythm. White count 9.0. Hemoglobin 12.7. Platelets 168. Sodium 133. Potassium 5.5. Bicarb 39. BUN 15. Creatinine 0.54. Glucose 242. BNP 226. Troponin negative x 1. Viral screen negative. He is seen today in consultation in the emergency department. He is currently sitting up on a stretcher. Awake and alert in no acute distress. He is dyspneic with minimal exertion. Dyspneic with conversation. Maintaining O2 saturations in the 90s on 3 L/min per nasal cannula. The patient is seen today February 14, 2025 and follow-up on the regular medical floor. He is awake and alert in no acute distress. He is sitting up in a chair at the bedside. He is maintaining good O2 saturations in the 90s on his per minute per nasal cannula. He has been afebrile. Hemodynamically stable. Sodium 135. Potassium 5.4. Bicarb 30. BUN 17. Creatinine 0.9. Glucose 323. He is continued on DuoNeb inhalations, Symbicort, Solu-Medrol. Antibiotics were discontinued. Objective - Vital Signs Vital signs: Vital Signs Temp 98.1 F 02/14/25 08:49 Pulse 86 02/14/25 09:24 Resp 18 02/14/25 08:51 BP 135/71 02/14/25 08:49 Pulse Ox 94 L 02/14/25 09:11 FiO2 Intake & Output 02/13/25 02/14/25 02/14/25 18:59 06:59 18:59 Intake Total 1224 Output Total 2 0 Balance -2 1224 Weight 126.099 kg Intake: Oral 1224 Output: Stool 2 0 Other: Voiding Method Toilet Toilet Toilet # Voids 1 2 - Exam GENERAL EXAM: Alert, active, pleasant 64-year-old male, on 4 L nasal cannula, comfortable in no apparent distress. HEAD: Normocephalic. EYES: Normal reaction of pupils, equal size. NOSE: Clear with pink turbinates. THROAT: No erythema or exudates. NECK: No masses, no JVD. CHEST: No chest wall deformity. LUNGS: Equal air entry with few scattered rhonchi. CVS: S1 and S2 normal with no audible murmur, regular rhythm. ABDOMEN: No hepatosplenomegaly, normal bowel sounds, no guarding or rigidity. SPINE: No scoliosis or deformity SKIN: No rashes CENTRAL NERVOUS SYSTEM: No focal deficits, tone is normal in all 4 extremities. EXTREMITIES: There is trace peripheral edema. No clubbing, no cyanosis. Peripheral pulses are intact. - Labs CBC & Chem 7: 02/13/25 06:36 02/14/25 04:42 Labs: Abnormal Lab Results - Last 24 Hours (Table) 02/13/25 02/13/25 02/13/25 Range/Units 12:01 17:06 20:22 Chloride (96-109) mmol/L Glucose (70-110) mg/dL POC Glucose (mg/dL) 251 H 357 H 390 H (70-110) mg/dL Hemoglobin A1c (<=6.0) % 02/14/25 02/14/25 02/14/25 Range/Units 04:42 04:42 07:16 Chloride 94 L (96-109) mmol/L Glucose 323 H (70-110) mg/dL POC Glucose (mg/dL) 315 H (70-110) mg/dL Hemoglobin A1c 11.7 H (<=6.0) % Assessment and Plan Assessment: Acute on chronic hypoxic respiratory failure secondary to an acute exacerbation of chronic obstructive pulmonary disease. Procalcitonin negative. Viral screen negative History of oxygen dependent chronic obstructive pulmonary disease with an FEV1 value 60% of predicted Former heavy smoker Diabetes mellitus, type II Hypertension Hyperlipidemia Gastroesophageal reflux disease Diabetic neuropathy Obesity with a BMI of 46.3 kg/m Plan: The patient was seen and evaluated Labs and medications reviewed Procalcitonin was negative Antibiotics discontinued Stable for discharge Continue his home oxygen,medications Solu Medrol discontinued Initiated on a prednisone taper Plan of care discussed with the patient He verbalized understanding and is in agreement This patient was seen independently by the pulmonary nurse practitioner addressing pulmonary issues I have personally seen and examined the patient, performed the documentation and the assessment and plan as written. Number of minutes spent on the visit: 24 Dictation was produced using [employer] dictation software. Please excuse any grammatical, word or spelling errors.
[2025-02-14] MEDS: THIAMINE 100 MG TAB PO SCH (10:40)
[2025-02-14] MEDS: predniSONE 20 MG TAB PO SCH (10:48)
[2025-02-14 12:29] LABS: Glucose,Whole Blood 292 mg/dL (70-110)
[2025-02-14 12:50] VITALS: BP 150/83; PULSE 87; TEMP 97.5
--- NOTE | 2025-02-16 14:23 | P.DS ---
Providers Date of admission: 02/13/25 07:18 Expected date of discharge: 02/14/25 Attending physician: Robert Eldridge Consults: 02/13/25 07:19 Consult Physician Routine Consulting Provider: Alli Saba Reason/Comments: COPD Do you want consulting provider notified?: Yes Primary care physician: Robert Eldridge Hospital Course: Final Diagnosis: Acute COPD exacerbation, possible community-acquired pneumonia, procalcitonin negative. Acute on chronic hypoxic respiratory failure secondary to the above. Wears 2 L nasal cannula at home Gastroesophageal reflux disease Diabetes mellitus II, poorly controlled, recent hemoglobin A1c 10.9 on 01/28/2025, currently 11.7, further diabetic education in clinic with PCP Diabetic peripheral neuropathy Former nicotine dependence of [id number], quit 2 years ago Hypertension Hyperlipidemia Morbid obesity, BMI 46 Hypomagnesemia Daily alcohol use lately, reported. Hospital course:This is a pleasant 64-year-old white male with past medical history significant for chronic hypoxic respiratory failure on 2 L nasal cannula, longtime history of COPD, prior nicotine dependence -40-year pack history, quit 2 years ago, diabetes mellitus, morbid obesity and multiple other medical issues presented to the ER via EMS with progressive shortness of breath that began yesterday, accompanied by occasional chronic nonproductive cough. Patient states he increased his home O2 up to 6 L nasal cannula with no relief. Denies fever/chills. denies nausea vomiting or diarrhea. Denies constipation. Denies chest pain, palpitations .chest x-ray reported mild cardiomegaly with new central opacities suggesting edema, correlate for suggested CHF exacerbation. proBNP 226. Afebrile, normal WBC. hemoglobin 12.7, platelets 168, INR 0.9, sodium 133, potassium 5.5, bicarb 39, anion gap 2, BUN 15, creatinine 0.54. Hyperglycemic, blood sugars ranging from mid 250s into the high 400s. Magnesium 1.5. Troponin negative x 1. EKG reported sinus rhythm. Viral screen negative. Magnesium supplement ordered. Pulmonary following .azithromycin, ceftriaxone, Symbicort, nebulized bronchodilators and IV steroids. Close monitoring of Accu-Cheks. procalcitonin pending. Blood cultures in progress. CIWA protocol. Significant clinical improvement. Maintaining O2 sats in the high 90s on 4 L nasal cannula, which can be titrated down. Procalcitonin negative, antibiotics discontinued. Afebrile. Renal function stable. Glucose 292, hemoglobin A1c 11.7-advising further diabetic education in clinic with PCP at follow-up. Cleared by pulmonary for discharge. Patient will be discharged home today in a stable condition with guarded prognosis. Also recommended patient follow-up with a good statistical programmer, has significant dry ,cracking calluses on feet. Left arm small hematoma from using his diabetic apparatus,minimal induration, minimally pink, nontender-recommended Bactroban. The impression and plan of care has been dictated as directed. : I performed a history and examination of this patient, discussed the same with the dictator. I agree with the dictator's note ,documented as a scribe. Any additional findings or plans will be noted. Patient Condition at Discharge: Stable Plan - Discharge Summary Discharge Rx Participant: No New Discharge Prescriptions: New predniSONE 10 mg PO DIRECTED #30 tab Multivitamins, Thera [Multivitamin (formulary)] 1 each PO DAILY tab Budesonide-Formot 160-4.5 Mcg [Symbicort 160-4.5 Mcg Inhaler] 2 puff INHALATION RT-BID 30 Days #1 each Mupirocin Calcium 2% Cream [Bactroban 2% Cream] 1 applic TOPICAL TID #15 gm Folic Acid 1 mg PO DAILY tab Thiamine [Vitamin B-1] 100 mg PO DAILY tab Continue Metoprolol Succinate [Toprol XL] 25 mg PO BID Gabapentin [Neurontin] 300 mg PO TID metFORMIN HCL [Glucophage] 850 mg PO TID Aspirin 81 mg PO DAILY Losartan Potassium [Cozaar] 50 mg PO DAILY Atorvastatin [Lipitor] 40 mg PO HS buPROPion XL [Wellbutrin XL] 300 mg PO DAILY Omeprazole [PriLOSEC] 20 mg PO HS Pioglitazone [Actos] 15 mg PO DAILY Insulin Lispro [humaLOG Kwikpen] 22 unit SQ TID-W/MEALS Ipratropium-Albuterol Nebulize [Duoneb 0.5 mg-3 mg/3 ml Soln] 3 ml INHALATION RT-BID Ipratropium-Albuterol Nebulize [Duoneb 0.5 mg-3 mg/3 ml Soln] 3 ml INHALATION RT-BID PRN PRN Reason: Shortness Of Breath Ezetimibe [Zetia] 10 mg PO DAILY HYDROcodone/APAP 5-325MG [Vesper 5-325] 1 tab PO Q6HR PRN PRN Reason: Pain Melatonin 10 mg PO HS ARIPiprazole [Abilify] 5 mg PO DAILY Celecoxib [CeleBREX] 200 mg PO BID PRN PRN Reason: Pain Cholecalciferol [Vitamin D3 (125 Mcg = 5000 Iu)] 125 mcg PO DAILY Fluticasone Propion/Salmeterol [Wixela 250-50 Inhub] 1 puff INHALATION RT- DAILY Albuterol Inhaler [Ventolin Hfa Inhaler] 2 puff INHALATION RT-QID PRN PRN Reason: Shortness Of Breath Mirtazapine [Remeron] 45 mg PO HS Insulin Degludec [Tresiba Flextouch U-200 Pen] 70 units SQ DAILY Semaglutide [Ozempic] 2 mg SQ DIRECTED Discharge Medication List Aspirin 81 mg PO DAILY 07/11/14 [History] Gabapentin [Neurontin] 300 mg PO TID 07/11/14 [History] Losartan Potassium [Cozaar] 50 mg PO DAILY 07/11/14 [History] Metoprolol Succinate [Toprol XL] 25 mg PO BID 07/11/14 [History] metFORMIN HCL [Glucophage] 850 mg PO TID 07/11/14 [History] Atorvastatin [Lipitor] 40 mg PO HS 07/05/15 [History] buPROPion XL [Wellbutrin XL] 300 mg PO DAILY 12/06/16 [History] ARIPiprazole [Abilify] 5 mg PO DAILY 12/23/23 [History] Melatonin 10 mg PO HS 12/23/23 [History] Omeprazole [PriLOSEC] 20 mg PO HS 12/23/23 [History] Celecoxib [CeleBREX] 200 mg PO BID PRN 03/12/24 [History] Cholecalciferol [Vitamin D3 (125 Mcg = 5000 Iu)] 125 mcg PO DAILY 08/23/24 [History] Insulin Lispro [humaLOG Kwikpen] 22 unit SQ TID-W/MEALS 08/23/24 [History] Pioglitazone [Actos] 15 mg PO DAILY 08/23/24 [History] Albuterol Inhaler [Ventolin Hfa Inhaler] 2 puff INHALATION RT-QID PRN 01/27/25 [History] Ezetimibe [Zetia] 10 mg PO DAILY 01/27/25 [History] Fluticasone Propion/Salmeterol [Wixela 250-50 Inhub] 1 puff INHALATION RT-DAILY 01/27/25 [History] Insulin Degludec [Tresiba Flextouch U-200 Pen] 70 units SQ DAILY 01/27/25 [History] Ipratropium-Albuterol Nebulize [Duoneb 0.5 mg-3 mg/3 ml Soln] 3 ml INHALATION RT-BID 01/27/25 [History] Ipratropium-Albuterol Nebulize [Duoneb 0.5 mg-3 mg/3 ml Soln] 3 ml INHALATION RT-BID PRN 01/27/25 [History] Mirtazapine [Remeron] 45 mg PO HS 01/27/25 [History] Semaglutide [Ozempic] 2 mg SQ DIRECTED 01/27/25 [History] HYDROcodone/APAP 5-325MG [Vesper 5-325] 1 tab PO Q6HR PRN 02/13/25 [History] Budesonide-Formot 160-4.5 Mcg [Symbicort 160-4.5 Mcg Inhaler] 2 puff INHALATION RT-BID 30 Days #1 each 02/14/25 [Rx] Folic Acid 1 mg PO DAILY tab 02/14/25 [Rx] Multivitamins, Thera [Multivitamin (formulary)] 1 each PO DAILY tab 02/14/25 [Rx] Mupirocin Calcium 2% Cream [Bactroban 2% Cream] 1 applic TOPICAL TID #15 gm 02/14/25 [Rx] Thiamine [Vitamin B-1] 100 mg PO DAILY tab 02/14/25 [Rx] predniSONE 10 mg PO DIRECTED #30 tab 02/14/25 [Rx] Follow up Appointment(s)/Referral(s): Robert Eldridge DO [Primary Care Provider] - 02/21/25 2:00 pm (appointment with Kelly STEINBERG) Patient Instructions/Handouts: Mupirocin (On the skin), Prednisone (By mouth), Budesonide/Formoterol (By breathing), COPD (Chronic Obstructive Pulmonary Disease) (DC) Activity/Diet/Wound Care/Special Instructions: Regular follow-ups with statistical programmer of choice. Discharge Disposition: HOME SELF-CARE
== END 2025-02-14 14:37 | disposition home or self-care (01) ==
LOC: EC 05:47 → 5NMEDONC 07:18 → INTOOBSV 07:18 → 5NMEDONC 08:52
PROVIDERS: ADMIT Family Medicine; ATTEND Family Medicine
DX: J44.1 Chronic obstructive pulmonary disease with (acute) exacerbation (principal); J96.21 Acute and chronic respiratory failure with hypoxia; J18.9 Pneumonia, unspecified organism; I10 Essential (primary) hypertension; E11.40 Type 2 diabetes mellitus with diabetic neuropathy, unspecified; F41.9 Anxiety disorder, unspecified; F32.A Depression, unspecified; E78.5 Hyperlipidemia, unspecified; K21.9 Gastro-esophageal reflux disease without esophagitis; E11.65 Type 2 diabetes mellitus with hyperglycemia; E83.42 Hypomagnesemia; F10.90 Alcohol use, unspecified, uncomplicated; E66.01 Morbid (severe) obesity due to excess calories; Z68.42 Body mass index [BMI] 45.0-49.9, adult; Z87.891 Personal history of nicotine dependence; Z99.81 Dependence on supplemental oxygen; Z79.4 Long term (current) use of insulin; Z79.82 Long term (current) use of aspirin; Z79.84 Long term (current) use of oral hypoglycemic drugs; Z79.899 Other long term (current) drug therapy
CPT/HCPCS: 96376 ×2; 96365 ×2; 96366; 96375; 99291; 36415; 94640 ×4; 94760 ×2; 93005; 83880; 80053; 80048; 83605; 83735 ×2; 84484; 85025; 85610; 85730; 87040; 83036; 84145; 87636; 71046; G0378 ×2; J0696; J3475; J7512; J2919 ×2

== ENCOUNTER 2025-02-18 00:46 | Inpatient (IN) | payer MEDICARE ==
[2025-02-18] MEDS: ALBUTEROL NEBULIZED 2.5 MG/3 ML INHALATION SCH (00:54)
[2025-02-18] MEDS: IPRATROPIUM-ALBUTEROL 3 ML NEB INHALATION STA (00:55)
[2025-02-18] MEDS: IPRATROPIUM 0.5 MG/2.5 ML NEBU INHALATION STA (00:55)
--- NOTE | 2025-02-18 01:03 | ED ---
General Adult HPI - General Stated complaint: KRISTI Time Seen by Provider: 02/18/25 00:50 - History of Present Illness Initial comments: History is limited by acute of condition. He is a 64-year-old gentleman history of COPD, diabetes presenting today for difficulty in breathing. He was recently in the hospital for similar. Per EMS report patient has had difficulty worsening difficulty in breathing throughout the day today. She typically wears oxygen 2 L as needed and at night however has required up to 3 L today. On EMS arrival patient was had cool skin, diaphoresis and was short of breath with a pulse ox of 86% on home 3 L, he was switched over to CPAP with a DuoNeb given, patient also received 125 mg of Solu-Medrol prior to arrival. Patient currently denies any chest pain. - Related Data Home Medications Medication Instructions Recorded Confirmed Aspirin 81 mg PO DAILY 07/11/14 02/13/25 Gabapentin [Neurontin] 300 mg PO TID 07/11/14 02/13/25 Losartan Potassium [Cozaar] 50 mg PO DAILY 07/11/14 02/13/25 Metoprolol Succinate [Toprol XL] 25 mg PO BID 07/11/14 02/13/25 metFORMIN HCL [Glucophage] 850 mg PO TID 07/11/14 02/13/25 Atorvastatin [Lipitor] 40 mg PO HS 07/05/15 02/13/25 buPROPion XL [Wellbutrin XL] 300 mg PO DAILY 12/06/16 02/13/25 ARIPiprazole [Abilify] 5 mg PO DAILY 12/23/23 02/13/25 Melatonin 10 mg PO HS 12/23/23 02/13/25 Omeprazole [PriLOSEC] 20 mg PO HS 12/23/23 02/13/25 Celecoxib [CeleBREX] 200 mg PO BID PRN 03/12/24 02/13/25 Cholecalciferol [Vitamin D3 (125 125 mcg PO DAILY 08/23/24 02/13/25 Mcg = 5000 Iu)] Insulin Lispro [humaLOG Kwikpen] 22 unit SQ TID-W/MEALS 08/23/24 02/13/25 Pioglitazone [Actos] 15 mg PO DAILY 08/23/24 02/13/25 Albuterol Inhaler [Ventolin Hfa 2 puff INHALATION RT-QID PRN 01/27/25 02/13/25 Inhaler] Ezetimibe [Zetia] 10 mg PO DAILY 01/27/25 02/13/25 Fluticasone Propion/Salmeterol 1 puff INHALATION RT-DAILY 01/27/25 02/13/25 [Wixela 250-50 Inhub] Insulin Degludec [Tresiba 70 units SQ DAILY 01/27/25 02/13/25 Flextouch U-200 Pen] Ipratropium-Albuterol Nebulize 3 ml INHALATION RT-BID 01/27/25 02/13/25 [Duoneb 0.5 mg-3 mg/3 ml Soln] Ipratropium-Albuterol Nebulize 3 ml INHALATION RT-BID PRN 01/27/25 02/13/25 [Duoneb 0.5 mg-3 mg/3 ml Soln] Mirtazapine [Remeron] 45 mg PO HS 01/27/25 02/13/25 Semaglutide [Ozempic] 2 mg SQ DIRECTED 01/27/25 02/13/25 HYDROcodone/APAP 5-325MG [[place] 1 tab PO Q6HR PRN 02/13/25 02/13/25 5-325] Previous Rx's Medication Instructions Recorded Budesonide-Formot 160-4.5 Mcg 2 puff INHALATION RT-BID 30 Days 02/14/25 [Symbicort 160-4.5 Mcg Inhaler] #1 each Folic Acid 1 mg PO DAILY tab 02/14/25 Multivitamins, Thera [Multivitamin 1 each PO DAILY tab 02/14/25 (formulary)] Mupirocin Calcium 2% Cream 1 applic TOPICAL TID #15 gm 02/14/25 [Bactroban 2% Cream] Thiamine [Vitamin B-1] 100 mg PO DAILY tab 02/14/25 predniSONE 10 mg PO DIRECTED #30 tab 02/14/25 Allergies Allergy/AdvReac Type Severity Reaction Status Date / Time No Known Allergies Allergy Verified 02/13/25 09:11 Review of Systems ROS Statement: Those systems with pertinent positive or pertinent negative responses have been documented in the HPI. ROS Other: All systems not noted in ROS Statement are negative. Limitations: ROS unobtainable due to patients medical condition Past Medical History Past Medical History: COPD, Diabetes Mellitus, Hypertension Additional Past Medical History / Comment(s): back pain, neuropathy, brain aneursym History of Any Multi-Drug Resistant Organisms: None Reported Past Surgical History: Heart Catheterization, Orthopedic Surgery Additional Past Surgical History / Comment(s): bilateral thumbs, left shoulder Past Anesthesia/Blood Transfusion Reactions: No Reported Reaction Past Psychological History: Anxiety, Depression Smoking Status: Former smoker Past Alcohol Use History: Occasional Past Drug Use History: None Reported General Exam - General Exam Comments Initial Comments: PE: CONSTITUTIONAL: [In mild distress, ill-appearing, nontoxic, CPAP in place] SKIN: Cool, dry, no jaundice, hives or petechiae] EYES:[ pupils are equally round, extraocular movements intact without nystagmus, clear conjunctiva, non-icteric sclera] HENT: [normocephalic, atraumatic, moist mucus membranes, oropharynx clear without exudates] NECK: , [Full range of motion, normal appearance] PULMONARY: [clear to auscultation without wheezes, rhonchi, or rales, normal excursion, no accessory muscle use and no stridor] CARDIOVASCULAR:[ regular rate, rhythm, normal S1 and S2. No appreciated murmurs, rubs or gallops. Strong radial pulses with intact distal perfusion. No lower extremity edema] GASTROINTESTINAL: [soft, active bowel sounds throughout, non-tender, non- distended, no palpable masses, no rebound or guarding. No hepatosplenomegaly] GENITOURINARY: MUSCULOSKELETAL: [Extremities have no gross deformity, no edema, redness, or swelling. No calf swelling ] NEUROLOGIC: [_a/o x 3, GCS 15, normal mentation and speech. Moves all extremi ties x 4 without motor or sensory deficit] PSYCHIATRIC:[ _normal mood and affect, thought process is clear and linear] Course Vital Signs 02/18/25 02/18/25 02/18/25 00:50 00:51 00:57 Temperature 97.1 F L Pulse Rate 92 87 Respiratory 18 Rate Blood Pressure 158/82 O2 Sat by Pulse 99 Oximetry Fraction of 40 Inspired Oxygen (FIO2) 02/18/25 02/18/25 02/18/25 01:07 01:17 01:24 Temperature Pulse Rate 87 86 86 Respiratory Rate Blood Pressure O2 Sat by Pulse Oximetry Fraction of Inspired Oxygen (FIO2) 02/18/25 02/18/25 02/18/25 01:32 02:05 03:23 Temperature Pulse Rate 84 87 Respiratory 16 18 Rate Blood Pressure 147/70 111/56 O2 Sat by Pulse 98 98 Oximetry Fraction of 50 Inspired Oxygen (FIO2) 02/18/25 02/18/25 02/18/25 04:00 05:00 06:00 Temperature Pulse Rate 86 87 80 Respiratory 13 14 15 Rate Blood Pressure 137/89 145/69 139/67 O2 Sat by Pulse 96 96 95 Oximetry Fraction of Inspired Oxygen (FIO2) EKG Findings - EKG Comments: EKG Findings:: Sinus rhythm, rate 92 bpm intervals within acceptable limits, normal axis, no acute ST elevations or depressions, T wave inversion lead aVR Medical Decision Making - Medical Decision Making Was pt. sent in by a medical professional or institution (, PA, [facility]IL[facility], urgent care, hospital, or [facility]...) When possible be specific @ -[No] Did you speak to anyone other than the patient for history (EMS, parent, family, police, friend...)? What history was obtained from this source @Spoke with patient's who states that patient was doing well after discharge from the hospital few days ago however did have friends who visited yesterday that are cigarette smokers, suspects this may have exacerbated patient's shortness of breath. Did you review nursing and triage notes (agree or disagree)? Why? @ -[I reviewed and agree with nursing and triage notes] Were old charts reviewed (outside hosp., previous admission, EMS record, old EKG, old radiological studies, urgent care reports/EKG's, [facility] records)? Report findings @ -[Medical records reviewed]Patient was admitted on 02/13 and discharged on 02/14 for COPD exacerbation with possible community-acquired pneumonia Reviewed chest x-ray performed on 01/27/2025, did not appear to have pleural effusions or gross consolidations at time, today right mid and lower lung appears to have worsening consolidation compared to prior Differential Diagnosis (chest pain, altered mental status, abdominal pain women, abdominal pain men, vaginal bleeding, weakness, fever, dyspnea, syncope, headache, dizziness, GI bleed, back pain, seizure, CVA, palpatations, mental health, musculoskeletal)? @ -[Differential Dyspnea: Coronary syndrome, arrhythmia, tamponade, asthma, COPD, pulmonary embolism, pneumonia, pneumothorax, pulmonary effusion, anaphylaxis, diabetic ketoacidosis, flailed chest, pulmonary contusion, diaphragmatic rupture, anemia, neuromuscular, this is not meant to be an all-inclusive list. EKG interpreted by me (3pts min.). @ -[As above] X-rays interpreted by me (1pt min.). @Personally viewed chest x-ray, questionable new right mid lobe infiltrate,, radiologist read is significant for small left pleural effusion CT interpreted by me (1pt min.). I personally reviewed CT scan, I see no evidence of pulmonary embolism, does appear to show bilateral lobar infiltrates consistent with multifocal pneumonia I agree with radiologist interpretation U/S interpreted by me (1pt. min.). @ -[None done] What testing was considered but not performed or refused? (CT, X-rays, U/S, labs)? Why? @ -[None] What meds were considered but not given or refused? Why? @ -[None] Did you discuss the management of the patient with other professionals (professionals i.e. , PA, [facility] [employer], lab, RT, psych nurse, oncology social work, customer pricing manager, teacher, security officer, hedis manager)? Give summary @ -[No] Was smoking cessation discussed for >3mins.? @ -[No] Was critical care preformed (if so, how long)? @ -[No] Were there social determinants of health that impacted care today? How? (Homelessness, low income, unemployed, alcoholism, drug addiction, transportation, low edu. Level, literacy, decrease access to med. care, custodial, rehab)? @ -[No] Was there de-escalation of care discussed even if they declined (Discuss DNR or withdrawal of care, Hospice)? @ -[No] What co-morbidities impacted this encounter? (DM, HTN, Smoking, COPD, CAD, Cancer, CVA, ARF, Chemo, Hep., AIDS, mental health diagnosis, sleep apnea, morbid obesity)? @ -[None] Was patient admitted / discharged? Hospital course, mention meds given and route, prescriptions, significant lab abnormalities, going to OR and other pertinent info. @Admission-this is a pleasant 64-year-old gentleman past medical history of COPD presenting today for 1 day of worsening shortness of breath. Presents on CPAP, ill-appearing, skin is damp and cool, he is awake and alert. No accessory muscle use. Exam is limited due to patient's body habitus though there is no wheezing or rhonchi noted bilaterally. Patient was reportedly significantly hypertensive prior to arrival, is mildly hypertensive here with BP 158/82, which decreases my suspicion for flash pulmonary edema and hypertensive emergency though this will remain on differential. Given patient's history and improvement on BiPAP with albuterol treatment more likely suspect COPD exacerbation. Given increased oxygen requirement Rocephin and azithromycin ordered, comprehensive labs, stat portable chest x-ray and D-dimer ordered. D-dimer elevated. CT PE study was ordered and did not show a PE though did show concerns for multifocal pneumonia. On reassessment patient appears much more comfortable, skin is pink warm and dry, currently resting comfortably on BiPAP. Updated patient and to findings and plan for admission. They are agreeable plan of care. Undiagnosed new problem with uncertain prognosis? @ -[No] Drug Therapy requiring intensive monitoring for toxicity (Heparin, Nitro, Insulin, Cardizem)? @ -[No] Were any procedures done? @ -[No] Diagnosis/symptom? @Multifocal pneumonia, COPD exacerbation, acute hypoxemic respiratory failure Acute, or Chronic, or Acute on Chronic? @Acute on chronic Uncomplicated (without systemic symptoms) or Complicated (systemic symptoms)? @ -Complicated Side effects of treatment? @ -[No] Exacerbation, Progression, or Severe Exacerbation? @ -[No] Poses a threat to life or bodily function? How? (Chest pain, USA, ID, pneumonia, PE, COPD, DKA, ARF, appy, cholecystitis, CVA, Diverticulitis, Homicidal, Suicidal, threat to staff... and all critical care pts) @ -Yes - Lab Data Result diagrams: 02/18/25 00:54 02/18/25 00:54 Lab Results 02/18/25 02/18/25 02/18/25 Range/Units 00:54 00:54 00:54 WBC 8.18 (4.50-10.00) 10*3/uL RBC 4.21 L (4.40-5.60) 10*6/uL Hgb 12.2 L (13.0-17.0) g/dL Hct 39.2 L (39.6-50.0) % MCV 93.1 (80.0-97.0) fL MCH 29.0 (27.0-32.0) pg MCHC 31.1 L (32.0-37.0) g/dL Plt Count 188 (140-440) 10*3/uL MPV 8.8 L (9.5-12.2) fL Immature Gran % (Auto) 0.7 % Neutrophils % 67.3 % Lymphocytes % 21.0 % Monocytes % 9.5 % Eosinophils % 1.3 % Basophils % 0.2 % Immature Gran # 0.06 H (0.00-0.04) 10*3/uL Neutrophils # 5.49 (1.80-7.70) 10*3/uL Lymphocytes # 1.72 (0.90-5.00) 10*3/uL Monocytes # 0.78 (0.20-1.00) 10*3/uL Eosinophils # 0.11 (0.04-0.35) 10*3/uL Basophils # 0.02 (0.00-0.10) 10*3/uL PT 10.6 (10.0-12.5) sec INR 0.9 (<1.2) APTT 22.7 (22.0-30.0) sec D-Dimer 1.30 H (<0.60) mg/L FEU Sodium 134 L (137-145) mmol/L Potassium 4.8 (3.5-5.1) mmol/L Chloride 96 L (98-107) mmol/L Carbon Dioxide 33 H (22-30) mmol/L Anion Gap 5 mmol/L BUN 18 (9-20) mg/dL Creatinine 0.74 (0.66-1.25) mg/dL Est GFR (CKD-EPI)AfAm >90 (>60 ml/min/1.73 sqM) Est GFR (CKD-EPI)NonAf >90 (>60 ml/min/1.73 sqM) Glucose 216 H (74-99) mg/dL Calcium 9.5 (8.4-10.2) mg/dL Magnesium 1.8 (1.6-2.3) mg/dL Total Bilirubin 0.4 (0.2-1.3) mg/dL AST 46 (17-59) U/L ALT 75 H (4-49) U/L Alkaline Phosphatase 76 (38-126) U/L Troponin I (0.000-0.034) ng/mL NT-Pro-B Natriuret Pep 238 pg/mL Total Protein 6.1 L (6.3-8.2) g/dL Albumin 3.5 (3.5-5.0) g/dL 02/18/25 02/18/25 Range/Units 00:54 04:10 WBC (4.50-10.00) 10*3/uL RBC (4.40-5.60) 10*6/uL Hgb (13.0-17.0) g/dL Hct (39.6-50.0) % MCV (80.0-97.0) fL MCH (27.0-32.0) pg MCHC (32.0-37.0) g/dL Plt Count (140-440) 10*3/uL MPV (9.5-12.2) fL Immature Gran % (Auto) % Neutrophils % % Lymphocytes % % Monocytes % % Eosinophils % % Basophils % % Immature Gran # (0.00-0.04) 10*3/uL Neutrophils # (1.80-7.70) 10*3/uL Lymphocytes # (0.90-5.00) 10*3/uL Monocytes # (0.20-1.00) 10*3/uL Eosinophils # (0.04-0.35) 10*3/uL Basophils # (0.00-0.10) 10*3/uL PT (10.0-12.5) sec INR (<1.2) APTT (22.0-30.0) sec D-Dimer (<0.60) mg/L FEU Sodium (137-145) mmol/L Potassium (3.5-5.1) mmol/L Chloride (98-107) mmol/L Carbon Dioxide (22-30) mmol/L Anion Gap mmol/L BUN (9-20) mg/dL Creatinine (0.66-1.25) mg/dL Est GFR (CKD-EPI)AfAm (>60 ml/min/1.73 sqM) Est GFR (CKD-EPI)NonAf (>60 ml/min/1.73 sqM) Glucose (74-99) mg/dL Calcium (8.4-10.2) mg/dL Magnesium (1.6-2.3) mg/dL Total Bilirubin (0.2-1.3) mg/dL AST (17-59) U/L ALT (4-49) U/L Alkaline Phosphatase (38-126) U/L Troponin I <0.012 <0.012 (0.000-0.034) ng/mL NT-Pro-B Natriuret Pep pg/mL Total Protein (6.3-8.2) g/dL Albumin (3.5-5.0) g/dL Disposition Clinical Impression: Acute hypoxic respiratory failure, COPD with exacerbation Disposition: ADMITTED IP TO THIS HOSP Condition: Stable
[2025-02-18 01:12] LABS: Basophils # (A) 0.02 10*3/uL (0.00-0.10); Basophils % (A) 0.2 %; Eosinophils # (A) 0.11 10*3/uL (0.04-0.35); Eosinophils % (A) 1.3 %; HCT 39.2 % (39.6-50.0); HGB 12.2 g/dL (13.0-17.0); Lymphocytes # (A) 1.72 10*3/uL (0.90-5.00); MCHC 31.1 g/dL (32.0-37.0); MCV 93.1 fL (80.0-97.0); Mean Platelet Volume 8.8 fL (9.5-12.2); Monocytes # (A) 0.78 10*3/uL (0.20-1.00); Monocytes % (A) 9.5 %; Neutrophils # (A) 5.49 10*3/uL (1.80-7.70); Neutrophils % (A) 67.3 %; Platelet Count 188 10*3/uL (140-440); RBC 4.21 10*6/uL (4.40-5.60); RDW 12.9 % (11.5-14.5); WBC 8.18 10*3/uL (4.50-10.00)
[2025-02-18 01:23] LABS: ALT 75 U/L (4-49); AST 46 U/L (17-59); African American GFR (CKD) >90 (>60 ml/min/1.73 sqM); Albumin 3.5 g/dL (3.5-5.0); Alkaline Phosphatase 76 U/L (38-126); Anion Gap 5 mmol/L; Blood Urea Nitrogen 18 mg/dL (9-20); Calcium 9.5 mg/dL (8.4-10.2); Carbon Dioxide 33 mmol/L (22-30); Chloride 96 mmol/L (98-107); Glucose 216 mg/dL (74-99); Magnesium 1.8 mg/dL (1.6-2.3); Non-African American GFR(CKD) >90 (>60 ml/min/1.73 sqM); Potassium 4.8 mmol/L (3.5-5.1); Sodium 134 mmol/L (137-145); Total Bilirubin 0.4 mg/dL (0.2-1.3); Total Protein 6.1 g/dL (6.3-8.2)
[2025-02-18] MEDS: AZITHROMYCIN 500 MG in SODIUM CHLORIDE 0.9% 250 ML IVPB STA (01:26)
[2025-02-18 01:27] LABS: INR 0.9 (<1.2); Partial Thromboplastin Time 22.7 sec (22.0-30.0); Prothrombin Time 10.6 sec (10.0-12.5)
[2025-02-18 01:32] LABS: NT-Pro-B-Type Natriuretic Pept 238 pg/mL
--- NOTE | 2025-02-18 03:57 | CT ---
EXAM: CT Angiography Chest With Intravenous Contrast CLINICAL HISTORY: ITS.REASON CT Reason: elevated dimer, dyspnea TECHNIQUE: Axial computed tomographic angiography images of the chest with intravenous contrast. CTDI is 68 mGy and DLP is 1549.6 mGy-cm. This CT exam was performed using one or more of the following dose reduction techniques: automated exposure control, adjustment of the mA and/or kV according to patient size, and/or use of iterative reconstruction technique. MIP reconstructed images were created and reviewed. COMPARISON: No relevant prior studies available. FINDINGS: Pulmonary arteries: Unremarkable. No pulmonary embolism. Aorta: No acute findings. No thoracic aortic aneurysm. Lungs: Bilateral airspace consolidations, preferentially involving the lung bases, consistent with multilobar pneumonia. Pleural space: Unremarkable. No significant effusion. No pneumothorax. Heart: Unremarkable. No cardiomegaly. No significant pericardial effusion. No evidence of RV dysfunction. Bones/joints: No acute fracture. No dislocation. Soft tissues: Unremarkable. Lymph nodes: Unremarkable. No enlarged lymph nodes. IMPRESSION: No pulmonary embolism. Evaluation is limited due to suboptimal contrast bolus timing. No thin section images were submitted. Bilateral airspace consolidations, preferentially involving the lung bases, consistent with multilobar pneumonia.
--- NOTE | 2025-02-18 04:32 | XR ---
EXAM: XR Chest, 1 View CLINICAL HISTORY: ITS.REASON XR Reason: shortness of breath TECHNIQUE: Frontal view of the chest. COMPARISON: No relevant prior studies available. FINDINGS: Lungs: Unremarkable. No consolidation. Pleural space: Small LEFT pleural effusion. No pneumothorax. Heart: Cardiomegaly. Mediastinum: Unremarkable. Bones/joints: Unremarkable. IMPRESSION: Small LEFT pleural effusion.
[2025-02-18] MEDS ORDERED: ACETAMINOPHEN TAB 325 MG TAB PO PRN (04:36)
[2025-02-18] MEDS ORDERED: IPRATROPIUM-ALBUTEROL 3 ML NEB INHALATION PRN (04:36)
[2025-02-18] MEDS ORDERED: NALOXONE 0.4 MG/ML 1 ML VIAL IVP PRN (04:36)
[2025-02-18] MEDS ORDERED: HYDROcodone/APAP 5-325MG 1 EACH TAB PO PRN ×2 (04:36→13:39)
[2025-02-18] MEDS: ENOXAPARIN 40 MG/0.4 ML SYRINGE SQ SCH (07:46)
[2025-02-18] MEDS: methylPREDNISolone SOD SUCCI 125 MG/2 ML VIAL IV SCH (07:46)
[2025-02-18] MEDS: IPRATROPIUM-ALBUTEROL 3 ML NEB INHALATION SCH (08:23)
[2025-02-18] MEDS ORDERED: PNEUMONIA PROTOCOL UTILIZED 1 EACH MISC PO PRN (08:39)
[2025-02-18] MEDS ORDERED: DEXTROSE 50% SYRINGE 50 ML IVP PRN ×2 (08:44)
[2025-02-18] MEDS: NYSTATIN 100,000 UNIT/GM POWD 15 GM TOPICAL SCH (09:30)
[2025-02-18] MEDS: guaiFENesin 600 MG TABLET.ER PO SCH (09:30)
[2025-02-18] MEDS: TAMSULOSIN 0.4 MG CAP.ER.24H PO SCH (09:30)
--- NOTE | 2025-02-18 11:08 | P.CNPUL ---
History of Present Illness Consult date: 02/18/25 Requesting physician: Gale Benoit Reason for consult: dyspnea, cough, COPD, hypoxemia, abnormal CXR/CT Chief complaint: Shortness of breath. History of present illness: Pulmonary consultation dated February 18, 2025. 64-year-old male seen today in room 359. The patient came into the emergency ro om, complaining of shortness of breath, cough, and phlegm production. The patient has been in the hospital now twice, in less than a month. He was here on January 28 for a few days, and then again on February 13. Currently, he uses oxygen at home, 3 L. Apparently after his last discharge, he was not taking the prednisone that he was discharged with. Currently, he is on 5 L nasal cannula. He is not receiving any IV fluids. He did not use the BiPAP device last night. The patient was placed on azithromycin and Rocephin in the emergency department. A procalcitonin level was pending. We did add Symbicort to his regimen. He is feeling a bit better. He is eating breakfast. He is awake and alert. He is sitting up in bed. White count is 8.2, hemoglobin 12.2, hematocrit 39.2, and platelet count was 188,000. Sodium 134, potassium 4.8, chlorides 96, CO2 33, BUN 18, and creatinine 0.74. Glucose is 216. Troponin was negative x 2. N- terminal proBNP was normal at 238. CT angiogram was negative for pulmonary embolism. It did show some bilateral airspace consolidations, consistent with multilobar pneumonia. Chest x-ray showed small left-sided pleural effusion. Review of Systems REVIEW OF SYSTEMS: CONSTITUTIONAL: [Negative.] NEUROLOGIC: [ Negative.] HEENT: [ Negative.] CARDIAC: [Negative.] PULMONARY: Shortness of breath, cough, and minimal phlegm production. GI: [Negative.] : [Negative.] RHEUMATOLOGIC: [ Negative.] IMMUNOLOGIC: [ Negative.] ENDOCRINE: [Negative. ] DERMATOLOGIC: [Negative.] Past Medical History Past Medical History: COPD, Diabetes Mellitus, Hypertension Additional Past Medical History / Comment(s): Back pain, neuropathy, brain aneursym about 15 years ago, diabetes type 2 History of Any Multi-Drug Resistant Organisms: None Reported Past Surgical History: Heart Catheterization, Orthopedic Surgery Additional Past Surgical History / Comment(s): Bilateral thumbs, left shoulder, right index finger orthopedic surgery Past Anesthesia/Blood Transfusion Reactions: No Reported Reaction Past Psychological History: Anxiety, Depression Smoking Status: Former smoker Past Alcohol Use History: Daily Additional Past Alcohol Use History / Comment(s): Patient states he drinks 2 drinks a day, either beer or whiskey. Past Drug Use History: None Reported - Past Family History Father Additional Family Medical History / Comment(s): from leukemia Mother Family Medical History: Dementia Medications and Allergies Home Medications Medication Instructions Recorded Confirmed Type Aspirin 81 mg PO DAILY 07/11/14 02/18/25 History Gabapentin [Neurontin] 300 mg PO TID 07/11/14 02/18/25 History Losartan Potassium [Cozaar] 50 mg PO DAILY 07/11/14 02/18/25 History Metoprolol Succinate [Toprol XL] 25 mg PO BID 07/11/14 02/18/25 History metFORMIN HCL [Glucophage] 850 mg PO TID 07/11/14 02/18/25 History Atorvastatin [Lipitor] 40 mg PO HS 07/05/15 02/18/25 History buPROPion XL [Wellbutrin XL] 300 mg PO DAILY 12/06/16 02/18/25 History ARIPiprazole [Abilify] 5 mg PO DAILY 12/23/23 02/18/25 History Melatonin 10 mg PO HS 12/23/23 02/18/25 History Omeprazole [PriLOSEC] 20 mg PO HS 12/23/23 02/18/25 History Celecoxib [CeleBREX] 200 mg PO BID PRN 03/12/24 02/18/25 History Cholecalciferol [Vitamin D3 (125 125 mcg PO DAILY 08/23/24 02/18/25 History Mcg = 5000 Iu)] Insulin Lispro [humaLOG Kwikpen] 22 unit SQ TID-W/MEALS 08/23/24 02/18/25 History Pioglitazone [Actos] 15 mg PO DAILY 08/23/24 02/18/25 History Albuterol Inhaler [Ventolin Hfa 2 puff INHALATION RT-QID PRN 01/27/25 02/18/25 History Inhaler] Ezetimibe [Zetia] 10 mg PO DAILY 01/27/25 02/18/25 History Fluticasone Propion/Salmeterol 1 puff INHALATION RT-DAILY 01/27/25 02/18/25 History [Wixela 250-50 Inhub] Insulin Degludec [Tresiba 70 units SQ DAILY 01/27/25 02/18/25 History Flextouch U-200 Pen] Ipratropium-Albuterol Nebulize 3 ml INHALATION RT-BID 01/27/25 02/18/25 History [Duoneb 0.5 mg-3 mg/3 ml Soln] Ipratropium-Albuterol Nebulize 3 ml INHALATION RT-BID PRN 01/27/25 02/18/25 History [Duoneb 0.5 mg-3 mg/3 ml Soln] Mirtazapine [Remeron] 45 mg PO HS 01/27/25 02/18/25 History Semaglutide [Ozempic] 2 mg SQ DIRECTED 01/27/25 02/18/25 History HYDROcodone/APAP 5-325MG [[place] 1 tab PO Q6HR PRN 02/13/25 02/18/25 History 5-325] Budesonide-Formot 160-4.5 Mcg 2 puff INHALATION RT-BID 30 Days 02/14/25 02/18/25 Rx [Symbicort 160-4.5 Mcg Inhaler] #1 each Folic Acid 1 mg PO DAILY tab 02/14/25 02/18/25 Rx Mupirocin Calcium 2% Cream 1 applic TOPICAL TID #15 gm 02/14/25 02/18/25 Rx [Bactroban 2% Cream] Thiamine [Vitamin B-1] 100 mg PO DAILY tab 02/14/25 02/18/25 Rx Multivitamins, Thera [Multivitamin 1 tab PO DAILY 02/18/25 02/18/25 History (formulary)] predniSONE See Taper PO DIRECTED 02/18/25 02/18/25 History Allergies Allergy/AdvReac Type Severity Reaction Status Date / Time No Known Allergies Allergy Verified 02/18/25 10:06 Physical Exam Osteopathic Statement: *. No significant issues noted on an osteopathic structural exam other than those noted in the History and Physical/Consult. Vitals: Vital Signs Temp Pulse Pulse Resp BP BP Pulse Ox 02/18/25 09:29 92 127/71 94 L 02/18/25 08:44 80 02/18/25 08:26 82 04/19/25 08:25 02/18/25 08:17 80 15 124/74 98 02/18/25 07:53 91 134/78 02/18/25 07:26 97.7 F 83 23 139/81 99 02/18/25 06:43 97.4 F L 89 25 H 159/77 98 02/18/25 06:31 97.8 F 84 18 153/77 96 02/18/25 06:00 80 15 139/67 95 02/18/25 05:00 87 14 145/69 96 02/18/25 04:00 86 13 137/89 96 02/18/25 03:23 02/18/25 02:05 87 18 111/56 98 02/18/25 01:32 84 16 147/70 98 02/18/25 01:24 86 02/18/25 01:17 86 02/18/25 01:07 87 02/18/25 00:57 87 02/18/25 00:51 97.1 F L 92 18 158/82 99 02/18/25 00:50 FiO2 02/18/25 09:29 02/18/25 08:44 02/18/25 08:26 02/18/25 08:25 50 02/18/25 08:17 50 02/18/25 07:53 02/18/25 07:26 50 02/18/25 06:43 50 02/18/25 06:31 02/18/25 06:00 02/18/25 05:00 02/18/25 04:00 02/18/25 03:23 50 02/18/25 02:05 02/18/25 01:32 02/18/25 01:24 02/18/25 01:17 02/18/25 01:07 02/18/25 00:57 02/18/25 00:51 02/18/25 00:50 40 Intake and Output 02/17/25 02/18/25 02/18/25 22:59 06:59 14:59 Output Total 4100 Balance -4100 Output: Urine 4100 Straight 2050 Other: Weight 131.542 kg 131.542 kg No acute distress, oriented 3. Currently on nasal O2. HEENT examination is grossly unremarkable. Mucous membranes are moist. No oral lesions. Neck supple. Full range of motion. No adenopathy thyromegaly or neck vein distention. Cardiovascular examination reveals regular rhythm rate. S1-S2 normal. No S3 or S4. No discernible murmur noted. Heart sounds are distant. Lungs reveal mild scattered rhonchi. No wheezes. No crackles. Breath sounds equal. Abdomen obese, but soft, with bowel sounds. No masses or tenderness. Extremities are intact. No cyanosis clubbing or edema. Skin is without rash or lesion. Neurologic examination is brief but nonfocal. Results - Laboratory Findings CBC and BMP: 02/18/25 00:54 02/18/25 00:54 PT/INR, D-dimer PT 10.6 sec (10.0-12.5) 02/18/25 00:54 INR 0.9 (<1.2) 02/18/25 00:54 D-Dimer 1.30 mg/L FEU (<0.60) H 02/18/25 00:54 Abnormal lab findings: Abnormal Labs 02/18/25 02/18/25 02/18/25 00:54 00:54 00:54 RBC 4.21 L Hgb 12.2 L Hct 39.2 L MCHC 31.1 L MPV 8.8 L Immature Gran # 0.06 H D-Dimer 1.30 H Sodium 134 L Chloride 96 L Carbon Dioxide 33 H Glucose 216 H ALT 75 H Total Protein 6.1 L - Diagnostic Findings Chest x-ray: image reviewed CT scan - chest: image reviewed Assessment and Plan Assessment: Acute hypoxemic respiratory failure, secondary to COPD exacerbation, with possible basilar pneumonia. Recent admissions to the hospital, January 28, and February 13, for COPD exacerbations. History of oxygen dependent COPD. Moderate COPD with an FEV1 that 60% of predicted. Previous history of heavy tobacco use. Diabetes mellitus, type II. History of benign essential hypertension. Hyperlipidemia. Gastroesophageal reflux disease. Diabetic neuropathy. Obesity, with a BMI, 48.3 kg/m. Plan: Plan dated February 18, 2025. The patient is seen today in room 359. As mentioned above, the patient was here in the hospital, in late December, in mid January. The patient apparently did not take his prednisone, after his last discharge, likely causing him to be readmitted. Currently, the patient is on 5 L. He uses 3 L at home. He came in with complaints of shortness of breath, cough, and minimal phlegm production. Procalcitonin levels pending. We added Symbicort to his regimen. The patient is currently on azithromycin and Rocephin. If this procalcitonin level is normal, they will be discontinued. The patient is not receiving any IV fluids. All labs, x-rays, medications are reviewed. Prognosis is guarded. Dictation was produced using Flurry dictation software. Please excuse any grammatical, word or spelling errors. Time with Patient: Greater than 30
[2025-02-18 11:15] LABS: Glucose,Whole Blood 444 mg/dL (70-110); Glucose,Whole Blood 501 mg/dL (70-110)
[2025-02-18] MEDS: INSULIN LISPRO (HumaLOG) 100 UNIT/ML 10 mL VL SQ SCH ×2 (11:32→17:05)
--- NOTE | 2025-02-18 12:21 | US ---
EXAMINATION TYPE: US venous doppler duplex LE BI DATE OF EXAM: 02/18/2025 11:51 AM COMPARISON: NONE CLINICAL INDICATION: Male, 64 years old with history of swelling, elevated d-dimer; bilat swelling, e levated d dimer, no hx of dvt, pt currently on baby aspirin, Pain TECHNIQUE: The lower extremity deep venous system is examined utilizing real time linear array sonog gurpreet with graded compression, color doppler sonography, and spectral doppler. SIDE PERFORMED: Bilateral FINDINGS: VESSELS IMAGED: Common Femoral Vein Deep Femoral Vein Greater Saphenous Vein * Femoral Vein Popliteal Vein Small Saphenous Vein * Proximal Calf Veins (* superficial vessels) very limited scan due to pt body habitus & bilateral edema The deep venous systems of both lower extremities from the common femoral remains to the proximal michael f veins are patent and compressible with augmentable flow and with normal waveforms. IMPRESSION: No evidence of bilateral lower extremity DVT from the common femoral veins to the proximal calf veins . Limited study due to patient's body habitus and edema of the lower extremities. [facility], Workstation: [id number] 02/18/2025 12:19 PM
[2025-02-18 13:27] LABS: Influenza A Not Detected (Not Detectd); Influenza B Not Detected (Not Detectd); RSV Not Detected (Not Detectd)
--- NOTE | 2025-02-18 13:39 | P.HPIM ---
History of Present Illness H&P Date: 02/18/25 History of present illness; patient is 54-year-old gentleman with past medical history significant for COPD, chronic respiratory failure on 2 L of oxygen presented the ER because of worsening shortness of breath. Patient stated that he was all right 1 day back when he started noticing that his breathing was getting worse. Patient had to bump his oxygen to 3 L but still felt short of breath. There was no complaint of chest pain. Patient any fever or chills. Patient was complaining of cough. Patient denies any nausea, vomiting abdominal pain. Patient recently admitted the hospital for similar complaints. Because of his worsening shortness of breath, patient came to the ER Initial lab work done in the ER showed WBC of 8.18, hemoglobin 12.2, platelet count 188, D-dimer 1.3, sodium 134, potassium 4.8, BUN 18, creatinine 0.74 glucose 216, AST 46, ALT 75, troponin 0.012, protein 6.1 EKG done in the ER showed heart rate of 92, no ST segment elevation or depression seen, no T-wave inversions seen. CT chest PE protocol done showed no PE, showed bilateral airspace consolidations preferentially involving the lung bases consistent with multilobar pneumonia Patient admitted to internal medicine service REVIEW OF SYSTEMS: CONSTITUTIONAL: No fever, no malaise, no fatigue. HEENT: No recent visual problems or hearing problems. Denied any sore throat. CARDIOVASCULAR: As mentioned above PULMONARY: As mentioned above GASTROINTESTINAL: No diarrhea, no nausea, no vomiting, no abdominal pain. NEUROLOGICAL: No headaches, no weakness, no numbness. HEMATOLOGICAL: Denies any bleeding or petechiae. GENITOURINARY: Denies any burning micturition, frequency, or urgency. MUSCULOSKELETAL/RHEUMATOLOGICAL: Denies any joint pain, swelling, or any muscle pain. ENDOCRINE: Denies any polyuria or polydipsia. The rest of the 14-point review of systems is negative. PHYSICAL EXAMINATION: GENERAL: The patient is alert and oriented x3, not in any acute distress. Well developed, well nourished. HEENT: Pupils are round and equally reacting to light. EOMI. No scleral icterus. No conjunctival pallor. Normocephalic, atraumatic. No pharyngeal erythema. No thyromegaly. CARDIOVASCULAR: S1 and S2 present. No murmurs, rubs, or gallops. PULMONARY: Coarse breath sound bilaterally, bilateral expiratory wheeze audible ABDOMEN: Soft, nontender, nondistended, normoactive bowel sounds. No palpable organomegaly. MUSCULOSKELETAL: No joint swelling or deformity. EXTREMITIES: No cyanosis, clubbing, or pedal edema. NEUROLOGICAL: Gross neurological examination did not reveal any focal deficits. SKIN: No rashes. Assessment and plan Acute on chronic hypoxic respiratory failure Acute COPD exacerbation Bacterial pneumonia Hypertension Diabetes mellitus Gastroesophageal reflux disease Diabetic neuropathy Obesity with a BMI of 46.3 kg/m Monitor vital signs Monitor CBC Monitor CMP Continue telemetry monitoring Continue oxygen supplementation Continues on BiPAP as needed Ordered breathing treatments Ordered Mucinex Ordered IV Rocephin azithromycin Ordered blood glucose monitoring, ordered sliding scale insulin Consult pulmonology Labs and medication were reviewed.. Continue same treatment. Continue with symptomatic treatment. Resume home medication. Monitor labs and vitals. DVT and GI prophylaxis. Further recommendations as per clinical course of the patient Dictation was produced using Userlike Live Chat dictation software. please excuse any grammatical, word or spelling errors. Past Medical History Past Medical History: COPD, Diabetes Mellitus, Hypertension Additional Past Medical History / Comment(s): back pain, neuropathy, brain aneursym History of Any Multi-Drug Resistant Organisms: None Reported Past Surgical History: Heart Catheterization, Orthopedic Surgery Additional Past Surgical History / Comment(s): bilateral thumbs, left shoulder Past Anesthesia/Blood Transfusion Reactions: No Reported Reaction Past Psychological History: Anxiety, Depression Smoking Status: Former smoker Past Alcohol Use History: Occasional Past Drug Use History: None Reported - Past Family History Father Additional Family Medical History / Comment(s): from leukemia Mother Family Medical History: Dementia Medications and Allergies Home Medications Medication Instructions Recorded Confirmed Type Aspirin 81 mg PO DAILY 07/11/14 02/18/25 History Gabapentin [Neurontin] 300 mg PO TID 07/11/14 02/18/25 History Losartan Potassium [Cozaar] 50 mg PO DAILY 07/11/14 02/18/25 History Metoprolol Succinate [Toprol XL] 25 mg PO BID 07/11/14 02/18/25 History metFORMIN HCL [Glucophage] 850 mg PO TID 07/11/14 02/18/25 History Atorvastatin [Lipitor] 40 mg PO HS 07/05/15 02/18/25 History buPROPion XL [Wellbutrin XL] 300 mg PO DAILY 12/06/16 02/18/25 History ARIPiprazole [Abilify] 5 mg PO DAILY 12/23/23 02/18/25 History Melatonin 10 mg PO HS 12/23/23 02/18/25 History Omeprazole [PriLOSEC] 20 mg PO HS 12/23/23 02/18/25 History Celecoxib [CeleBREX] 200 mg PO BID PRN 03/12/24 02/18/25 History Cholecalciferol [Vitamin D3 (125 125 mcg PO DAILY 08/23/24 02/18/25 History Mcg = 5000 Iu)] Insulin Lispro [humaLOG Kwikpen] 22 unit SQ TID-W/MEALS 08/23/24 02/18/25 History Pioglitazone [Actos] 15 mg PO DAILY 08/23/24 02/18/25 History Albuterol Inhaler [Ventolin Hfa 2 puff INHALATION RT-QID PRN 01/27/25 02/18/25 History Inhaler] Ezetimibe [Zetia] 10 mg PO DAILY 01/27/25 02/18/25 History Fluticasone Propion/Salmeterol 1 puff INHALATION RT-DAILY 01/27/25 02/18/25 History [Wixela 250-50 Inhub] Insulin Degludec [Tresiba 70 units SQ DAILY 01/27/25 02/18/25 History Flextouch U-200 Pen] Ipratropium-Albuterol Nebulize 3 ml INHALATION RT-BID 01/27/25 02/18/25 History [Duoneb 0.5 mg-3 mg/3 ml Soln] Ipratropium-Albuterol Nebulize 3 ml INHALATION RT-BID PRN 01/27/25 02/18/25 History [Duoneb 0.5 mg-3 mg/3 ml Soln] Mirtazapine [Remeron] 45 mg PO HS 01/27/25 02/18/25 History Semaglutide [Ozempic] 2 mg SQ DIRECTED 01/27/25 02/18/25 History HYDROcodone/APAP 5-325MG [[place] 1 tab PO Q6HR PRN 02/13/25 02/18/25 History 5-325] Budesonide-Formot 160-4.5 Mcg 2 puff INHALATION RT-BID 30 Days 02/14/25 02/18/25 Rx [Symbicort 160-4.5 Mcg Inhaler] #1 each Folic Acid 1 mg PO DAILY tab 02/14/25 02/18/25 Rx Mupirocin Calcium 2% Cream 1 applic TOPICAL TID #15 gm 02/14/25 02/18/25 Rx [Bactroban 2% Cream] Thiamine [Vitamin B-1] 100 mg PO DAILY tab 02/14/25 02/18/25 Rx Multivitamins, Thera [Multivitamin 1 tab PO DAILY 02/18/25 02/18/25 History (formulary)] predniSONE See Taper PO DIRECTED 02/18/25 02/18/25 History Allergies Allergy/AdvReac Type Severity Reaction Status Date / Time No Known Allergies Allergy Verified 02/18/25 10:06 Physical Exam Vitals: Vital Signs Temp Pulse Pulse Resp BP BP Pulse Ox 02/18/25 08:26 82 02/18/25 08:25 02/18/25 08:17 80 15 124/74 98 02/18/25 07:53 91 134/78 02/18/25 07:26 97.7 F 83 23 139/81 99 02/18/25 06:43 97.4 F L 89 25 H 159/77 98 02/18/25 06:31 97.8 F 84 18 153/77 96 02/18/25 06:00 80 15 139/67 95 02/18/25 05:00 87 14 145/69 96 02/18/25 04:00 86 13 137/89 96 02/18/25 03:23 02/18/25 02:05 87 18 111/56 98 02/18/25 01:32 84 16 147/70 98 02/18/25 01:24 86 02/18/25 01:17 86 02/18/25 01:07 87 02/18/25 00:57 87 02/18/25 00:51 97.1 F L 92 18 158/82 99 02/18/25 00:50 FiO2 02/18/25 08:26 02/18/25 08:25 50 02/18/25 08:17 50 02/18/25 07:53 02/18/25 07:26 50 02/18/25 06:43 50 02/18/25 06:31 02/18/25 06:00 02/18/25 05:00 02/18/25 04:00 02/18/25 03:23 50 02/18/25 02:05 02/18/25 01:32 02/18/25 01:24 02/18/25 01:17 02/18/25 01:07 02/18/25 00:57 02/18/25 00:51 02/18/25 00:50 40 Intake and Output 02/17/25 02/18/25 02/18/25 22:59 06:59 14:59 Output Total 950 Balance -950 Output: Urine 950 Straight 950 Other: Weight 131.542 kg Results CBC & Chem 7: 02/18/25 00:54 02/18/25 00:54 Labs: Abnormal Lab Results - Last 24 Hours (Table) 02/18/25 02/18/25 02/18/25 Range/Units 00:54 00:54 00:54 RBC 4.21 L (4.40-5.60) 10*6/uL Hgb 12.2 L (13.0-17.0) g/dL Hct 39.2 L (39.6-50.0) % MCHC 31.1 L (32.0-37.0) g/dL MPV 8.8 L (9.5-12.2) fL Immature Gran # 0.06 H (0.00-0.04) 10*3/uL D-Dimer 1.30 H (<0.60) mg/L FEU Sodium 134 L (137-145) mmol/L Chloride 96 L (98-107) mmol/L Carbon Dioxide 33 H (22-30) mmol/L Glucose 216 H (74-99) mg/dL ALT 75 H (4-49) U/L Total Protein 6.1 L (6.3-8.2) g/dL
[2025-02-18] MEDS: MORPHINE SULFATE 2 MG/ML SYRINGE IVP PRN (14:26)
[2025-02-18] MEDS: MAG HYDROX/AL HYDROX/SIMETH 30 ML CUP PO PRN (14:27)
[2025-02-18] MEDS: CHOLECALCIFEROL 125 MCG (5000 IU) TABLET PO SCH (14:29)
[2025-02-18] MEDS: EZETIMIBE 10 MG TAB PO SCH (14:30)
[2025-02-18] MEDS: buPROPion XL 300 MG TAB.ER.24H PO SCH (14:36)
[2025-02-18] MEDS: INSULIN GLARGINE (LANTUS) 100 UNIT/ML SYR SQ SCH (14:37)
[2025-02-18 14:41] LABS: Glucose,Whole Blood 301 mg/dL (70-110)
[2025-02-18] MEDS: ONDANSETRON 4 MG/2 ML VIAL IVP PRN (14:51)
[2025-02-18] MEDS ORDERED: NITROGLYCERIN SL TABS 0.4 MG TAB SUBLINGUAL PRN (15:24)
--- NOTE | 2025-02-18 16:02 | XR ---
EXAMINATION TYPE: XR abdomen 1V DATE OF EXAM: 02/18/2025 3:56 PM COMPARISON: None. CLINICAL INDICATION: Male, 64 years old with history of Puking, r/o bowel obstruction/ constipation; PHH, pain TECHNIQUE: One radiographic view of the abdomen was obtained. FINDINGS: Nondistended bowel gas pattern. Evaluate for free air limited by supine technique. Normal c olonic stool burden. No acute osseous abnormality. IMPRESSION: Nonobstructive bowel gas pattern. [facility], , 02/18/2025 4:00 PM
[2025-02-18] MEDS: GABAPENTIN 300 MG CAP PO SCH (16:19)
[2025-02-18 16:30] LABS: Glucose,Whole Blood 280 mg/dL (70-110)
--- NOTE | 2025-02-18 17:16 | CT ---
EXAMINATION TYPE: CT abdomen pelvis wo con DATE OF EXAM: 02/18/2025 4:58 PM COMPARISON: Abdominal radiograph 02/18/2025. CLINICAL INDICATION: Male, 64 years old with history of Vomiting/abdominal distension/constipation; V omiting/abdominal distension/constipation TECHNIQUE: Axial CT abdomen pelvis wo con;Sagittal and coronal reformats were created on a separate workstation. Oral contrast used: without Oral Contrast (none if empty) CT DLP: 1477.7 mGycm, Automated exposure control for dose reduction was used. FINDINGS: LOWER CHEST: Trace right pleural effusion. Bilateral lower lobe dependent consolidative changes likel y related to atelectasis. ABDOMEN LIVER: Unremarkable GALLBLADDER AND BILE DUCTS: Unremarkable. PANCREAS: Unremarkable. SPLEEN: Unremarkable. ADRENAL GLANDS: Unremarkable. KIDNEYS AND URETERS: No evidence of hydronephrosis or renal calculus. The ureters are unremarkable. PELVIS BLADDER: Nondistended with Bloom catheter in place. REPRODUCTIVE: Unremarkable. ABDOMEN & PELVIS STOMACH AND BOWEL: Stomach and duodenum are unremarkable. Unremarkable. Moderate clot burden. No evidence of bowel obstruction. PERITONEUM/RETROPERITONEUM: No evidence of pneumoperitoneum or free fluid. VASCULATURE: No evidence of aortic aneurysm. MUSCULOSKELETAL: No acute osseous abnormalities LYMPH NODES: No gross evidence for lymphadenopathy. SOFT TISSUE/ABDOMINAL WALL: Unremarkable IMPRESSION: 1. No acute abnormality in abdomen/pelvis. Specifically, no evidence of bowel obstruction. 2. Moderate diffuse colonic stool burden suggesting constipation. 3. Trace right pleural effusion and bilateral lower lobe likely dependent atelectasis. 4. Hepatic steatosis. [facility], , 02/18/2025 5:14 PM
[2025-02-18] MEDS: cefTRIAXone 2 GM in DEXTROSE 5% IN WATER 50 ML IVPB SCH (19:48)
[2025-02-18] MEDS: ATORVASTATIN 40 MG TAB PO SCH (19:49)
[2025-02-18] MEDS: DOCUSATE 100 MG CAP PO SCH (19:49)
[2025-02-18] MEDS: MIRTAZAPINE 45 MG TABLET PO SCH (19:49)
[2025-02-18] MEDS: METOPROLOL SUCCINATE (ER) 25 MG TAB.ER.24H PO SCH (19:49)
[2025-02-18] MEDS: polyethylene glycoL 3350 17 GM POWD.PACK PO SCH (19:50)
[2025-02-18 19:54] LABS: Glucose,Whole Blood 232 mg/dL (70-110)
[2025-02-18] MEDS ORDERED: SYMBICORT 160-4.5 MCG INHALER INHALATION SCH (20:00)
[2025-02-18] MEDS: AZITHROMYCIN 500 MG in SODIUM CHLORIDE 0.9% 250 ML IVPB SCH (20:28)
[2025-02-18] MEDS: SYMBICORT 160-4.5 MCG INHALER INHALATION SCH (20:51)
[2025-02-19 06:18] LABS: Glucose,Whole Blood 276 mg/dL (70-110)
[2025-02-19 07:20] LABS: Basophils # (A) 0.01 10*3/uL (0.00-0.10); Basophils % (A) 0.1 %; HCT 39.2 % (39.6-50.0); HGB 12.3 g/dL (13.0-17.0); Lymphocytes # (A) 1.14 10*3/uL (0.90-5.00); MCH 28.6 pg (27.0-32.0); MCHC 31.4 g/dL (32.0-37.0); MCV 91.2 fL (80.0-97.0); Monocytes # (A) 0.47 10*3/uL (0.20-1.00); Monocytes % (A) 4.5 %; Neutrophils # (A) 8.73 10*3/uL (1.80-7.70); Platelet Count 230 10*3/uL (140-440); RDW 12.8 % (11.5-14.5); WBC 10.39 10*3/uL (4.50-10.00)
[2025-02-19 07:30] LABS: ALT 64 U/L (4-49); AST 29 U/L (17-59); African American GFR (CKD) >90 (>60 ml/min/1.73 sqM); Albumin 3.6 g/dL (3.5-5.0); Alkaline Phosphatase 84 U/L (38-126); Anion Gap 5 mmol/L; Blood Urea Nitrogen 22 mg/dL (9-20); Calcium 9.4 mg/dL (8.4-10.2); Carbon Dioxide 37 mmol/L (22-30); Chloride 90 mmol/L (98-107); Glucose 279 mg/dL (74-99); Non-African American GFR(CKD) >90 (>60 ml/min/1.73 sqM); Potassium 4.9 mmol/L (3.5-5.1); Sodium 132 mmol/L (137-145); Total Bilirubin 0.5 mg/dL (0.2-1.3); Total Protein 6.4 g/dL (6.3-8.2)
[2025-02-19] MEDS: ASPIRIN 81 MG PO SCH (07:57)
[2025-02-19] MEDS: ARIPiprazole 5 MG TAB PO SCH (07:57)
[2025-02-19] MEDS: LOSARTAN 50 MG TAB PO SCH (07:57)
[2025-02-19] MEDS: THIAMINE 100 MG TAB PO SCH (07:57)
[2025-02-19] MEDS: FOLIC ACID 1 MG TAB PO SCH (07:57)
[2025-02-19] MEDS: PIOGLITAZONE 15 MG TAB PO SCH (07:58)
--- NOTE | 2025-02-19 09:39 | P.PN ---
Subjective Progress Note Date: 02/19/25 Principal diagnosis: Respiratory failure. Pulmonary consultation dated February 18, 2025. 64-year-old male seen today in room 359. The patient came into the emergency room, complaining of shortness of breath, cough, and phlegm production. The patient has been in the hospital now twice, in less than a month. He was here on January 28 for a few days, and then again on February 13. Currently, he uses oxygen at home, 3 L. Apparently after his last discharge, he was not taking the prednisone that he was discharged with. Currently, he is on 5 L nasal cannula. He is not receiving any IV fluids. He did not use the BiPAP device last night. The patient was placed on azithromycin and Rocephin in the emergency department. A procalcitonin level was pending. We did add Symbicort to his regimen. He is feeling a bit better. He is eating breakfast. He is awake and alert. He is sitting up in bed. White count is 8.2, hemoglobin 12.2, hematocrit 39.2, and platelet count was 188,000. Sodium 134, potassium 4.8, chlorides 96, CO2 33, BUN 18, and creatinine 0.74. Glucose is 216. Troponin was negative x 2. N- terminal proBNP was normal at 238. CT angiogram was negative for pulmonary embolism. It did show some bilateral airspace consolidations, consistent with multilobar pneumonia. Chest x-ray showed small left-sided pleural effusion. Progress note dated February 19, 2025. 64-year-old male seen in consultation yesterday. He presented to the emergency department with complaints of shortness of breath, cough, and phlegm production. The patient was in the hospital, in December, and in January, for similar episodes of shortness of breath. Apparently on his last admission, the patient was discharged on prednisone, with a taper, but for some reason he did not take it. He is seen today in room 359. He is on 3 L of oxygen. He is not receiving any IV fluids. The BiPAP device is in his room, but he did not use it last night. Current labs showed a white count of 10.4, hemoglobin 12.3, hematocrit 39.2, and a platelet count of 230,000. Sodium 132, potassium 4.9, chlorides 90, CO2 37, anion gap 5, BUN 22, with a creatinine 0.73. Glucose is 279. Calcium 9.4, and albumin is 3.6. Abdominal x-ray shows a nonobstructive bowel gas pattern. Dopplers of the lower extremities, somewhat limited, but showed no evidence of DVT. A CT of the abdomen and pelvis shows no evidence of bowel obstruction, or anything significant for that matter. Objective - Vital Signs Vital signs: Vital Signs Temp 98.0 F 02/19/25 07:39 Pulse 92 02/19/25 08:44 Resp 18 02/19/25 07:39 BP 133/82 02/19/25 07:39 Pulse Ox 97 02/19/25 08:29 FiO2 50 02/18/25 08:25 Intake & Output 02/18/25 02/19/25 02/19/25 18:59 06:59 18:59 Intake Total 600 0 200 Output Total 7025 2450 Balance -6425 -2450 200 Weight 131.542 kg 126.3 kg Intake: Oral 600 0 200 Output: Urine 6025 1450 Straight 2050 Emesis 1000 1000 Other: Voiding Method Indwelling Catheter Indwelling Catheter # Voids 1 - Exam No acute distress, oriented 3. Currently on nasal O2, at 3 L. HEENT examination is grossly unremarkable. Mucous membranes are moist. No oral lesions. Neck supple. Full range of motion. No adenopathy thyromegaly or neck vein distention. Cardiovascular examination reveals regular rhythm rate. S1-S2 normal. No S3 or S4. No discernible murmur noted. Heart sounds are distant. Lungs reveal mild scattered rhonchi. No wheezes. No crackles. Breath sounds equal. Abdomen obese, but soft, with bowel sounds. No masses or tenderness. Extremities are intact. No cyanosis clubbing or edema. Skin is without rash or lesion. Neurologic examination is brief but nonfocal. - Labs CBC & Chem 7: 02/19/25 06:32 02/19/25 06:32 Labs: Abnormal Lab Results - Last 24 Hours (Table) 02/18/25 02/18/25 02/18/25 Range/Units 11:13 11:13 14:37 WBC (4.50-10.00) 10*3/uL RBC (4.40-5.60) 10*6/uL Hgb (13.0-17.0) g/dL Hct (39.6-50.0) % MCHC (32.0-37.0) g/dL MPV (9.5-12.2) fL Neutrophils # (1.80-7.70) 10*3/uL Eosinophils # (0.04-0.35) 10*3/uL Sodium (137-145) mmol/L Chloride (98-107) mmol/L Carbon Dioxide (22-30) mmol/L BUN (9-20) mg/dL Glucose (74-99) mg/dL POC Glucose (mg/dL) 444 H 501 H* 301 H (70-110) mg/dL ALT (4-49) U/L 02/18/25 02/18/25 02/19/25 Range/Units 16:27 19:52 06:17 WBC (4.50-10.00) 10*3/uL RBC (4.40-5.60) 10*6/uL Hgb (13.0-17.0) g/dL Hct (39.6-50.0) % MCHC (32.0-37.0) g/dL MPV (9.5-12.2) fL Neutrophils # (1.80-7.70) 10*3/uL Eosinophils # (0.04-0.35) 10*3/uL Sodium (137-145) mmol/L Chloride (98-107) mmol/L Carbon Dioxide (22-30) mmol/L BUN (9-20) mg/dL Glucose (74-99) mg/dL POC Glucose (mg/dL) 280 H 232 H 276 H (70-110) mg/dL ALT (4-49) U/L 02/19/25 02/19/25 Range/Units 06:32 06:32 WBC 10.39 H (4.50-10.00) 10*3/uL RBC 4.30 L (4.40-5.60) 10*6/uL Hgb 12.3 L (13.0-17.0) g/dL Hct 39.2 L (39.6-50.0) % MCHC 31.4 L (32.0-37.0) g/dL MPV 9.0 L (9.5-12.2) fL Neutrophils # 8.73 H (1.80-7.70) 10*3/uL Eosinophils # 0.00 L (0.04-0.35) 10*3/uL Sodium 132 L (137-145) mmol/L Chloride 90 L (98-107) mmol/L Carbon Dioxide 37 H (22-30) mmol/L BUN 22 H (9-20) mg/dL Glucose 279 H (74-99) mg/dL POC Glucose (mg/dL) (70-110) mg/dL ALT 64 H (4-49) U/L Assessment and Plan Assessment: Acute hypoxemic respiratory failure, secondary to COPD exacerbation, with possible basilar pneumonia. Recent admissions to the hospital, January 28, and February 13, for COPD exacerbations. History of oxygen dependent COPD. Moderate COPD with an FEV1 that 60% of predicted. Previous history of heavy tobacco use. Diabetes mellitus, type II. History of benign essential hypertension. Hyperlipidemia. Gastroesophageal reflux disease. Diabetic neuropathy. Obesity, with a BMI, 48.3 kg/m. Plan: Plan dated February 18, 2025. The patient is seen today in room 359. As mentioned above, the patient was here in the hospital, in late December, in mid January. The patient apparently did not take his prednisone, after his last discharge, likely causing him to be readmitted. Currently, the patient is on 5 L. He uses 3 L at home. He came in with complaints of shortness of breath, cough, and minimal phlegm production. Procalcitonin levels pending. We added Symbicort to his regimen. The patient is currently on azithromycin and Rocephin. If this procalcitonin level is normal, they will be discontinued. The patient is not receiving any IV fluids. All labs, x-rays, medications are reviewed. Prognosis is guarded. Dictation wa s produced using [employer] software. Please excuse any grammatical, word or spelling errors. Plan dated February 19, 2025. 64-year-old male admitted with a diagnosis of COPD exacerbation. The patient has had 2 recent admissions, for COPD exacerbations. On this admission, the patient's procalcitonin level was normal. Antibiotics can be discontinued. He should continue on updrafts with albuterol sulfate and ipratropium bromide, Solu-Medrol, and Symbicort, 160/4.5, 2 puffs twice a day. We will continue to follow make recommendations along the way. The patient's overall prognosis shira ins guarded. Antibiotics will be discontinued. The patient would like a portable oxygen concentrator on discharge. All labs, x-rays, and medications are reviewed. Prognosis is guarded. Dictation was produced using [facility] dictation software. Please excuse any grammatical, word or spelling errors. Time with Patient: Less than 30
--- NOTE | 2025-02-19 10:07 | P.GSCN ---
History of Present Illness Consult date: 02/19/25 Reason for Consult: Urinary retention History of present illness: This is a 64-year-old male admitted to the hospital with COPD exacerbation. Urology is consulted for urinary retention. Patient had an elevated residual of 893 mL, subsequently a Bloom catheter was placed with return of 1.2 L of urine. Denies any previous history of urinary retention. At baseline he does have a obstructive and storage symptoms. Complains of hesitancy with urgency and sensation of incomplete emptying. Denies any gross hematuria or dysuria. No family history of prostate cancer. Patient does have a history of diabetes, his last A1c is up January was 11.7. He does have diabetic gastroparesis. Bloom catheter is draining clear yellow urine. He has been started on Flomax. Review of Systems - Constitutional Denies fever, Denies weight loss - EENT Ears, nose, mouth and throat: Denies dysphagia - Cardiovascular Reports dyspnea on exertion, Reports shortness of breath - Respiratory Reports dyspnea - Gastrointestinal Reports abdominal pain, Reports constipation, Reports nausea, Reports vomiting - Genitourinary Reports urinary retention, Denies flank pain, Denies hematuria - Neurological Denies headaches, Denies syncope Past Medical History Past Medical History: COPD, Diabetes Mellitus, Hypertension Additional Past Medical History / Comment(s): back pain, neuropathy, brain aneursym History of Any Multi-Drug Resistant Organisms: None Reported Past Surgical History: Heart Catheterization, Orthopedic Surgery Additional Past Surgical History / Comment(s): bilateral thumbs, left shoulder Past Anesthesia/Blood Transfusion Reactions: No Reported Reaction Past Psychological History: Anxiety, Depression Smoking Status: Former smoker Past Alcohol Use History: Occasional Past Drug Use History: None Reported - Past Family History Father Additional Family Medical History / Comment(s): from leukemia Mother Family Medical History: Dementia Medications and Allergies Home Medications Medication Instructions Recorded Confirmed Type Aspirin 81 mg PO DAILY 07/11/14 02/18/25 History Gabapentin [Neurontin] 300 mg PO TID 07/11/14 02/18/25 History Losartan Potassium [Cozaar] 50 mg PO DAILY 07/11/14 02/18/25 History Metoprolol Succinate [Toprol XL] 25 mg PO BID 07/11/14 02/18/25 History metFORMIN HCL [Glucophage] 850 mg PO TID 07/11/14 02/18/25 History Atorvastatin [Lipitor] 40 mg PO HS 07/05/15 02/18/25 History buPROPion XL [Wellbutrin XL] 300 mg PO DAILY 12/06/16 02/18/25 History ARIPiprazole [Abilify] 5 mg PO DAILY 12/23/23 02/18/25 History Melatonin 10 mg PO HS 12/23/23 02/18/25 History Omeprazole [PriLOSEC] 20 mg PO HS 12/23/23 02/18/25 History Celecoxib [CeleBREX] 200 mg PO BID PRN 03/12/24 02/18/25 History Cholecalciferol [Vitamin D3 (125 125 mcg PO DAILY 08/23/24 02/18/25 History Mcg = 5000 Iu)] Insulin Lispro [humaLOG Kwikpen] 22 unit SQ TID-W/MEALS 08/23/24 02/18/25 History Pioglitazone [Actos] 15 mg PO DAILY 08/23/24 02/18/25 History Albuterol Inhaler [Ventolin Hfa 2 puff INHALATION RT-QID PRN 01/27/25 02/18/25 History Inhaler] Ezetimibe [Zetia] 10 mg PO DAILY 01/27/25 02/18/25 History Fluticasone Propion/Salmeterol 1 puff INHALATION RT-DAILY 01/27/25 02/18/25 History [Wixela 250-50 Inhub] Insulin Degludec [Tresiba 70 units SQ DAILY 01/27/25 02/18/25 History Flextouch U-200 Pen] Ipratropium-Albuterol Nebulize 3 ml INHALATION RT-BID 01/27/25 02/18/25 History [Duoneb 0.5 mg-3 mg/3 ml Soln] Ipratropium-Albuterol Nebulize 3 ml INHALATION RT-BID PRN 01/27/25 02/18/25 History [Duoneb 0.5 mg-3 mg/3 ml Soln] Mirtazapine [Remeron] 45 mg PO HS 01/27/25 02/18/25 History Semaglutide [Ozempic] 2 mg SQ DIRECTED 01/27/25 02/18/25 History HYDROcodone/APAP 5-325MG [Sheridan 1 tab PO Q6HR PRN 02/13/25 02/18/25 History 5-325] Budesonide-Formot 160-4.5 Mcg 2 puff INHALATION RT-BID 30 Days 02/14/25 02/18/25 Rx [Symbicort 160-4.5 Mcg Inhaler] #1 each Folic Acid 1 mg PO DAILY tab 02/14/25 02/18/25 Rx Mupirocin Calcium 2% Cream 1 applic TOPICAL TID #15 gm 02/14/25 02/18/25 Rx [Bactroban 2% Cream] Thiamine [Vitamin B-1] 100 mg PO DAILY tab 02/14/25 02/18/25 Rx Multivitamins, Thera [Multivitamin 1 tab PO DAILY 02/18/25 02/18/25 History (formulary)] predniSONE See Taper PO DIRECTED 02/18/25 02/18/25 History Allergies Allergy/AdvReac Type Severity Reaction Status Date / Time No Known Allergies Allergy Verified 02/18/25 10:06 Surgical - Exam Vital Signs FiO2 40 02/18/25 00:50 - General no distress, no pain - Eyes normal ocular movement, no pale - ENT normal nares, normal mucosa - Respiratory normal expansion, normal respiratory effort - Abdomen Abdomen: soft, distended - Psychiatric oriented to time, oriented to person, oriented to place Results - Labs 02/19/25 06:32 02/19/25 06:32 Abnormal Lab Results - Last 24 Hours (Table) 02/18/25 02/18/25 02/18/25 Range/Units 11:13 11:13 14:37 WBC (4.50-10.00) 10*3/uL RBC (4.40-5.60) 10*6/uL Hgb (13.0-17.0) g/dL Hct (39.6-50.0) % MCHC (32.0-37.0) g/dL MPV (9.5-12.2) fL Neutrophils # (1.80-7.70) 10*3/uL Eosinophils # (0.04-0.35) 10*3/uL Sodium (137-145) mmol/L Chloride (98-107) mmol/L Carbon Dioxide (22-30) mmol/L BUN (9-20) mg/dL Glucose (74-99) mg/dL POC Glucose (mg/dL) 444 H 501 H* 301 H (70-110) mg/dL ALT (4-49) U/L 02/18/25 02/18/25 02/19/25 Range/Units 16:27 19:52 06:17 WBC (4.50-10.00) 10*3/uL RBC (4.40-5.60) 10*6/uL Hgb (13.0-17.0) g/dL Hct (39.6-50.0) % MCHC (32.0-37.0) g/dL MPV (9.5-12.2) fL Neutrophils # (1.80-7.70) 10*3/uL Eosinophils # (0.04-0.35) 10*3/uL Sodium (137-145) mmol/L Chloride (98-107) mmol/L Carbon Dioxide (22-30) mmol/L BUN (9-20) mg/dL Glucose (74-99) mg/dL POC Glucose (mg/dL) 280 H 232 H 276 H (70-110) mg/dL ALT (4-49) U/L 02/19/25 02/19/25 Range/Units 06:32 06:32 WBC 10.39 H (4.50-10.00) 10*3/uL RBC 4.30 L (4.40-5.60) 10*6/uL Hgb 12.3 L (13.0-17.0) g/dL Hct 39.2 L (39.6-50.0) % MCHC 31.4 L (32.0-37.0) g/dL MPV 9.0 L (9.5-12.2) fL Neutrophils # 8.73 H (1.80-7.70) 10*3/uL Eosinophils # 0.00 L (0.04-0.35) 10*3/uL Sodium 132 L (137-145) mmol/L Chloride 90 L (98-107) mmol/L Carbon Dioxide 37 H (22-30) mmol/L BUN 22 H (9-20) mg/dL Glucose 279 H (74-99) mg/dL POC Glucose (mg/dL) (70-110) mg/dL ALT 64 H (4-49) U/L Diabetes panel 02/19/25 Range/Units 06:32 Sodium 132 L (137-145) mmol/L Potassium 4.9 (3.5-5.1) mmol/L Chloride 90 L (98-107) mmol/L Carbon Dioxide 37 H (22-30) mmol/L BUN 22 H (9-20) mg/dL Creatinine 0.73 (0.66-1.25) mg/dL Glucose 279 H (74-99) mg/dL Calcium 9.4 (8.4-10.2) mg/dL AST 29 (17-59) U/L ALT 64 H (4-49) U/L Alkaline Phosphatase 84 (38-126) U/L Total Protein 6.4 (6.3-8.2) g/dL Albumin 3.6 (3.5-5.0) g/dL Calcium panel 02/19/25 Range/Units 06:32 Calcium 9.4 (8.4-10.2) mg/dL Albumin 3.6 (3.5-5.0) g/dL Pituitary panel 02/19/25 Range/Units 06:32 Sodium 132 L (137-145) mmol/L Potassium 4.9 (3.5-5.1) mmol/L Chloride 90 L (98-107) mmol/L Carbon Dioxide 37 H (22-30) mmol/L BUN 22 H (9-20) mg/dL Creatinine 0.73 (0.66-1.25) mg/dL Glucose 279 H (74-99) mg/dL Calcium 9.4 (8.4-10.2) mg/dL Adrenal panel 02/19/25 Range/Units 06:32 Sodium 132 L (137-145) mmol/L Potassium 4.9 (3.5-5.1) mmol/L Chloride 90 L (98-107) mmol/L Carbon Dioxide 37 H (22-30) mmol/L BUN 22 H (9-20) mg/dL Creatinine 0.73 (0.66-1.25) mg/dL Glucose 279 H (74-99) mg/dL Calcium 9.4 (8.4-10.2) mg/dL Total Bilirubin 0.5 (0.2-1.3) mg/dL AST 29 (17-59) U/L ALT 64 H (4-49) U/L Alkaline Phosphatase 84 (38-126) U/L Total Protein 6.4 (6.3-8.2) g/dL Albumin 3.6 (3.5-5.0) g/dL Assessment and Plan Assessment: 64-year-old male with history of 1.2 L urinary retention. Patient is a poorly controlled diabetic with A1c of 11.7. He does have obstructive urinary symptoms at baseline, no previous history of retention. His retention is most likely secondary to diabetic cystopathy with a component of BPH. -Keep Bloom catheter for 1 week, at that time he can have a trial of void - Continue with Flomax
[2025-02-19 11:34] LABS: Glucose,Whole Blood 256 mg/dL (70-110)
--- NOTE | 2025-02-19 13:35 | P.PN ---
Subjective Progress Note Date: 02/19/25 patient is 54-year-old gentleman with past medical history significant for COPD, chronic respiratory failure on 2 L of oxygen presented the ER because of worsening shortness of breath. Patient stated that he was all right 1 day back when he started noticing that his breathing was getting worse. Patient had to bump his oxygen to 3 L but still felt short of breath. There was no complaint of chest pain. Patient any fever or chills. Patient was complaining of cough. Patient denies any nausea, vomiting abdominal pain. Patient recently admitted the hospital for similar complaints. Because of his worsening shortness of breath, patient came to the ER Initial lab work done in the ER showed WBC of 8.18, hemoglobin 12.2, platelet count 188, D-dimer 1.3, sodium 134, potassium 4.8, BUN 18, creatinine 0.74 glucose 216, AST 46, ALT 75, troponin 0.012, protein 6.1 EKG done in the ER showed heart rate of 92, no ST segment elevation or depression seen, no T-wave inversions seen. CT chest PE protocol done showed no PE, showed bilateral airspace consolidations preferentially involving the lung bases consistent with multilobar pneumonia Patient admitted to internal medicine service 02/19. Patient seen and examined. Labs reviewed showed WBC 10.39, hemoglobin 12.3, sodium 132, potassium 4.9, BUN 22, creatinine 0.73. Patient was complaining of abdominal pain yesterday, CT abdomen pelvis done showed no acute abnormality in the abdominal pelvis, showed constipation. Still complaining of constipation. REVIEW OF SYSTEMS: CONSTITUTIONAL: No fever, no malaise,. CARDIOVASCULAR: No chest pain, no palpitations, no syncope. PULMONARY: No shortness of breath, no cough, GASTROINTESTINAL: No diarrhea, no nausea, no vomiting, no abdominal pain. NEUROLOGICAL: No headaches, no weakness, PHYSICAL EXAMINATION: GENERAL: The patient is alert and oriented x3, not in any acute distress. Ill looking HEENT: Pupils are round and equally reacting to light. EOMI. No scleral icterus. No conjunctival pallor. Normocephalic, atraumatic. No pharyngeal erythema. No thyromegaly. CARDIOVASCULAR: S1 and S2 present. No murmurs, rubs, or gallops. PULMONARY: Chest is clear to auscultation, no wheezing or crackles. ABDOMEN: Distended, nontender normoactive bowel sounds. No palpable organomegaly. MUSCULOSKELETAL: No joint swelling or deformity. EXTREMITIES: No cyanosis, clubbing, or pedal edema. NEUROLOGICAL: Gross neurological examination did not reveal any focal deficits. SKIN: No rashes. Assessment and plan Acute on chronic hypoxic respiratory failure Acute COPD exacerbation Bacterial pneumonia rule out Constipation Urine retention Hypertension Diabetes mellitus Gastroesophageal reflux disease Diabetic neuropathy Obesity with a BMI of 46.3 kg/m Monitor vital signs Monitor CBC Monitor CMP Continue telemetry monitoring Continue oxygen supplementation Continues on BiPAP as needed Continue breathing treatments continue IV Solu-Medrol Monitor blood glucose levels, continue current insulin regimen Aggressive bowel regimen Urology consulted, recommended Bloom catheter at discharge with trial of void in 1 week Pulmonology following Labs and medication were reviewed.. Continue same treatment. Continue with symptomatic treatment. Resume home medication. Monitor labs and vitals. DVT and GI prophylaxis. Further recommendations as per clinical course of the patient Dictation was produced using [employer] dictation software. please excuse any grammatical, word or spelling errors. Objective - Vital Signs Vital signs: Vital Signs Temp 98.0 F 02/19/25 07:39 Pulse 92 02/19/25 08:44 Resp 18 02/19/25 07:39 BP 133/82 02/19/25 07:39 Pulse Ox 97 02/19/25 08:29 FiO2 50 02/18/25 08:25 Intake & Output 02/18/25 02/19/25 02/19/25 18:59 06:59 18:59 Intake Total 600 0 200 Output Total 7025 2450 Balance -6425 -2450 200 Weight 131.542 kg 126.3 kg Intake: Oral 600 0 200 Output: Urine 6025 1450 Straight 2050 Emesis 1000 1000 Other: Voiding Method Indwelling Catheter Indwelling Catheter Indwelling Catheter # Voids 1 - Labs CBC & Chem 7: 02/19/25 06:32 02/19/25 06:32 Labs: Abnormal Lab Results - Last 24 Hours (Table) 02/18/25 02/18/25 02/18/25 Range/Units 11:13 11:13 14:37 WBC (4.50-10.00) 10*3/uL RBC (4.40-5.60) 10*6/uL Hgb (13.0-17.0) g/dL Hct (39.6-50.0) % MCHC (32.0-37.0) g/dL MPV (9.5-12.2) fL Neutrophils # (1.80-7.70) 10*3/uL Eosinophils # (0.04-0.35) 10*3/uL Sodium (137-145) mmol/L Chloride (98-107) mmol/L Carbon Dioxide (22-30) mmol/L BUN (9-20) mg/dL Glucose (74-99) mg/dL POC Glucose (mg/dL) 444 H 501 H* 301 H (70-110) mg/dL ALT (4-49) U/L 02/18/25 02/18/25 02/19/25 Range/Units 16:27 19:52 06:17 WBC (4.50-10.00) 10*3/uL RBC (4.40-5.60) 10*6/uL Hgb (13.0-17.0) g/dL Hct (39.6-50.0) % MCHC (32.0-37.0) g/dL MPV (9.5-12.2) fL Neutrophils # (1.80-7.70) 10*3/uL Eosinophils # (0.04-0.35) 10*3/uL Sodium (137-145) mmol/L Chloride (98-107) mmol/L Carbon Dioxide (22-30) mmol/L BUN (9-20) mg/dL Glucose (74-99) mg/dL POC Glucose (mg/dL) 280 H 232 H 276 H (70-110) mg/dL ALT (4-49) U/L 02/19/25 02/19/25 Range/Units 06:32 06:32 WBC 10.39 H (4.50-10.00) 10*3/uL RBC 4.30 L (4.40-5.60) 10*6/uL Hgb 12.3 L (13.0-17.0) g/dL Hct 39.2 L (39.6-50.0) % MCHC 31.4 L (32.0-37.0) g/dL MPV 9.0 L (9.5-12.2) fL Neutrophils # 8.73 H (1.80-7.70) 10*3/uL Eosinophils # 0.00 L (0.04-0.35) 10*3/uL Sodium 132 L (137-145) mmol/L Chloride 90 L (98-107) mmol/L Carbon Dioxide 37 H (22-30) mmol/L BUN 22 H (9-20) mg/dL Glucose 279 H (74-99) mg/dL POC Glucose (mg/dL) (70-110) mg/dL ALT 64 H (4-49) U/L
[2025-02-19 16:34] LABS: Glucose,Whole Blood 259 mg/dL (70-110)
[2025-02-19 19:46] LABS: Glucose,Whole Blood 214 mg/dL (70-110)
[2025-02-20 05:54] LABS: Glucose,Whole Blood 227 mg/dL (70-110)
[2025-02-20 07:45] VITALS: RESP 18
[2025-02-20 11:35] LABS: Glucose,Whole Blood 190 mg/dL (70-110)
[2025-02-20 12:25] VITALS: PULSE 94
[2025-02-20 12:26] VITALS: BP 149/62; TEMP 97.9
[2025-02-20 14:21] VITALS: BMI 45.6
--- NOTE | 2025-02-20 14:53 | P.PN ---
Subjective Progress Note Date: 02/20/25 64-year-old male seen today in room 359. The patient came into the emergency room, complaining of shortness of breath, cough, and phlegm production. The patient has been in the hospital now twice, in less than a month. He was here on January 28 for a few days, and then again on February 13. Currently, he uses oxygen at home, 3 L. Apparently after his last discharge, he was not taking the prednisone that he was discharged with. Currently, he is on 5 L nasal cannula. He is not receiving any IV fluids. He did not use the BiPAP device last night. The patient was placed on azithromycin and Rocephin in the emergency department. A procalcitonin level was pending. We did add Symbicort to his regimen. He is feeling a bit better. He is eating breakfast. He is awake and alert. He is sitting up in bed. White count is 8.2, hemoglobin 12.2, hematocrit 39.2, and platelet count was 188,000. Sodium 134, potassium 4.8, chlorides 96, CO2 33, BUN 18, and creatinine 0.74. Glucose is 216. Troponin was negative x 2. N- terminal proBNP was normal at 238. CT angiogram was negative for pulmonary em bolism. It did show some bilateral airspace consolidations, consistent with multilobar pneumonia. Chest x-ray showed small left-sided pleural effusion. Progress note dated February 19, 2025. 64-year-old male seen in consultation yesterday. He presented to the emergency department with complaints of shortness of breath, cough, and phlegm production. The patient was in the hospital, in December, and in January, for similar episodes of shortness of breath. Apparently on his last admission, the patient was discharged on prednisone, with a taper, but for some reason he did not take it. He is seen today in room 359. He is on 3 L of oxygen. He is not receiving any IV fluids. The BiPAP device is in his room, but he did not use it last night. Current labs showed a white count of 10.4, hemoglobin 12.3, hematocrit 39.2, and a platelet count of 230,000. Sodium 132, potassium 4.9, chlorides 90, CO2 37, anion gap 5, BUN 22, with a creatinine 0.73. Glucose is 279. Calcium 9.4, and albumin is 3.6. Abdominal x-ray shows a nonobstructive bowel gas pattern. Dopplers of the lower extremities, somewhat limited, but showed no evidence of DVT. A CT of the abdomen and pelvis shows no evidence of bowel obstruction, or anything significant for that matter. 02/20/2025, the patient is sitting up in a chair and is calm and comfortable. The patient is on 3 L of oxygen by nasal cannula. He has home O2. He is feeling better. Less short of breath. Producing excellent urine output. He is maintained on Symbicort and DuoNeb neb regiment [id number]. He is also on IV Solu-Medrol 60 mg IV push every 6 hours. Remains on DuoNeb nebulizer treatments [id number]. The patient continues to have some lower extremity edema. Blood work from yesterday was noted. No new labs from today. Electrolytes are all stable. BUN is 22 with creatinine 0.7. The white count of 10.3 with a hemoglobin of 12.3. The CT of the chest that was done at time of admission showed no evidence of any pulmonary embolism. The patient has background of eczema and some bilateral lower lobe atelectatic makenna nges/infiltrates. No fever. No significant sputum production. Currently off antibiotics. Remains on Lovenox 40 mg SQ every 12 hours. Rest of the medications remain essentially unchanged. Objective - Vital Signs Vital signs: Vital Signs Temp 97.8 F 02/20/25 07:42 Pulse 88 02/20/25 08:51 Resp 18 02/20/25 08:00 BP 115/65 02/20/25 07:42 Pulse Ox 94 L 02/20/25 07:42 FiO2 50 02/18/25 08:25 Intake & Output 02/19/25 02/20/25 02/20/25 18:59 06:59 18:59 Intake Total 1816 280 20 Output Total 3175 4100 Balance -1359 -3820 20 Weight 124.5 kg Intake: IV 40 20 Invasive Line 1 20 10 Invasive Line 2 20 10 Oral 1816 240 Output: Urine 3175 4100 Other: Voiding Method Indwelling Catheter Indwelling Catheter Indwelling Catheter - Exam The patient appeared well nourished and normally developed. Vital signs as d ocumented. The patient is morbidly obese with a BMI of 45.7 and the patient is currently on liters of oxygen by nasal cannula Head exam is unremarkable. No scleral icterus or corneal arcus noted. Neck is without jugular venous distension, thyromegaly, or carotid bruits. Carotid upstrokes are brisk bilaterally. Lungs are diminished bilaterally along with some bibasilar atelectatic rales and scattered expiratory wheezes bilaterally Cardiac exam reveals the PMI to be normally sized and situated. Rhythm is regular. First and second heart sounds normal. No murmurs, rubs or gallops. Abdominal exam reveals normal bowel sounds, no masses, no organomegaly and no aortic enlargement. Extremities are showing +1 pitting edema and both femoral and pedal pulses are normal. Examination of the skin revealed no evidence of significant rashes, suspicious appearing nevi or other concerning lesions. Neurologically, the patient is awake and alert and the patient does not have any focal neurological deficit. Cranial nerves are essentially intact. - Labs CBC & Chem 7: 02/19/25 06:32 02/19/25 06:32 Labs: Abnormal Lab Results - Last 24 Hours (Table) 02/19/25 02/19/25 02/19/25 Range/Units 06:32 11:33 16:33 POC Glucose (mg/dL) 256 H 259 H (70-110) mg/dL Hemoglobin A1c 11.7 H (<=6.0) % 02/19/25 02/20/25 Range/Units 19:45 05:52 POC Glucose (mg/dL) 214 H 227 H (70-110) mg/dL Hemoglobin A1c (<=6.0) % Microbiology - Last 24 Hours (Table) 02/18/25 01:08 Blood Culture - Preliminary Blood Assessment and Plan Plan: Acute hypoxemic respiratory failure, secondary to COPD exacerbation, with possible basilar pneumonia. The patient's CT of the chest shows some limited bibasilar atelectasis/infiltrate and the patient is treated accordingly and the patient is currently on oxygen and back to baseline at 3 L/min nasal cannula. Recent admissions to the hospital, January 28, and February 13, for COPD ex acerbations. Advanced oxygen dependent COPD, with a FEV1 that 60% of predicted. Previous history of heavy tobacco use. Diabetes mellitus, type II. History of benign essential hypertension. Hyperlipidemia. Gastroesophageal reflux disease. Diabetic neuropathy. Obesity, with a BMI, 48.3 kg/m. Plan: Continue DuoNeb neb treatments [id number] Symbicort as maintenance Prednisone burst taper at time of discharge Oxygenation is stable and the patient is back to 3 L of O2 nasal cannula Patient has obstructive sleep apnea and he has a CPAP machine at home which she has not utilized. This needs to be revisited on outpatient basis Continue home medications Volume status is stable although the patient continues to have some limited edema lower extremities bilaterally Patient is a former smoker Will continue to follow.
--- NOTE | 2025-02-23 12:24 | P.DS ---
Providers Date of admission: 02/18/25 04:40 Expected date of discharge: 02/20/25 Attending physician: Gale Benoit Consults: 02/18/25 04:36 Consult Physician Routine Consulting Provider: Alli Saba Consult Reason/Comments: COPD Do you want consulting provider notified?: Yes, Notify in am 02/18/25 08:31 Consult Physician Routine Consulting Provider: Charles Thompson Consult Reason/Comments: Urinary retention >1200c Do you want consulting provider notified?: Yes Primary care physician: Stated None Hospital Course: Final diagnosis Acute on chronic hypoxic respiratory failure Acute COPD exacerbation Bacterial pneumonia ruled out Constipation, improved and recommend bowel regimen Urine retention requiring indwelling Bloom catheter and will follow-up with urology in 1 week for trial void outpatient Hypertension Diabetes mellitus Gastroesophageal reflux disease Diabetic neuropathy Morbid obesity with a BMI of 46.3 kg/m GI prophylaxis DVT prophylaxis Full code Discharge disposition Patient is being discharged in a stable condition with guarded prognosis to home. Patient will follow-up with Dr. Robert Eldridge in the outpatient setting upon discharge. Patient is to continue with current medications and outpatient follow-up with pulmonary as scheduled. Total time taken is greater than 35 minutes. Hospital course patient is 54-year-old gentleman with past medical history significant for COPD, chronic respiratory failure on 2 L of oxygen presented the ER because of worsening shortness of breath. Patient stated that he was all right 1 day back when he started noticing that his breathing was getting worse. Patient had to bump his oxygen to 3 L but still felt short of breath. There was no complaint of chest pain. Patient any fever or chills. Patient was complaining of cough. Patient denies any nausea, vomiting abdominal pain. Patient recently admitted the hospital for similar complaints. Because of his worsening shortness of breath, patient came to the ER Initial lab work done in the ER showed WBC of 8.18, hemoglobin 12.2, platelet count 188, D-dimer 1.3, sodium 134, potassium 4.8, BUN 18, creatinine 0.74 glucose 216, AST 46, ALT 75, troponin 0.012, protein 6.1 EKG done in the ER showed heart rate of 92, no ST segment elevation or depression seen, no T-wave inversions seen. CT chest PE protocol done showed no PE, showed bilateral airspace consolidations preferentially involving the lung bases consistent with multilobar pneumonia Patient admitted to internal medicine service 02/19. Patient seen and examined. Labs reviewed showed WBC 10.39, hemoglobin 12.3, sodium 132, potassium 4.9, BUN 22, creatinine 0.73. Patient was complaining of abdominal pain yesterday, CT abdomen pelvis done showed no acute abnormality in the abdominal pelvis, showed constipation. Still complaining of constipation. 02/20/2025 Patient is seen in follow-up today reports to feeling much improved. Patient is having bowel movements and tolerating diet. Patient has been cleared by pulmonary recommending close outpatient follow-up and has also been instructed to follow-up with primary care provider this week. It was confirmed that patient does in fact see Dr. Robert Eldridge and was instructed to follow-up with him. Patient really wants to go home and family is at bedside to help take the patient home. Please refer to other consultation notes for further HPI. PHYSICAL EXAMINATION: GENERAL: The patient is alert and oriented x3, not in any acute distress. Ill looking HEENT: Pupils are round and equally reacting to light. EOMI. No scleral icterus. No conjunctival pallor. Normocephalic, atraumatic. No pharyngeal erythema. No thyromegaly. CARDIOVASCULAR: S1 and S2 present. No murmurs, rubs, or gallops. PULMONARY: Diminished breath sounds bilaterally with coarse scattered rhonchi noted ABDOMEN: Morbidly obese, soft distended, nontender normoactive bowel sounds. No palpable organomegaly. MUSCULOSKELETAL: No joint swelling or deformity. EXTREMITIES: No cyanosis, clubbing, or pedal edema. NEUROLOGICAL: Gross neurological examination did not reveal any focal deficits. SKIN: No rashes. Please refer to medication reconciliation sheet for a list of medications. The impression and plan of care has been dictated by Hina Salazar, Nurse Practitioner as directed. Dr. Latoya MD I have performed a history and examination and MDM of this patient, discussed the same with the dictator, and agree with the dictator's assessment and plan as written ,documented as a scribe. Based on total visit time, I have performed more than 50% of the visit. Patient Condition at Discharge: Stable Plan - Discharge Summary Discharge Rx Participant: No New Discharge Prescriptions: New Tamsulosin [Flomax] 0.4 mg PO PC-BRKFST #30 cap polyethylene glycoL 3350 [Miralax] 17 gm PO BID #60 packet Acetaminophen Tab [Tylenol] 650 mg PO Q6HR PRN tab PRN Reason: Mild Pain Or Fever > 100.5 guaiFENesin [Mucinex] 600 mg PO Q12HR 10 Days #20 tab Nystatin 100,000 Unit/gm Powd [Mycostatin Powder] 1 applic TOPICAL BID #1 each Continue Metoprolol Succinate [Toprol XL] 25 mg PO BID Gabapentin [Neurontin] 300 mg PO TID metFORMIN HCL [Glucophage] 850 mg PO TID Aspirin 81 mg PO DAILY Losartan Potassium [Cozaar] 50 mg PO DAILY Atorvastatin [Lipitor] 40 mg PO HS buPROPion XL [Wellbutrin XL] 300 mg PO DAILY Omeprazole [PriLOSEC] 20 mg PO HS Pioglitazone [Actos] 15 mg PO DAILY Insulin Lispro [humaLOG Kwikpen] 22 unit SQ TID-W/MEALS Ipratropium-Albuterol Nebulize [Duoneb 0.5 mg-3 mg/3 ml Soln] 3 ml INHALATION RT-BID Ipratropium-Albuterol Nebulize [Duoneb 0.5 mg-3 mg/3 ml Soln] 3 ml INHALATION RT-BID PRN PRN Reason: Shortness Of Breath Ezetimibe [Zetia] 10 mg PO DAILY HYDROcodone/APAP 5-325MG [What Cheer 5-325] 1 tab PO Q6HR PRN PRN Reason: Pain Budesonide-Formot 160-4.5 Mcg [Symbicort 160-4.5 Mcg Inhaler] 2 puff INHALATION RT-BID 30 Days #1 each Mupirocin Calcium 2% Cream [Bactroban 2% Cream] 1 applic TOPICAL TID #15 gm predniSONE See Taper PO DIRECTED Melatonin 10 mg PO HS ARIPiprazole [Abilify] 5 mg PO DAILY Celecoxib [CeleBREX] 200 mg PO BID PRN PRN Reason: Pain Cholecalciferol [Vitamin D3 (125 Mcg = 5000 Iu)] 125 mcg PO DAILY Fluticasone Propion/Salmeterol [Wixela 250-50 Inhub] 1 puff INHALATION RT- DAILY Albuterol Inhaler [Ventolin Hfa Inhaler] 2 puff INHALATION RT-QID PRN PRN Reason: Shortness Of Breath Mirtazapine [Remeron] 45 mg PO HS Insulin Degludec [Tresiba Flextouch U-200 Pen] 70 units SQ DAILY Semaglutide [Ozempic] 2 mg SQ DIRECTED Folic Acid 1 mg PO DAILY tab Thiamine [Vitamin B-1] 100 mg PO DAILY tab Multivitamins, Thera [Multivitamin (formulary)] 1 tab PO DAILY Discharge Medication List Aspirin 81 mg PO DAILY 07/11/14 [History] Gabapentin [Neurontin] 300 mg PO TID 07/11/14 [History] Losartan Potassium [Cozaar] 50 mg PO DAILY 07/11/14 [History] Metoprolol Succinate [Toprol XL] 25 mg PO BID 07/11/14 [History] metFORMIN HCL [Glucophage] 850 mg PO TID 07/11/14 [History] Atorvastatin [Lipitor] 40 mg PO HS 07/05/15 [History] buPROPion XL [Wellbutrin XL] 300 mg PO DAILY 12/06/16 [History] ARIPiprazole [Abilify] 5 mg PO DAILY 12/23/23 [History] Melatonin 10 mg PO HS 12/23/23 [History] Omeprazole [PriLOSEC] 20 mg PO HS 12/23/23 [History] Celecoxib [CeleBREX] 200 mg PO BID PRN 03/12/24 [History] Cholecalciferol [Vitamin D3 (125 Mcg = 5000 Iu)] 125 mcg PO DAILY 08/23/24 [History] Insulin Lispro [humaLOG Kwikpen] 22 unit SQ TID-W/MEALS 08/23/24 [History] Pioglitazone [Actos] 15 mg PO DAILY 08/23/24 [History] Albuterol Inhaler [Ventolin Hfa Inhaler] 2 puff INHALATION RT-QID PRN 01/27/25 [History] Ezetimibe [Zetia] 10 mg PO DAILY 01/27/25 [History] Fluticasone Propion/Salmeterol [Wixela 250-50 Inhub] 1 puff INHALATION RT-DAILY 01/27/25 [History] Insulin Degludec [Tresiba Flextouch U-200 Pen] 70 units SQ DAILY 01/27/25 [History] Ipratropium-Albuterol Nebulize [Duoneb 0.5 mg-3 mg/3 ml Soln] 3 ml INHALATION RT-BID 01/27/25 [History] Ipratropium-Albuterol Nebulize [Duoneb 0.5 mg-3 mg/3 ml Soln] 3 ml INHALATION RT-BID PRN 01/27/25 [History] Mirtazapine [Remeron] 45 mg PO HS 01/27/25 [History] Semaglutide [Ozempic] 2 mg SQ DIRECTED 01/27/25 [History] HYDROcodone/APAP 5-325MG [What Cheer 5-325] 1 tab PO Q6HR PRN 02/13/25 [History] Budesonide-Formot 160-4.5 Mcg [Symbicort 160-4.5 Mcg Inhaler] 2 puff INHALATION RT-BID 30 Days #1 each 02/14/25 [Rx] Folic Acid 1 mg PO DAILY tab 02/14/25 [Rx] Mupirocin Calcium 2% Cream [Bactroban 2% Cream] 1 applic TOPICAL TID #15 gm 02/14/25 [Rx] Thiamine [Vitamin B-1] 100 mg PO DAILY tab 02/14/25 [Rx] Multivitamins, Thera [Multivitamin (formulary)] 1 tab PO DAILY 02/18/25 [History] predniSONE See Taper PO DIRECTED 02/18/25 [History] Acetaminophen Tab [Tylenol] 650 mg PO Q6HR PRN tab 02/20/25 [Rx] Nystatin 100,000 Unit/gm Powd [Mycostatin Powder] 1 applic TOPICAL BID #1 each 02/20/25 [Rx] Tamsulosin [Flomax] 0.4 mg PO PC-BRKFST #30 cap 02/20/25 [Rx] guaiFENesin [Mucinex] 600 mg PO Q12HR 10 Days #20 tab 02/20/25 [Rx] polyethylene glycoL 3350 [Miralax] 17 gm PO BID #60 packet 02/20/25 [Rx] Follow up Appointment(s)/Referral(s): Robert Eldridge DO [STAFF PHYSICIAN] - 1-2 Days [facility], [NON-STAFF] - As Needed Marin Mondragon MD [STAFF PHYSICIAN] - 1 Week Zana Doran MD [STAFF PHYSICIAN] - 1 Week Patient Instructions/Handouts: Bloom Catheter Placement and Care (DC), COPD (Chronic Obstructive Pulmonary Disease) (DC) Activity/Diet/Wound Care/Special Instructions: Activity limited until follow-up Follow-up with primary care provider this week Follow-up with pulmonary outpatient Continue prednisone taper that was not started yet Continue with inhalers and nebulized treatments Continue with indwelling Bloom catheter along with Flomax and follow-up with urology outpatient Discharge Disposition: HOME WITH HOME HEALTH SERVICES
== END 2025-02-20 15:14 | disposition home health service (06) | DRG 193 ==
LOC: EC 00:46 → 3SCARD 04:40
PROVIDERS: ADMIT Hospitalist; ATTEND Hospitalist
PROC: 5A09357 Assistance with Respiratory Ventilation, Less than 24 Consecutive Hours, Continuous Positive Airway Pressure (ICD-10-PCS; principal; 2025-02-18)
DX: J15.9 Unspecified bacterial pneumonia (principal); J96.21 Acute and chronic respiratory failure with hypoxia; J44.1 Chronic obstructive pulmonary disease with (acute) exacerbation; E11.65 Type 2 diabetes mellitus with hyperglycemia; E66.01 Morbid (severe) obesity due to excess calories; I10 Essential (primary) hypertension; J44.0 Chronic obstructive pulmonary disease with (acute) lower respiratory infection; Z68.42 Body mass index [BMI] 45.0-49.9, adult; E11.21 Type 2 diabetes mellitus with diabetic nephropathy; E11.43 Type 2 diabetes mellitus with diabetic autonomic (poly)neuropathy; E11.42 Type 2 diabetes mellitus with diabetic polyneuropathy; Z79.4 Long term (current) use of insulin; Z99.81 Dependence on supplemental oxygen; K59.00 Constipation, unspecified; R33.8 Other retention of urine; N40.1 Benign prostatic hyperplasia with lower urinary tract symptoms; E78.5 Hyperlipidemia, unspecified; K31.84 Gastroparesis; K21.9 Gastro-esophageal reflux disease without esophagitis; T38.0X6A Underdosing of glucocorticoids and synthetic analogues, initial encounter; Z91.148 Patient's other noncompliance with medication regimen for other reason; Z79.84 Long term (current) use of oral hypoglycemic drugs; Z79.82 Long term (current) use of aspirin; Z79.51 Long term (current) use of inhaled steroids; Z79.1 Long term (current) use of non-steroidal anti-inflammatories (NSAID); Z79.85 Long-term (current) use of injectable non-insulin antidiabetic drugs; Z87.891 Personal history of nicotine dependence; Z79.899 Other long term (current) drug therapy
CPT/HCPCS: 36415; 71045; 71275; 74018; 74176; 80053; 83036; 83735; 83880; 84145; 84484; 85025; 85379; 85610; 85730; 87040; 87636; 93005; 93970; 94640; 94660; 94760; 96365; 96366; 96367; 99285

== ENCOUNTER → 2025-03-23 | Outpatient (CLI) | payer MEDICARE ==
[2025-03-23 15:50] LABS: NT-Pro-B-Type Natriuretic Pept 89 pg/mL (0-125)
[2025-03-23 15:56] LABS: ALT 48 U/L (10-49); AST 38 U/L (14-35); Albumin 4.2 g/dL (3.8-4.9); Albumin/Globulin Ratio 1.91 Ratio (1.60-3.17); Alkaline Phosphatase 73 U/L (41-126); BUN/Creat Ratio 13.75 Ratio (12.00-20.00); Calcium 9.7 mg/dL (8.7-10.3); Carbon Dioxide 28.8 mmol/L (21.6-31.8); Chloride 95 mmol/L (96-109); Globulin 2.2 g/dL (1.6-3.3); Glucose 192 mg/dL (70-110); Potassium 5.3 mmol/L (3.5-5.5); Sodium 136 mmol/L (135-145); Total Bilirubin 0.3 mg/dL (0.3-1.2); Total Protein 6.4 g/dL (6.2-8.2)
== END | disposition home or self-care (01) ==
LOC: LABWHC1 09:03
PROVIDERS: ATTEND Internal Medicine Interventional Cardiology
DX: I42.8 Other cardiomyopathies (principal)
CPT/HCPCS: 36415; 80053; 83880

== ENCOUNTER → 2025-04-26 | Outpatient (CLI) | payer MEDICARE ==
[2025-04-26 16:02] VITALS: RESP 16; TEMP 98.1; BMI 46.2
[2025-04-26 16:28] VITALS: BP 122/71; PULSE 92
--- NOTE | 2025-04-26 16:52 | P.HPBAR ---
Bariatric H&P - History & Physicial H&P Date: 04/26/25 History & Physicial: Visit/CC: Initial Visit Patient initial contact: Initial weight: 126.099 kg Initial weight in pounds: 278.00 Height: 5 ft 5 in Initial BMI: 46.2 Last weight: Current weight: 126.099 kg Current weight in pounds: 278.00 Current BMI: 46.2 [place] body weight (based on NIH guidelines): 61.5 kg Excess body weight loss: 0.0% The patient is a 64 year-old M who presents for Bariatric Assessment. Hemoglobin A1c of 11 of 250 g/dL. NO blood work this month. Needs lab. EGD and Colonoscopy needed. Still has gallbladder. Need journal. Had stress test. Needs [employer]. Has supervisor [facility] and lung doctors. Needs safe surgery. Past Medical History Past Medical History: COPD, Diabetes Mellitus, Hypertension Additional Past Medical History / Comment(s): back pain, neuropathy, brain aneursym History of Any Multi-Drug Resistant Organisms: None Reported Past Surgical History: Heart Catheterization, Orthopedic Surgery Additional Past Surgical History / Comment(s): bilateral thumbs, Rt index finger surgery, left shoulder arthroscopy Past Anesthesia/Blood Transfusion Reactions: No Reported Reaction Past Psychological History: Anxiety, Depression Smoking Status: Former smoker Past Alcohol Use History: Occasional Additional Past Alcohol Use History / Comment(s): Pt states he is a social drinker. Past Drug Use History: None Reported - Past Family History Father Additional Family Medical History / Comment(s): from leukemia Mother Family Medical History: Dementia Surgical - Exam Vital Signs Temp Pulse Resp BP 98.1 F 87 16 99/66 04/26/25 15:59 04/26/25 15:59 04/26/25 15:59 04/26/25 15:59 Bariatric Checklist Checklist: Plan: Checklist: EGD: 1. Hiatal hernia: 2. H. Pylori: HgbA1c: Vitamin D: Smoking: Current every day smoker Primary care physician referral: [facility] Psychiatry clearance: Cardiology clearance: Sleep study: Diet journal: VTE risk score: VTE risk level: Rehab needs at discharge:
== END ==
LOC: BARWHC3 15:22
PROVIDERS: ATTEND Surgery Plastic and Reconstructive Surgery
DX: E66.01 Morbid (severe) obesity due to excess calories (principal); Z87.891 Personal history of nicotine dependence; Z68.42 Body mass index [BMI] 45.0-49.9, adult
CPT/HCPCS: 99202

== ENCOUNTER → 2025-05-29 | Outpatient (CLI) | payer MEDICARE ==
[2025-05-29 10:20] LABS: Anion Gap 12.20 mmol/L (4.00-12.00); BUN/Creat Ratio 23.75 Ratio (12.00-20.00); Blood Urea Nitrogen 19.0 mg/dL (9.0-27.0); Carbon Dioxide 28.8 mmol/L (21.6-31.8); Chloride 98 mmol/L (96-109); Cholesterol 97.00 mg/dL (0.00-200.00); Glucose 176 mg/dL (70-110); HDL Cholesterol 26.80 mg/dL (40.00-60.00); LDL Cholesterol,Calculated 38.8 mg/dL (0.0-131.0); Potassium 4.7 mmol/L (3.5-5.5); Sodium 139 mmol/L (135-145); Triglycerides 157.00 mg/dL (0.00-149.00); VLDL Calculation 31.40 mg/dL (5.00-40.00)
[2025-05-29 10:21] LABS: ALT 37 U/L (10-49); AST 28 U/L (14-35); Albumin 4.2 g/dL (3.8-4.9); Albumin/Globulin Ratio 2.00 Ratio (1.60-3.17); Alkaline Phosphatase 87 U/L (41-126); Calcium 9.2 mg/dL (8.7-10.3); Globulin 2.1 g/dL (1.6-3.3); Total Protein 6.3 g/dL (6.2-8.2)
== END | disposition home or self-care (01) ==
LOC: LABWHC1 07:08
PROVIDERS: ATTEND Nurse Practitioner Adult Health
DX: I10 Essential (primary) hypertension (principal); E78.2 Mixed hyperlipidemia
CPT/HCPCS: 36415; 80053; 80061